=== PATIENT | female | born 1950 | race Caucasian/White ===

== ENCOUNTER 2017-08-18 08:52 | Day surgery (SDC) | payer OTHER ==
--- NOTE | 2017-08-17 12:16 | RADIOLOGY REPORT (SQ) ---
EXAM DESCRIPTION: CHEST PA/LATERAL COMPLETED DATE/TIME: 08/17/2017 12:06 pm REASON FOR STUDY: PRE-OP COMPARISON: 12/11/2016 EXAM PARAMETERS: NUMBER OF VIEWS: two views TECHNIQUE: Digital Frontal and Lateral radiographic views of the chest acquired. RADIATION DOSE: NA LIMITATIONS: none FINDINGS: LUNGS AND PLEURA: The lungs are hyperexpanded. There is no infiltrate or effusion. There is no mass. MEDIASTINUM AND HILAR STRUCTURES: No masses or contour abnormalities. HEART AND VASCULAR STRUCTURES: Heart normal size. No evidence for failure. BONES: Kyphoplasty changes in the lower thoracic spine. HARDWARE: None in the chest. OTHER: No other significant finding. IMPRESSION: Chronic lung changes with no acute cardiopulmonary disease. TECHNICAL DOCUMENTATION: JOB ID: [id number] [employer]- All Rights Reserved Reading location - IP/workstation name: [email or web address]
[2017-08-17 12:32] LABS: ABSOLUTE BASOPHILS # (AUTO) 0.1 10^3/uL (0.0-0.2); ABSOLUTE EOSINOPHILS # (AUTO) 0.1 10^3/uL (0.0-0.6); ABSOLUTE LYMPHOCYTES (AUTO) 1.6 10^3/uL (0.5-4.7); ABSOLUTE MONOCYTES (AUTO) 0.9 10^3/uL (0.1-1.4); ABSOLUTE NEUT (AUTO) 5.9 10^3/uL (1.7-8.2); BASOPHILS % (AUTO) 0.9 % (0-2); EOSINOPHILS % (AUTO) 1.3 % (0-6); HEMATOCRIT 36.1 % (36.0-47.0); HEMOGLOBIN 11.7 g/dL (12.0-15.5); LYMPHOCYTES % (AUTO) 18.2 % (13-45); MEAN CORPUSCULAR HEMOGLOBIN 25.6 pg (27.0-33.4); MEAN CORPUSCULAR HGB CONC 32.4 g/dL (32.0-36.0); MEAN CORPUSCULAR VOLUME 79 fl (80-97); MONOCYTES % (AUTO) 10.9 % (3-13); PLATELET COUNT 410 10^3/uL (150-450); RED BLOOD COUNT 4.57 10^6/uL (3.72-5.28); RED CELL DISTRIBUTION WIDTH 21.8 % (11.5-14.0); SEGMENTED NEUTROPHILS % (AUTO) 68.7 % (42-78); TOTAL CELLS COUNTED % (AUTO) 100 %; WHITE BLOOD COUNT 8.6 10^3/uL (4.0-10.5)
[2017-08-17 12:55] LABS: ANION GAP 10 (5-19); BLOOD UREA NITROGEN 17 mg/dL (7-20); CALCIUM 9.4 mg/dL (8.4-10.2); CARBON DIOXIDE 30 mmol/L (22-30); CHLORIDE 101 mmol/L (98-107); GLUCOSE 108 mg/dL (75-110); POTASSIUM 5.1 mmol/L (3.6-5.0); SODIUM 140.5 mmol/L (137-145)
--- NOTE | 2017-08-17 13:02 | EKG REPORT ---
SEVERITY:- NORMAL ECG - SINUS RHYTHM : Confirmed by: Janna Lozano 17-Aug-2017 13:01:16
[~2017-08-18 08:52] MED LIST: CEFAZOLIN SODIUM 2 GM in DEXTROSE 5%-WATER 100 ML IV PRN; LACTATED RINGERS 1000 ML IV PRN; LIDOCAINE 0.5% INJ-PF (5 MG/ML) 50 ML SDV SUBCUT PRN
[2017-08-18] MEDS ORDERED: BUPIVACAINE HCL 0.5 % INJ/PF 30 ML SDV ONE (08:55)
[2017-08-18 09:31] LABS: APPEARANCE,URINE CLEAR; BILIRUBIN,URINE NEGATIVE (NEGATIVE); COLOR,URINE YELLOW; GLUCOSE, URINE NEGATIVE (NEGATIVE); KETONES,URINE TRACE mg/dL (NEGATIVE); LEUKOCYTE ESTERASE,URINE NEGATIVE (NEGATIVE); NITRITE,URINE NEGATIVE (NEGATIVE); PROTEIN,URINE NEGATIVE (NEGATIVE); URINE SPECIFIC GRAVITY 1.021; UROBILINOGEN,URINE NEGATIVE mg/dL (<2.0)
[2017-08-18] MEDS ORDERED: ALBUTEROL SULFATE 0.083% NEB 2.5 MG/3 ML AMPUL NEB ONE (09:45)
[2017-08-18] MEDS ORDERED: MIDAZOLAM 2 MG/2 ML INJ ONE ×2 (10:03→11:18)
[2017-08-18] MEDS ORDERED: FENTANYL CITRATE INJ/PF 100 MCG/2 ML AMPUL ONE (11:18)
[2017-08-18] MEDS ORDERED: DEXAMETHASONE SOD PHOSPHATE INJ 4 MG/1 ML VIAL ONE (11:18)
[2017-08-18] MEDS ORDERED: MORPHINE SULFATE 10 MG/ML INJ ONE (11:19)
[2017-08-18] MEDS ORDERED: PROPOFOL INJ 200 MG/20 ML VIAL IV ONE (11:19)
[2017-08-18] MEDS ORDERED: ONDANSETRON HCL INJ/PF 4 MG/2 ML SDV ONE (11:19)
[2017-08-18] MEDS ORDERED: MEPERIDINE HCL/PF INJ 25 MG/1 ML DISP.SYRIN IV PRN (12:16)
[2017-08-18] MEDS ORDERED: PROMETHAZINE HCL INJ 25 MG/1 ML VIAL IV PRN ×2 (12:16)
[2017-08-18] MEDS ORDERED: FENTANYL CITRATE INJ/PF 100 MCG/2 ML AMPUL IV PRN ×3 (12:16)
[2017-08-18] MEDS ORDERED: MORPHINE SULFATE 10 MG/ML INJ IV PRN (12:16)
[2017-08-18] MEDS ORDERED: DIPHENHYDRAMINE HCL 50 MG/ML VIAL IV PRN (12:16)
[2017-08-18] MEDS ORDERED: ONDANSETRON HCL INJ/PF 4 MG/2 ML SDV IV PRN (13:23)
[2017-08-18] MEDS ORDERED: OXYCODONE-ACETAMINOPHEN 5-325 MG TABLET PO PRN (13:23)
[2017-08-18] MEDS ORDERED: HYDROMORPHONE HCL INJ/PF 2 MG/ML AMPULE IV PRN (13:23)
--- NOTE | 2017-08-18 13:23 | Discharge Summary ---
Discharge Summary (SDC) - Discharge Final Diagnosis: Left thumb CMC arthritis, MCP joint arthritis Date of Surgery: 08/18/17 Discharge Date: 08/18/17 Condition: Good Treatment or Instructions: Schedule Follow Up w/ Dr. Mika Og @ [facility] to be seen in 10-14 days or as scheduled [place] [facility]: [place]: [place]: Ice and elevate Keep splint clean/dry/intact. If your fingers become numb please unwrap the Kali wrap but leave the splint in place, if the sensation does not return within 30 minutes please return to the emergency department. May begin finger range of motion attempting to make full fist. Please use ibuprofen (Motrin or Advil) 600-800 mg every 8 hours as needed for pain or fever DO NOT TAKE w/ TORADOL may use once TORADOL complete. You may also use acetaminophen (Tylenol) 1000 mg every 4-6 hours as needed for pain or fever. Please be aware that many medications contain acetaminophen, do not exceed a total of 1000 mg of acetaminophen every 6 hours. If ibuprofen and acetaminophen are not sufficient for your pain you may take the Percocet/Potosi. Please be aware that the Percocet/Potosi does contain Tylenol. Stool softener of choice when on pain medication. Prescriptions: Ketorolac Tromethamine [Toradol 10 mg Tablet] 10 mg PO Q8HP PRN #10 tablet PRN Reason: Oxycodone HCl [Oxycontin Sr 10 mg Tablet] 10 mg PO BID PRN #10 tab.sr.12h PRN Reason: Oxycodone HCl/Acetaminophen [Percocet 7.5-325 mg Tablet] 1 - 2 tab PO ASDIR PRN #30 tab PRN Reason: Referrals: RHIANNA FRIEND MD [Primary Care Provider] - Discharge Diet: As Tolerated Respiratory Treatments at Home: Deep Breathing/Coughing, Incentive Spirometer Discharge Activity: No Lifting Over 10 Pounds, No Lifting/Push/Pulling Report the Following to Your Physician Immediately: Fever over 101 Degrees, Unusual Bleeding, Redness, Swelling, Warmth, Increased Soreness
[2017-08-18] MEDS ORDERED: ACETAMINOPHEN 100 ML IV ONE (13:33)
--- NOTE | 2017-08-18 13:37 | Operative Report ---
Operative Report DATE OF SURGERY: 08/18/17 PREOPERATIVE DIAGNOSIS: Left thumb CMC arthritis, MCP joint arthritis/laxity POSTOPERATIVE DIAGNOSIS: Same OPERATION: Left thumb CMC arthroplasty with FCR interposition. 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 ANESTHESIA: GA COMPLICATIONS: None ESTIMATED BLOOD LOSS: Minimal PROCEDURE: Indication for above procedure: 67-year-old female with history of CMC arthritis and concomitant MCP joint laxity and arthritis. Patient attempted conservative measures without resolution of patient's symptoms. Decision was then made to proceed with operative intervention which included CMC arthroplasty with MCP joint arthrodesis. Risks and benefits were explained to the patient verbalized understanding and consented for the procedure. Procedure In Detail: Patient was seen and evaluated in the preoperative holding area. The LEFT upper extremity was initialized and marked. Patient received 2g of Ancef IV for bacterial prophylaxis. Patient was taken back to the operative room where transferred to the operative table and placed under general anesthesia. Once they were adequately anesthetized and a nonsterile tourniquet was placed on the upper extremity. A surgical team debriefing was performed ensuring all instrumentation was available, the surgical procedure was discussed with possible concerns reviewed. The upper extremity was prepped with chlorhexidine and alcohol and draped in a sterile fashion. A timeout was done identifying correct patient, procedure and extremity everyone in attendance agree with this and verbalized no concerns. The extremity was exsanguinated the tourniquet was inflated to 200 mmHg. A longitudinal skin incision was made in line with the first dorsal compartment. I then meticulously dissected down to the interval of the APL and EPB identifying the superficial radial nerve branches which were retracted. I then identified the radial artery which was protected throughout the entirety of the case with a [place] elevator. A T-shaped capsulotomy was made at the CMC joint of the thumb. A freer elevator was used to nicole out the CMC joint, fluoroscopy confirmed the thumb cmc joint placement. The capsule was released off of the trapezium circumferentially. The FCR insertion volarly was protected. Using a rongeur the trapezium was excised as one unit. I then removed any residual loose bodies and bone fragments. I then inspected the STT joint. There was no advanced degenerative changes of the STT joint. I then turned my attention to harvesting the FCR tendon. The FCR was identified and 2 transverse incisions were made. The entire FCR tendon was harvested. The tendon was then retrieved from the CMC joint of the thumb. The base of the thumb metacarpal was rongeured to allow for cancellous tendon healing. I tenolysed the FCR up to its insertion at the second metacarpal. Using a rongeur the 1st metacarpal base osteophytes were removed. Bone tunnels were created with the use of #1 PDS suture in a horizontal mattress fashion while my surgical services assistant held distraction at the thumb CMC joint. Once this was complete excellent stability of the CMC joint was achieved without evidence of subsidence. I fixated the remaining FCR tendon to the FCR tendon that remained attached the to second metacarpal with 3-0 Vicryl forming an anchovy. Fluoroscopy was then obtained which demonstrated good stability of the CMC arthroplasty without evidence of subsidence at rest or with stress. The wound was then copiously irrigated with normal saline. Any peripheral vasculature is carefully coagulated with bipolar cautery The capsule was closed with interrupted 3-0 vicryl. Superficial radial nerve was once again inspected and protected during skin closure. Then turned my attention to MCP joint arthrodesis. Skin incision was extended over the MCP joint. Once again branches of the superficial radial nerve were identified and retracted. The extensor mechanisms was was then split to expose the joint. The collateral ligaments were released and measured a size 12 reamer. A K wire was placed obliquely across the metacarpal head and the size 12 reamer was utilized to good cancellus bone. Distally the proximal phalanx was prepared once again with a size 12 reamer to good cancellus bleeding bone. I then placed a K wire obliquely across the MP joint maintaining 25 of flexion. C-arm fluoroscopy was obtained confirming adequate placement and arthrodesis angulation. The Acumed MCP joint arthrodesis plate was then secured with K wires and placement confirmed with C arm. The plate was initially secured distally with bicortical fixation. I then fixated the proximal aspect of the plate through the dynamic hole providing compression. Once compression was maintained the most proximal screw was placed. To provide further fixation of the MP arthroplasty a mini Acutrak screw was placed obliquely further providing compression. Any remaining gapping l radially or ulnarly wasfilled with cancellus bone from the trapeziectomy. C-arm fluoroscopy was obtained confirming adequate compression and alignment. The wound was copiously irrigated with normal saline. The extensor mechanism was reapproximated with 3-0 Vicryl suture. Skin was closed with a running 4-0 nylon horizontal mattress. The patient was placed in a thumb spica splint. Sponge counts, instrument counts and needle counts were correct. 20 mL of 0.5 marcaine was injected for postoperative pain control. Patient was extubated and transferred to the operative stretcher. There was no intraoperative complications patient tolerated procedure well with stable to PACU. Postoperative plan: Patient will continue the splint for 2 weeks. Patient will then be transitioned to a cast for an additional 2 weeks. They will then begin occupational therapy at 4 weeks and will be fitted for a thermoplastic splint at that time.
[2017-08-18] MEDS ORDERED: KETOROLAC TROMETHAMINE INJ/PF 30 MG/1 ML SDV ONE (14:08)
--- NOTE | 2017-08-18 14:21 | RADIOLOGY REPORT (SQ) ---
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 FLUOROSCOPY TIME: 25 seconds 2 digital radiographic images saved to PACS. TECHNIQUE: Intra-operative images acquired during surgical procedure to evaluate progress. NUMBER OF IMAGES: 2 C-arm digital images LIMITATIONS: None. FINDINGS: Post fusion across the left thumb, at the 1st metacarpophalangeal joint. Fixation plate a nd 5 screws are present IMPRESSION: Intra procedural imaging and fluoro COMMENT: Quality ID [id number]: Final reports for procedures using fluoroscopy that document radiation exp osure indices, or exposure time and number of fluorographic images (if radiation exposure indices are not available) Please consult full operative report of the attending physician for description of the procedure. TECHNICAL DOCUMENTATION: JOB ID: [id number] [employer]- All Rights Reserved Reading location - IP/workstation name: [facility]
--- NOTE | 2017-08-18 14:21 | RADIOLOGY REPORT (SQ) ---
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 FLUOROSCOPY TIME: 25 seconds 2 digital radiographic images saved to PACS. TECHNIQUE: Intra-operative images acquired during surgical procedure to evaluate progress. NUMBER OF IMAGES: 2 C-arm digital images LIMITATIONS: None. FINDINGS: Post fusion across the left thumb, at the 1st metacarpophalangeal joint. Fixation plate a nd 5 screws are present IMPRESSION: Intra procedural imaging and fluoro COMMENT: Quality ID [id number]: Final reports for procedures using fluoroscopy that document radiation exp osure indices, or exposure time and number of fluorographic images (if radiation exposure indices are not available) Please consult full operative report of the attending physician for description of the procedure. TECHNICAL DOCUMENTATION: JOB ID: [id number] [employer]- All Rights Reserved Reading location - IP/workstation name: [facility] [[email or web address]]
[2017-08-18 17:40] VITALS: BP 112/68
== END 2017-08-18 17:04 | disposition home or self-care (01) ==
LOC: OROUT 08:52
PROVIDERS: ATTEND Orthopaedic Surgery
DX: M18.0 Bilateral primary osteoarthritis of first carpometacarpal joints (principal); M25.242 Flail joint, left hand; M79.642 Pain in left hand; M79.641 Pain in right hand; J44.9 Chronic obstructive pulmonary disease, unspecified; F17.210 Nicotine dependence, cigarettes, uncomplicated; I48.91 Unspecified atrial fibrillation; Z99.81 Dependence on supplemental oxygen; Z79.01 Long term (current) use of anticoagulants; Z79.82 Long term (current) use of aspirin; Z79.51 Long term (current) use of inhaled steroids; Z01.818 Encounter for other preprocedural examination
CPT/HCPCS: 93005; 36415 ×2; 84132; 85025; 80048; 81001; 71046; 73100; 93010; 26841; 25447; 26480; C1769 ×2; J2250; J3490; J0690; J1100; J3010; J1885; J2405; J2704; A9270; J0131; 01830; J2270

== ENCOUNTER 2017-12-13 14:26 | Emergency (ER) | payer OTHER ==
[2017-12-13 16:52] LABS: INTERNATIONAL RATION (INR) 0.85; PROTHROMBIN TIME 12.1 SEC (11.4-15.4)
--- NOTE | 2017-12-13 17:07 | ER Document Report ---
ED Medical Screen (RME) - General Chief Complaint: Shortness Of Breath Stated Complaint: TROUBLE BREATHING/CHEST PAIN Time Seen by Provider: 12/13/17 16:21 TRAVEL OUTSIDE OF THE [place] IN LAST 30 DAYS: No - HPI Patient complains to provider of: Shortness of breath Onset: Other - This 67-year-old woman with a history of COPD as well as hypertension presents for evaluation of worsening shortness of breath over the last week in the setting of her feeling both anxious as well as increasing her smoking frequency because of the stress related to her being in the hospital. - Related Data Allergies/Adverse Reactions: No Known Allergies Allergy (Verified 12/13/17 16:05) Past Medical History - Social History Chew tobacco use (# tins/day): No Frequency of alcohol use: None Drug Abuse: None - Past Medical History Cardiac Medical History: Reports: Hx Coronary Artery Disease - PVD, Hx Peripheral Vascular Disease Denies: Hx Hypertension Pulmonary Medical History: Reports: Hx COPD, Hx Pneumonia Denies: Hx Asthma, Hx Bronchitis Neurological Medical History: Denies: Hx Cerebrovascular Accident, Hx Seizures Renal/ Medical History: Denies: Hx Peritoneal Dialysis Musculoskeltal Medical History: Reports Hx Arthritis Psychiatric Medical History: Comment Only: Hx Depression - anxiety Past Surgical History: Reports: Hx Adenoidectomy, Hx Carotid Endarterectomy, Hx Cholecystectomy, Hx Orthopedic Surgery - Back surgery, wrist surgery, neck surgery, Hx Tonsillectomy, Hx Vascular Surgery - Immunizations Hx Diphtheria, Pertussis, Tetanus Vaccination: Yes History of Influenza Vaccine for 01/2017 - 06/2017 Season: No Physical Exam - Vital signs Vitals: Temp Pulse Resp BP Pulse Ox 97.8 F 87 16 117/70 90 L 12/13/17 14:53 12/13/17 14:53 12/13/17 14:53 12/13/17 14:53 12/13/17 14:53 Course - Re-evaluation Re-evalutation: 12/13/17 17:17 This woman with COPD use a 67 years old looks fatigued, her pulse ox on room air is 90%, she has scattered wheezes throughout her chest she is worse when shortness of breath will initiate cardiac workup through triage, will plan for troponins, will plan for this patient undergo further monitoring and testing will obtain chest x-ray as well will defer treatment at this time she says she does not want a breathing treatment at the moment. - Vital Signs Vital signs: Temp Pulse Resp BP Pulse Ox 97.8 F 87 16 117/70 90 L 12/13/17 14:53 12/13/17 14:53 12/13/17 14:53 12/13/17 14:53 12/13/17 14:53 - Laboratory Result Diagrams: 12/13/17 14:00 12/13/17 14:00 Doctor's Discharge - Discharge Referrals: RHIANNA FRIEND MD [Primary Care Provider] - Follow up as needed
--- NOTE | 2017-12-13 17:23 | RADIOLOGY REPORT (SQ) ---
EXAM DESCRIPTION: CHEST 2 VIEWS COMPLETED DATE/TIME: 12/13/2017 5:07 pm REASON FOR STUDY: chest pain COMPARISON: 12/11/2016 TECHNIQUE: Frontal and lateral radiographic views of the chest acquired. NUMBER OF VIEWS: Two view. LIMITATIONS: None. FINDINGS: LUNGS AND PLEURA: No pneumothorax. No consolidation or pleural effusion. MEDIASTINUM AND HILAR STRUCTURES: Stable. HEART AND VASCULAR STRUCTURES: Stable. BONES: No acute findings. HARDWARE: None in the chest. OTHER: No other significant finding. IMPRESSION: NO ACUTE FINDINGS. TECHNICAL DOCUMENTATION: JOB ID: [id number] [place]-72 2010 [employer]- All Rights Reserved Reading location - IP/workstation name: [email or web address]
[2017-12-13 17:58] LABS: HEMATOCRIT 40.8 % (36.0-47.0); HEMOGLOBIN 13.4 g/dL (12.0-15.5); MEAN CORPUSCULAR HEMOGLOBIN 26.9 pg (27.0-33.4); MEAN CORPUSCULAR HGB CONC 32.9 g/dL (32.0-36.0); MEAN CORPUSCULAR VOLUME 82 fl (80-97); PLATELET COUNT 429 10^3/uL (150-450); RED BLOOD COUNT 4.98 10^6/uL (3.72-5.28); RED CELL DISTRIBUTION WIDTH 20.2 % (11.5-14.0); WHITE BLOOD COUNT 6.8 10^3/uL (4.0-10.5)
[2017-12-13] MEDS ORDERED: ALPRAZOLAM 0.5 MG TABLET PO ONE (18:03)
[2017-12-13] MEDS ORDERED: NORMAL SALINE 1000 ML 1,000 ML IV ONE (18:03)
[2017-12-13 18:21] LABS: ABSOLUTE LYMPHOCYTES# (MANUAL) 0.2 10^3/uL (0.5-4.7); ABSOLUTE MONOCYTES # (MANUAL) 0.1 10^3/uL (0.1-1.4); ABSOLUTE NEUTROPHILS# (MANUAL) 6.5 10^3/uL (1.7-8.2); BASOPHILS % (MANUAL) 0 % (0-2); EOSINOPHILS % (MANUAL) 0 % (0-6); LYMPHOCYTES % (MANUAL) 3 % (13-45); MONOCYTES % (MANUAL) 1 % (3-13); SEGMENTED NEUTROPHILS % (MAN) 96 % (42-78); TOTAL CELLS COUNTED 100
[2017-12-13 18:22] LABS: HYPOCHROMASIA SLIGHT; POLYCHROMASIA SLIGHT
[2017-12-13 18:23] LABS: ANISOCYTOSIS 2+; OVALOCYTES 2+; PLATELET COMMENT ADEQUATE; POIKILOCYTOSIS 2+
[2017-12-13 19:03] LABS: CREATINE KINASE MB 0.73 ng/mL (<4.55)
[2017-12-13 19:04] LABS: TROPONIN I < 0.012 ng/mL
[2017-12-13 19:22] LABS: ALANINE AMINOTRANSFERASE 36 U/L (9-52); ALBUMIN 3.9 g/dL (3.5-5.0); ALKALINE PHOSPHATASE 131 U/L (38-126); ANION GAP 11 (5-19); ASPARTATE AMINO TRANSFERASE 30 U/L (14-36); BILIRUBIN,DIRECT 0.5 mg/dL (0.0-0.4); BILIRUBIN,TOTAL 0.5 mg/dL (0.2-1.3); BLOOD UREA NITROGEN 15 mg/dL (7-20); CALCIUM 9.4 mg/dL (8.4-10.2); CARBON DIOXIDE 30 mmol/L (22-30); CHLORIDE 99 mmol/L (98-107); CREATINE KINASE 42 U/L (30-135); GLUCOSE 120 mg/dL (75-110); POTASSIUM 4.1 mmol/L (3.6-5.0); SODIUM 140.4 mmol/L (137-145); TOTAL PROTEIN 6.7 g/dL (6.3-8.2)
[2017-12-13] MEDS ORDERED: PREDNISONE 20 MG TABLET PO ONE (21:11)
--- NOTE | 2017-12-13 21:13 | ER Document Report ---
ED Respiratory Problem - General Chief Complaint: Shortness Of Breath Stated Complaint: TROUBLE BREATHING/CHEST PAIN Time Seen by Provider: 12/13/17 16:21 Mode of Arrival: Ambulatory Information source: Patient TRAVEL OUTSIDE OF THE [place] IN LAST 30 DAYS: No - HPI Patient complains to provider of: Chest pain, Short of breath Onset: Yesterday Duration: Continuous Quality of pain: Achy Severity: Moderate Pain Level: 3 Context: Smoker Short of Breath: Mild Chest pain/discomfort: Tightness Cough: Nonproductive Associated symptoms: Cough, Short of breath Similar symptoms previously: Yes Recently seen / treated by doctor: No Notes: Patient is a 67-year-old female who is a smoker who presents to the emergency room chest pain with tightness and shortness of breath that started sometime yesterday, she reports no coughing, no fevers, she does have a history of anxiety and reports increased stressors recently as her had a heart attack approximately 1 month ago, remains in the hospital and is not doing very well, she ran out of Xanax recently as well, which she usually takes to help calm her nerves, patient also reports that the tingling sensation in her right hand with 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 since yesterday as well, she is a history of chronic pain syndrome with arthritis in her spine, denies any recent falls or injuries, denies any lower extremity weakness, no difficulty speaking or ambulating - Related Data Allergies/Adverse Reactions: No Known Allergies Allergy (Verified 12/13/17 16:05) Past Medical History - General Information source: Patient - Social History Smoking Status: Current Every Day Smoker Chew tobacco use (# tins/day): No Frequency of alcohol use: None Drug Abuse: None Family History: CAD Patient has suicidal ideation: No Patient has homicidal ideation: No - Past Medical History Cardiac Medical History: Reports: Hx Coronary Artery Disease - PVD, Hx Peripheral Vascular Disease Denies: Hx Hypertension Pulmonary Medical History: Reports: Hx COPD, Hx Pneumonia Denies: Hx Asthma, Hx Bronchitis Neurological Medical History: Denies: Hx Cerebrovascular Accident, Hx Seizures Renal/ Medical History: Denies: Hx Peritoneal Dialysis Musculoskeletal Medical History: Reports Hx Arthritis Psychiatric Medical History: Comment Only: Hx Depression - anxiety Past Surgical History: Reports: Hx Adenoidectomy, Hx Carotid Endarterectomy, Hx Cholecystectomy, Hx Orthopedic Surgery - Back surgery, wrist surgery, neck surgery, Hx Tonsillectomy, Hx Vascular Surgery - Immunizations Hx Diphtheria, Pertussis, Tetanus Vaccination: Yes Review of Systems - Review of Systems Constitutional: No symptoms reported EENT: No symptoms reported Cardiovascular: See HPI Respiratory: See HPI Gastrointestinal: No symptoms reported Genitourinary: No symptoms reported Female Genitourinary: No symptoms reported Musculoskeletal: See HPI Skin: No symptoms reported Hematologic/Lymphatic: No symptoms reported Neurological/Psychological: No symptoms reported -: Yes All other systems reviewed and negative Physical Exam - Vital signs Vitals: Temp Pulse Resp BP Pulse Ox 97.8 F 87 16 117/70 90 L 12/13/17 14:53 12/13/17 14:53 12/13/17 14:53 12/13/17 14:53 12/13/17 14:53 Interpretation: Hypoxic - General General appearance: Appears well, Alert - HEENT Head: Normocephalic, Atraumatic Eyes: Normal Pupils: PERRL - Respiratory Respiratory status: No respiratory distress Chest status: Nontender Breath sounds: Normal Chest palpation: Normal - Cardiovascular Rhythm: Regular Heart sounds: Normal auscultation Murmur: No - Abdominal Inspection: Normal Distension: No distension Bowel sounds: Normal Tenderness: Nontender Organomegaly: No organomegaly - Back Back: Normal, Nontender - Extremities General upper extremity: Normal inspection, Nontender, Normal color, Normal ROM , Normal temperature General lower extremity: Normal inspection, Nontender, Normal color, Normal ROM , Normal temperature, Normal weight bearing. 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 Sensory: Normal - Psychological Associated symptoms: Flat affect, Tearful - Skin Skin Temperature: Warm Skin Moisture: Dry Skin Color: Normal Course - Re-evaluation Re-evalutation: 12/13/17 21:26 Patient with relatively normal workup, history of COPD and continues to smoke, and decreased smoking recently secondary to stressors including her being in the hospital, she also reports a history of anxiety and states she ran out of Uni-Control recently, she has a history of some chronic neck and back pain and reports some 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 since yesterday, on physical exam patient has good top tile decorator strength bilaterally, no facial asymmetry, no weakness in her lower extremities, workup consistent with likely COPD, exacerbated by her recent increase in smoking, as well as stress and anxiety, she was given a dose of Xanax here in the emergency department and has been sleeping comfortably the entire time with stable vital signs, labs are otherwise unremarkable, troponin 2 are negative, therefore patient was discharged with prescription for prednisone and a prescription for Xanax quantity 6 until she is able to follow-up with her primary care provider in the next 1-2 days, advised to return if symptoms worsen in any way or any additional parents, smoking cessation was also discussed for approximately 2 minutes, patient acknowledges understanding and agreement with this plan - Vital Signs Vital signs: Temp Pulse Resp BP Pulse Ox 97.8 F 87 17 115/72 97 12/13/17 14:53 12/13/17 14:53 12/13/17 19:01 12/13/17 19:00 12/13/17 19:01 - Laboratory Result Diagrams: 12/13/17 17:38 12/13/17 17:38 Laboratory results interpreted by me: 12/13/17 12/13/17 17:38 17:38 MCH 26.9 L RDW 20.2 H Seg Neuts % (Manual) 96 H Lymphocytes % (Manual) 3 L Monocytes % (Manual) 1 L Abs Lymphs (Manual) 0.2 L Glucose 120 H Direct Bilirubin 0.5 H Alkaline Phosphatase 131 H - Diagnostic Test Radiology reviewed: Image reviewed, Reports reviewed - EKG Interpretation by [place] EKG shows normal: Sinus rhythm Rate: Normal Rhythm: NSR, PVC's Discharge - Discharge Clinical Impression: COPD exacerbation, Anxiety Chest pain Qualifiers: Chest pain type: unspecified Qualified Code(s): R07.9 - Chest pain, unspecified Condition: Stable Disposition: HOME, SELF-CARE Instructions: Anxiety ([facility]), Chronic Obstructive Lung Disease ([facility]), Chest Pain of Unclear Cause ([facility]) Additional Instructions: Follow up with your primary care provider in one to 2 days. Return to the emergency room immediately if symptoms worsen or any additional concerns. Prescriptions: Alprazolam [Xanax 0.5 mg Tablet] 0.5 mg PO Q6HP PRN #6 tab PRN Reason: Prednisone 40 mg PO DAILY #8 tablet Forms: Smoking Cessation Education Referrals: RHIANNA FRIEND MD [ACTIVE STAFF] - Follow up as needed
[2017-12-13 21:35] VITALS: BP 118/77
--- NOTE | 2017-12-14 08:02 | EKG REPORT ---
SEVERITY:- BORDERLINE ECG - SINUS RHYTHM VENTRICULAR PREMATURE COMPLEX BORDERLINE PROLONGED QT INTERVAL : Confirmed by: Kal Camarena MD 14-Dec-2017 08:02:18
== END 2017-12-13 21:31 | disposition home or self-care (01) ==
LOC: ER 14:26
DX: J44.1 Chronic obstructive pulmonary disease with (acute) exacerbation (principal); F41.9 Anxiety disorder, unspecified; T42.4X6A Underdosing of benzodiazepines, initial encounter; Z91.128 Patient's intentional underdosing of medication regimen for other reason; Z91.14 Patient's other noncompliance with medication regimen; R06.02 Shortness of breath; R05 Cough; R07.89 Other chest pain; F17.200 Nicotine dependence, unspecified, uncomplicated; R20.2 Paresthesia of skin; I25.10 Atherosclerotic heart disease of native coronary artery without angina pectoris; I49.3 Ventricular premature depolarization
CPT/HCPCS: 93005; 99285; 96360; 36415; 82553; 82550; 85025; 85610; 80053; 84484; 71046; 93010; A9270 ×2; J7030; J7512

== ENCOUNTER 2018-01-11 10:37 | Emergency (ER) | payer OTHER ==
--- NOTE | 2018-01-11 11:11 | ER Document Report ---
ED General - General Stated Complaint: POSSIBLE OVERDOSE Time Seen by Provider: 01/11/18 10:43 TRAVEL OUTSIDE OF THE [place] IN LAST 30 DAYS: No - HPI Notes: Patient is a 67-year-old female that presents to the emergency department for chief complaint of mental status change. Patient presented by EMS. HPI provided by patient as well as EMS reports. EMS states they were called to the house because of acute mental status change. They found a Percocet bottle that was missing medication. They did not bring the bottle with him and are not sure how many pills were missing or when the prescription was filled. Patient had respirations of 10 and pinpoint pupils per EMS. When she arrived in the emergency room she was given 2 mg IV Narcan and woke up. She is now breathing at a normal rate. She was hypoxic at 86% on room air. Patient states she has Percocet that is a prescription of hers which she has been on for years. She believes it is 5 mg. She is not sure how many she took or when she took them. She states her son may have given her Narcan but she is not sure. She denies any heroin use. HPI limited because of patient is a poor historian. Currently her only complaint is feeling cold Past Medical History: Chronic back pain Past Surgical History: Unknown Social History: Reviewed in chart Family History: Reviewed and noncontributory for presenting illness Allergies: Reviewed, see documented allergy list. REVIEW OF SYSTEMS: CONSTITUTIONAL : No fever No chills No diaphoresis No recent illness EENT: No vision changes No congestion No sore throat CARDIOVASCULAR: No chest pain No palpitations RESPIRATORY: No shortness of breath No cough No difficulty breathing GASTROINTESTINAL: No abdominal pain No nausea No vomiting No diarrhea GENITOURINARY: No dysuria No hematuria No difficulty urinating MUSCULOSKELETAL: No back pain No leg pain No arm pain SKIN: No rashes No lesions LYMPHATIC: No swollen, enlarged glands. NEUROLOGICAL: No lightheadedness No headache No weakness No paresthesias PSYCHIATRIC: No anxiety No depression PHYSICAL EXAMINATION: Vital signs reviewed, nursing noted reviewed. GENERAL: Well-appearing, well-nourished and in no acute distress. HEAD: Atraumatic, normocephalic. EYES: Eyes appear normal, extraocular movements intact, sclera anicteric, conjunctiva are normal. ENT: nares patent, oropharynx clear without exudates. Moist mucous membranes. NECK: Normal range of motion, supple without lymphadenopathy LUNGS: Breath sounds wheezing to auscultation bilaterally and equal. HEART: Regular rate and rhythm without murmurs ABDOMEN: Soft, nontender, normoactive bowel sounds. No rebound, guarding, or rigidity. No masses appreciated. EXTREMITIES: Nontender, good range of motion, no pitting or edema. NEUROLOGICAL: No focal neurological deficits. Moves all extremities spontaneously Motor and sensory grossly intact on exam. PSYCH: Normal mood, normal affect. SKIN: Warm, Dry, normal turgor, no rashes or lesions noted on exposed skin - Related Data Allergies/Adverse Reactions: No Known Allergies Allergy (Verified 12/13/17 16:05) Past Medical History - Social History Smoking Status: Current Every Day Smoker Family History: CAD - Past Medical History Cardiac Medical History: Reports: Hx Coronary Artery Disease - PVD, Hx Peripheral Vascular Disease Denies: Hx Hypertension Pulmonary Medical History: Reports: Hx COPD, Hx Pneumonia Denies: Hx Asthma, Hx Bronchitis Neurological Medical History: Denies: Hx Cerebrovascular Accident, Hx Seizures Renal/ Medical History: Denies: Hx Peritoneal Dialysis Musculoskeletal Medical History: Reports Hx Arthritis Psychiatric Medical History: Comment Only: Hx Depression - anxiety Past Surgical History: Reports: Hx Adenoidectomy, Hx Carotid Endarterectomy, Hx Cholecystectomy, Hx Orthopedic Surgery - Back surgery, wrist surgery, neck surgery, Hx Tonsillectomy, Hx Vascular Surgery - Immunizations Hx Diphtheria, Pertussis, Tetanus Vaccination: Yes Review of Systems - Review of Systems Notes: Dictated Physical Exam - Vital signs Vitals: Resp 31 H 01/11/18 10:48 - Notes Notes: Dictated Course - Re-evaluation Re-evalutation: 01/11/18 11:10 Vitals reviewed. Patient clinically improved after Narcan. She initially was confused but on reevaluation is a Laboratory 01/11/18 01/11/18 01/11/18 11:00 11:00 11:00 WBC 18.1 H RBC 4.60 Hgb 12.3 Hct 38.4 MCV 84 MCH 26.9 L MCHC 32.2 RDW 19.4 H Plt Count 446 Total Counted 100 Seg Neutrophils % Not Reportable Seg Neuts % (Manual) 92 H Lymphocytes % Not Reportable Lymphocytes % (Manual) 3 L Monocytes % Not Reportable Monocytes % (Manual) 5 Eosinophils % Not Reportable Eosinophils % (Manual) 0 Basophils % Not Reportable Basophils % (Manual) 0 Absolute Neutrophils Not Reportable Abs Neuts (Manual) 16.7 H Absolute Lymphocytes Not Reportable Abs Lymphs (Manual) 0.5 Absolute Monocytes Not Reportable Abs Monocytes (Manual) 0.9 Absolute Eosinophils Not Reportable Absolute Eos (Manual) 0.0 Absolute Basophils Not Reportable Abs Basophils (Manual) 0.0 Toxic Vacuolation PRESENT Clumped Platelets PRESENT Platelet Comment Not Reportable Poikilocytosis 2+ Anisocytosis 2+ Tear Drop Cells SLIGHT Ovalocytes 2+ Sodium 136.7 L Potassium 5.0 Chloride 100 Carbon Dioxide 32 H Anion Gap 5 BUN 17 Creatinine 0.90 Est GFR ( Amer) > 60 Est GFR (Non-Af Amer) > 60 Glucose 149 H Lactic Acid Calcium 9.3 Total Bilirubin 0.3 Direct Bilirubin 0.3 Neonat Total Bilirubin Not Reportable Neonat Direct Bilirubin Not Reportable Neonat Indirect Bili Not Reportable AST 84 H ALT 80 H Alkaline Phosphatase 169 H Troponin I < 0.012 Total Protein 5.9 L Albumin 3.4 L Urine Color Urine Appearance Urine pH Ur Specific Atlas Urine Protein Urine Glucose (UA) Urine Ketones Urine Blood Urine Nitrite Urine Bilirubin Urine Urobilinogen Ur Leukocyte Esterase Urine WBC (Auto) Urine RBC (Auto) U Hyaline Cast (Auto) Squamous Epi Cells Auto U Non-Squamous Epis Auto Urine Mucus (Auto) Urine Ascorbic Acid Salicylates 1.5 L Urine Opiates Screen Urine Methadone Screen Acetaminophen < 10 L Ur Barbiturates Screen Ur Phencyclidine Scrn Ur Amphetamines Screen U Benzodiazepines Scrn Urine Cocaine Screen U Marijuana (THC) Screen Serum Alcohol < 10 01/11/18 01/11/18 01/11/18 13:00 13:00 13:35 WBC RBC Hgb Hct MCV MCH MCHC RDW Plt Count Total Counted Seg Neutrophils % Seg Neuts % (Manual) Lymphocytes % Lymphocytes % (Manual) Monocytes % Monocytes % (Manual) Eosinophils % Eosinophils % (Manual) Basophils % Basophils % (Manual) Absolute Neutrophils Abs Neuts (Manual) Absolute Lymphocytes Abs Lymphs (Manual) Absolute Monocytes Abs Monocytes (Manual) Absolute Eosinophils Absolute Eos (Manual) Absolute Basophils Abs Basophils (Manual) Toxic Vacuolation Clumped Platelets Platelet Comment Poikilocytosis Anisocytosis Tear Drop Cells Ovalocytes Sodium Potassium Chloride Carbon Dioxide Anion Gap BUN Creatinine Est GFR ( Amer) Est GFR (Non-Af Amer) Glucose Lactic Acid Cancelled Calcium Total Bilirubin Direct Bilirubin Neonat Total Bilirubin Neonat Direct Bilirubin Neonat Indirect Bili AST ALT Alkaline Phosphatase Troponin I Total Protein Albumin Urine Color YELLOW Urine Appearance SLIGHTLY-CLOUDY Urine pH 5.0 Ur Specific Atlas 1.017 Urine Protein NEGATIVE Urine Glucose (UA) NEGATIVE Urine Ketones TRACE H Urine Blood NEGATIVE Urine Nitrite NEGATIVE Urine Bilirubin NEGATIVE Urine Urobilinogen NEGATIVE Ur Leukocyte Esterase NEGATIVE Urine WBC (Auto) 3 Urine RBC (Auto) 1 U Hyaline Cast (Auto) 13 Squamous Epi Cells Auto 1 U Non-Squamous Epis Auto 1 Urine Mucus (Auto) RARE Urine Ascorbic Acid NEGATIVE Salicylates Urine Opiates Screen UNCONFIRMED POSITIVE Urine Methadone Screen NEGATIVE Acetaminophen Ur Barbiturates Screen NEGATIVE Ur Phencyclidine Scrn NEGATIVE Ur Amphetamines Screen NEGATIVE U Benzodiazepines Scrn NEGATIVE Urine Cocaine Screen NEGATIVE U Marijuana (THC) Screen NEGATIVE Serum Alcohol Head CT 01/11/18 10:59 IMPRESSION: Motion artifact. No acute findings. Old right cerebellar lacunar infarct EVIDENCE OF ACUTE STROKE: NO. Chest X-Ray 01/11/18 11:00 IMPRESSION: Obstructive lung disease Moderate gaseous distension of stomach and O 4. She has no current complaints. Her oxygen is stable now but she has had periods of hypoxia. I recommended admission to the hospital for her hypoxia as well as the potential for the Narcan to wear off prior to her Percocet overdose wearing off causing her to become unresponsive again. Patient understands that she may become unresponsive again. She states her son has Narcan at home and her family will keep an eye on her. She understands she is hypoxic and risking by leaving the hospital. Patient encouraged to return to the emergency room at any point for reevaluation and further treatment. The patient has chosen to leave the facility against medical advice. The relevant issues have been reviewed and discussed with the patient and family at the bedside. At the time of this assessment there is no indication for involuntary commitment. The patient is alert, oriented, and able to express clearly their reasoning for not wanting to remain in the emergency department for further treatment. The patient is not clinically psychotic, intoxicated, and denies and suicidal ideation. Differential or suspected diagnoses based on medical screening exam: Opiate overdose with hypoxia The patient is aware of the concerning diagnoses and acknowledges understanding of the reasons for the following recommendations: Recommend admission to the hospital because of the longer duration of action of Percocet and the potential for the Narcan to wear off causing her to become unresponsive again The following recommendations/services were offered and refused: Into the hospital The following risks were explained: , permanent disability, loss of function Clinical impression: Patient is competent to make decisions regarding the medical that is being offered. 01/11/18 14:05 - Vital Signs Vital signs: Temp Pulse Resp BP Pulse Ox 22 H 128/105 H 89 L 01/11/18 13:00 01/11/18 11:03 01/11/18 13:00 - Laboratory Result Diagrams: 01/11/18 11:00 01/11/18 11:00 Laboratory results interpreted by me: 01/11/18 01/11/18 01/11/18 11:00 11:00 13:00 WBC 18.1 H MCH 26.9 L RDW 19.4 H Seg Neuts % (Manual) 92 H Lymphocytes % (Manual) 3 L Abs Neuts (Manual) 16.7 H Sodium 136.7 L Carbon Dioxide 32 H Glucose 149 H AST 84 H ALT 80 H Alkaline Phosphatase 169 H Total Protein 5.9 L Albumin 3.4 L Urine Ketones TRACE H Salicylates 1.5 L Acetaminophen < 10 L - EKG Interpretation by Me Additional EKG results interpreted by me: 01/11/18 11:51 1149: Sinus tachycardia, rate 114, normal axis, no ectopy, no ST elevation Discharge - Discharge Clinical Impression: Opiate overdose Qualifiers: Encounter type: initial encounter Injury intent: accidental or unintentional Qualified Code(s): T40.601A - Poisoning by unspecified narcotics, accidental ( unintentional), initial encounter Condition: Good Disposition: AGAINST MEDICAL ADVICE Instructions: Overdose ([facility]) Additional Instructions: You overdosed on Percocet today causing you to stop breathing. It is possible that after the Narcan wears off you will become unresponsive again. If this happens you may or sustain permanent disability. I advised being admitted to the hospital. You are welcome to return to the emergency room at any point for further evaluation and treatment. Referrals: HELENA PURCELL MD [Primary Care Provider] - Follow up as needed
[2018-01-11 11:24] LABS: HEMATOCRIT 38.4 % (36.0-47.0); HEMOGLOBIN 12.3 g/dL (12.0-15.5); MEAN CORPUSCULAR HEMOGLOBIN 26.9 pg (27.0-33.4); MEAN CORPUSCULAR HGB CONC 32.2 g/dL (32.0-36.0); MEAN CORPUSCULAR VOLUME 84 fl (80-97); RED CELL DISTRIBUTION WIDTH 19.4 % (11.5-14.0); WHITE BLOOD COUNT 18.1 10^3/uL (4.0-10.5)
--- NOTE | 2018-01-11 11:35 | RADIOLOGY REPORT (SQ) ---
EXAM DESCRIPTION: CHEST SINGLE VIEW COMPLETED DATE/TIME: 01/11/2018 11:21 am REASON FOR STUDY: hypoxia COMPARISON: Chest films 12/13/2017, 07/31/2017 CT chest 12/11/2016 EXAM PARAMETERS: NUMBER OF VIEWS: One view. TECHNIQUE: Single frontal radiographic view of the chest acquired. RADIATION DOSE: NA LIMITATIONS: None. FINDINGS: LUNGS AND PLEURA: Upper lobes are hyperlucent from obstructive disease. Minimal scarring at the left lung base. No acute infiltrates, pleural effusion or pneumothorax. MEDIASTINUM AND HILAR STRUCTURES: No masses. Contour normal. HEART AND VASCULAR STRUCTURES: Heart normal in size. Normal vasculature. BONES: Osteoporotic HARDWARE: Surgical clips in the right neck likely post carotid endarterectomy OTHER: Moderate gaseous distention of the stomach IMPRESSION: Obstructive lung disease Moderate gaseous distension of stomach TECHNICAL DOCUMENTATION: JOB ID: [id number] [employer]- All Rights Reserved Reading location - IP/workstation name: [email or web address]
--- NOTE | 2018-01-11 11:37 | RADIOLOGY REPORT (SQ) ---
EXAM DESCRIPTION: CT HEAD WITHOUT COMPLETED DATE/TIME: 01/11/2018 11:25 am REASON FOR STUDY: mental status change COMPARISON: CTA neck 12/11/2016 TECHNIQUE: Axial images acquired through the brain without intravenous contrast. Images reviewed wi th bone, brain and subdural windows. Additional sagittal and coronal reconstructions were generated. Images stored on PACS. All CT scanners at this facility use dose modulation, iterative reconstruction, and/or weight based d osing when appropriate to reduce radiation dose to as low as reasonably achievable (ALARA). [facility]: Dose Right [facility]: CareDose [facility]: Dose Right [facility]: Teradose 4D [facility]: [employer] RADIATION DOSE: CT Rad equipment meets quality standard of care and radiation dose reduction techniq ues were employed. CTDIvol: 53.2 mGy. DLP: 991 mGy-cm. mGy. LIMITATIONS: Motion artifact FINDINGS: VENTRICLES: Normal size and contour. CEREBRUM: No masses. No hemorrhage. No midline shift. No evidence for acute infarction. Normal gra y/white matter differentiation. No areas of low density in the white matter. CEREBELLUM: No masses. No hemorrhage. Old right cerebellar lacunar infarct. No evidence for acute infarction. EXTRAAXIAL SPACES: No fluid collections. No masses. ORBITS AND GLOBE: No intra- or extraconal masses. Normal contour of globe without masses. CALVARIUM: No fracture. PARANASAL SINUSES: No fluid or mucosal thickening. SOFT TISSUES: No mass or hematoma. OTHER: No other significant finding. IMPRESSION: Motion artifact. No acute findings. Old right cerebellar lacunar infarct EVIDENCE OF ACUTE STROKE: NO. COMMENT: Quality ID # [id number]: Final reports with documentation of one or more dose reduction techniques (e.g., Automated exposure control, adjustment of the mA and/or kV according to patient size, use of iterative reconstruction technique) TECHNICAL DOCUMENTATION: JOB ID: [id number] [employer]- All Rights Reserved Reading location - IP/workstation name: [email or web address]
[2018-01-11 11:46] LABS: ACETAMINOPHEN < 10 ug/mL (10-30); ALANINE AMINOTRANSFERASE 80 U/L (9-52); ALBUMIN 3.4 g/dL (3.5-5.0); ALCOHOL < 10 mg/dL (NONE DETECTED); ALKALINE PHOSPHATASE 169 U/L (38-126); ANION GAP 5 (5-19); ASPARTATE AMINO TRANSFERASE 84 U/L (14-36); BILIRUBIN,DIRECT 0.3 mg/dL (0.0-0.4); BILIRUBIN,TOTAL 0.3 mg/dL (0.2-1.3); BLOOD UREA NITROGEN 17 mg/dL (7-20); CALCIUM 9.3 mg/dL (8.4-10.2); CARBON DIOXIDE 32 mmol/L (22-30); CHLORIDE 100 mmol/L (98-107); GLUCOSE 149 mg/dL (75-110); SALICYLATE 1.5 mg/dL (2.0-20.0); SODIUM 136.7 mmol/L (137-145); TOTAL PROTEIN 5.9 g/dL (6.3-8.2)
[2018-01-11 11:47] LABS: ABSOLUTE LYMPHOCYTES# (MANUAL) 0.5 10^3/uL (0.5-4.7); ABSOLUTE MONOCYTES # (MANUAL) 0.9 10^3/uL (0.1-1.4); ABSOLUTE NEUTROPHILS# (MANUAL) 16.7 10^3/uL (1.7-8.2); BASOPHILS % (MANUAL) 0 % (0-2); EOSINOPHILS % (MANUAL) 0 % (0-6); LYMPHOCYTES % (MANUAL) 3 % (13-45); MONOCYTES % (MANUAL) 5 % (3-13); SEGMENTED NEUTROPHILS % (MAN) 92 % (42-78); TOTAL CELLS COUNTED 100
[2018-01-11 11:48] LABS: TOXIC VACUOLATION PRESENT
[2018-01-11 11:49] LABS: ANISOCYTOSIS 2+; OVALOCYTES 2+; PLATELET CLUMPS PRESENT; PLATELET COUNT 446 10^3/uL (150-450); POIKILOCYTOSIS 2+; TEAR DROP CELLS SLIGHT
[2018-01-11] MEDS ORDERED: NORMAL SALINE 1000 ML 1,000 ML IV ONE (12:22)
[2018-01-11 13:15] VITALS: BP 128/105
[2018-01-11 13:36] LABS: APPEARANCE,URINE SLIGHTLY-CLOUDY; BILIRUBIN,URINE NEGATIVE (NEGATIVE); COLOR,URINE YELLOW; GLUCOSE, URINE NEGATIVE (NEGATIVE); KETONES,URINE TRACE mg/dL (NEGATIVE); LEUKOCYTE ESTERASE,URINE NEGATIVE (NEGATIVE); NITRITE,URINE NEGATIVE (NEGATIVE); PROTEIN,URINE NEGATIVE (NEGATIVE); URINE SPECIFIC GRAVITY 1.017; UROBILINOGEN,URINE NEGATIVE mg/dL (<2.0)
[2018-01-11 13:55] LABS: URINE AMPHETAMINES SCREEN NEGATIVE; URINE BARBITURATES SCREEN NEGATIVE; URINE BENZODIAZEPINES SCREEN NEGATIVE; URINE COCAINE SCREEN NEGATIVE; URINE MARIJUANA (THC) SCREEN NEGATIVE; URINE METHADONE SCREEN NEGATIVE; URINE PHENCYCLIDINE SCREEN NEGATIVE
--- NOTE | 2018-01-11 21:55 | EKG REPORT ---
SEVERITY:- OTHERWISE NORMAL ECG - SINUS TACHYCARDIA : Confirmed by: Kelli Willoughby MD 11-Jan-2018 21:55:24
== END 2018-01-11 14:15 | disposition left against medical advice (07) ==
LOC: ER 10:37
DX: T40.601A Poisoning by unspecified narcotics, accidental (unintentional), initial encounter (principal); X58.XXXA Exposure to other specified factors, initial encounter; F17.200 Nicotine dependence, unspecified, uncomplicated; I25.10 Atherosclerotic heart disease of native coronary artery without angina pectoris; J44.9 Chronic obstructive pulmonary disease, unspecified; Z90.49 Acquired absence of other specified parts of digestive tract
CPT/HCPCS: 36415; 70450; 71045; 80053; 80307; 81001; 84484; 85025; 87040; 93005; 93010; 96360; 99285

== ENCOUNTER 2018-03-27 21:08 | Inpatient (IN) | payer OTHER, MEDICARE ==
[2018-03-27] MEDS ORDERED: METHYLPREDNISOLONE INJ 125 MG/2 ML SDV ONE (21:17)
[2018-03-27] MEDS ORDERED: CEFEPIME 1 GM/D5W RTU 1 GM/50 ML RTUPB IV ONE (21:22)
--- NOTE | 2018-03-27 21:29 | ER Document Report ---
ED General - General Stated Complaint: BREATHING PROBLEM Time Seen by Provider: 03/27/18 21:08 Mode of Arrival: Medic Information source: Emergency Med Personnel Cannot obtain history due to: Intubated Notes: This is a 68-year-old female with a history of COPD, chronic pain (on opiates), PAD. EMS was called to the home because of shortness of breath. Patient was last seem to be her normal self at 1:30 PM by her when she went for a nap. He checked on her shortly before contacting EMS and found her unresponsive and cyanotic. apparently started [id number] resuscitation after calling EMS. Patient was found by EMS to be agonal and respirations. She was given Narcan with minimal effect and she was intubated by EMS in the field. Medications given in the field: Ketamine 120 mg Rocuronium 80 mg Versed 2.5 mg Fentanyl 50 MCG's, Epi 1 cc x3 EMS reported a lactic acid of 8. History as per the : Patient's been usual state of health. She visited her doctor at an urgent care locally yesterday and her pressure was around 95 systolic over 70. He states that she had no complaints earlier in the day and it was not until shortly before EMS arrival that he checked on her and she was cyanotic and unresponsive. Patient does have a history of chronic back pain and is on pain medicine. Patient family contact ( and son): [phone] TRAVEL OUTSIDE OF THE [place] IN LAST 30 DAYS: No - HPI Onset: Just prior to arrival Onset/Duration: Sudden Associated symptoms: Shortness of breath Exacerbated by: Denies Relieved by: Denies Similar symptoms previously: Yes Recently seen / treated by doctor: Yes - Patient had an appointment yesterday with primary care doctor - Related Data Allergies/Adverse Reactions: No Known Allergies Allergy (Verified 03/27/18 23:17) Past Medical History - General Information source: Relative - Social History Smoking Status: Current Every Day Smoker Cigarette use (# per day): Yes - Pack per day Chew tobacco use (# tins/day): No Smoking Education Provided: No Frequency of alcohol use: None Drug Abuse: None Family History: CAD Patient has suicidal ideation: No Patient has homicidal ideation: No - Past Medical History Cardiac Medical History: Reports: Hx Coronary Artery Disease - PVD, Hx Peripheral Vascular Disease Denies: Hx Hypertension Pulmonary Medical History: Reports: Hx COPD, Hx Pneumonia Denies: Hx Asthma, Hx Bronchitis Neurological Medical History: Denies: Hx Cerebrovascular Accident, Hx Seizures Renal/ Medical History: Denies: Hx Peritoneal Dialysis Musculoskeletal Medical History: Reports Hx Arthritis Psychiatric Medical History: Comment Only: Hx Depression - anxiety Past Surgical History: Reports: Hx Adenoidectomy, Hx Carotid Endarterectomy, Hx Cholecystectomy, Hx Orthopedic Surgery - Back surgery, wrist surgery, neck surgery, Hx Tonsillectomy, Hx Vascular Surgery - Immunizations Hx Diphtheria, Pertussis, Tetanus Vaccination: Yes Review of Systems - Review of Systems -: Yes ROS unobtainable due to patient's medical condition Physical Exam - Vital signs Vitals: Pulse Ox 100 03/27/18 21:15 Notes: Physical exam: GENERAL: Patient obtunded (did receive RSI medications and pain medicines). She is currently intubated and switched over to a ventilator. HEAD: Atraumatic, normocephalic. EYES: Conjunctiva is normal ENT: Tracheal tube in place, upper dentures, no obvious trauma. NECK: Normal range of motion, supple without obvious mass. LUNGS: Bilateral breath sounds. Does have scattered wheezing. She has decreased breath sounds. HEART: Regular rate and rhythm without murmurs, rubs or gallops. ABDOMEN: Soft, normoactive bowel sounds. No tenderness to palpation. No guarding, no rebound. No masses appreciated. EXTREMITIES: She is extremities are cold, pulses are present. NEUROLOGICAL: Intubated/obtunded SKIN: Warm, Dry, normal turgor, no rashes or lesions noted. Course - Re-evaluation Re-evalutation: 03/27/18 21:47 Bedside ultrasound: No pericardial effusion Patient intubated which makes IVC compressibility difficult to interpret. IV fluid (warm) given. Patient received 2 L lactated Ringer's which is greater than 30 cc/kg. IV cefepime given Albuterol and ipratropium via nebs via the vent IV methylprednisolone IV magnesium 03/27/18 23:46 Patient has had hypotension after the IV fluid bolus. Right central IJ line placed under ultrasound guidance Repeat x-ray shows good placement. Patient is on norepinephrine. 03/28/18 00:24 Note: She is currently on 15 mg a minute. Blood pressure is 95/70. Patient will open her eyes when you call her first name. - Vital Signs Vital signs: Temp Pulse Resp BP Pulse Ox 93.5 F L 15 105/65 100 03/28/18 00:21 03/28/18 00:21 03/28/18 00:21 03/28/18 00:21 - Laboratory Result Diagrams: 03/27/18 21:30 03/27/18 21:30 Laboratory results interpreted by me: 03/27/18 03/27/18 03/27/18 21:30 21:30 21:30 WBC 19.0 H Hgb 10.9 L Hct 34.8 L MCHC 31.4 L RDW 18.0 H Plt Count 460 H Seg Neuts % (Manual) 81 H Lymphocytes % (Manual) 10 L Abs Neuts (Manual) 15.4 H Abs Monocytes (Manual) 1.7 H VBG pH VBG pCO2 VBG HCO3 Chloride 97 L Carbon Dioxide 17 L Anion Gap 26 H BUN 23 H Est GFR ( Amer) 55 L Est GFR (Non-Af Amer) 46 L Glucose 185 H Lactic Acid 11.5 H Direct Bilirubin 1.1 H AST 337 H ALT 141 H Alkaline Phosphatase 184 H Total Protein 5.3 L Albumin 3.1 L Urine Protein Urine Ketones Urine Blood Urine Urobilinogen Salicylates < 1.0 L Acetaminophen < 10 L 03/27/18 03/27/18 21:49 22:47 WBC Hgb Hct MCHC RDW Plt Count Seg Neuts % (Manual) Lymphocytes % (Manual) Abs Neuts (Manual) Abs Monocytes (Manual) VBG pH 7.01 L* VBG pCO2 70.2 H* VBG HCO3 17.3 L Chloride Carbon Dioxide Anion Gap BUN Est GFR ( Amer) Est GFR (Non-Af Amer) Glucose Lactic Acid Direct Bilirubin AST ALT Alkaline Phosphatase Total Protein Albumin Urine Protein 100 H Urine Ketones 20 H Urine Blood SMALL H Urine Urobilinogen 4.0 H Salicylates Acetaminophen - Diagnostic Test Radiology reviewed: Image reviewed, Reports reviewed - X-ray shows no infiltrates. ET tube above the mir. - EKG Interpretation by Me Rate: Normal Rhythm: NSR - EKG shows normal sinus rhythm with a ventricular rate of 64, no acute ST changes. QT C508 Procedures - Central Line Right Internal jugular Time completed: 23:48 Consent obtained: Yes - Verbal consent obtained by the patient's Central line pre-insertion: Chloraprep applied, Sterile drapes applied Central line size (Fr.): 18 Central line lumen type: Triple Anesthetic type: 1% Lidocaine mL's of anesthesia: 3 Ultrasound guided: Yes CM at insertion site: 16 Line secured with sutures: Yes Central line post-insertion: Blood return from lumens, Biopatch applied, Sutured , Sterile dressing applied, Position confirmed w/ CXR Number of attempts: 1 Complications: No Critical Care Note - Critical Care Note Total time excluding time spent on procedures (mins): 60 Discharge - Discharge Clinical Impression: Respiratory arrest, Hypotensive Condition: Serious Disposition: ADMITTED INPATIENT Admitting Provider: Hospitalist - Dr Hill Unit Admitted: ICU
--- NOTE | 2018-03-27 21:32 | RADIOLOGY REPORT (SQ) ---
XR CHEST 1 VIEW HISTORY: Postintubation. COMPARISON: 01/11/2018 FINDINGS: There is an endotracheal tube with the tip 3.6 cm from the mir. The cardiomediastinal silhouette is unremarkable. The lungs are clear. No pleural effusion or pneumothorax is identified. IMPRESSION: ET tube 3.6 cm from the mir. No pneumothorax.
[2018-03-27] MEDS ORDERED: IPRATROPIUM/ALBUTEROL 0.5-2.5 MG/3 ML AMPUL NEB ONE (21:42)
[2018-03-27] MEDS ORDERED: MAGNESIUM SULFATE/D5W 1 GM/100 ML RTUPB IV ONE (21:42)
[2018-03-27 21:50] LABS: HEMATOCRIT 34.8 % (36.0-47.0); HEMOGLOBIN 10.9 g/dL (12.0-15.5); MEAN CORPUSCULAR HEMOGLOBIN 27.3 pg (27.0-33.4); MEAN CORPUSCULAR HGB CONC 31.4 g/dL (32.0-36.0); MEAN CORPUSCULAR VOLUME 87 fl (80-97); PLATELET COUNT 460 10^3/uL (150-450); RED BLOOD COUNT 4.01 10^6/uL (3.72-5.28)
[2018-03-27 22:13] LABS: ABSOLUTE LYMPHOCYTES# (MANUAL) 1.9 10^3/uL (0.5-4.7); ABSOLUTE MONOCYTES # (MANUAL) 1.7 10^3/uL (0.1-1.4); ABSOLUTE NEUTROPHILS# (MANUAL) 15.4 10^3/uL (1.7-8.2); BASOPHILS % (MANUAL) 0 % (0-2); EOSINOPHILS % (MANUAL) 0 % (0-6); LYMPHOCYTES % (MANUAL) 10 % (13-45); MONOCYTES % (MANUAL) 9 % (3-13); SEGMENTED NEUTROPHILS % (MAN) 81 % (42-78); TOTAL CELLS COUNTED 100
[2018-03-27 22:16] LABS: ANISOCYTOSIS 2+; BURR CELLS 2+; OVALOCYTES 2+; POIKILOCYTOSIS 2+; SCHISTOCYTES SLIGHT; TEAR DROP CELLS 1+; TOXIC GRANULATION SLIGHT; TOXIC VACUOLATION PRESENT
[2018-03-27 22:17] LABS: PLATELET COMMENT ADEQUATE
[2018-03-27 22:19] LABS: CREATINE KINASE MB 2.48 ng/mL (<4.55)
[2018-03-27 22:20] LABS: ALANINE AMINOTRANSFERASE 141 U/L (9-52); ALBUMIN 3.1 g/dL (3.5-5.0); ALKALINE PHOSPHATASE 184 U/L (38-126); ASPARTATE AMINO TRANSFERASE 337 U/L (14-36); BILIRUBIN,DIRECT 1.1 mg/dL (0.0-0.4); BILIRUBIN,TOTAL 1.1 mg/dL (0.2-1.3); BLOOD UREA NITROGEN 23 mg/dL (7-20); CALCIUM 8.7 mg/dL (8.4-10.2); CREATINE KINASE 65 U/L (30-135); GLUCOSE 185 mg/dL (75-110); POTASSIUM 3.7 mmol/L (3.6-5.0); TOTAL PROTEIN 5.3 g/dL (6.3-8.2)
[2018-03-27 22:21] LABS: ACETAMINOPHEN < 10 ug/mL (10-30); CHLORIDE 97 mmol/L (98-107); SALICYLATE < 1.0 mg/dL (2.0-20.0)
[2018-03-27 22:22] LABS: ANION GAP 26 (5-19); CARBON DIOXIDE 17 mmol/L (22-30); SODIUM 139.6 mmol/L (137-145)
--- NOTE | 2018-03-27 22:24 | RADIOLOGY REPORT (SQ) ---
EXAM DESCRIPTION: XR ABDOMEN 1 VIEW (KUB) COMPLETED DATE/TME: 03/27/2018 00:00 CLINICAL HISTORY: 68 years, Female, NG PLACEMENT COMPARISON: None. NUMBER OF VIEWS: TECHNIQUE: LIMITATIONS: None. FINDINGS: The distal tip of the nasogastric tube is well-positioned in the stomach. There are several loops of dilated small bowel in the abdomen and pelvis, compatible with either obstruction or ileus. IMPRESSION: The NG tube is in satisfactory position. Small bowel obstruction versus ileus. Please correlate clinically. copyright 2010 [employer]- All Rights Reserved
[2018-03-27 22:25] LABS: FREE T3 4.66 pg/mL (2.77-5.27); FREE T4 (FREE THYROXINE) 1.55 ng/dL (0.78-2.19)
[2018-03-27 22:28] LABS: TROPONIN I 0.035 ng/mL
[2018-03-27] MEDS ORDERED: NOREPINEPHRINE BITARTRATE INJ/PF 4 MG/4 ML SDV IV ONE ×2 (22:30→22:31)
[2018-03-27 22:39] LABS: THYROID STIMULATING HORMONE 1.02 uIU/mL (0.47-4.68)
[2018-03-27 22:41] LABS: VENOUS BLOOD BASE EXCESS -14.3 mmol/L; VENOUS BLOOD HCO3 17.3 mmol/L (20-32)
[2018-03-27 22:43] LABS: VENOUS BLOOD PCO2 70.2 mmHg (35-63); VENOUS BLOOD PH 7.01 (7.30-7.42)
--- NOTE | 2018-03-27 23:04 | RADIOLOGY REPORT (SQ) ---
XR CHEST 1 VIEW HISTORY: Line placement. COMPARISON: Radiographs from earlier the same day. FINDINGS: New enteric tube with the tip under the left diaphragm and out of the [id number]. New right IJ line with the tip near the proximal SVC. ET tube is stable. The lungs are clear. No pleural effusion or pneumothorax is identified. IMPRESSION: Lines and tubes as above. No pneumothorax.
[2018-03-27 23:07] LABS: APPEARANCE,URINE SLIGHTLY-CLOUDY; BILIRUBIN,URINE NEGATIVE (NEGATIVE); COLOR,URINE DARK YELLOW; GLUCOSE, URINE NEGATIVE (NEGATIVE); KETONES,URINE 20 mg/dL (NEGATIVE); LEUKOCYTE ESTERASE,URINE NEGATIVE (NEGATIVE); NITRITE,URINE NEGATIVE (NEGATIVE); PROTEIN,URINE 100 mg/dL (NEGATIVE); URINE SPECIFIC GRAVITY 1.012
[2018-03-27] MEDS ORDERED: DEXTROSE 5%-WATER 250 ML with NOREPINEPHRINE BITARTRATE 4 MG IV PRN ×2 (23:07)
[2018-03-27] MEDS ORDERED: IPRATROPIUM/ALBUTEROL 0.5-2.5 MG/3 ML AMPUL NEB PRN (23:07)
[2018-03-27 23:17] LABS: URINE AMPHETAMINES SCREEN NEGATIVE; URINE BARBITURATES SCREEN NEGATIVE; URINE COCAINE SCREEN NEGATIVE; URINE MARIJUANA (THC) SCREEN NEGATIVE; URINE METHADONE SCREEN NEGATIVE; URINE PHENCYCLIDINE SCREEN NEGATIVE
[2018-03-27 23:24] LABS: URINE BENZODIAZEPINES SCREEN UNCONFIRMED POSITIVE
--- NOTE | 2018-03-28 00:10 | RADIOLOGY REPORT (SQ) ---
CT HEAD WITHOUT IV CONTRAST HISTORY: Altered mental status. COMPARISON: None. TECHNIQUE: CT scan of the brain without IV contrast. This exam was performed according to our departmental dose-optimization program, which includes automated exposure control, adjustment of the mA and/or kV according to patient size and/or use of iterative reconstruction technique. FINDINGS: The ventricles, cisterns, and sulci are age-appropriate. No focal white matter lesions are seen. The noonan-white matter differentiation is preserved without evidence of acute territorial infarction. No intracranial hemorrhage, midline shift, or extra-axial fluid collection is identified. No air-fluid levels are seen in the paranasal sinuses. The calvarium is intact. IMPRESSION: No acute intracranial abnormality.
[2018-03-28] MEDS: IPRATROPIUM/ALBUTEROL 0.5-2.5 MG/3 ML AMPUL NEB SCH ×3 (00:37→16:08)
--- NOTE | 2018-03-28 00:50 | RADIOLOGY REPORT (SQ) ---
CT CHEST ANGIOGRAPHY WITHOUT THEN WITH IV CONTRAST HISTORY: Shortness of breath. Evaluate for pulmonary embolism. COMPARISON: None. TECHNIQUE: CT angiogram of the chest with IV contrast. 3-D MIP images were obtained in coronal and sagittal reconstructions. This exam was performed according to our departmental dose-optimization program, which includes automated exposure control, adjustment of the mA and/or kV according to patient size and/or use of iterative reconstruction technique. FINDINGS: The thyroid gland is unremarkable. No mediastinal, hilar, or axillary adenopathy is seen. The heart size is normal. No pericardial effusion is seen. The ascending aorta measures 3.4 cm. The descending thoracic aorta measures 2.8 cm. No acute pulmonary embolism is seen in the main or segmental branches. No consolidation, pleural effusion, or pneumothorax is identified. There are scattered areas of atelectasis at the lung bases. Please refer to the concomitantly performed CT scan of the abdomen and pelvis for any pertinent findings. Prior kyphoplasty of T12. Chronic appearing compression fractures of T7 and T11. IMPRESSION: No acute pulmonary embolism.
--- NOTE | 2018-03-28 01:01 | RADIOLOGY REPORT (SQ) ---
EXAM DESCRIPTION: CT ABDOMEN PELVIS WITH IV CONTRAST COMPLETED DATE/TME: 03/27/2018 23:17 CLINICAL HISTORY: 68 years, Female, dilated loops of bowel COMPARISON: None. TECHNIQUE: Axial CT images of the abdomen and pelvis were obtained after the admission of IV contrast. Sagittal and coronal reformats were performed. [facility] [id number] Images stored on PACS. All CT scanners at this facility use dose modulation, iterative reconstruction, and/or weight based dosing when appropriate to reduce radiation dose to as low as reasonably achievable (ALARA). [facility]: Dose Right [facility]: CareDose [facility]: Dose Right [facility]: Teradose 4D [facility]: [employer] LIMITATIONS: None. FINDINGS: Lower chest: Partially imaged. Lung bases: Unremarkable. Cardiac apex: Unremarkable. Solid abdominal viscera: Liver: Unremarkable. Gallbladder: Cholecystectomy. There is intra and extrahepatic biliary dilatation. The common bile duct measures up to 1.7 cm in diameter, which can be seen in cholecystectomy patients. Pancreas: Unremarkable. Spleen: Unremarkable. Adrenal glands: Unremarkable. Right kidney: No hydronephrosis. There is an extrarenal pelvis Left kidney: No hydronephrosis. Urinary bladder: Valencia catheter in place Abdominal aorta: Moderate atherosclerotic disease. Peritoneal: Free fluid: None. Free air: None. Other: No pathologic sized lymph nodes in the upper abdomen. Bowel: Stomach: Nasogastric tube is in place Small bowel: Mild thickening with no evidence of an obstruction Appendix: Unremarkable. Colon: Mild distention of the fluid-filled cecum and redundant sigmoid colon colon. Rectum: Unremarkable. Uterus: Hysterectomy Bones: There are old healed fractures involving the bilateral inferior pubic rami and right sacrum. There are chronic-appearing compression deformities of T11, T12, L1, and L2. There are changes of vertebroplasty at T12. IMPRESSION: Mild thickening of the small bowel with mild distention of the fluid-filled colon. These findings are nonspecific and may be due to an enterocolitis or diarrhea. No dilated loops of small bowel are identified. No evidence of an obstruction. TECHNICAL DOCUMENTATION: Quality ID # 436: Final reports with documentation of one or more dose reduction techniques (e.g., Automated exposure control, adjustment of the mA and/or kV according to patient size, use of iterative reconstruction technique) copyright 2011 [employer]- All Rights Reserved
[2018-03-28] MEDS ORDERED: NOREPINEPHRINE BITARTRATE INJ/PF 4 MG/4 ML SDV IV ONE (02:15)
[2018-03-28] MEDS ORDERED: NORMAL SALINE 1000 ML 1,000 ML IV ONE (04:04)
[2018-03-28 04:16] LABS: HEMATOCRIT 35.4 % (36.0-47.0); HEMOGLOBIN 11.4 g/dL (12.0-15.5); MEAN CORPUSCULAR HEMOGLOBIN 26.9 pg (27.0-33.4); MEAN CORPUSCULAR HGB CONC 32.2 g/dL (32.0-36.0); MEAN CORPUSCULAR VOLUME 84 fl (80-97); PLATELET COUNT 442 10^3/uL (150-450); RED BLOOD COUNT 4.24 10^6/uL (3.72-5.28); RED CELL DISTRIBUTION WIDTH 16.9 % (11.5-14.0); WHITE BLOOD COUNT 16.5 10^3/uL (4.0-10.5)
[2018-03-28 04:20] LABS: ARTERIAL BLOOD BASE EXCESS -0.7 mmol/L; ARTERIAL BLOOD HCO3 25.7 mmol/L (20-24); ARTERIAL BLOOD O2 SATURATION 97.9 % (94-98); ARTERIAL BLOOD PCO2 49.8 mmHg (35-45); ARTERIAL BLOOD PH 7.33 (7.35-7.45); ARTERIAL BLOOD PO2 114.5 mmHg (80-100); ARTERIAL BLOOD TOTAL CO2 27.2 mmol/L (21-25)
[2018-03-28 04:36] LABS: ARTERIAL BLOOD FIO2 60%
[2018-03-28 04:43] LABS: ABSOLUTE LYMPHOCYTES# (MANUAL) 0.8 10^3/uL (0.5-4.7); ABSOLUTE MONOCYTES # (MANUAL) 0.3 10^3/uL (0.1-1.4); ABSOLUTE NEUTROPHILS# (MANUAL) 15.3 10^3/uL (1.7-8.2); BASOPHILS % (MANUAL) 0 % (0-2); EOSINOPHILS % (MANUAL) 0 % (0-6); LYMPHOCYTES % (MANUAL) 5 % (13-45); MONOCYTES % (MANUAL) 2 % (3-13); SEGMENTED NEUTROPHILS % (MAN) 93 % (42-78); TOTAL CELLS COUNTED 100
[2018-03-28 04:46] LABS: ANISOCYTOSIS 1+; OVALOCYTES 2+; POIKILOCYTOSIS 2+; SCHISTOCYTES SLIGHT; TOXIC GRANULATION SLIGHT
[2018-03-28 04:47] LABS: PLATELET COMMENT ADEQUATE; TEAR DROP CELLS 1+
[2018-03-28 04:55] LABS: ALANINE AMINOTRANSFERASE 161 U/L (9-52); ALBUMIN 3.2 g/dL (3.5-5.0); ALKALINE PHOSPHATASE 192 U/L (38-126); ANION GAP 13 (5-19); ASPARTATE AMINO TRANSFERASE 249 U/L (14-36); BILIRUBIN,DIRECT 0.4 mg/dL (0.0-0.4); BILIRUBIN,TOTAL 0.4 mg/dL (0.2-1.3); BLOOD UREA NITROGEN 22 mg/dL (7-20); CARBON DIOXIDE 26 mmol/L (22-30); CHLORIDE 95 mmol/L (98-107); CREATINE KINASE 84 U/L (30-135); GLUCOSE 334 mg/dL (75-110); POTASSIUM 4.1 mmol/L (3.6-5.0); SODIUM 134.3 mmol/L (137-145); TOTAL PROTEIN 5.4 g/dL (6.3-8.2)
[2018-03-28 05:04] LABS: CREATINE KINASE MB 3.43 ng/mL (<4.55); TROPONIN I 0.083 ng/mL
[2018-03-28] MEDS ORDERED: HEPARIN SOD (PORCINE) 5,000 UNIT/ML 1 ML SYRINGE SUBCUT SCH (06:00)
--- NOTE | 2018-03-28 06:36 | PDOC H&P ---
History of Present Illness Admission Date/PCP: 03/27/18 23:14 HELENA PURCELL Patient complains of: Altered mental status History of Present Illness: RACHELLE MARY is a 68 year old female with a past medical history of COPD , opiate dependent chronic pain, benzodiazepine dependent anxiety and hospitalization for overdose. Patient presents 6-1/2 hours after last seen normal by her with unresponsiveness and cyanosis. She received mouth-to -mouth resuscitation, EMS finds her agonal and administers Narcan without significant response. She was intubated and brought to the emergency room for evaluation where she is unresponsive without sedation, hypotension, metabolic and respiratory acidosis. CT imaging head chest and abdomen are unremarkable. She is started on empiric antibiotics, and IV fluid challenge and levofed. She is referred to the hospitalist for admission. Family is not at bedside, Per ER provider patient had seen primary care provider the day prior for medication refill. Past Medical History Cardiac Medical History: Reports: Coronary Artery Disease - PVD, Peripheral Vascular Disease Denies: Hypertension Pulmonary Medical History: Reports: Chronic Obstructive Pulmonary Disease (COPD) , Pneumonia Denies: Asthma, Bronchitis Neurological Medical History: Denies: Seizures Musculoskeltal Medical History: Reports: Arthritis Psychiatric Medical History: Reports: General Anxiety Disorder Comment Only: Depression - anxiety Hematology: Denies: Anemia Past Surgical History Past Surgical History: Reports: Adenoidectomy, Carotid Endarterectomy, Cholecystectomy, Orthopedic Surgery - Back surgery, wrist surgery, neck surgery , Tonsillectomy, Vascular Surgery Social History Information Source: Emergency Med Personnel, [facility] Records Smoking Status: Unknown if Ever Smoked Frequency of Alcohol Use: None Hx Recreational Drug Use: No Hx Prescription Drug Abuse: No - Advance Directive Resuscitation Status: Full Code Family History Family History: CAD Parental Family History Reviewed: No - Unobtainable Children Family History Reviewed: No Sibling(s) Family History Reviewed.: No Medication/Allergy Home Medications: Gabapentin [Neurontin 300 mg Capsule] 300 mg PO TID 03/27/18 Oxycodone HCl 15 mg PO Q6H 03/27/18 Paroxetine HCl [Paxil] 20 mg PO DAILY 03/27/18 Propranolol HCl [Inderal 10 mg Tablet] 10 mg PO TID 03/27/18 Aspirin [Aspirin 325 mg Tablet] 325 mg PO PRN PRN 03/28/18 Allergies/Adverse Reactions: No Known Allergies Allergy (Verified 03/27/18 23:17) Review of Systems ROS unobtainable: Due to mental status Physical Exam Vital Signs: Temp Pulse Resp BP Pulse Ox 100.0 F 91 16 124/69 95 03/28/18 05:44 03/28/18 02:12 03/28/18 06:00 03/28/18 05:54 03/28/18 06:00 Intake & Output 03/26/18 03/27/18 03/28/18 11:59 11:59 11:59 Intake Total 178 Output Total 600 Balance -422 Weight 52.3 kg General appearance: PRESENT: disheveled, severe distress, thin. ABSENT: cooperative Head exam: PRESENT: atraumatic, normocephalic Eye exam: PRESENT: conjunctiva pink, EOMI, PERRLA - Pinpoint 1.5 mm, symmetric and sluggish. ABSENT: scleral icterus Ear exam: PRESENT: normal external ear exam Mouth exam: PRESENT: moist, tongue midline Neck exam: ABSENT: carotid bruit, JVD, lymphadenopathy, thyromegaly Respiratory exam: PRESENT: crackles, prolonged expiratory phas, symmetrical. ABSENT: rhonchi, stridor Cardiovascular exam: PRESENT: RRR. ABSENT: diastolic murmur, rubs, systolic murmur Pulses: PRESENT: normal dorsalis pedis pul Vascular exam: PRESENT: normal capillary refill GI/Abdominal exam: PRESENT: normal bowel sounds, soft. ABSENT: distended, guarding, mass, organolmegaly, rebound, tenderness Rectal exam: PRESENT: deferred Extremities exam: PRESENT: full ROM. ABSENT: calf tenderness, clubbing, pedal edema Neurological exam: PRESENT: altered. ABSENT: alert, awake, oriented to person, oriented to place Psychiatric exam: PRESENT: unusual affect Skin exam: PRESENT: dry, intact, warm. ABSENT: cyanosis, rash Results Laboratory Results: 03/28/18 03:45 03/28/18 03:45 03/28/18 03/28/18 03/28/18 03:45 03:45 03:45 WBC 16.5 H RBC 4.24 Hgb 11.4 L Hct 35.4 L MCV 84 MCH 26.9 L MCHC 32.2 RDW 16.9 H Plt Count 442 Seg Neutrophils % Not Reportable Lymphocytes % Not Reportable Monocytes % Not Reportable Eosinophils % Not Reportable Basophils % Not Reportable Absolute Neutrophils Not Reportable Absolute Lymphocytes Not Reportable Absolute Monocytes Not Reportable Absolute Eosinophils Not Reportable Absolute Basophils Not Reportable Carbonic Acid HCO3/H2CO3 Ratio ABG pH ABG pCO2 ABG pO2 ABG HCO3 ABG O2 Saturation ABG Base Excess FiO2 Sodium 134.3 L Potassium 4.1 Chloride 95 L Carbon Dioxide 26 Anion Gap 13 BUN 22 H Creatinine 1.04 Est GFR ( Amer) > 60 Est GFR (Non-Af Amer) 53 L Glucose 334 H Lactic Acid 2.7 H Calcium 8.0 L Total Bilirubin 0.4 AST 249 H ALT 161 H Alkaline Phosphatase 192 H Total Protein 5.4 L Albumin 3.2 L 03/28/18 03:45 WBC RBC Hgb Hct MCV MCH MCHC RDW Plt Count Seg Neutrophils % Lymphocytes % Monocytes % Eosinophils % Basophils % Absolute Neutrophils Absolute Lymphocytes Absolute Monocytes Absolute Eosinophils Absolute Basophils Carbonic Acid 1.50 H HCO3/H2CO3 Ratio 17:1 ABG pH 7.33 L ABG pCO2 49.8 H ABG pO2 114.5 H ABG HCO3 25.7 H ABG O2 Saturation 97.9 ABG Base Excess -0.7 FiO2 60% Sodium Potassium Chloride Carbon Dioxide Anion Gap BUN Creatinine Est GFR ( Amer) Est GFR (Non-Af Amer) Glucose Lactic Acid Calcium Total Bilirubin AST ALT Alkaline Phosphatase Total Protein Albumin 03/28/18 03/28/18 03:45 03:45 Creatine Kinase 84 CK-MB (CK-2) 3.43 Troponin I 0.083 Impressions: KUB X-Ray 03/27/18 00:00 IMPRESSION: The NG tube is in satisfactory position. Small bowel obstruction versus ileus. Please correlate clinically. copyright 2011 [employer]- All Rights Reserved Chest X-Ray 03/27/18 22:42 IMPRESSION: Lines and tubes as above. No pneumothorax. Head CT 03/27/18 22:59 IMPRESSION: No acute intracranial abnormality. Chest/Abdomen CTA 03/27/18 23:00 IMPRESSION: No acute pulmonary embolism. Abdomen/Pelvis CT 03/27/18 23:17 IMPRESSION: Mild thickening of the small bowel with mild distention of the fluid-filled colon. These findings are nonspecific and may be due to an enterocolitis or diarrhea. No dilated loops of small bowel are identified. No evidence of an obstruction. TECHNICAL DOCUMENTATION: Quality ID # 436: Final reports with documentation of one or more dose reduction techniques (e.g., Automated exposure control, adjustment of the mA and/or kV according to patient size, use of iterative reconstruction technique) copyright 2011 [employer]- All Rights Reserved Assessment & Plan - Diagnosis (1) Acute hypoxemic respiratory failure Is this a current diagnosis for this admission?: Yes Plan: Multifactorial secondary to COPD, possible aspiration, opiate and benzodiazepine causing respiratory depression, consistent with history of medication refill yesterday. Continue supportive measures with ventilator, follow-up chest x-ray and pulmonology consult (2) Acidosis Is this a current diagnosis for this admission?: Yes Plan: Multifactorial secondary to acute respiratory failure and hypotension. Correct underlying causes, follow-up lactic acid and ABG (3) Chronic benzodiazepine dependence Is this a current diagnosis for this admission?: Yes Plan: Intubated not requiring sedation, supportive care (4) Chronic opiate dependence Is this a current diagnosis for this admission?: Yes Plan: Intubated not requiring sedation, supportive care (5) Leukocytosis Qualifiers: Leukocytosis type: unspecified Qualified Code(s): D72.829 - Elevated white blood cell count, unspecified Is this a current diagnosis for this admission?: Yes Plan: Acute stress reaction versus aspiration pneumonia, cefepime and clindamycin ordered empirically, follow-up CBC and blood culture - Time Time Spent: 50 to 70 Minutes - Inpatient Certification Medical Necessity: Need Close Monitoring Due to Risk of Patient Decompensation
[2018-03-28] MEDS ORDERED: CLINDAMYCIN 900 MG/D5W RTU 900 MG/50 ML RTUPB IV ONE (07:00)
[2018-03-28] MEDS ORDERED: PROPOFOL 1,000 MG/100 ML INFUS..BTL IV ONE (09:41)
[2018-03-28] MEDS ORDERED: FAMOTIDINE INJ/PF 20 MG/2 ML SDV IV SCH (10:00)
[2018-03-28] MEDS ORDERED: CEFEPIME 2 GM/D5W RTU 2 GM/50 ML RTUPB IV SCH (10:00)
[2018-03-28] MEDS ORDERED: CEFEPIME 1 GM/D5W RTU 1 GM/50 ML RTUPB IV SCH (10:00)
[2018-03-28] MEDS: PROPOFOL 1,000 MG/100 ML INFUS..BTL IV PRN ×3 (10:07→17:18)
--- NOTE | 2018-03-28 10:44 | EKG REPORT ---
SEVERITY:- BORDERLINE ECG - SINUS RHYTHM VENTRICULAR PREMATURE COMPLEX BORDERLINE T WAVE ABNORMALITIES BORDERLINE PROLONGED QT INTERVAL : Confirmed by: Janna Lozano 28-Mar-2018 10:43:12
[2018-03-28] MEDS ORDERED: NORMAL SALINE 1000 ML 1,000 ML IV PRN (11:18)
[2018-03-28] MEDS ORDERED: PHARMACY COMMUNICATION ORDER MC NR (11:30)
--- NOTE | 2018-03-28 11:42 | PDOC PROGRESS REPORT ---
Subjective Progress Note for:: 03/28/18 - Seen on rounds this morning Subjective:: Patient is on ventilator-she is however able to answer my questions by squeezing my hands. She is responsive and can move all 4 extremities. No family at bedside to discuss plan of care. Reason For Visit: ACUTE ON CHRONIC RESP FALIRE ACIDOSIS,HYPOTENSION Physical Exam Vital Signs: Temp Pulse Resp BP Pulse Ox 100.8 F H 93 14 121/68 98 03/28/18 10:00 03/28/18 10:00 03/28/18 10:24 03/28/18 10:24 03/28/18 10:24 Intake & Output 03/27/18 03/28/18 03/29/18 06:59 06:59 06:59 Intake Total 178 1029 Output Total 600 660 Balance -422 369 Weight 115 lb 4.828 oz General appearance: PRESENT: thin, other - Cachectic and ill-appearing Head exam: PRESENT: atraumatic, normocephalic Eye exam: ABSENT: conjunctival injection, scleral icterus Ear exam: PRESENT: normal external ear exam Neck exam: ABSENT: tracheal deviation Respiratory exam: PRESENT: decreased breath sounds - Bilaterally with some occasional expiratory wheezing, symmetrical, wheezes Cardiovascular exam: PRESENT: +S1, +S2 Pulses: PRESENT: +2 pedal pulses bilateral GI/Abdominal exam: PRESENT: normal bowel sounds, soft. ABSENT: tenderness Extremities exam: ABSENT: pedal edema Neurological exam: PRESENT: other - Ventilator dependent-able to respond to verbal commands but not able to talk due to ET tube. Moves all extremities equally. Does open eyes to verbal command. GCS of 10 although I think she would be able to speak if she did not have ET tube Skin exam: PRESENT: dry, warm Results Laboratory Results: 03/28/18 03:45 03/28/18 03:45 03/28/18 03/28/18 03/28/18 03:45 03:45 03:45 WBC 16.5 H RBC 4.24 Hgb 11.4 L Hct 35.4 L MCV 84 MCH 26.9 L MCHC 32.2 RDW 16.9 H Plt Count 442 Seg Neutrophils % Not Reportable Lymphocytes % Not Reportable Monocytes % Not Reportable Eosinophils % Not Reportable Basophils % Not Reportable Absolute Neutrophils Not Reportable Absolute Lymphocytes Not Reportable Absolute Monocytes Not Reportable Absolute Eosinophils Not Reportable Absolute Basophils Not Reportable Carbonic Acid HCO3/H2CO3 Ratio ABG pH ABG pCO2 ABG pO2 ABG HCO3 ABG O2 Saturation ABG Base Excess FiO2 Sodium 134.3 L Potassium 4.1 Chloride 95 L Carbon Dioxide 26 Anion Gap 13 BUN 22 H Creatinine 1.04 Est GFR ( Amer) > 60 Est GFR (Non-Af Amer) 53 L Glucose 334 H Lactic Acid 2.7 H Calcium 8.0 L Total Bilirubin 0.4 AST 249 H ALT 161 H Alkaline Phosphatase 192 H Total Protein 5.4 L Albumin 3.2 L 03/28/18 03:45 WBC RBC Hgb Hct MCV MCH MCHC RDW Plt Count Seg Neutrophils % Lymphocytes % Monocytes % Eosinophils % Basophils % Absolute Neutrophils Absolute Lymphocytes Absolute Monocytes Absolute Eosinophils Absolute Basophils Carbonic Acid 1.50 H HCO3/H2CO3 Ratio 17:1 ABG pH 7.33 L ABG pCO2 49.8 H ABG pO2 114.5 H ABG HCO3 25.7 H ABG O2 Saturation 97.9 ABG Base Excess -0.7 FiO2 60% Sodium Potassium Chloride Carbon Dioxide Anion Gap BUN Creatinine Est GFR ( Amer) Est GFR (Non-Af Amer) Glucose Lactic Acid Calcium Total Bilirubin AST ALT Alkaline Phosphatase Total Protein Albumin 03/28/18 03/28/18 03:45 03:45 Creatine Kinase 84 CK-MB (CK-2) 3.43 Troponin I 0.083 Impressions: KUB X-Ray 03/27/18 00:00 IMPRESSION: The NG tube is in satisfactory position. Small bowel obstruction versus ileus. Please correlate clinically. copyright 2010 [email or web address]- All Rights Reserved Chest X-Ray 03/27/18 22:42 IMPRESSION: Lines and tubes as above. No pneumothorax. Head CT 03/27/18 22:59 IMPRESSION: No acute intracranial abnormality. Chest/Abdomen CTA 03/27/18 23:00 IMPRESSION: No acute pulmonary embolism. Abdomen/Pelvis CT 03/27/18 23:17 IMPRESSION: Mild thickening of the small bowel with mild distention of the fluid-filled colon. These findings are nonspecific and may be due to an enterocolitis or diarrhea. No dilated loops of small bowel are identified. No evidence of an obstruction. TECHNICAL DOCUMENTATION: Quality ID # 436: Final reports with documentation of one or more dose reduction techniques (e.g., Automated exposure control, adjustment of the mA and/or kV according to patient size, use of iterative reconstruction technique) copyright 2011 [employer]- All Rights Reserved Assessment & Plan - Diagnosis (1) Septic shock Is this a current diagnosis for this admission?: Yes (2) Acute respiratory failure with hypoxia and hypercapnia Is this a current diagnosis for this admission?: Yes (3) Aspiration pneumonia Qualifiers: Aspiration pneumonia type: unspecified Is this a current diagnosis for this admission?: Yes (4) Elevated LFTs Is this a current diagnosis for this admission?: Yes (5) Chronic benzodiazepine dependence Is this a current diagnosis for this admission?: Yes (6) Chronic opiate dependence Is this a current diagnosis for this admission?: Yes (7) COPD (chronic obstructive pulmonary disease) Is this a current diagnosis for this admission?: Yes (8) Atrial fibrillation Qualifiers: Atrial fibrillation type: unspecified Qualified Code(s): I48.91 - Unspecified atrial fibrillation Is this a current diagnosis for this admission?: Yes - Time Total Critical Time (Minutes): 40 - Inpatient Certification Based on my medical assessment, after consideration of the patient's comorbidities, presenting symptoms, or acuity I expect that the services needed warrant INPATIENT care.: Yes Medical Necessity: Need Close Monitoring Due to Risk of Patient Decompensation, Need For Continuous Telemetry Monitoring, Need for IV Antibiotics, Risk of Complication if Not Cared For in Hospital, Other - Ventilator dependent - Plan Summary Plan Summary: Septic shock-patient upon arrival had a temperature of 87 F. Her lactic acid was greater than 11. She was found unresponsive and was intubated in the field. Patient was admitted to the ICU and started on IV antibiotics with cefepime and clindamycin. At this time there is no family member at bedside to discuss patient's history of prior to arrival. I do not also have any medication list for patient. Her lactic acid is trending down and will continue to check until less than 2. I do not have a clear source of cause for her septic shock but we will give her IV fluids at this time. I do not know if she received 30 cc/kg but we are outside the 6-hour window. I will start her on some IV fluids with normal saline at 100 cc/h. All blood cultures are drawn and pending. At this time I will stop her cefepime and Clinda and switch her to Zosyn and Vanco for broad-spectrum coverage. She is alert and was not requiring any sedation but now she is starting to slowly wake up and becoming more agitated. I have started on propofol and added Ativan as needed for agitation. Acute respiratory failure with hypoxia and hypercapnia- She was found unresponsive on the floor and intubated-placed on ventilator support for airway protection. I did speak with respiratory therapist about that management. Continue with ICU vent management protocols. Continue with nebulizers. Her respiratory failure could be multifactorial and since we do not have a family member or appropriate history we are unable to gather more information. It may be due to aspiration pneumonia versus COPD exacerbation versus drug overdose. Her UDS did show positive for unspecified opiates and benzos. I did speak with respiratory therapist about weaning protocols as tolerated. Will repeat ABG later today and in a.m. Aspiration pneumonia-suspected since patient was found unresponsive and has a white count at this time. Please see plan for septic shock. COPD -I am not sure if this is exacerbation or not but at this time I will start her on Solu-Medrol IV to help her breathe better. I do not know if she is on chronic oxygen at home or not. I will start her on Solu-Medrol IV 60 mg twice daily and taper down as she improves. Continue with DuoNeb nebulizers. Elevated LFTs-is trending down and most likely secondary to septic shock and hypoperfusion. Atrial fibrillation-unspecified whether it is chronic or paroxysmal. Looking back at her records I see that in November 2016 she was diagnosed with new onset atrial fibrillation was started on Cardizem 180 mg twice daily and Eliquis. I do not have any medication records for her from home and her is not at bedside. He is supposed to bring her medication list from home today but is not here yet. At this time I will stop her heparin for DVT prophylaxis and switch her to Lovenox weight-based 1 make per cake at 50 mg twice daily to cover her for her atrial fibrillation. She is on Cardizem 180 twice daily but her blood pressure is on the lower and given her propofol. I will continue to monitor for now and start Cardizem as needed. Chronic opioid and benzo dependency-looking better record once again it showed that she was on oxycodone and benzos. I am not sure if she overdosed or not. At this time we will add Ativan as needed for anxiety/agitation. She may go into withdrawal and seizure would be a concern. Started on GI prophylaxis with Protonix IV daily. Line Check- Right IJ-needed for critically ill patient with possible pressors and sedatives needed. OG tube and ET tube-needed in ventilated patient Valencia-necessary for critically ill patient who is on a ventilator. Vent settings noted-rate of 14, tidal volume of 500, PEEP of 5, FiO2 40% and currently she is on SIMV mode
[2018-03-28] MEDS ORDERED: METHYLPREDNISOLONE INJ 40 MG/1 ML SDV IV SCH (11:45)
[2018-03-28] MEDS ORDERED: METHYLPREDNISOLONE INJ 125 MG/2 ML SDV IV SCH ×2 (12:00→18:00)
[2018-03-28] MEDS: LORAZEPAM INJ 2 MG/1 ML VIAL IV PRN ×2 (12:01→16:42)
[2018-03-28] MEDS: ENOXAPARIN SODIUM INJ 60 MG/0.6 ML DISP.SYRIN SUBCUT SCH ×2 (12:01→22:31)
[2018-03-28] MEDS: PANTOPRAZOLE SODIUM 40 MG VIAL IV SCH (12:01)
[2018-03-28 13:33] LABS: CREATINE KINASE MB 2.23 ng/mL (<4.55)
[2018-03-28 13:36] LABS: TROPONIN I 0.13 ng/mL
[2018-03-28] MEDS: VANCOMYCIN HCL 1,000 MG in DEXTROSE 5%-WATER 250 ML IV SCH (13:42)
[2018-03-28] MEDS ORDERED: CLINDAMYCIN 900 MG/D5W RTU 900 MG/50 ML RTUPB IV SCH (14:00)
[2018-03-28] MEDS: PIPERACILLIN SODIUM/TAZOBACTAM 3.375 GM in NORMAL SALINE 100 ML IV SCH ×2 (14:24→22:31)
--- NOTE | 2018-03-28 14:55 | Progress Note ---
Provider Note Provider Note: elevated troponin noted- ordered EKG and ECHO stat. will continue to trend Troponin. I believe this is likely all due to her septic shock and/or hypothermic/unresponsive event at home. will consult cardiology if troponin goes up further looking back at her records- she had Atrial Fib last year- d/c summary showed eliquis- CT head neg- will start her on Lovenox weight based to keep her anticoagulated.
[2018-03-28 15:41] LABS: CREATINE KINASE MB 1.96 ng/mL (<4.55)
--- NOTE | 2018-03-28 15:58 | XCELERA REPORT ---
[address] [address] Transthoracic Echocardiogram Report Name: RACHELLE MARY Age: 68 yrs Gender: Female : 1950 Patient Status: Inpatient Patient Location: ICU^612^A Study Date: 03/28/2018 02:32 PM Height: 65 in Weight: 115 lb BSA: 1.6 m2 Reason For Study: heart failure evaluation Ordering Physician: ANU SALTER Performed By: Shelley Orellana Interpretation Summary Study quality fair with samina suboptimal images. Lack of contrast enhancement limits evaluation for intracardiac mass/thormbus and wall motion analysis. LVEF appears normnal at 55-60%. RV size and systolic function appears normal. Doppler measurements suggest impaired left ventricular relaxation, which is associated with grade I/IV or mild diastolic dysfunction AV leaflets not well visualized but doppler data provided does not suggest any significant stenosis. There is a trace amount of mitral regurgitation There is a trace amount of tricuspid regurgitation There is no pericardial effusion. IVC normal sized with decreased respiratory variation as patient on ventilator. The aortic root is normal size. MMode/2D Measurements & Calculations RVDd: 1.1 cm LVIDd: 4.4 cm FS: 31.2 % Ao root diam: 3.0 cm IVSd: 0.70 cm LVIDs: 3.0 cm EDV(Teich): 87.7 mlAo root area: LVPWd: 1.0 cm ESV(Teich): 35.8 ml 7.3 cm2 EF(Teich): 59.2 % LA dimension: 3.4 cm LVOT diam: 1.6 cm LVLd ap4: 8.1 cm SV(MOD-sp4): LVOT area: EDV(MOD-sp4): 48.0 ml 82.0 ml 2.0 cm2 LVLs ap4: 6.2 cm ESV(MOD-sp4): 34.0 ml EF(MOD-sp4): 58.5 % Doppler Measurements & Calculations MV E max josh: MV P1/2t max josh: Ao V2 max: LV V1 max P.7 cm/sec 85.3 cm/sec 151.3 cm/sec 5.3 mmHg MV A max josh: MV P1/2t: 86.6 msec Ao max P.2 mmHgLV V1 max: 103.7 cm/sec MVA(P1/2t): 2.5 cm2 JAYDEN(V,D): 1.5 cm2 115.5 cm/sec MV E/A: 0.61 MV dec slope: 288.6 cm/sec2 MV dec time: 0.29 sec PA V2 max: RAP systole: MV P1/2t-pr_phl: 96.0 cm/sec 10.0 mmHg 86.6 msec PA max P.7 mmHg Left Ventricle The left ventricular ejection fraction is normal. LV EF is 55-60%%. Doppler measurements suggest impaired left ventricular relaxation, which is associated with grade I/IV or mild diastolic dysfunction. Right Ventricle A moderator band is seen in the right ventricle. The right ventricle is normal in size, thickness and function. The right ventricular systolic function is normal. Mitral Valve The mitral valve leaflets appear thickened, but open well. There is no mitral valve stenosis. There is a trace amount of mitral regurgitation. Aortic Valve The aortic valve is trileaflet. The aortic valve is not well visualized secondary to technical limitations. There is a peak gradient of 9 mm of Hg. Tricuspid Valve There is a trace amount of tricuspid regurgitation. Pulmonic Valve The pulmonic valve is not well visualized. Great Vessels The aortic root is normal size. IVC normal sized with decreased respiratory variation as patient on ventilator. Effusions There is no pericardial effusion. : ANU SALTER Sanjay
[2018-03-28] MEDS ORDERED: MIDAZOLAM HCL 50 MG/100 ML RTUINJ ONE (17:05)
[2018-03-28] MEDS: METHYLPREDNISOLONE INJ 40 MG/1 ML SDV IV SCH (17:18)
[2018-03-28] MEDS: MIDAZOLAM HCL 50 MG/100 ML RTUINJ IV PRN ×2 (17:42→19:53)
[2018-03-28 17:55] LABS: ARTERIAL BLOOD BASE EXCESS 2.8 mmol/L; ARTERIAL BLOOD H2CO3 1.31 mmol/L (1.05-1.35); ARTERIAL BLOOD HCO3 27.6 mmol/L (20-24); ARTERIAL BLOOD O2 SATURATION 94.7 % (94-98); ARTERIAL BLOOD PCO2 43.5 mmHg (35-45); ARTERIAL BLOOD PH 7.42 (7.35-7.45); ARTERIAL BLOOD PO2 72.1 mmHg (80-100)
[2018-03-28 17:57] LABS: ARTERIAL BLOOD FIO2 35%
[2018-03-28 19:44] LABS: CREATINE KINASE MB 1.26 ng/mL (<4.55); TROPONIN I 0.112 ng/mL
--- NOTE | 2018-03-28 22:17 | EKG REPORT ---
SEVERITY:- BORDERLINE ECG - SINUS RHYTHM BORDERLINE T ABNORMALITIES, ANT-LAT LEADS BORDERLINE PROLONGED QT INTERVAL : Confirmed by: Janna Lozano 28-Mar-2018 22:16:25
[2018-03-29] MEDS: IPRATROPIUM/ALBUTEROL 0.5-2.5 MG/3 ML AMPUL NEB SCH ×3 (00:20→15:56)
[2018-03-29] MEDS: METHYLPREDNISOLONE INJ 40 MG/1 ML SDV IV SCH ×4 (00:40→21:12)
[2018-03-29] MEDS: PROPOFOL 1,000 MG/100 ML INFUS..BTL IV PRN ×4 (00:42→20:34)
[2018-03-29] MEDS: MIDAZOLAM HCL 50 MG/100 ML RTUINJ IV PRN ×2 (00:49→08:16)
[2018-03-29] MEDS: PIPERACILLIN SODIUM/TAZOBACTAM 3.375 GM in NORMAL SALINE 100 ML IV SCH ×4 (04:12→20:34)
[2018-03-29 06:42] LABS: ARTERIAL BLOOD BASE EXCESS 3.5 mmol/L; ARTERIAL BLOOD FIO2 35%; ARTERIAL BLOOD HCO3 26.9 mmol/L (20-24); ARTERIAL BLOOD O2 SATURATION 96.9 % (94-98); ARTERIAL BLOOD PCO2 36.4 mmHg (35-45); ARTERIAL BLOOD PH 7.49 (7.35-7.45); ARTERIAL BLOOD PO2 82.4 mmHg (80-100)
[2018-03-29 06:43] LABS: HEMOGLOBIN 10.4 g/dL (12.0-15.5); MEAN CORPUSCULAR HEMOGLOBIN 27.1 pg (27.0-33.4); MEAN CORPUSCULAR HGB CONC 33.5 g/dL (32.0-36.0); MEAN CORPUSCULAR VOLUME 81 fl (80-97); PLATELET COUNT 344 10^3/uL (150-450); RED BLOOD COUNT 3.82 10^6/uL (3.72-5.28); WHITE BLOOD COUNT 22.1 10^3/uL (4.0-10.5)
--- NOTE | 2018-03-29 06:44 | RADIOLOGY REPORT (SQ) ---
EXAM DESCRIPTION: XR CHEST 1 VIEW COMPLETED DATE/TME: 03/29/2018 05:00 CLINICAL HISTORY: Respiratory Distress. 68 years Female, mechanically ventilated COMPARISON: One day prior. NUMBER OF VIEWS/TECHNIQUE: 1/AP FINDINGS: Moderate obscuration-effusion of the left costophrenic angle. Adequate appearing endotracheal tube. Likely adequate appearing enteric tube partially obscured. Normal cardiac silhouette size. No pneumothorax. Stable bony thorax. IMPRESSION: No significant change.
[2018-03-29 06:53] LABS: ALANINE AMINOTRANSFERASE 96 U/L (9-52); ALBUMIN 2.8 g/dL (3.5-5.0); ALKALINE PHOSPHATASE 154 U/L (38-126); ANION GAP 8 (5-19); ASPARTATE AMINO TRANSFERASE 76 U/L (14-36); BILIRUBIN,DIRECT 0.2 mg/dL (0.0-0.4); BILIRUBIN,TOTAL 0.2 mg/dL (0.2-1.3); BLOOD UREA NITROGEN 15 mg/dL (7-20); CALCIUM 8.4 mg/dL (8.4-10.2); CARBON DIOXIDE 26 mmol/L (22-30); CHLORIDE 110 mmol/L (98-107); GLUCOSE 142 mg/dL (75-110); POTASSIUM 3.7 mmol/L (3.6-5.0); SODIUM 143.6 mmol/L (137-145); TOTAL PROTEIN 4.8 g/dL (6.3-8.2)
[2018-03-29 07:19] LABS: ABSOLUTE LYMPHOCYTES# (MANUAL) 1.1 10^3/uL (0.5-4.7); ABSOLUTE MONOCYTES # (MANUAL) 0.7 10^3/uL (0.1-1.4); ABSOLUTE NEUTROPHILS# (MANUAL) 20.3 10^3/uL (1.7-8.2); BASOPHILS % (MANUAL) 0 % (0-2); EOSINOPHILS % (MANUAL) 0 % (0-6); LYMPHOCYTES % (MANUAL) 4 % (13-45); MONOCYTES % (MANUAL) 3 % (3-13); SEGMENTED NEUTROPHILS % (MAN) 92 % (42-78); TOTAL CELLS COUNTED 100
[2018-03-29 07:20] LABS: ACANTHOCYTES 2+; BURR CELLS 2+; OVALOCYTES 1+; POIKILOCYTOSIS 2+; TEAR DROP CELLS SLIGHT; TOXIC GRANULATION 1+; TOXIC VACUOLATION PRESENT
[2018-03-29 07:21] LABS: PLATELET COMMENT ADEQUATE
[2018-03-29] MEDS ORDERED: OXYCODONE HCL IR 5 MG TABLET PO SCH ×2 (08:30→19:45)
[2018-03-29] MEDS: ENOXAPARIN SODIUM INJ 60 MG/0.6 ML DISP.SYRIN SUBCUT SCH ×2 (09:06→21:12)
[2018-03-29] MEDS: PANTOPRAZOLE SODIUM 40 MG VIAL IV SCH (09:07)
[2018-03-29] MEDS: PROPRANOLOL HCL 10 MG TABLET PO SCH ×3 (09:22→21:12)
[2018-03-29] MEDS: GABAPENTIN 300 MG CAPSULE PO SCH ×3 (09:22→21:12)
[2018-03-29] MEDS ORDERED: OXYCODONE HCL IR 5 MG TABLET PO PRN (09:49)
[2018-03-29] MEDS: PAROXETINE HCL 20 MG TABLET PO SCH (10:48)
--- NOTE | 2018-03-29 11:28 | CONSULTATION REPORT E ---
Consultation Report NAME: RACHELLE MARY : 1950 AGE: 68Y DATE: 03/28/2018 612 A TO: ALAN LUJAN M.D. FROM: ROHAN LINDSEY M.D. Requesting Physician HISTORY OF PRESENT ILLNESS: The patient is a 68-year-old female who came in with acute respiratory failure. The patient was found unresponsive at home, last seen in the hospital about 6-1/2 hours before unresponsive and cyanotic. The patient received resuscitation and EMS came and found patient on agonal breathing. Given Narcan without relief. The patient was emergently intubated and brought to the emergency room. The patient was unresponsive without sedation, hypotensive, and metabolic and respiratory acidosis. Had a CT of the chest, head and abdomen, which were unremarkable. The patient was given empirical IV antibiotics and brought to the ICU. The patient appeared to be awake this morning. Off sedation. IV sedation was started. There is a lot of minimal endotracheal tube secretions. No fever over the last 24 hours. No vomiting or diarrhea. PAST MEDICAL HISTORY: 1. History of coronary artery disease. 2. Peripheral vascular disease. 3. COPD. 4. Pneumonia. 5. History of depression. PAST SURGICAL HISTORY: 1. Appendectomy. 2. Carotid endarterectomy. 3. Cholecystectomy. 4. Orthopedic surgery of the back and neck. 5. History of tonsillectomy. 6. Vascular surgery. SOCIAL HISTORY: The patient lives with . Nonsmoking, stopped with alcohol use. No illicit drug use. FAMILY HISTORY: History of CAD. MEDICATIONS AT HOME: Include: 1. Gabapentin. 2. OxyContin. 3. Paroxetine. 4. Propranolol. 5. Aspirin. ALLERGIES: The patient has no known drug allergies. REVIEW OF SYSTEMS: Not obtainable. PHYSICAL EXAMINATION: GENERAL: The patient appears sedated, afebrile, not in acute respiratory distress with an oxygen saturation of 98%, currently on FiO2 of 40%, SIMV rate of 14, tidal volume 500, pressor support of 10, PEEP of 5, and ____. Temperature is 100.6 degrees this morning, T-max of 100.8. Heart rate is 100, blood pressure 133/69, respiratory rate of 19, saturation 98% on 40% FiO2. EYES: No jaundice or pallor. EARS, NOSE, AND THROAT: No ear drainage. No nasal discharge. CHEST AND LUNGS: No wheezing. No rhonchi. No coarse crackles. CARDIOVASCULAR: S1, S2 distinct. Normal rate. Regular rhythm. ABDOMEN: Flabby. Positive bowel sounds. Soft, nondistended, nontender. EXTREMITIES: No joint swelling. No cellulitis. LABORATORY: CBC done today showed white count of 16.5, hemoglobin 11.4, hematocrit 35.4, platelet count is 442. Blood gas this morning at 3:45 a.m. showed pH of 7.33, PCO2 of 49.8, PO2 is 114, and bicarb is 35.7. On admission at 9:49 p.m., the venous blood gas: PH 7.01. Chemistry done today showed sodium is 134, potassium is 4.1, chloride is 95, CO2 is 36, BUN is 22, creatinine is 1.04, and glucose is 234, and lipase is 2.7. Calcium is 8, total bilirubin 0.4, direct bilirubin 0.4. SGOT is 249, SGPT 161, alkaline phosphatase 192, creatinine 84. Urine toxicology showed positive for opiates and positive for benzo's. The rest are negative. Chest CT scan showed absence of pulmonary embolism. There is no pneumonic process. No pseudopneumothorax. ASSESSMENT: 1. Acute respiratory failure requiring invasive mechanical ventilation 2. COPD, currently not in acute bronchospasm. 3. Altered mental status, possibly due to drug overdose and associated with severe lactic acidosis. PLAN AND RECOMMENDATIONS: 1. Will continue to supplement ventilator support. Will use SIMV rate 14, tidal volume 500, pressor support 10, PEEP of 5, FiO2 down to 35%, titrate, keep saturation 91%-94%. 2. Will continue nebulizer treatment, Duoneb every 8 hours, every 8 hours and albuterol nebulizer teratment as needed in between. Will decrease the Solu-Medrol dose to 20 mg IV every 6 hours. Will continue the ciprofloxacin and vancomycin for now. Will send sputum culture and blood culture. Will repeat the chest x-ray, CBC and chemistry tomorrow. Will start patient on OG tube feeding using oxepa 1.5 at 15 mL/hr. Continue GI prophylaxis and DVT prophylaxis. DICTATING PHYSICIAN: ALAN LUJAN MD,JAVI,MPH [id number] PHY#: [id number] ID: [id number] JOB#: [id number] ACCT: [id number] cc:ALAN LUJAN M.D. > ALBERTA
[2018-03-29] MEDS: VANCOMYCIN HCL 1,000 MG in DEXTROSE 5%-WATER 250 ML IV SCH (12:26)
[2018-03-29 14:10] LABS: APPEARANCE,URINE CLEAR; BILIRUBIN,URINE NEGATIVE (NEGATIVE); COLOR,URINE YELLOW; GLUCOSE, URINE NEGATIVE (NEGATIVE); KETONES,URINE TRACE mg/dL (NEGATIVE); LEUKOCYTE ESTERASE,URINE NEGATIVE (NEGATIVE); NITRITE,URINE NEGATIVE (NEGATIVE); PROTEIN,URINE 30 mg/dL (NEGATIVE); URINE SPECIFIC GRAVITY 1.042; UROBILINOGEN,URINE NEGATIVE mg/dL (<2.0)
--- NOTE | 2018-03-29 18:17 | PDOC PROGRESS REPORT ---
Subjective Progress Note for:: 03/29/18 Subjective:: Sedated, intubated. Failed vent wean trial this morning. Part of her sedation was 10 mg/hr Versed, and after 15 minutes off that and the propofol she was also on, and she woke up fighting the vent. Dr. Schaffer was there and decided to stop the Versed and leave her just on propofol. Reason For Visit: ACUTE ON CHRONIC RESP FALIRE ACIDOSIS,HYPOTENSION Physical Exam Vital Signs: Temp Pulse Resp BP Pulse Ox 98.1 F 62 14 113/74 95 03/29/18 16:00 03/29/18 16:00 03/29/18 16:00 03/29/18 16:00 03/29/18 16:00 Intake & Output 03/28/18 03/29/18 03/30/18 06:59 06:59 06:59 Intake Total 178 2154 1801 Output Total 600 2810 470 Balance -422 -656 1331 Weight 52.3 kg 52.3 kg General appearance: PRESENT: thin, other - Cachectic and ill-appearing, sedated , intubated Respiratory exam: PRESENT: decreased breath sounds Cardiovascular exam: PRESENT: +S1, +S2 Pulses: PRESENT: +2 pedal pulses bilateral GI/Abdominal exam: PRESENT: normal bowel sounds, soft. ABSENT: tenderness Extremities exam: ABSENT: pedal edema Neurological exam: PRESENT: sedated Skin exam: PRESENT: dry, warm Results Laboratory Results: 03/29/18 06:32 03/29/18 06:32 03/29/18 03/29/18 03/29/18 06:32 06:32 06:32 WBC 22.1 H RBC 3.82 Hgb 10.4 L Hct 31.0 L MCV 81 MCH 27.1 MCHC 33.5 RDW 18.0 H Plt Count 344 Seg Neutrophils % Not Reportable Lymphocytes % Not Reportable Monocytes % Not Reportable Eosinophils % Not Reportable Basophils % Not Reportable Absolute Neutrophils Not Reportable Absolute Lymphocytes Not Reportable Absolute Monocytes Not Reportable Absolute Eosinophils Not Reportable Absolute Basophils Not Reportable Carbonic Acid 1.10 HCO3/H2CO3 Ratio 24:1 ABG pH 7.49 H ABG pCO2 36.4 ABG pO2 82.4 ABG HCO3 26.9 H ABG O2 Saturation 96.9 ABG Base Excess 3.5 FiO2 35% Sodium 143.6 Potassium 3.7 Chloride 110 H Carbon Dioxide 26 Anion Gap 8 BUN 15 Creatinine 0.53 Est GFR ( Amer) > 60 Est GFR (Non-Af Amer) > 60 Glucose 142 H Calcium 8.4 Total Bilirubin 0.2 AST 76 H ALT 96 H Alkaline Phosphatase 154 H Total Protein 4.8 L Albumin 2.8 L Urine Color Urine Appearance Urine pH Ur Specific Crystal Urine Protein Urine Glucose (UA) Urine Ketones Urine Blood Urine Nitrite Ur Leukocyte Esterase Urine WBC (Auto) Urine RBC (Auto) 03/29/18 13:40 WBC RBC Hgb Hct MCV MCH MCHC RDW Plt Count Seg Neutrophils % Lymphocytes % Monocytes % Eosinophils % Basophils % Absolute Neutrophils Absolute Lymphocytes Absolute Monocytes Absolute Eosinophils Absolute Basophils Carbonic Acid HCO3/H2CO3 Ratio ABG pH ABG pCO2 ABG pO2 ABG HCO3 ABG O2 Saturation ABG Base Excess FiO2 Sodium Potassium Chloride Carbon Dioxide Anion Gap BUN Creatinine Est GFR ( Amer) Est GFR (Non-Af Amer) Glucose Calcium Total Bilirubin AST ALT Alkaline Phosphatase Total Protein Albumin Urine Color YELLOW Urine Appearance CLEAR Urine pH 5.0 Ur Specific Crystal 1.042 Urine Protein 30 H Urine Glucose (UA) NEGATIVE Urine Ketones TRACE H Urine Blood NEGATIVE Urine Nitrite NEGATIVE Ur Leukocyte Esterase NEGATIVE Urine WBC (Auto) 2 Urine RBC (Auto) 10 03/28/18 03/28/18 03/28/18 03:45 03:45 12:43 Creatine Kinase 84 63 CK-MB (CK-2) 3.43 Troponin I 0.083 NT-Pro-B Natriuret Pep 03/28/18 03/28/18 03/28/18 12:43 15:00 18:47 Creatine Kinase 62 CK-MB (CK-2) 2.23 1.96 Troponin I 0.130 NT-Pro-B Natriuret Pep 1470 H 03/28/18 18:47 Creatine Kinase CK-MB (CK-2) 1.26 Troponin I 0.112 NT-Pro-B Natriuret Pep Impressions: KUB X-Ray 03/27/18 00:00 IMPRESSION: The NG tube is in satisfactory position. Small bowel obstruction versus ileus. Please correlate clinically. copyright 2010 [employer]- All Rights Reserved Head CT 03/27/18 22:59 IMPRESSION: No acute intracranial abnormality. Chest/Abdomen CTA 03/27/18 23:00 IMPRESSION: No acute pulmonary embolism. Abdomen/Pelvis CT 03/27/18 23:17 IMPRESSION: Mild thickening of the small bowel with mild distention of the fluid-filled colon. These findings are nonspecific and may be due to an enterocolitis or diarrhea. No dilated loops of small bowel are identified. No evidence of an obstruction. TECHNICAL DOCUMENTATION: Quality ID # [id number]: Final reports with documentation of one or more dose reduction techniques (e.g., Automated exposure control, adjustment of the mA and/or kV according to patient size, use of iterative reconstruction technique) copyright 2011 [employer]- All Rights Reserved Chest X-Ray 03/29/18 05:00 IMPRESSION: No significant change. Assessment & Plan - Diagnosis (1) Acute respiratory failure with hypoxia and hypercapnia Is this a current diagnosis for this admission?: Yes Plan: I believe that her chronic narcotic and benzodiazepine use, with the possibility of oversedation, are complicit in her presentation. Stable with her current level of ventilatory support. Will continue to wean sedation for vent wean trials. Pulmonary consulted. (2) Aspiration pneumonia Qualifiers: Aspiration pneumonia type: unspecified Laterality: left Lung location: lower lobe of lung Qualified Code(s): J69.0 - Pneumonitis due to inhalation of food and vomit Is this a current diagnosis for this admission?: Yes Plan: Covered with antibiotics in case this is playing a part. (3) Shock circulatory Is this a current diagnosis for this admission?: Yes Plan: I suspect she had decreased distribution secondary to overmedication, which led to the other end organ sequelae. All components improving with volume resuscitation. (4) Chronic benzodiazepine dependence Is this a current diagnosis for this admission?: Yes Plan: Her home meds have been started at what we believe to be her prescribed doses. (5) Chronic opiate dependence Is this a current diagnosis for this admission?: Yes Plan: Her home meds have been started at what we believe to be her prescribed doses. - Time Time Spent with patient: 35 or more minutes
[2018-03-29] MEDS: DEXTROSE 5%-1/2 NORMAL SALINE 1,000 ML IV PRN (18:58)
[2018-03-30] MEDS: IPRATROPIUM/ALBUTEROL 0.5-2.5 MG/3 ML AMPUL NEB SCH ×3 (00:44→16:03)
[2018-03-30] MEDS: PROPOFOL 1,000 MG/100 ML INFUS..BTL IV PRN ×5 (00:59→23:39)
[2018-03-30] MEDS: LORAZEPAM INJ 2 MG/1 ML VIAL IV PRN ×2 (01:16→13:46)
[2018-03-30] MEDS ORDERED: OXYCODONE HCL IR 5 MG TABLET PO ONE (01:30)
[2018-03-30] MEDS: PIPERACILLIN SODIUM/TAZOBACTAM 3.375 GM in NORMAL SALINE 100 ML IV SCH ×4 (02:57→21:18)
[2018-03-30] MEDS: PROPRANOLOL HCL 10 MG TABLET PO SCH ×3 (05:22→21:44)
[2018-03-30] MEDS: GABAPENTIN 300 MG CAPSULE PO SCH ×3 (05:22→21:22)
[2018-03-30] MEDS ORDERED: OXYCODONE HCL IR 5 MG TABLET PO SCH (06:00)
[2018-03-30 06:17] LABS: ABSOLUTE LYMPHOCYTES (AUTO) 0.9 10^3/uL (0.5-4.7); ABSOLUTE MONOCYTES (AUTO) 1.2 10^3/uL (0.1-1.4); ABSOLUTE NEUT (AUTO) 16.2 10^3/uL (1.7-8.2); HEMOGLOBIN 9.8 g/dL (12.0-15.5); LYMPHOCYTES % (AUTO) 5.1 % (13-45); MEAN CORPUSCULAR HEMOGLOBIN 26.9 pg (27.0-33.4); MEAN CORPUSCULAR HGB CONC 32.6 g/dL (32.0-36.0); MEAN CORPUSCULAR VOLUME 82 fl (80-97); MONOCYTES % (AUTO) 6.5 % (3-13); PLATELET COUNT 344 10^3/uL (150-450); RED BLOOD COUNT 3.64 10^6/uL (3.72-5.28); RED CELL DISTRIBUTION WIDTH 18.1 % (11.5-14.0); SEGMENTED NEUTROPHILS % (AUTO) 88.4 % (42-78); TOTAL CELLS COUNTED % (AUTO) 100 %; WHITE BLOOD COUNT 18.4 10^3/uL (4.0-10.5)
[2018-03-30 06:32] LABS: APPEARANCE,URINE CLEAR; BILIRUBIN,URINE NEGATIVE (NEGATIVE); COLOR,URINE STRAW; GLUCOSE, URINE NEGATIVE (NEGATIVE); KETONES,URINE NEGATIVE (NEGATIVE); LEUKOCYTE ESTERASE,URINE NEGATIVE (NEGATIVE); NITRITE,URINE NEGATIVE (NEGATIVE); PROTEIN,URINE NEGATIVE (NEGATIVE); URIC ACID CRYSTALS,URINE FEW /HPF; URINE SPECIFIC GRAVITY 1.012; UROBILINOGEN,URINE NEGATIVE mg/dL (<2.0)
--- NOTE | 2018-03-30 06:34 | RADIOLOGY REPORT (SQ) ---
EXAM DESCRIPTION: XR CHEST 1 VIEW COMPLETED DATE/TME: 03/30/2018 05:00 CLINICAL HISTORY: 68 years, Female, mechanically ventilated COMPARISON: 03/29/2018 chest x-ray NUMBER OF VIEWS: 1 TECHNIQUE: Portable chest LIMITATIONS: None. FINDINGS: Heart size is normal. Grossly stable indwelling lines and catheters. Osteopenia. COPD. Tiny left effusion. Lungs are otherwise clear. Atheromatous change thoracic aorta. No pneumothorax IMPRESSION: Little interval change copyright 2010 [employer]- All Rights Reserved
[2018-03-30 06:36] LABS: ALANINE AMINOTRANSFERASE 68 U/L (9-52); ALBUMIN 2.7 g/dL (3.5-5.0); ALKALINE PHOSPHATASE 123 U/L (38-126); ANION GAP 7 (5-19); ASPARTATE AMINO TRANSFERASE 41 U/L (14-36); BILIRUBIN,DIRECT 0.2 mg/dL (0.0-0.4); BILIRUBIN,TOTAL 0.2 mg/dL (0.2-1.3); BLOOD UREA NITROGEN 19 mg/dL (7-20); CALCIUM 8.5 mg/dL (8.4-10.2); CARBON DIOXIDE 28 mmol/L (22-30); CHLORIDE 108 mmol/L (98-107); GLUCOSE 115 mg/dL (75-110); POTASSIUM 3.6 mmol/L (3.6-5.0); SODIUM 142.6 mmol/L (137-145); TOTAL PROTEIN 4.7 g/dL (6.3-8.2)
[2018-03-30 08:15] LABS: ARTERIAL BLOOD BASE EXCESS 4.7 mmol/L; ARTERIAL BLOOD FIO2 28%; ARTERIAL BLOOD H2CO3 1.03 mmol/L (1.05-1.35); ARTERIAL BLOOD HCO3 27.5 mmol/L (20-24); ARTERIAL BLOOD O2 SATURATION 95.2 % (94-98); ARTERIAL BLOOD PCO2 34.3 mmHg (35-45); ARTERIAL BLOOD PH 7.52 (7.35-7.45); ARTERIAL BLOOD PO2 66.9 mmHg (80-100); ARTERIAL BLOOD TOTAL CO2 28.6 mmol/L (21-25)
[2018-03-30] MEDS: ENOXAPARIN SODIUM INJ 60 MG/0.6 ML DISP.SYRIN SUBCUT SCH ×2 (09:05→21:22)
[2018-03-30] MEDS: PANTOPRAZOLE SODIUM 40 MG VIAL IV SCH (09:09)
[2018-03-30] MEDS: PAROXETINE HCL 20 MG TABLET PO SCH (09:09)
[2018-03-30] MEDS: METHYLPREDNISOLONE INJ 40 MG/1 ML SDV IV SCH (09:10)
--- NOTE | 2018-03-30 09:29 | PROGRESS NOTE E ---
Progress Note NAME: RACHELLE MARY : 1950 AGE: 68Y DATE: 03/29/2018 ROOM: 612 SUBJECTIVE: The patient is a 68-year-old female who came in in acute respiratory failure requiring invasive mechanical ventilation. The patient was treated for possible drug overdose, went into severe lactic acidosis, cyanotic, apneic and, hence, was intubated. The patient seemed to be doing well overnight. She has scanty endotracheal tube secretions. No fever for the last 24 hours. Blood pressure has been stable. Sedation was taken off this morning. Versed was started last night. The patient appeared to wake up around 8:00 in the morning after the IV propofol and IV Versed were off. The patient became tachycardic with a heart rate running 130 beats per minute. Saturation remained the same on FIO2 of 30%. Pressure support was 10/5, PEEP of 5, SIMV rate of 14, with a tidal volume of 500. The patient was placed back on IV sedation. The OG tube was resumed at 20 mL/hr. The patient's home medications were resumed this morning, including gabapentin 300 mg tablet p.o. every 8 hours, oxycodone 50 mg 1 tablet p.o. every 8 hours, propranolol 10 mg every 8 hours, and Paxil 10 mg tablet daily. The patient will be re-evaluated again tomorrow for sedation medication and spontaneous breathing trial. OBJECTIVE: GENERAL: The patient is sedated, afebrile, not in apparent acute respiratory distress. VITAL SIGNS: Temperature 98.6 with a T-max of 99 degrees Fahrenheit. Blood pressure is 121/63, heart rate is 56, respirations 14, saturation is 94% to 97% on FIO2 of 28, tidal volume 500, pressure support 10 with a PEEP of 5 and SIMV rate of 14. EYES: No jaundice or pallor. EARS, NOSE, AND THROAT: No ear drainage. No nasal discharge. Orotracheal tube is in place. OG tube is in place. CHEST AND LUNGS: No wheezing. No rhonchi. No coarse crackles. CARDIAC: S1, S2 distinct. Normal rate. Regular rhythm. ABDOMEN: Flabby. Positive bowel sounds. Soft, nondistended, nontender. EXTREMITIES: No joint swelling. No cellulitis. LABORATORY: CBC done this morning showed white count of 32,000 from 16,000, hemoglobin is 10.4, hematocrit is 31, platelet count is 234. ABG this morning showed a pH of 7.49, PCO2 of 36.4, PO2 of 82.4, and bicarb of 26.9 on 35% FIO2. Chemistry done this morning shows sodium is 143, potassium is 3.7, chloride is 110, CO2 is 36, BUN 15, creatinine 0.53, glucose is 142, calcium is 8.4. SGOT is 76, SGPT is 96, alkaline phosphatase 154, total protein 4.8, and albumin is 2.9. Chest x-ray done today showed no pneumothorax and endotracheal tube is in place. ASSESSMENT: 1. ACUTE RESPIRATORY FAILURE REQUIRING INVASIVE MECHANICAL VENTILATION, CURRENTLY NOT READY TO BE EXTUBATED YET. 2. HISTORY OF COPD, CURRENTLY NOT IN ACUTE BRONCHOSPASM. 3. ALTERED MENTAL STATUS DUE TO DRUG OVERDOSE. 4. SEVERE ANXIETY. 5. CHRONIC BODY PAIN REQUIRING CHRONIC NARCOTIC USE. PLAN/RECOMMENDATIONS: 1. Resume all of the patient's home medications. 2. We will start the spontaneous breathing trial again tomorrow morning and if she is doing okay then may consider extubating the patient. 3. Continue current medications. DICTATING PHYSICIAN: ALAN LUJAN MD,JAVI,MPH [id number] PHY#: [id number] ID: [id number] JOB#: [id number] ACCT: [id number] cc: > MTDD
[2018-03-30] MEDS: VANCOMYCIN HCL 1,000 MG in DEXTROSE 5%-WATER 250 ML IV SCH (12:48)
[2018-03-30] MEDS: OXYCODONE HCL IR 5 MG TABLET PO SCH ×2 (13:02→21:24)
--- NOTE | 2018-03-30 18:46 | PDOC PROGRESS REPORT ---
Subjective Progress Note for:: 03/30/18 Subjective:: No adverse events overnight. Patient remains sedated and intubated. This morning her sedation had been lightened and she was not as agitated after it been off for a couple of hours. She was able to make eye contact with me and nod her head yes that she wanted the ET tube out, and that she understood that we were going to wait until she woke up a little bit more before we attempted any further breathing trials. 2 hours off of her sedation when she got comfortable she was not breathing over the vent but when we suctioned her and agitated her quite a bit and then she was breathing well over the ventilator. Reason For Visit: ACUTE ON CHRONIC RESP FALIRE ACIDOSIS,HYPOTENSION Physical Exam Vital Signs: Temp Pulse Resp BP Pulse Ox 97.9 F 52 L 14 124/72 94 03/30/18 18:00 03/30/18 18:00 03/30/18 18:11 03/30/18 18:11 03/30/18 18:11 Intake & Output 03/29/18 03/30/18 03/31/18 06:59 06:59 06:59 Intake Total 2154 2727 336 Output Total 2810 1810 2770 Balance -656 917 -2434 Weight 52.3 kg 54.7 kg General appearance: PRESENT: thin, other - Cachectic and ill-appearing, sedated , intubated Respiratory exam: PRESENT: decreased breath sounds Cardiovascular exam: PRESENT: +S1, +S2 Pulses: PRESENT: +2 pedal pulses bilateral GI/Abdominal exam: PRESENT: normal bowel sounds, soft. ABSENT: tenderness Extremities exam: ABSENT: pedal edema Neurological exam: PRESENT: sedated Skin exam: PRESENT: dry, warm Results Laboratory Results: 03/30/18 05:40 03/30/18 05:40 03/30/18 03/30/18 03/30/18 05:40 05:40 05:40 WBC 18.4 H RBC 3.64 L Hgb 9.8 L Hct 30.0 L MCV 82 MCH 26.9 L MCHC 32.6 RDW 18.1 H Plt Count 344 Seg Neutrophils % 88.4 H Lymphocytes % 5.1 L Monocytes % 6.5 Eosinophils % 0.0 Basophils % 0.0 Absolute Neutrophils 16.2 H Absolute Lymphocytes 0.9 Absolute Monocytes 1.2 Absolute Eosinophils 0.0 Absolute Basophils 0.0 Carbonic Acid Cancelled HCO3/H2CO3 Ratio Cancelled ABG pH Cancelled ABG pCO2 Cancelled ABG pO2 Cancelled ABG HCO3 Cancelled ABG O2 Saturation Cancelled ABG Base Excess Cancelled FiO2 Cancelled Sodium 142.6 Potassium 3.6 Chloride 108 H Carbon Dioxide 28 Anion Gap 7 BUN 19 Creatinine 0.60 Est GFR ( Amer) > 60 Est GFR (Non-Af Amer) > 60 Glucose 115 H Calcium 8.5 Magnesium Total Bilirubin 0.2 AST 41 H ALT 68 H Alkaline Phosphatase 123 Total Protein 4.7 L Albumin 2.7 L Urine Color Urine Appearance Urine pH Ur Specific [place] Urine Protein Urine Glucose (UA) Urine Ketones Urine Blood Urine Nitrite Ur Leukocyte Esterase Urine WBC (Auto) Urine RBC (Auto) Stool Occult Blood 03/30/18 03/30/18 03/30/18 05:40 05:40 06:45 WBC RBC Hgb Hct MCV MCH MCHC RDW Plt Count Seg Neutrophils % Lymphocytes % Monocytes % Eosinophils % Basophils % Absolute Neutrophils Absolute Lymphocytes Absolute Monocytes Absolute Eosinophils Absolute Basophils Carbonic Acid Cancelled HCO3/H2CO3 Ratio Cancelled ABG pH Cancelled ABG pCO2 Cancelled ABG pO2 Cancelled ABG HCO3 Cancelled ABG O2 Saturation Cancelled ABG Base Excess Cancelled FiO2 Cancelled Sodium Potassium Chloride Carbon Dioxide Anion Gap BUN Creatinine Est GFR ( Amer) Est GFR (Non-Af Amer) Glucose Calcium Magnesium 2.2 Total Bilirubin AST ALT Alkaline Phosphatase Total Protein Albumin Urine Color STRAW Urine Appearance CLEAR Urine pH 6.0 Ur Specific [place] 1.012 Urine Protein NEGATIVE Urine Glucose (UA) NEGATIVE Urine Ketones NEGATIVE Urine Blood MODERATE H Urine Nitrite NEGATIVE Ur Leukocyte Esterase NEGATIVE Urine WBC (Auto) 1 Urine RBC (Auto) 62 Stool Occult Blood 03/30/18 03/30/18 08:00 13:57 WBC RBC Hgb Hct MCV MCH MCHC RDW Plt Count Seg Neutrophils % Lymphocytes % Monocytes % Eosinophils % Basophils % Absolute Neutrophils Absolute Lymphocytes Absolute Monocytes Absolute Eosinophils Absolute Basophils Carbonic Acid 1.03 L HCO3/H2CO3 Ratio 26:1 ABG pH 7.52 H ABG pCO2 34.3 L ABG pO2 66.9 L ABG HCO3 27.5 H ABG O2 Saturation 95.2 ABG Base Excess 4.7 FiO2 28% Sodium Potassium Chloride Carbon Dioxide Anion Gap BUN Creatinine Est GFR ( Amer) Est GFR (Non-Af Amer) Glucose Calcium Magnesium Total Bilirubin AST ALT Alkaline Phosphatase Total Protein Albumin Urine Color Urine Appearance Urine pH Ur Specific [place] Urine Protein Urine Glucose (UA) Urine Ketones Urine Blood Urine Nitrite Ur Leukocyte Esterase Urine WBC (Auto) Urine RBC (Auto) Stool Occult Blood POSITIVE 03/28/18 03/28/18 03/28/18 03:45 03:45 12:43 Creatine Kinase 84 63 CK-MB (CK-2) 3.43 Troponin I 0.083 NT-Pro-B Natriuret Pep 03/28/18 03/28/18 03/28/18 12:43 15:00 18:47 Creatine Kinase 62 CK-MB (CK-2) 2.23 1.96 Troponin I 0.130 NT-Pro-B Natriuret Pep 1470 H 03/28/18 18:47 Creatine Kinase CK-MB (CK-2) 1.26 Troponin I 0.112 NT-Pro-B Natriuret Pep Impressions: KUB X-Ray 03/27/18 00:00 IMPRESSION: The NG tube is in satisfactory position. Small bowel obstruction versus ileus. Please correlate clinically. copyright 2011 [email or web address]- All Rights Reserved Head CT 03/27/18 22:59 IMPRESSION: No acute intracranial abnormality. Chest/Abdomen CTA 03/27/18 23:00 IMPRESSION: No acute pulmonary embolism. Abdomen/Pelvis CT 03/27/18 23:17 IMPRESSION: Mild thickening of the small bowel with mild distention of the fluid-filled colon. These findings are nonspecific and may be due to an enterocolitis or diarrhea. No dilated loops of small bowel are identified. No evidence of an obstruction. TECHNICAL DOCUMENTATION: Quality ID # 436: Final reports with documentation of one or more dose reduction techniques (e.g., Automated exposure control, adjustment of the mA and/or kV according to patient size, use of iterative reconstruction technique) copyright 2011 [email or web address]- All Rights Reserved Chest X-Ray 03/30/18 05:00 IMPRESSION: Little interval change copyright 2010 [email or web address]- All Rights Reserved Assessment & Plan - Diagnosis (1) Acute respiratory failure with hypoxia and hypercapnia Is this a current diagnosis for this admission?: Yes Plan: I believe that her chronic narcotic and benzodiazepine use, with the possibility of oversedation, are complicit in her presentation. Stable with her current level of ventilatory support. Will continue to wean sedation for vent wean trials. Pulmonary consulted. (2) Aspiration pneumonia Qualifiers: Aspiration pneumonia type: unspecified Laterality: left Lung location: lower lobe of lung Qualified Code(s): J69.0 - Pneumonitis due to inhalation of food and vomit Is this a current diagnosis for this admission?: Yes Plan: Covered with antibiotics in case this is playing a part. (3) Shock circulatory Is this a current diagnosis for this admission?: Yes Plan: I suspect she had decreased distribution secondary to overmedication, which led to the other end organ sequelae. All components improving with volume resuscitation. (4) Chronic benzodiazepine dependence Is this a current diagnosis for this admission?: Yes Plan: Her home meds have been started at what we believe to be her prescribed doses. (5) Chronic opiate dependence Is this a current diagnosis for this admission?: Yes Plan: Her home meds have been started at what we believe to be her prescribed doses. - Time Time Spent with patient: 25-34 minutes
[2018-03-30] MEDS: DEXTROSE 5%-1/2 NORMAL SALINE 1,000 ML IV PRN (23:55)
[2018-03-31] MEDS: IPRATROPIUM/ALBUTEROL 0.5-2.5 MG/3 ML AMPUL NEB SCH ×3 (00:52→16:28)
[2018-03-31] MEDS: PIPERACILLIN SODIUM/TAZOBACTAM 3.375 GM in NORMAL SALINE 100 ML IV SCH ×4 (03:18→22:12)
[2018-03-31] MEDS: PROPOFOL 1,000 MG/100 ML INFUS..BTL IV PRN ×2 (04:03→07:00)
[2018-03-31] MEDS: LORAZEPAM INJ 2 MG/1 ML VIAL IV PRN ×3 (04:26→23:20)
[2018-03-31 05:19] LABS: HEMATOCRIT 31.9 % (36.0-47.0); HEMOGLOBIN 10.6 g/dL (12.0-15.5); MEAN CORPUSCULAR HEMOGLOBIN 27.2 pg (27.0-33.4); MEAN CORPUSCULAR HGB CONC 33.1 g/dL (32.0-36.0); MEAN CORPUSCULAR VOLUME 82 fl (80-97); PLATELET COUNT 339 10^3/uL (150-450); RED BLOOD COUNT 3.89 10^6/uL (3.72-5.28); RED CELL DISTRIBUTION WIDTH 18.5 % (11.5-14.0); WHITE BLOOD COUNT 12.8 10^3/uL (4.0-10.5)
[2018-03-31 05:23] LABS: ARTERIAL BLOOD BASE EXCESS 6.4 mmol/L; ARTERIAL BLOOD H2CO3 0.98 mmol/L (1.05-1.35); ARTERIAL BLOOD HCO3 28.6 mmol/L (20-24); ARTERIAL BLOOD O2 SATURATION 95.3 % (94-98); ARTERIAL BLOOD PCO2 32.6 mmHg (35-45); ARTERIAL BLOOD PH 7.56 (7.35-7.45); ARTERIAL BLOOD PO2 65.3 mmHg (80-100); ARTERIAL BLOOD TOTAL CO2 29.6 mmol/L (21-25)
[2018-03-31 05:25] LABS: ARTERIAL BLOOD FIO2 30%
[2018-03-31] MEDS: PROPRANOLOL HCL 10 MG TABLET PO SCH ×3 (06:08→22:03)
[2018-03-31 06:09] LABS: BLOOD UREA NITROGEN 12 mg/dL (7-20); CALCIUM 8.8 mg/dL (8.4-10.2); CARBON DIOXIDE 32 mmol/L (22-30); CHLORIDE 108 mmol/L (98-107); GLUCOSE 93 mg/dL (75-110); POTASSIUM 3.1 mmol/L (3.6-5.0); SODIUM 144.4 mmol/L (137-145)
[2018-03-31] MEDS: OXYCODONE HCL IR 5 MG TABLET PO SCH ×3 (06:09→22:03)
[2018-03-31] MEDS: GABAPENTIN 300 MG CAPSULE PO SCH ×3 (06:09→22:03)
[2018-03-31 06:13] LABS: ANION GAP 4 (5-19)
--- NOTE | 2018-03-31 07:14 | RADIOLOGY REPORT (SQ) ---
EXAM DESCRIPTION: X-ray single view chest. CLINICAL HISTORY: 68 years Female, mechanically ventilated COMPARISON: Portable chest performed on 03/30/2018 and 03/29/2018. TECHNIQUE: Single portable view of the chest performed on 03/31/2018 at 5:59 AM FINDINGS: The lungs are well expanded and are clear. There is no evidence of a pneumothorax. The cardiac silhouette is normal in size and configuration. The mediastinal contours are normal. No acute osseous abnormality is identified. No focal soft tissue abnormalities are seen. Lines and tubes: The right IJ central venous catheter, endotracheal tube and feeding tube are grossly stable as visualized. IMPRESSION: No evidence of acute intrathoracic disease or significant change when compared to the prior studies.
[2018-03-31] MEDS: PREDNISONE 10 MG TABLET PO SCH (07:50)
[2018-03-31] MEDS: PANTOPRAZOLE SODIUM 40 MG VIAL IV SCH (09:27)
[2018-03-31] MEDS: PAROXETINE HCL 20 MG TABLET PO SCH (09:27)
[2018-03-31] MEDS: ENOXAPARIN SODIUM INJ 60 MG/0.6 ML DISP.SYRIN SUBCUT SCH ×2 (09:28→22:09)
[2018-03-31] MEDS: POTASSIUM CHLORIDE 20 MEQ/50 ML RTU IV SCH ×2 (10:58→12:33)
[2018-03-31 12:08] LABS: APPEARANCE,URINE CLEAR; BILIRUBIN,URINE NEGATIVE (NEGATIVE); COLOR,URINE COLORLESS; GLUCOSE, URINE NEGATIVE (NEGATIVE); KETONES,URINE NEGATIVE (NEGATIVE); LEUKOCYTE ESTERASE,URINE NEGATIVE (NEGATIVE); NITRITE,URINE NEGATIVE (NEGATIVE); PROTEIN,URINE NEGATIVE (NEGATIVE); URINE SPECIFIC GRAVITY 1.008; UROBILINOGEN,URINE NEGATIVE mg/dL (<2.0)
[2018-03-31 12:29] LABS: ARTERIAL BLOOD BASE EXCESS 6.2 mmol/L; ARTERIAL BLOOD H2CO3 0.93 mmol/L (1.05-1.35); ARTERIAL BLOOD HCO3 27.9 mmol/L (20-24); ARTERIAL BLOOD O2 SATURATION 98.1 % (94-98); ARTERIAL BLOOD PCO2 30.8 mmHg (35-45); ARTERIAL BLOOD PH 7.58 (7.35-7.45); ARTERIAL BLOOD PO2 95.1 mmHg (80-100); ARTERIAL BLOOD TOTAL CO2 28.9 mmol/L (21-25)
[2018-03-31] MEDS: VANCOMYCIN HCL 1,000 MG in DEXTROSE 5%-WATER 250 ML IV SCH (12:59)
[2018-03-31 13:28] LABS: VANCOMYCIN,TROUGH 5.6 ug/mL (5.0-20.0)
[2018-03-31] MEDS: DEXTROSE 5%-1/2 NORMAL SALINE 1,000 ML IV PRN (13:45)
--- NOTE | 2018-03-31 14:18 | PROGRESS NOTE E ---
Progress Note NAME: RACHELLE MARY : 1950 AGE: 68Y DATE: 03/30/2018 ROOM: 612 SUBJECTIVE: The patient is a 68-year-old female who came in with acute respiratory failure requiring invasive mechanical ventilation. The patient was treated for a drug overdose. The patient appeared to be doing well. The patient has been afebrile for the last 24 hours. No nausea. No vomiting. No diarrhea. The patient tolerated OG tube feeding. Tried the spontaneous breathing trial this morning. Sedation was taken off around 8:00, but the patient was still apneic occasionally. Sedation was off until 12:00. The patient still not awakening, and later became very agitated. The IV propofol was resumed. OBJECTIVE: GENERAL: Currently, the patient appeared to be sedated, afebrile, not in apparent respiratory distress. VITAL SIGNS: Temperature of 98.1, with a T-max of 99 degrees Fahrenheit. Heart rate is 33. Blood pressure is 154/72. Respiratory rate is 14. Saturation is 94% on 30% FiO2, with simv rate of 14, tidal volume of 500, pressure support of 10, PEEP of 5. EYES: No jaundice and no pallor. EARS, NOSE, AND THROAT: No ear drainage. No nasal discharge. CHEST AND LUNGS: No wheezing. No rhonchi. No coarse crackles. CARDIOVASCULAR: S1, S2 distinct. Normal rate. Regular rhythm. ABDOMEN: Flabby. Positive bowel sounds. Soft, nondistended, nontender. EXTREMITIES: No joint swelling. No cellulitis. LABORATORY: CBC done today showed the white count dropped down to 18.4 from 32.1 yesterday. Hemoglobin is 9.8, hematocrit is 30, platelet count is 244. No bands noted. ABG done this morning showed the pH of 7.52, PCO2 is 34, PO2 is 66, and bicarb is 57, and on the ABG saturation was 95%. Chemistry done today showed sodium is 142, potassium is 3.6, chloride 108, CO2 is 28, BUN is 19, creatinine 0.6, glucose 112, calcium is 8.5, magnesium 2.2. ASSESSMENT: 1. ACUTE RESPIRATORY FAILURE REQUIRING INVASIVE MECHANICAL VENTILATION. The patient currently is not ready to be extubated. The patient became so agitated and tachycardic. 2. DRUG OVERDOSE. URINE POSITIVE FOR BENZODIAZEPINE AND OPIATES. PLAN AND RECOMMENDATIONS: 1. Will do spontaneous breathing trial every morning once fully awake and off sedation. 2. Resume the IV sedation for the rest of the night to light sedation. 3. Will continue to optimize ventilator support and pressure support. DICTATING PHYSICIAN: ALAN LUJNA MD,JAVI,MPH [id number] PHY#: [id number] ID: [id number] JOB#: [id number] ACCT: [id number] cc: > MTDD
--- NOTE | 2018-03-31 17:41 | PDOC PROGRESS REPORT ---
Subjective Progress Note for:: 03/31/18 Subjective:: No adverse events overnight. She remained intubated overnight. She has had the sedation off this morning and is still a bit somnolent but is breathing over the ventilator and is a bit more awake and she was off sedation yesterday morning. Her vital signs been stable. Pulmonology is planning on coming back to see her this afternoon to see if she can be extubated. Reason For Visit: ACUTE ON CHRONIC RESP FALIRE ACIDOSIS,HYPOTENSION Physical Exam Vital Signs: Temp Pulse Resp BP Pulse Ox 98.8 F 85 16 155/99 H 95 03/31/18 15:48 03/31/18 16:29 03/31/18 16:29 03/31/18 15:48 03/31/18 16:29 Intake & Output 03/30/18 03/31/18 04/01/18 06:59 06:59 06:59 Intake Total 2727 4085 1278 Output Total 1810 5145 2930 Balance 917 -1060 -1652 Weight 54.7 kg 52.9 kg General appearance: PRESENT: thin, other - Cachectic and ill-appearing, off sedation but still a bit delayed, intubated Respiratory exam: PRESENT: Normal breath sounds, no wheezes or rhonchi no use of accessory muscles Cardiovascular exam: PRESENT: +S1, +S2, regular rate and rhythm Pulses: PRESENT: +2 pedal pulses bilateral GI/Abdominal exam: PRESENT: normal bowel sounds, soft. ABSENT: tenderness Extremities exam: ABSENT: pedal edema. She is in two-point restraints but moves all of her extremities without difficulty. Skin exam: PRESENT: dry, warm Results Laboratory Results: 03/31/18 05:00 03/31/18 03/31/18 03/31/18 05:00 05:00 05:30 WBC 12.8 H RBC 3.89 Hgb 10.6 L Hct 31.9 L MCV 82 MCH 27.2 MCHC 33.1 RDW 18.5 H Plt Count 339 Carbonic Acid 0.98 L HCO3/H2CO3 Ratio 29:1 ABG pH 7.56 H ABG pCO2 32.6 L ABG pO2 65.3 L ABG HCO3 28.6 H ABG O2 Saturation 95.3 ABG Base Excess 6.4 FiO2 30% Sodium 144.4 Potassium 3.1 L Chloride 108 H Carbon Dioxide 32 H Anion Gap 4 L BUN 12 Creatinine 0.56 Est GFR ( Amer) > 60 Est GFR (Non-Af Amer) > 60 Glucose 93 Calcium 8.8 Magnesium Urine Color Urine Appearance Urine pH Ur Specific [place] Urine Protein Urine Glucose (UA) Urine Ketones Urine Blood Urine Nitrite Ur Leukocyte Esterase Urine WBC (Auto) Urine RBC (Auto) Stool Occult Blood 03/31/18 03/31/18 03/31/18 05:30 05:30 11:30 WBC RBC Hgb Hct MCV MCH MCHC RDW Plt Count Carbonic Acid HCO3/H2CO3 Ratio ABG pH ABG pCO2 ABG pO2 ABG HCO3 ABG O2 Saturation ABG Base Excess FiO2 Sodium Potassium Chloride Carbon Dioxide Anion Gap BUN Creatinine Est GFR ( Amer) Est GFR (Non-Af Amer) Glucose Calcium Magnesium 2.0 Urine Color COLORLESS Urine Appearance CLEAR Urine pH 7.0 Ur Specific [place] 1.008 Urine Protein NEGATIVE Urine Glucose (UA) NEGATIVE Urine Ketones NEGATIVE Urine Blood SMALL H Urine Nitrite NEGATIVE Ur Leukocyte Esterase NEGATIVE Urine WBC (Auto) 0 Urine RBC (Auto) 7 Stool Occult Blood POSITIVE 03/31/18 12:05 WBC RBC Hgb Hct MCV MCH MCHC RDW Plt Count Carbonic Acid 0.93 L HCO3/H2CO3 Ratio 30:1 ABG pH 7.58 H ABG pCO2 30.8 L ABG pO2 95.1 ABG HCO3 27.9 H ABG O2 Saturation 98.1 H ABG Base Excess 6.2 FiO2 15% Sodium Potassium Chloride Carbon Dioxide Anion Gap BUN Creatinine Est GFR ( Amer) Est GFR (Non-Af Amer) Glucose Calcium Magnesium Urine Color Urine Appearance Urine pH Ur Specific [place] Urine Protein Urine Glucose (UA) Urine Ketones Urine Blood Urine Nitrite Ur Leukocyte Esterase Urine WBC (Auto) Urine RBC (Auto) Stool Occult Blood 03/28/18 03/28/18 03/28/18 03:45 03:45 12:43 Creatine Kinase 84 63 CK-MB (CK-2) 3.43 Troponin I 0.083 NT-Pro-B Natriuret Pep 03/28/18 03/28/18 03/28/18 12:43 15:00 18:47 Creatine Kinase 62 CK-MB (CK-2) 2.23 1.96 Troponin I 0.130 NT-Pro-B Natriuret Pep 1470 H 03/28/18 18:47 Creatine Kinase CK-MB (CK-2) 1.26 Troponin I 0.112 NT-Pro-B Natriuret Pep Impressions: KUB X-Ray 03/27/18 00:00 IMPRESSION: The NG tube is in satisfactory position. Small bowel obstruction versus ileus. Please correlate clinically. copyright 2010 [employer]- All Rights Reserved Head CT 03/27/18 22:59 IMPRESSION: No acute intracranial abnormality. Chest/Abdomen CTA 03/27/18 23:00 IMPRESSION: No acute pulmonary embolism. Abdomen/Pelvis CT 03/27/18 23:17 IMPRESSION: Mild thickening of the small bowel with mild distention of the fluid-filled colon. These findings are nonspecific and may be due to an enterocolitis or diarrhea. No dilated loops of small bowel are identified. No evidence of an obstruction. TECHNICAL DOCUMENTATION: Quality ID # 436: Final reports with documentation of one or more dose reduction techniques (e.g., Automated exposure control, adjustment of the mA and/or kV according to patient size, use of iterative reconstruction technique) copyright 2010 [employer]- All Rights Reserved Chest X-Ray 03/31/18 05:00 IMPRESSION: No evidence of acute intrathoracic disease or significant change when compared to the prior studies. Assessment & Plan - Diagnosis (1) Acute respiratory failure with hypoxia and hypercapnia Is this a current diagnosis for this admission?: Yes Plan: I believe that her chronic narcotic and benzodiazepine use, with the possibility of oversedation, are complicit in her presentation. Stable with her current level of ventilatory support. Will continue to wean sedation for vent wean trial this afternoon, with the hope that she can be extubated. Pulmonary consulted. (2) Aspiration pneumonia Qualifiers: Aspiration pneumonia type: unspecified Laterality: left Lung location: lower lobe of lung Qualified Code(s): J69.0 - Pneumonitis due to inhalation of food and vomit Is this a current diagnosis for this admission?: Yes Plan: Covered with antibiotics in case this is playing a part. She is responding well and should be able to transition to orals when she is extubated. (3) Shock circulatory Is this a current diagnosis for this admission?: Yes Plan: I suspect she had decreased distribution secondary to overmedication, which led to the other end organ sequelae. All components improving with volume resuscitation. (4) Chronic benzodiazepine dependence Is this a current diagnosis for this admission?: Yes Plan: Her home meds have been started at what we believe to be her prescribed doses. (5) Chronic opiate dependence Is this a current diagnosis for this admission?: Yes Plan: Her home dose of Percocet has been decreased to one third of its usual dose in an attempt to prevent withdrawal but to avoid oversedation. - Time Time Spent with patient: 25-34 minutes
[2018-03-31] MEDS ORDERED: DEXTROSE 5%-1/2 NORMAL SALINE 1,000 ML IV PRN (19:05)
[2018-03-31] MEDS ORDERED: IPRATROPIUM/ALBUTEROL 0.5-2.5 MG/3 ML AMPUL NEB PRN (19:06)
[2018-03-31] MEDS: FLUTICASONE/SALMETEROL DISKUS 250-50 MCG/DOSE IH SCH (21:15)
[2018-03-31] MEDS: TIOTROPIUM BROMIDE DPI 5 CAP/KIT (18 MCG/CAP) IH SCH (21:15)
[2018-03-31] MEDS: VANCOMYCIN HCL 750 MG in DEXTROSE 5%-WATER 250 ML IV SCH (22:15)
--- NOTE | 2018-03-31 22:17 | PROGRESS NOTE E ---
Progress Note NAME: RACHELLE MARY : 1950 AGE: 68Y DATE: 03/31/2018 ROOM: 612 SUBJECTIVE: The patient is a 68-year-old female who came in with acute respiratory failure requiring invasive mechanical ventilation. Status post severe lactic acidosis/metabolic acidosis. A past history of drug overdose. The patient tolerated spontaneous breathing trial this morning. The patient woke up a little more around noontime. ABG profile showed respiratory alkalosis. The patient was extubated at noontime and placed on BiPAP, 03/25. Appeared to be doing okay. No nausea, vomiting. No chest pain. The patient became more alert tonight and not in respiratory distress. No abdominal pain, diarrhea or vomiting. OBJECTIVE: GENERAL: Patient awake, alert, coherent, afebrile. Oriented x3, not in apparent respiratory distress. VITAL SIGNS: Temperature of 98.2, with a T-max of 99.9. Heart rate is 79. Blood pressure is 161/96. Respiratory rate is 15. Oxygen saturation is 98% on 30% FiO2, with BiPAP of 12/6 at a rate of 10. EYES: No jaundice and no pallor. EARS, NOSE, AND THROAT: No ear drainage. No nasal discharge. HEAD AND NECK: No neck swelling. No neck pain. CHEST AND LUNGS: No wheezing. No rhonchi. No coarse crackles. CARDIOVASCULAR: S1, S2 distinct. Normal rate. Regular rhythm. ABDOMEN: Flabby. Positive bowel sounds. Soft, nondistended, nontender. EXTREMITIES: No joint swelling. No cellulitis. LABORATORY: CBC done today showed the white count of 12.8 from 18.4 yesterday. Hemoglobin is 10.6, hematocrit is 31.9, platelet count is 339. No bands noted. ABG done after one & half hour of spontaneous breathing trial showed the pH of 7.58, PCO2 is 30.8, PO2 is 95, and bicarb is 28.9. Chemistry done today showed sodium is 144, potassium is 3.1. Patient received a potassium chloride rider per electrolyte protocol, possibly down to 3.5. Chloride 108, carbon dioxide 32, BUN 12, creatinine 0.56, glucose 93, calcium is 8.8, magnesium is 2. ASSESSMENT: 1. ACUTE RESPIRATORY FAILURE REQUIRING INVASIVE MECHANICAL VENTILATION. The patient apparently improved. Vital signs are stable. Extubated. Started on BiPAP. 2. COPD/ASTHMA CURRENTLY STABLE AND NOT IN ACUTE BRONCHOSPASM. 3. PNEUMONIA. 4. 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 WHITE COUNT IS RESOLVING. 5. LEUKOCYTOSIS, RESOLVING. PLAN AND RECOMMENDATIONS: 1. Will add Advair 250/50 inhaler 1 puff b.i.d. 2. Spiriva HandiHaler 1 capsule daily. 3. Will change the nebulizer dose of DuoNeb 3 mL every 6 hours p.r.n. for bronchial wheezing and shortness of breath. 4. Will change to nasal cannula later tonight or tomorrow 2 liters per minute. Titrate to get saturation 91-94%. 5. May initiate BiPAP if patient becomes tachypneic with a respiratory rate of more than 30 and tachycardic with a heart rate of more than 130. 6. Will discontinue the IV pantoprazole. Change it to oral Prevacid 50 mg daily. 7. Recommending weaning off or lowering the dose of prednisone tomorrow. 8. We are waiting for the sputum culture results which showed gram-positive cocci and chains. DICTATING PHYSICIAN: ALAN LUJAN MD,JAVI,MPH [id number] PHY#: [id number] ID: [id number] JOB#: [id number] ACCT: [id number] cc: > MTDD
[2018-03-31] MEDS: ACETAMINOPHEN 325 MG TABLET NG PRN (23:19)
[2018-04-01] MEDS: PIPERACILLIN SODIUM/TAZOBACTAM 3.375 GM in NORMAL SALINE 100 ML IV SCH ×2 (02:18→08:19)
[2018-04-01] MEDS: PROPRANOLOL HCL 10 MG TABLET PO SCH ×3 (06:38→21:09)
[2018-04-01] MEDS: OXYCODONE HCL IR 5 MG TABLET PO SCH ×3 (06:38→21:08)
[2018-04-01] MEDS: GABAPENTIN 300 MG CAPSULE PO SCH ×3 (06:38→21:09)
[2018-04-01] MEDS: LANSOPRAZOLE 15 MG TAB.RAP.DR PO SCH (06:40)
[2018-04-01 07:49] LABS: HEMATOCRIT 34.5 % (36.0-47.0); HEMOGLOBIN 11.3 g/dL (12.0-15.5); MEAN CORPUSCULAR HEMOGLOBIN 27.1 pg (27.0-33.4); MEAN CORPUSCULAR HGB CONC 32.8 g/dL (32.0-36.0); MEAN CORPUSCULAR VOLUME 83 fl (80-97); PLATELET COUNT 316 10^3/uL (150-450); RED BLOOD COUNT 4.17 10^6/uL (3.72-5.28); RED CELL DISTRIBUTION WIDTH 18.2 % (11.5-14.0); WHITE BLOOD COUNT 8.2 10^3/uL (4.0-10.5)
[2018-04-01 07:58] LABS: ARTERIAL BLOOD BASE EXCESS 5.2 mmol/L; ARTERIAL BLOOD H2CO3 1.19 mmol/L (1.05-1.35); ARTERIAL BLOOD O2 SATURATION 96.3 % (94-98); ARTERIAL BLOOD PCO2 39.5 mmHg (35-45); ARTERIAL BLOOD PH 7.48 (7.35-7.45); ARTERIAL BLOOD PO2 77.8 mmHg (80-100); ARTERIAL BLOOD TOTAL CO2 30.2 mmol/L (21-25)
[2018-04-01 08:04] LABS: ANION GAP 9 (5-19); BLOOD UREA NITROGEN 6 mg/dL (7-20); CALCIUM 8.5 mg/dL (8.4-10.2); CARBON DIOXIDE 31 mmol/L (22-30); CHLORIDE 103 mmol/L (98-107); GLUCOSE 119 mg/dL (75-110); SODIUM 143.4 mmol/L (137-145)
[2018-04-01 08:18] LABS: ABSOLUTE LYMPHOCYTES# (MANUAL) 3.4 10^3/uL (0.5-4.7); ABSOLUTE MONOCYTES # (MANUAL) 0.6 10^3/uL (0.1-1.4); ABSOLUTE NEUTROPHILS# (MANUAL) 3.9 10^3/uL (1.7-8.2); BASOPHILS % (MANUAL) 0 % (0-2); EOSINOPHILS % (MANUAL) 5 % (0-6); LYMPHOCYTES % (MANUAL) 39 % (13-45); MONOCYTES % (MANUAL) 7 % (3-13); SEGMENTED NEUTROPHILS % (MAN) 47 % (42-78); TOTAL CELLS COUNTED 100
[2018-04-01] MEDS: PREDNISONE 10 MG TABLET PO SCH (08:18)
[2018-04-01] MEDS: ACETAMINOPHEN 325 MG TABLET NG PRN ×2 (08:20→20:07)
[2018-04-01 08:23] LABS: ANISOCYTOSIS 2+; OVALOCYTES 1+; PLATELET CLUMPS PRESENT; POLYCHROMASIA SLIGHT; TARGET CELLS SLIGHT; TOXIC GRANULATION SLIGHT; TOXIC VACUOLATION PRESENT
[2018-04-01 08:24] LABS: PLATELET COMMENT ADEQUATE
[2018-04-01] MEDS: POTASSIUM CHLORIDE 20 MEQ/50 ML RTU IV SCH ×3 (09:13→12:48)
[2018-04-01] MEDS: VANCOMYCIN HCL 750 MG in DEXTROSE 5%-WATER 250 ML IV SCH (09:16)
[2018-04-01] MEDS: FLUTICASONE/SALMETEROL DISKUS 250-50 MCG/DOSE IH SCH ×2 (09:17→21:08)
[2018-04-01] MEDS: TIOTROPIUM BROMIDE DPI 5 CAP/KIT (18 MCG/CAP) IH SCH (09:17)
[2018-04-01] MEDS: PAROXETINE HCL 20 MG TABLET PO SCH (09:17)
[2018-04-01] MEDS: ENOXAPARIN SODIUM INJ 60 MG/0.6 ML DISP.SYRIN SUBCUT SCH (09:17)
[2018-04-01] MEDS: CEFUROXIME 500 MG TABLET PO SCH ×2 (11:44→21:09)
[2018-04-01] MEDS: BUSPIRONE HCL 10 MG TABLET PO SCH ×2 (13:11→21:09)
--- NOTE | 2018-04-01 14:59 | PDOC PROGRESS REPORT ---
Subjective Progress Note for:: 04/01/18 Subjective:: Patient is breathing better today, was extubated yesterday. She is feeling very weak however. She still has Valencia catheter in place. She has not eaten yet. She is sedentary around the circumstances that led to her intubation and hospitalization. She states that she does not really remember what happened. No chest pain, no diarrhea, no nausea or vomiting Reason For Visit: ACUTE ON CHRONIC RESP FALIRE ACIDOSIS,HYPOTENSION Physical Exam Vital Signs: Temp Pulse Resp BP Pulse Ox 97.5 F 75 14 106/64 95 04/01/18 11:46 04/01/18 13:09 04/01/18 13:09 04/01/18 09:13 04/01/18 13:09 Intake & Output 03/31/18 04/01/18 04/02/18 06:59 06:59 06:59 Intake Total 4085 1728 438 Output Total 5145 5180 850 Balance -1060 -3452 -412 Weight 52.9 kg 50 kg General appearance: PRESENT: cooperative, mild distress Head exam: PRESENT: atraumatic, normocephalic Eye exam: ABSENT: conjunctival injection, scleral icterus Ear exam: PRESENT: normal external ear exam Mouth exam: PRESENT: dry mucosa Respiratory exam: ABSENT: rales, unlabored, wheezes Cardiovascular exam: PRESENT: RRR Pulses: PRESENT: +1 pedal pulses bilateral Vascular exam: PRESENT: normal capillary refill GI/Abdominal exam: PRESENT: normal bowel sounds, soft. ABSENT: distended, tenderness Gentrourinary exam: PRESENT: indwelling catheter Extremities exam: ABSENT: calf tenderness, pedal edema Musculoskeletal exam: PRESENT: normal inspection. ABSENT: deformity Neurological exam: PRESENT: alert, awake, oriented to person, oriented to place , oriented to situation, CN II-XII grossly intact Psychiatric exam: PRESENT: anxious, flat affect Skin exam: PRESENT: dry, intact, warm Results Laboratory Results: 04/01/18 06:30 04/01/18 06:30 03/31/18 04/01/18 04/01/18 17:10 06:30 06:30 WBC RBC Hgb Hct MCV MCH MCHC RDW Plt Count Seg Neutrophils % Lymphocytes % Monocytes % Eosinophils % Basophils % Absolute Neutrophils Absolute Lymphocytes Absolute Monocytes Absolute Eosinophils Absolute Basophils Carbonic Acid Cancelled HCO3/H2CO3 Ratio Cancelled ABG pH Cancelled ABG pCO2 Cancelled ABG pO2 Cancelled ABG HCO3 Cancelled ABG O2 Saturation Cancelled ABG Base Excess Cancelled FiO2 Cancelled Sodium 143.4 Potassium 3.5 L 3.0 L* Chloride 103 Carbon Dioxide 31 H Anion Gap 9 BUN 6 L Creatinine 0.55 Est GFR ( Amer) > 60 Est GFR (Non-Af Amer) > 60 Glucose 119 H Calcium 8.5 Magnesium 1.8 04/01/18 04/01/18 06:30 06:56 WBC 8.2 RBC 4.17 Hgb 11.3 L Hct 34.5 L MCV 83 MCH 27.1 MCHC 32.8 RDW 18.2 H Plt Count 316 Seg Neutrophils % Not Reportable Lymphocytes % Not Reportable Monocytes % Not Reportable Eosinophils % Not Reportable Basophils % Not Reportable Absolute Neutrophils Not Reportable Absolute Lymphocytes Not Reportable Absolute Monocytes Not Reportable Absolute Eosinophils Not Reportable Absolute Basophils Not Reportable Carbonic Acid 1.19 HCO3/H2CO3 Ratio 24:1 ABG pH 7.48 H ABG pCO2 39.5 ABG pO2 77.8 L ABG HCO3 29.0 H ABG O2 Saturation 96.3 ABG Base Excess 5.2 FiO2 27% Sodium Potassium Chloride Carbon Dioxide Anion Gap BUN Creatinine Est GFR ( Amer) Est GFR (Non-Af Amer) Glucose Calcium Magnesium 03/28/18 06:30 Tracheal Aspirate Gram Stain - Final 03/28/18 06:30 Tracheal Aspirate Sputum Culture - Final Streptococcus Pneumoniae C.albicans/C.dubliniensis Normal Emmy 03/28/18 03/28/18 03/28/18 03:45 03:45 12:43 Creatine Kinase 84 63 CK-MB (CK-2) 3.43 Troponin I 0.083 NT-Pro-B Natriuret Pep 03/28/18 03/28/18 03/28/18 12:43 15:00 18:47 Creatine Kinase 62 CK-MB (CK-2) 2.23 1.96 Troponin I 0.130 NT-Pro-B Natriuret Pep 1470 H 03/28/18 18:47 Creatine Kinase CK-MB (CK-2) 1.26 Troponin I 0.112 NT-Pro-B Natriuret Pep Impressions: KUB X-Ray 03/27/18 00:00 IMPRESSION: The NG tube is in satisfactory position. Small bowel obstruction versus ileus. Please correlate clinically. copyright 2010 [email or web address] All Rights Reserved Head CT 03/27/18 22:59 IMPRESSION: No acute intracranial abnormality. Chest/Abdomen CTA 03/27/18 23:00 IMPRESSION: No acute pulmonary embolism. Abdomen/Pelvis CT 03/27/18 23:17 IMPRESSION: Mild thickening of the small bowel with mild distention of the fluid-filled colon. These findings are nonspecific and may be due to an enterocolitis or diarrhea. No dilated loops of small bowel are identified. No evidence of an obstruction. TECHNICAL DOCUMENTATION: Quality ID # 436: Final reports with documentation of one or more dose reduction techniques (e.g., Automated exposure control, adjustment of the mA and/or kV according to patient size, use of iterative reconstruction technique) copyright 2010 [email or web address])- All Rights Reserved Chest X-Ray 03/31/18 05:00 IMPRESSION: No evidence of acute intrathoracic disease or significant change when compared to the prior studies. Assessment & Plan - Diagnosis (1) Acute respiratory failure with hypoxia and hypercapnia Is this a current diagnosis for this admission?: Yes Plan: Patient was admitted with acute hypoxemic and hypercapnic respiratory failure secondary to aspiration pneumonia and COPD exacerbation. She was extubated yesterday and is doing well today. We will advance her care with discontinuation of Valencia, downgraded to telemetry status and ambulate along with starting a diet. Will monitor carefully, restart home medications and if safe plan for discharge tomorrow. (2) Aspiration pneumonia Qualifiers: Aspiration pneumonia type: unspecified Laterality: left Lung location: lower lobe of lung Qualified Code(s): J69.0 - Pneumonitis due to inhalation of food and vomit Is this a current diagnosis for this admission?: Yes Plan: Transition her to oral cephalosporin for a total of 7 days of antibiotics including those that she is Harjeet received in the hospital. (3) Anxiety disorder Qualifiers: Anxiety disorder type: generalized anxiety disorder Qualified Code(s): F41.1 - Generalized anxiety disorder Is this a current diagnosis for this admission?: Yes Plan: Patient states that she used to be on Xanax but her doctor discontinued that, she is on BuSpar 10 mg every 8 hours and this has been started today. (4) COPD exacerbation Is this a current diagnosis for this admission?: Yes Plan: Patient will continue on bronchodilators, Advair-patient tells me that she has not been taking her Advair at home because she could not afford it, same with her Spiriva. I have asked her to speak with her doctor about this so that she can be prescribed medications that she can afford. She does have duo nebs that she uses routinely at home. (5) Chronic opiate dependence Is this a current diagnosis for this admission?: Yes Plan: Patient is on 15 mg of oxycodone every 6 hours, follows with the pain doctor as an outpatient. I am slowly up titrating her pain medications to her baseline so that we can see if she is safe for discharge. This morning she was on oxycodone 5 mg p.o. every 8 and I have increased that to 10 mg p.o. every 8. (6) Chronic pain syndrome Is this a current diagnosis for this admission?: Yes Plan: Please see above - Time Time Spent with patient: 15-24 minutes Medications reviewed and adjusted accordingly: Yes Anticipated discharge: Home - Inpatient Certification Based on my medical assessment, after consideration of the patient's comorbidities, presenting symptoms, or acuity I expect that the services needed warrant INPATIENT care.: Yes I certify that my determination is in accordance with my understanding of Medicare's requirements for reasonable and necessary INPATIENT services [42 CFR 412.3e].: Yes Medical Necessity: Need for Nebulizer Therapy and Monitoring of Response, Need for Pain Control
--- NOTE | 2018-04-01 21:27 | EKG REPORT ---
SEVERITY:- NORMAL ECG - SINUS RHYTHM : Confirmed by: Kelli Willoughby MD 01-Apr-2018 21:26:12
[2018-04-02] MEDS: ACETAMINOPHEN 325 MG TABLET NG PRN (02:16)
[2018-04-02] MEDS: LANSOPRAZOLE 15 MG TAB.RAP.DR PO SCH (05:25)
[2018-04-02] MEDS: GABAPENTIN 300 MG CAPSULE PO SCH ×3 (05:25→21:13)
[2018-04-02] MEDS: BUSPIRONE HCL 10 MG TABLET PO SCH ×3 (05:25→21:13)
[2018-04-02] MEDS: OXYCODONE HCL IR 5 MG TABLET PO SCH ×3 (05:25→17:23)
[2018-04-02] MEDS ORDERED: PROPRANOLOL HCL 10 MG TABLET ONE (05:36)
[2018-04-02] MEDS: PROPRANOLOL HCL 10 MG TABLET PO SCH ×3 (05:40→21:13)
[2018-04-02 06:37] LABS: ABSOLUTE EOSINOPHILS # (AUTO) 0.7 10^3/uL (0.0-0.6); ABSOLUTE LYMPHOCYTES (AUTO) 2.3 10^3/uL (0.5-4.7); ABSOLUTE MONOCYTES (AUTO) 1.2 10^3/uL (0.1-1.4); ABSOLUTE NEUT (AUTO) 5.4 10^3/uL (1.7-8.2); BASOPHILS % (AUTO) 0.3 % (0-2); EOSINOPHILS % (AUTO) 6.9 % (0-6); HEMATOCRIT 35.9 % (36.0-47.0); HEMOGLOBIN 11.6 g/dL (12.0-15.5); LYMPHOCYTES % (AUTO) 23.9 % (13-45); MEAN CORPUSCULAR HEMOGLOBIN 27.1 pg (27.0-33.4); MEAN CORPUSCULAR HGB CONC 32.4 g/dL (32.0-36.0); MEAN CORPUSCULAR VOLUME 84 fl (80-97); MONOCYTES % (AUTO) 12.7 % (3-13); PLATELET COUNT 315 10^3/uL (150-450); RED CELL DISTRIBUTION WIDTH 17.7 % (11.5-14.0); SEGMENTED NEUTROPHILS % (AUTO) 56.2 % (42-78); TOTAL CELLS COUNTED % (AUTO) 100 %; WHITE BLOOD COUNT 9.7 10^3/uL (4.0-10.5)
[2018-04-02 06:46] LABS: ANION GAP 10 (5-19); BLOOD UREA NITROGEN 11 mg/dL (7-20); CARBON DIOXIDE 30 mmol/L (22-30); CHLORIDE 105 mmol/L (98-107); GLUCOSE 86 mg/dL (75-110); POTASSIUM 3.5 mmol/L (3.6-5.0); SODIUM 144.6 mmol/L (137-145)
--- NOTE | 2018-04-02 08:02 | PROGRESS NOTE E ---
Progress Note NAME: RACHELLE MARY : 1950 AGE: 68Y DATE: 04/01/2018 ROOM: 424 SUBJECTIVE: The patient is a 68-year-old female who came in in acute respiratory failure requiring invasive mechanical ventilation. The patient was endotracheally extubated yesterday and was on BiPAP last night, changed to a nasal cannula this morning. The patient is doing well, breathing comfortably, denies any increased cough or purulent sputum production, no hemoptysis, no chest pain, no worsening dyspnea, no nausea or vomiting, no abdominal pain. She has had watery stools today. OBJECTIVE: GENERAL: The patient is awake, alert, coherent, oriented x3. VITAL SIGNS: Afebrile with a temperature of 97.5 with a T-max of 98.8, heart rate 75, blood pressure 123/83, respiratory rate 15, saturation 95% on 2 L nasal cannula. EYES: No jaundice or pallor. EARS, NOSE, AND THROAT: No ear drainage. No nasal discharge. CHEST/LUNGS: No wheezing. No rhonchi. No coarse crackles. CARDIOVASCULAR: S1, S2 distinct. Normal rate and regular rhythm. ABDOMEN: Flabby. Positive bowel sounds. Soft, nondistended, nontender. EXTREMITIES: No joint swelling or cellulitis. LABORATORY: CBC done today shows a white count of 8.2, hemoglobin 11.3, hematocrit 34.5, platelet count. The pH is 7.48, PCO2 is 39.5. Chemistry done today showed sodium level of 143, potassium 4, chloride 103, CO2 31, BUN 6, creatinine 0.55, glucose 119, calcium 8.5, and magnesium 1.8. ASSESSMENT: 1. COPD/EMPHYSEMA, CURRENTLY STABLE AND NOT IN ACUTE BRONCHOSPASM. 2. STATUS POST ACUTE RESPIRATORY FAILURE REQUIRING INVASIVE MECHANICAL VENTILATION. 3. DRUG OVERDOSE. 4. SEVERE ANXIETY 5. CHRONIC PAIN 6. CHRONIC NARCOTIC USE PLAN/RECOMMENDATIONS: 1. Continue Advair at 250 mcg/50 mcg 1 puff b.i.d. 2. Continue Spiriva inhaler 1 puff inhaled once daily. 3. Initiation of albuterol inhaler 2 puffs 4 times a day if needed. 4. Recommend Pulmonary Clinic followup in 3 to 4 weeks following hospital discharge. 5. Continue home medications- gabapentin, oxycodone and paxil. I will sign off tonight. If you have any questions please feel free to call me. DICTATING PHYSICIAN: ALAN LUJAN MD,JAVI,MPH [id number] PHY#: [id number] 1999 ID: [id number] JOB#: [id number] ACCT: [id number] cc: > MTDD
[2018-04-02] MEDS: PREDNISONE 10 MG TABLET PO SCH (09:54)
[2018-04-02] MEDS: ENOXAPARIN SODIUM INJ 40 MG/0.4 ML DISP.SYRIN SUBCUT SCH (09:54)
[2018-04-02] MEDS: PAROXETINE HCL 20 MG TABLET PO SCH (09:54)
[2018-04-02] MEDS: CEFUROXIME 500 MG TABLET PO SCH ×2 (09:55→21:13)
[2018-04-02] MEDS: FLUTICASONE/SALMETEROL DISKUS 250-50 MCG/DOSE IH SCH ×2 (09:55→21:13)
[2018-04-02] MEDS: TIOTROPIUM BROMIDE DPI 5 CAP/KIT (18 MCG/CAP) IH SCH (09:56)
[2018-04-02] MEDS: POTASSI CL 20 MEQ/50 ML RIDER 20 MEQ/50 ML RTUPB IV SCH ×2 (12:05→13:48)
--- NOTE | 2018-04-02 16:30 | PDOC PROGRESS REPORT ---
Subjective Progress Note for:: 04/02/18 Subjective:: Patient is breathing better today. Her chronic pain is not well controlled and we discussed why we have been uptitrating her pain meds slowly, given her admission for respiratory failure. Her legs are feeling very wobbly and she is not really safely walking on her own yet. She is starting to eat and drink better. No chest pain nausea vomiting constipation diarrhea. Reason For Visit: ACUTE ON CHRONIC RESP FALIRE ACIDOSIS,HYPOTENSION Physical Exam Vital Signs: Temp Pulse Resp BP Pulse Ox 98.2 F 71 18 133/77 H 96 04/02/18 15:43 04/02/18 15:43 04/02/18 15:43 04/02/18 15:43 04/02/18 15:43 Intake & Output 04/01/18 04/02/18 04/03/18 06:59 06:59 06:59 Intake Total 0703 966 1522 Output Total 5180 850 Balance -3452 -362 1401 Weight 50 kg 50 kg General appearance: PRESENT: no acute distress, cooperative, well-developed, well-nourished Head exam: PRESENT: atraumatic, normocephalic Eye exam: ABSENT: conjunctival injection, scleral icterus Ear exam: PRESENT: normal external ear exam Mouth exam: PRESENT: moist Neck exam: ABSENT: tenderness Respiratory exam: PRESENT: decreased breath sounds, unlabored, wheezes. ABSENT : rales, rhonchi Cardiovascular exam: PRESENT: RRR. ABSENT: systolic murmur Pulses: PRESENT: normal radial pulses Vascular exam: PRESENT: normal capillary refill GI/Abdominal exam: PRESENT: normal bowel sounds, soft. ABSENT: distended, tenderness Rectal exam: PRESENT: deferred Gentrourinary exam: ABSENT: indwelling catheter Extremities exam: PRESENT: pedal edema Neurological exam: PRESENT: alert, awake, oriented to person, oriented to place , CN II-XII grossly intact Psychiatric exam: PRESENT: appropriate affect. ABSENT: anxious Skin exam: PRESENT: dry, intact, warm Results Laboratory Results: 04/02/18 05:30 04/02/18 05:30 04/01/18 04/02/18 04/02/18 17:00 05:30 05:30 WBC 9.7 RBC 4.30 Hgb 11.6 L Hct 35.9 L MCV 84 MCH 27.1 MCHC 32.4 RDW 17.7 H Plt Count 315 Seg Neutrophils % 56.2 Lymphocytes % 23.9 Monocytes % 12.7 Eosinophils % 6.9 H Basophils % 0.3 Absolute Neutrophils 5.4 Absolute Lymphocytes 2.3 Absolute Monocytes 1.2 Absolute Eosinophils 0.7 H Absolute Basophils 0.0 Sodium 144.6 Potassium 4.0 D 3.5 L Chloride 105 Carbon Dioxide 30 Anion Gap 10 BUN 11 Creatinine 0.43 L Est GFR ( Amer) > 60 Est GFR (Non-Af Amer) > 60 Glucose 86 Calcium 9.0 Magnesium 2.0 03/28/18 06:30 Tracheal Aspirate Gram Stain - Final 03/28/18 06:30 Tracheal Aspirate Sputum Culture - Final Streptococcus Pneumoniae C.albicans/C.dubliniensis Normal Emmy 03/28/18 03/28/18 03/28/18 03:45 03:45 12:43 Creatine Kinase 84 63 CK-MB (CK-2) 3.43 Troponin I 0.083 NT-Pro-B Natriuret Pep 03/28/18 03/28/18 03/28/18 12:43 15:00 18:47 Creatine Kinase 62 CK-MB (CK-2) 2.23 1.96 Troponin I 0.130 NT-Pro-B Natriuret Pep 1470 H 03/28/18 18:47 Creatine Kinase CK-MB (CK-2) 1.26 Troponin I 0.112 NT-Pro-B Natriuret Pep Impressions: KUB X-Ray 03/27/18 00:00 IMPRESSION: The NG tube is in satisfactory position. Small bowel obstruction versus ileus. Please correlate clinically. copyright 2011 [employer]- All Rights Reserved Head CT 03/27/18 22:59 IMPRESSION: No acute intracranial abnormality. Chest/Abdomen CTA 03/27/18 23:00 IMPRESSION: No acute pulmonary embolism. Abdomen/Pelvis CT 03/27/18 23:17 IMPRESSION: Mild thickening of the small bowel with mild distention of the fluid-filled colon. These findings are nonspecific and may be due to an enterocolitis or diarrhea. No dilated loops of small bowel are identified. No evidence of an obstruction. TECHNICAL DOCUMENTATION: Quality ID # 436: Final reports with documentation of one or more dose reduction techniques (e.g., Automated exposure control, adjustment of the mA and/or kV according to patient size, use of iterative reconstruction technique) copyright 2011 [employer]- All Rights Reserved Chest X-Ray 03/31/18 05:00 IMPRESSION: No evidence of acute intrathoracic disease or significant change when compared to the prior studies. Assessment & Plan - Diagnosis (1) Acute respiratory failure with hypoxia and hypercapnia Is this a current diagnosis for this admission?: Yes Plan: Improving. Continue bronchodilators and steroids along with antibiotics. This was due to COPD exacerbation and possibly respiratory depression related to medication overuse. (2) Aspiration pneumonia Qualifiers: Aspiration pneumonia type: unspecified Laterality: left Lung location: lower lobe of lung Qualified Code(s): J69.0 - Pneumonitis due to inhalation of food and vomit Is this a current diagnosis for this admission?: Yes Plan: Clinically improving, tolerating Ceftin 500 every 12 and so we will continue this for a full course. (3) Anxiety disorder Qualifiers: Anxiety disorder type: generalized anxiety disorder Qualified Code(s): F41.1 - Generalized anxiety disorder Is this a current diagnosis for this admission?: Yes Plan: Patient is on her home dosing of BuSpar, is feeling calm. (4) COPD exacerbation Is this a current diagnosis for this admission?: Yes Plan: Continuing treatment with antibiotics, steroids, bronchodilators. She is improving. (5) Chronic opiate dependence Is this a current diagnosis for this admission?: Yes Plan: She has chronic pain and is prescribed oxycodone 15 mg every 6 hours and now she is on that dosing, this was started this afternoon, we will see how she tolerates it. If she tolerates her dosing without any safety issues we can discharge her tomorrow. (6) Chronic pain syndrome Is this a current diagnosis for this admission?: Yes Plan: see above (7) Hypokalemia Is this a current diagnosis for this admission?: Yes Plan: this is chronic and pt does not know etiology. Will cont to replete to keep K in normal range. - Time Time Spent with patient: 25-34 minutes Anticipated discharge: Home - Inpatient Certification Based on my medical assessment, after consideration of the patient's comorbidities, presenting symptoms, or acuity I expect that the services needed warrant INPATIENT care.: Yes I certify that my determination is in accordance with my understanding of Medicare's requirements for reasonable and necessary INPATIENT services [42 CFR 412.3e].: Yes Medical Necessity: Need Close Monitoring Due to Risk of Patient Decompensation, Risk of Complication if Not Cared For in Hospital
[2018-04-03] MEDS: OXYCODONE HCL IR 5 MG TABLET PO SCH ×3 (02:01→13:24)
[2018-04-03] MEDS: BUSPIRONE HCL 10 MG TABLET PO SCH ×2 (05:50→13:43)
[2018-04-03] MEDS: LANSOPRAZOLE 15 MG TAB.RAP.DR PO SCH (05:50)
[2018-04-03] MEDS: GABAPENTIN 300 MG CAPSULE PO SCH ×2 (05:50→13:43)
[2018-04-03] MEDS: PROPRANOLOL HCL 10 MG TABLET PO SCH ×2 (05:51→14:41)
[2018-04-03 06:08] LABS: HEMATOCRIT 33.9 % (36.0-47.0); MEAN CORPUSCULAR HEMOGLOBIN 26.9 pg (27.0-33.4); MEAN CORPUSCULAR HGB CONC 32.4 g/dL (32.0-36.0); MEAN CORPUSCULAR VOLUME 83 fl (80-97); PLATELET COUNT 310 10^3/uL (150-450); RED BLOOD COUNT 4.08 10^6/uL (3.72-5.28); RED CELL DISTRIBUTION WIDTH 17.6 % (11.5-14.0); WHITE BLOOD COUNT 9.5 10^3/uL (4.0-10.5)
[2018-04-03 06:23] LABS: BLOOD UREA NITROGEN 12 mg/dL (7-20); CALCIUM 8.9 mg/dL (8.4-10.2); GLUCOSE 78 mg/dL (75-110); POTASSIUM 3.7 mmol/L (3.6-5.0)
[2018-04-03 06:28] LABS: CARBON DIOXIDE 32 mmol/L (22-30); CHLORIDE 107 mmol/L (98-107); SODIUM 141.3 mmol/L (137-145)
[2018-04-03 06:29] LABS: ABSOLUTE LYMPHOCYTES# (MANUAL) 2.7 10^3/uL (0.5-4.7); ABSOLUTE MONOCYTES # (MANUAL) 1.3 10^3/uL (0.1-1.4); ABSOLUTE NEUTROPHILS# (MANUAL) 4.8 10^3/uL (1.7-8.2); BASOPHILS % (MANUAL) 0 % (0-2); EOSINOPHILS % (MANUAL) 8 % (0-6); LYMPHOCYTES % (MANUAL) 28 % (13-45); MONOCYTES % (MANUAL) 14 % (3-13); SEGMENTED NEUTROPHILS % (MAN) 50 % (42-78); TOTAL CELLS COUNTED 100
[2018-04-03 06:30] LABS: ANISOCYTOSIS 2+; OVALOCYTES 1+; PLATELET COMMENT ADEQUATE; POIKILOCYTOSIS 1+; TOXIC VACUOLATION PRESENT
[2018-04-03 06:43] LABS: ANION GAP 2 (5-19)
[2018-04-03] MEDS: PREDNISONE 10 MG TABLET PO SCH (07:41)
[2018-04-03] MEDS: PAROXETINE HCL 20 MG TABLET PO SCH (10:04)
[2018-04-03] MEDS: FLUTICASONE/SALMETEROL DISKUS 250-50 MCG/DOSE IH SCH (10:04)
[2018-04-03] MEDS: CEFUROXIME 500 MG TABLET PO SCH (10:04)
[2018-04-03] MEDS: ENOXAPARIN SODIUM INJ 40 MG/0.4 ML DISP.SYRIN SUBCUT SCH (10:05)
[2018-04-03] MEDS: TIOTROPIUM BROMIDE DPI 5 CAP/KIT (18 MCG/CAP) IH SCH (10:05)
[2018-04-03] MEDS: ACETAMINOPHEN 325 MG TABLET NG PRN (10:11)
[2018-04-03] MEDS ORDERED: POTASSIUM CHLORIDE 20 MEQ/15 ML UDCUP PO ONE (12:30)
[2018-04-03 14:56] VITALS: BP 131/73
--- NOTE | 2018-04-03 16:48 | PDOC DISCHARGE SUMMARY ---
General - Admit/Disc Date/PCP Admission Date/Primary Care Provider: 03/27/18 23:14 HELENA PURCELL Discharge Date: 04/03/18 - Discharge Diagnosis (1) Acute respiratory failure with hypoxia and hypercapnia Is this a current diagnosis for this admission?: Yes Summary: Secondary to COPD exacerbation, pneumonia and possible medication overdose, unknown intentional versus unintentional. Patient was treated for her COPD exacerbation. She was also on 7 days of antibiotics for pneumonia. She grew strep pneumo and was on appropriate antibiotics from admission. She completed the course during the hospitalization. She tells me that she no longer uses benzodiazepine and her urine tox did show benzodiazepines so I wonder if she received this prior to the urine tox screen being taken, unknown at this point. But she does not remember the events surrounding her deterioration at home and given her history I imagine that benzodiazepine pain misuse is possible. Nonetheless, she was intubated for several days, treated for septic shock. She was extubated on April 01. She has done well since extubation. She is back on her home medications. (2) Streptococcus pneumoniae Is this a current diagnosis for this admission?: Yes Summary: Patient was admitted in septic shock and she was initially on cefepime, then changed to Zosyn, then changed to ceftriaxone and eventually to an oral cephalosporin. She was covered for strep pneumo from the beginning of the hospitalization and she completed her course of antibiotics while in-house. She is discharged home back at her respiratory baseline. (3) Anxiety disorder Is this a current diagnosis for this admission?: Yes (4) COPD exacerbation Is this a current diagnosis for this admission?: Yes Summary: Back to her baseline. She completed a course of antibiotics and steroids during the hospitalization. She is discharged home with a nebulizer machine and DuoNeb's. She is also given her Advair Diskus on discharge as she cannot afford an Advair Diskus as an outpatient. She is instructed to see her director clinical research and her PCP within the next several days for close monitoring. (5) Chronic opiate dependence Is this a current diagnosis for this admission?: Yes Summary: Patient sees a pain specialist and is prescribed oxycodone 15 mg p.o. every 6 hours. She is back on that and does not have respiratory depression. She tells me that she quit using benzodiazepine pain because her pain med prescriber told her that she would be discharged from the clinic if she also used benzodiazepines. (6) Chronic pain syndrome Is this a current diagnosis for this admission?: Yes Summary: Please see above. (7) Hypokalemia Is this a current diagnosis for this admission?: Yes Summary: Patient has chronic hypokalemia, she states she has had it for many years and her doctor follows it and she eats lots of potassium rich foods. We have repleted her potassium several times during the hospitalization and have discharged her with a normal potassium and with instructions to see her doctor within several days of discharge. (8) Atrial fibrillation with RVR Is this a current diagnosis for this admission?: Yes Summary: This is a chronic condition. She is on diltiazem, she is discharged on her home dose. He is not anticoagulated and she does not recall why. I have asked her to discuss this with her primary care doctor. While she was in the hospital she was anticoagulated with Lovenox. As the patient is not a very good historian and does not remember why she is not anticoagulated I have chosen to not put her on this medication until she can check with her doctor as that physician will have more history, for example does she have a history of bleeding which made anticoagulation contraindicated. (9) Anxiety disorder Is this a current diagnosis for this admission?: Yes Summary: Patient is on BuSpar 10 mg p.o. every 8 hours and she is discharged on this med. - Additional Information Resuscitation Status: Full Code Discharge Diet: Cardiac Discharge Activity: Activity As Tolerated, Slowly Increase Activity Prescriptions: Buspirone HCl [Buspar 10 mg Tablet] 10 mg PO Q8 30 Days #90 tablet Ipratropium/Albuterol Sulfate [Duoneb 3 ml Ampul] 3 ml NEB RTQ6HP PRN 30 Days # 100 vial.neb PRN Reason: Nebulizer [Nebulizer Machine] 1 each MC ASDIR PRN #1 kit PRN Reason: Home Medications: Diltiazem HCl [Cartia Xt] 180 mg PO Q12 03/28/18 Gabapentin [Neurontin 300 mg Capsule] 300 mg PO Q8 03/28/18 Oxycodone HCl [Oxy-Ir 5 mg Tablet] 15 mg PO Q6HP PRN 03/28/18 Paroxetine HCl [Paxil 20 mg Tablet] 20 mg PO DAILY 03/28/18 Propranolol HCl [Inderal 10 mg Tablet] 10 mg PO Q8HP PRN 03/28/18 Buspirone HCl [Buspar 10 mg Tablet] 10 mg PO Q8 30 Days #90 tablet 04/03/18 Fluticasone/Salmeterol [Advair 250-50 Diskus 14 Dose/Diskus] 1 inh IH Q12 inhaler 04/03/18 Ipratropium/Albuterol Sulfate [Duoneb 3 ml Ampul] 3 ml NEB RTQ6HP PRN 30 Days # 100 vial.neb 04/03/18 Nebulizer [Nebulizer Machine] 1 each MC ASDIR PRN #1 kit 04/03/18 Tiotropium Adams [Spiriva Handihaler 5 Cap/Kit (18 Mcg/Cap)] 1 cap IH DAILY kit 04/03/18 History of Present Illness History of Present Illness: RACHELEL MARY is a 68 year old woman with a past medical history of COPD, opiate dependent chronic pain, benzodiazepine dependent anxiety (no longer on benzodiazepine per her report) and hospitalization for overdose. Patient presents 6-1/2 hours after last seen normal by her with unresponsiveness and cyanosis. She received [id number] resuscitation, EMS finds her agonal and administers Narcan without significant response. She was intubated and brought to the emergency room for evaluation where she is unresponsive without sedation, hypotension, metabolic and respiratory acidosis. CT imaging head chest and abdomen are unremarkable. She is started on empiric antibiotics, and IV fluid challenge and levofed. She is referred to the hospitalist for admission. Family is not at bedside, Per ER provider patient had seen primary care provider the day prior for medication refill. She was admitted to the ICU and found to be septic. Hospital Course Hospital Course: Please see problem list Physical Exam Vital Signs: Temp Pulse Resp BP Pulse Ox 97.9 F 95 17 131/73 H 97 04/03/18 14:52 04/03/18 14:52 04/03/18 14:52 04/03/18 14:52 04/03/18 14:52 Intake & Output 04/02/18 04/03/18 04/04/18 06:59 06:59 06:59 Intake Total 488 1451 Output Total 850 Balance -362 1451 Weight 50 kg 51.6 kg General appearance: PRESENT: no acute distress, cooperative, thin Head exam: PRESENT: atraumatic, normocephalic Eye exam: ABSENT: conjunctival injection, scleral icterus Mouth exam: PRESENT: moist Neck exam: ABSENT: lymphadenopathy, tenderness Respiratory exam: PRESENT: clear to auscultation silvio, unlabored. ABSENT: rales , rhonchi, wheezes Pulses: PRESENT: normal radial pulses GI/Abdominal exam: PRESENT: normal bowel sounds, soft. ABSENT: distended, tenderness Rectal exam: PRESENT: deferred Gentrourinary exam: ABSENT: indwelling catheter Extremities exam: ABSENT: joint swelling, pedal edema Neurological exam: PRESENT: alert, awake, oriented to person, oriented to place , oriented to situation, CN II-XII grossly intact Psychiatric exam: PRESENT: anxious, appropriate affect Skin exam: PRESENT: dry, intact, warm Results Laboratory Results: 04/03/18 05:30 04/03/18 05:30 04/03/18 04/03/18 05:30 05:30 WBC 9.5 RBC 4.08 Hgb 11.0 L Hct 33.9 L MCV 83 MCH 26.9 L MCHC 32.4 RDW 17.6 H Plt Count 310 Seg Neutrophils % Not Reportable Lymphocytes % Not Reportable Monocytes % Not Reportable Eosinophils % Not Reportable Basophils % Not Reportable Absolute Neutrophils Not Reportable Absolute Lymphocytes Not Reportable Absolute Monocytes Not Reportable Absolute Eosinophils Not Reportable Absolute Basophils Not Reportable Sodium 141.3 Potassium 3.7 Chloride 107 Carbon Dioxide 32 H Anion Gap 2 L BUN 12 Creatinine 0.48 L Est GFR ( Amer) > 60 Est GFR (Non-Af Amer) > 60 Glucose 78 Calcium 8.9 Magnesium 1.9 03/28/18 03/28/18 03/28/18 03:45 03:45 12:43 Creatine Kinase 84 63 CK-MB (CK-2) 3.43 Troponin I 0.083 NT-Pro-B Natriuret Pep 03/28/18 03/28/18 03/28/18 12:43 15:00 18:47 Creatine Kinase 62 CK-MB (CK-2) 2.23 1.96 Troponin I 0.130 NT-Pro-B Natriuret Pep 1470 H 03/28/18 18:47 Creatine Kinase CK-MB (CK-2) 1.26 Troponin I 0.112 NT-Pro-B Natriuret Pep Impressions: KUB X-Ray 03/27/18 00:00 IMPRESSION: The NG tube is in satisfactory position. Small bowel obstruction versus ileus. Please correlate clinically. copyright 2010 [employer]- All Rights Reserved Head CT 03/27/18 22:59 IMPRESSION: No acute intracranial abnormality. Chest/Abdomen CTA 03/27/18 23:00 IMPRESSION: No acute pulmonary embolism. Abdomen/Pelvis CT 03/27/18 23:17 IMPRESSION: Mild thickening of the small bowel with mild distention of the fluid-filled colon. These findings are nonspecific and may be due to an enterocolitis or diarrhea. No dilated loops of small bowel are identified. No evidence of an obstruction. TECHNICAL DOCUMENTATION: Quality ID # [id number]: Final reports with documentation of one or more dose reduction techniques (e.g., Automated exposure control, adjustment of the mA and/or kV according to patient size, use of iterative reconstruction technique) copyright 2010 [employer]- All Rights Reserved Chest X-Ray 03/31/18 05:00 IMPRESSION: No evidence of acute intrathoracic disease or significant change when compared to the prior studies. Qualifiers - * PATIENT BEING DISCHARGED WITH ANY OF THE FOLLOWING DIAGNOSIS: No
== END 2018-04-03 16:12 | disposition home or self-care (01) | DRG 871 ==
LOC: ER 21:08 → EH 23:14 → ICU 03-28 01:05 → 4S 04-02 02:49
PROVIDERS: ADMIT Internal Medicine; ATTEND Internal Medicine
PROC: 5A1945Z Respiratory Ventilation, 24-96 Consecutive Hours (ICD-10-PCS; principal; 2018-03-27)
PROC: 02HV33Z Insertion of Infusion Device into Superior Vena Cava, Percutaneous Approach (ICD-10-PCS; 2018-03-27)
DX: A41.9 Sepsis, unspecified organism (principal); J69.0 Pneumonitis due to inhalation of food and vomit; J96.02 Acute respiratory failure with hypercapnia; J96.01 Acute respiratory failure with hypoxia; R65.21 Severe sepsis with septic shock; E87.4 Mixed disorder of acid-base balance; F11.20 Opioid dependence, uncomplicated; F13.20 Sedative, hypnotic or anxiolytic dependence, uncomplicated; J44.1 Chronic obstructive pulmonary disease with (acute) exacerbation; R64 Cachexia; Z68.1 Body mass index [BMI] 19.9 or less, adult; I48.91 Unspecified atrial fibrillation; E87.6 Hypokalemia; B95.3 Streptococcus pneumoniae as the cause of diseases classified elsewhere; T42.4X1A Poisoning by benzodiazepines, accidental (unintentional), initial encounter; I25.10 Atherosclerotic heart disease of native coronary artery without angina pectoris; G89.29 Other chronic pain; D72.829 Elevated white blood cell count, unspecified; F41.1 Generalized anxiety disorder; F17.210 Nicotine dependence, cigarettes, uncomplicated; Z79.82 Long term (current) use of aspirin; Z79.899 Other long term (current) drug therapy; Y92.009 Unspecified place in unspecified non-institutional (private) residence as the place of occurrence of the external cause
CPT/HCPCS: 36415; 51702; 70450; 71045; 71275; 74018; 74177; 80048; 80053; 80202; 80307; 81001; 82272; 82550; 82553; 82803; 83605; 83735; 83880; 84132; 84439; 84443; 84481; 84484; 85025; 85027; 87040; 87070; 87077; 87086; 87186; 87205; 87493; 90471; 90686; 93005; 93010; 93306; 94002; 94003; 94640; 94660; 96365; 96367; 96368; 96375; 99291; C1751; C1769; G0008; J0692; J1644; J1650; J2060; J2250; J2543; J2704; J2920; J2930; J3370; J3475; J3480; J3490; J7030; J7060; J7512; J7620; S0028; S0164

== ENCOUNTER 2018-11-13 01:50 | Inpatient (IN) | payer OTHER, MEDICARE ==
[2018-11-13] MEDS ORDERED: NORMAL SALINE 1000 ML 1,000 ML IV ONE ×3 (02:23→08:40)
[2018-11-13] MEDS ORDERED: FENTANYL CITRATE INJ/PF 100 MCG/2 ML AMPUL IV ONE (02:24)
[2018-11-13] MEDS ORDERED: ONDANSETRON HCL INJ/PF 4 MG/2 ML SDV IV ONE (02:24)
--- NOTE | 2018-11-13 02:26 | ER Document Report ---
Addendum entered and electronically signed by PERNELL BRODY PA 11/13/18 08:31: Discharge - Discharge Clinical Impression: Colitis, Vomiting and diarrhea Abdominal pain Qualifiers: Abdominal location: generalized Qualified Code(s): R10.84 - Generalized abdominal pain Leukocytosis Qualifiers: Leukocytosis type: unspecified Qualified Code(s): D72.829 - Elevated white blood cell count, unspecified Condition: Fair Disposition: ADMITTED INPATIENT Unit Admitted: OR Referrals: HELENA PURCELL MD [DAMIEN CLARK] - Follow up as needed Original Note: ED GI/ - General Chief Complaint: Abdominal Pain Stated Complaint: ABDOMINAL PAIN Time Seen by Provider: 11/13/18 02:15 Primary Care Provider: HELENA PURCELL MD [DAMIEN CLARK] - Follow up as needed Notes: Patient is a 68-year-old female that comes emergency department for chief complaint of sharp mid to lower abdominal pain with 5 episodes of vomiting and 4 episodes of loose stools that started since 8 PM. She denies flank pain, chest pain, fever/chills. She states she has had a cholecystectomy, denies abdominal surgeries otherwise. She states she has had a bulge in the left lower part of her abdomen recently and she is had a CAT scan of this earlier today with contrast. She does not know the results but has a disc with her. Remaining medical history includes COPD, back surgery, peripheral vascular disease, smoking. TRAVEL OUTSIDE OF THE [place] IN LAST 30 DAYS: No - Related Data Allergies/Adverse Reactions: No Known Allergies Allergy (Verified 03/27/18 23:17) Past Medical History - General Information source: Patient - Social History Smoking Status: Former Smoker Frequency of alcohol use: None Drug Abuse: None Lives with: Family Family History: CAD - Past Medical History Cardiac Medical History: Reports: Hx Peripheral Vascular Disease Denies: Hx Hypertension Pulmonary Medical History: Reports: Hx COPD, Hx Pneumonia Denies: Hx Asthma, Hx Bronchitis Neurological Medical History: Denies: Hx Cerebrovascular Accident, Hx Seizures Renal/ Medical History: Denies: Hx Peritoneal Dialysis Musculoskeletal Medical History: Reports Hx Arthritis Psychiatric Medical History: Comment Only: Hx Depression - anxiety Past Surgical History: Reports: Hx Adenoidectomy, Hx Carotid Endarterectomy, Hx Cholecystectomy, Hx Orthopedic Surgery - Back surgery, wrist surgery, neck surgery, Hx Tonsillectomy, Hx Vascular Surgery - Immunizations Hx Diphtheria, Pertussis, Tetanus Vaccination: Yes Review of Systems - Review of Systems Constitutional: No symptoms reported EENT: No symptoms reported Cardiovascular: No symptoms reported Respiratory: No symptoms reported Gastrointestinal: See HPI Genitourinary: No symptoms reported Female Genitourinary: No symptoms reported Musculoskeletal: No symptoms reported Skin: No symptoms reported Hematologic/Lymphatic: No symptoms reported Neurological/Psychological: No symptoms reported Physical Exam - Vital signs Vitals: Temp Pulse Resp BP Pulse Ox 97.5 F 111 H 18 68/50 L 94 11/13/18 01:58 11/13/18 01:58 11/13/18 01:58 11/13/18 01:58 11/13/18 01:58 - Notes Notes: GENERAL: Alert, restless, appears uncomfortable HEAD: Normocephalic, atraumatic. EYES: Pupils equal, round, and reactive to light. Extraocular movements intact. ENT: Oral mucosa moist, tongue midline. Oropharynx unremarkable. Airway patent. LUNGS: Decreased throughout, no overt wheezes or rales noted. No respiratory distress. HEART: Tachycardic, normal rhythm, no murmur ABDOMEN: Diffuse tenderness with no specific area but is more tender than the rest. No hernia noted, specifically no incarcerated hernia. Bowel sounds present. GENITOURINARY: Deferred EXTREMITIES: Moves all 4 extremities spontaneously. No edema, normal radial and dorsalis pedis pulses bilaterally. No cyanosis. BACK: no cervical, thoracic, lumbar midline tenderness. No saddle anesthesia, normal distal neurovascular exam. Moves all extremities in full range of motion. NEUROLOGICAL: Alert and oriented x3. Normal speech. Cranial nerves II through XII grossly intact. PSYCH: Mildly anxious SKIN: Warm, dry, normal turgor. No rashes or lesions noted. Course - Re-evaluation Re-evalutation: Blood pressure rechecked immediately at bedside, this is in the 110s systolic, I suspect 60s systolic read in triage was an error. Rechecked and still unremarkable. I did have the disc of the imaging from earlier, unfortunately they used IV contrast along with oral contrast, cannot use IV contrast again immediately. There is no read, I did look over this with Dr. Quintero, there appears to be some distended bowel and stool, unfortunately I called and asked if radiology here would read the imaging but this is not a possibility. I explained the patient, she agrees to reimaging. CBC shows leukocyte doses at 17.6 with elevation of neutrophils but no bandemia. Lactic acid is 1.6. Chemistry generally unremarkable. Patient has been given IV fluids, she will be kept n.p.o. Given pain medication. Patient hurting again, remedicated. Radiologist called me and reports portal venous gas in the left hepatic lobe, there is also bowel wall thickening along the descending colon, cecum, and proximal transverse colon with associated surrounding mesenteric inflammation and edema. Findings suggest colitis possibly ischemic in etiology. She states that the venous gas is most likely secondary to this. Very small fat-containing inguinal hernia. Started Zosyn, updated patient and . 11/13/18 06:45 Called and spoke with Dr. Srinivasan, surgeon on-call, patient will be evaluated shortly. He states he will speak to Dr. Valdovinos coming on at 7 AM about the patient. 11/13/18 7:50 I called and spoke with Dr. Valdovinos, he was not made aware of the patient, he has viewed the images, he will come evaluate the patient. - Vital Signs Vital signs: Temp Pulse Resp BP Pulse Ox 97.5 F 111 H 18 139/88 H 97 11/13/18 01:58 11/13/18 01:58 11/13/18 07:00 11/13/18 07:00 11/13/18 07:00 - Laboratory Result Diagrams: 11/13/18 02:24 11/13/18 02:24 Laboratory results interpreted by me: 11/13/18 11/13/18 02:24 02:24 WBC 17.6 H MCH 26.4 L RDW 21.2 H Plt Count 460 H Seg Neuts % (Manual) 90 H Lymphocytes % (Manual) 5 L Monocytes % (Manual) 2 L Abs Neuts (Manual) 16.4 H Carbon Dioxide 31 H Glucose 167 H AST 168 H ALT 82 H Alkaline Phosphatase 147 H Total Protein 6.0 L Discharge - Discharge Clinical Impression: Colitis, Vomiting and diarrhea Abdominal pain Qualifiers: Abdominal location: generalized Qualified Code(s): R10.84 - Generalized abdominal pain Leukocytosis Qualifiers: Leukocytosis type: unspecified Qualified Code(s): D72.829 - Elevated white blood cell count, unspecified Condition: Fair Disposition: ADMITTED INPATIENT Admitting Provider: Surgicalist Unit Admitted: Surgical Floor Referrals: HELENA PURCELL MD [DAMIEN CLARK] - Follow up as needed
[2018-11-13 02:47] LABS: HEMATOCRIT 41.3 % (36.0-47.0); HEMOGLOBIN 13.5 g/dL (12.0-15.5); MEAN CORPUSCULAR HEMOGLOBIN 26.4 pg (27.0-33.4); MEAN CORPUSCULAR HGB CONC 32.7 g/dL (32.0-36.0); MEAN CORPUSCULAR VOLUME 81 fl (80-97); PLATELET COUNT 460 10^3/uL (150-450); RED BLOOD COUNT 5.11 10^6/uL (3.72-5.28); RED CELL DISTRIBUTION WIDTH 21.2 % (11.5-14.0); WHITE BLOOD COUNT 17.6 10^3/uL (4.0-10.5)
[2018-11-13 02:52] LABS: ALANINE AMINOTRANSFERASE 82 U/L (9-52); ALBUMIN 3.7 g/dL (3.5-5.0); ALKALINE PHOSPHATASE 147 U/L (38-126); ANION GAP 8 (5-19); ASPARTATE AMINO TRANSFERASE 168 U/L (14-36); BILIRUBIN,DIRECT 0.3 mg/dL (0.0-0.4); BILIRUBIN,TOTAL 0.3 mg/dL (0.2-1.3); BLOOD UREA NITROGEN 19 mg/dL (7-20); CALCIUM 9.7 mg/dL (8.4-10.2); CARBON DIOXIDE 31 mmol/L (22-30); CHLORIDE 99 mmol/L (98-107); GLUCOSE 167 mg/dL (75-110); POTASSIUM 4.4 mmol/L (3.6-5.0)
[2018-11-13 03:09] LABS: ABSOLUTE LYMPHOCYTES# (MANUAL) 0.9 10^3/uL (0.5-4.7); ABSOLUTE MONOCYTES # (MANUAL) 0.4 10^3/uL (0.1-1.4); BAND NEUTROPHILS % (MANUAL) 3 % (3-5); BASOPHILS % (MANUAL) 0 % (0-2); EOSINOPHILS % (MANUAL) 0 % (0-6); LYMPHOCYTES % (MANUAL) 5 % (13-45); MONOCYTES % (MANUAL) 2 % (3-13); SEGMENTED NEUTROPHILS % (MAN) 90 % (42-78); TOTAL CELLS COUNTED 100
[2018-11-13 03:11] LABS: ANISOCYTOSIS 1+; OVALOCYTES 1+; PLATELET CLUMPS PRESENT; PLATELET COMMENT INCREASED; POIKILOCYTOSIS 2+; STOMATOCYTES 1+
[2018-11-13] MEDS ORDERED: MORPHINE SULFATE 10 MG/ML INJ IV ONE ×4 (04:27→10:41)
[2018-11-13] MEDS ORDERED: PIPERACILLIN/TAZOBACTAM 3.375 GM VIAL IV ONE (06:41)
--- NOTE | 2018-11-13 06:51 | RADIOLOGY REPORT (SQ) ---
EXAM: CT abdomen and pelvis without IV contrast CLINICAL DATA: 68-year-old female with sharp abdominal pain, vomiting and leukocytosis TECHNICAL DATA: Axial CT imaging of the abdomen and pelvis was performed. Sagittal and coronal reconstructed images were then performed. The CT study is performed according to ALARA (as low as reasonably achievable) or ALARA/IMAGE GENTLY, with automatic adjustment of mA and/or kV according to patient size. Performed on: 11/13/2018 at 5:57 AM Comparison: CT abdomen and pelvis performed on 03/27/2018.. FINDINGS: Lung bases: The lung bases are clear. The heart is normal in size. Liver: The liver is normal in size and configuration. There is portal venous gas in the left hepatic lobe. No focal hepatic parenchymal abnormalities are identified. Liver attenuation is within normal limits. Spleen:The spleen is normal is size, configuration and attenuation. No focal splenic abnormalities are appreciated on this unenhanced scan. Gallbladder and bile duct: The gallbladder is surgically absent. There is stable marked dilatation of the common bile duct and proximal intrahepatic bile ducts. Pancreas: The pancreas is difficult to delineate on this examination. No focal pancreatic abnormalities are appreciated. Adrenal Glands:The adrenal glands are normal in size and configuration. Kidneys:The kidneys are normal in size and configuration. There is no evidence of hydronephrosis. There is no evidence of nephrolithiasis. No focal renal abnormalities are identified. Stomach: The stomach is moderately distended with contrast but is otherwise unremarkable. There is no definite hiatal hernia. Bowel: There are a few mildly distended fluid-filled small bowel loops. There does appear to be bowel wall thickening along the ascending colon and cecum as well as the proximal transverse colon with associated mesenteric inflammation and edema. There appears to be a trace amount of free fluid along the inferior margin of the liver. Findings are concerning for colitis, possibly ischemic in etiology. There is no evidence of pneumatosis. Appendix: The appendix is not clearly visualized on this examination. Free air:There is no evidence of free air. Free fluid: There is a small amount of ascites. Vasculature: The aorta is normal in caliber and measures approximately 2.6 cm x 2.5 cm in cross-sectional diameter. There are atherosclerotic calcifications along the abdominal aorta and iliac arteries. The inferior vena cava is grossly unremarkable. Lymphadenopathy: No pathologic lymphadenopathy is identified. Bladder: The bladder is well distended and smooth in contour. Reproductive: The uterus may be surgically absent or atrophic. Bones: No acute osseous abnormalities are identified. There has been prior cement augmentation of T12 and there is a chronic compression fracture of T11 and chronic Schmorl's node of L2. There are old fractures of the inferior pubic rami. Soft tissues: No focal soft tissue abnormalities are identified. There is a very small fat-containing left inguinal hernia. IMPRESSION: 1. Portal venous gas in the left hepatic lobe. 2. Bowel wall thickening along the ascending colon, cecum as well as the proximal transverse colon with associated surrounding mesenteric inflammation and edema. Findings suggest colitis, possibly ischemic in etiology. There is a small amount of fluid surrounding the inferior right hepatic lobe. 3. Remote cholecystectomy with stable marked dilatation of the common bile duct and proximal intrahepatic bile ducts. 4. Chronic changes of the thoracolumbar spine. 5. Atherosclerotic calcifications along the abdominal aorta and iliac arteries. 6. Very small fat-containing left inguinal hernia. These critical findings were discussed with Dr. Ej Diaz on 11/13/2018 at 5:41 AM central time
[2018-11-13] MEDS: NORMAL SALINE 1000 ML 1,000 ML IV PRN ×2 (07:41→17:58)
[2018-11-13] MEDS ORDERED: FENTANYL CITRATE INJ/PF 250 MCG/5 ML AMPULE ONE (10:45)
[2018-11-13] MEDS ORDERED: HYDROMORPHONE HCL INJ/PF 2 MG/ML AMPULE ONE (10:45)
[2018-11-13] MEDS ORDERED: MIDAZOLAM 2 MG/2 ML INJ ONE (10:45)
[2018-11-13] MEDS ORDERED: PROPOFOL INJ 200 MG/20 ML VIAL IV ONE (10:46)
[2018-11-13 10:49] LABS: APPEARANCE,URINE CLEAR; BILIRUBIN,URINE NEGATIVE (NEGATIVE); COLOR,URINE YELLOW; GLUCOSE, URINE NEGATIVE (NEGATIVE); KETONES,URINE TRACE mg/dL (NEGATIVE); LEUKOCYTE ESTERASE,URINE NEGATIVE (NEGATIVE); NITRITE,URINE NEGATIVE (NEGATIVE); PROTEIN,URINE NEGATIVE (NEGATIVE); URINE SPECIFIC GRAVITY 1.038; UROBILINOGEN,URINE NEGATIVE mg/dL (<2.0)
[2018-11-13] MEDS ORDERED: BUPIVACAINE HCL 0.25 % INJ/PF (2.5 MG/1 ML) 30 ML VIAL ONE (11:22)
[2018-11-13] MEDS ORDERED: ALBUTEROL SULFATE 0.083% NEB 2.5 MG/3 ML AMPUL NEB ONE (12:16)
[2018-11-13] MEDS ORDERED: LORAZEPAM INJ 2 MG/1 ML VIAL ONE (12:17)
[2018-11-13] MEDS ORDERED: ONDANSETRON HCL INJ/PF 4 MG/2 ML SDV ONE ×2 (12:23→12:38)
[2018-11-13] MEDS ORDERED: SUCCINYLCHOLINE CHLORIDE INJ 200 MG/10 ML VIAL ONE ×2 (12:38→12:42)
[2018-11-13] MEDS ORDERED: ROCURONIUM BROMIDE INJ 50 MG/5 ML VIAL IV ONE ×2 (12:38→12:42)
[2018-11-13] MEDS ORDERED: PHENYLEPHRINE HCL INJ/PF 10 MG/1 ML SDV ONE ×2 (12:38→12:42)
[2018-11-13] MEDS ORDERED: PIPERACILLIN SODIUM/TAZOBACTAM 3.375 GM in NORMAL SALINE 100 ML IV PRN (13:30)
[2018-11-13] MEDS ORDERED: PROPOFOL 1,000 MG/100 ML INFUS..BTL IV ONE (14:29)
[2018-11-13] MEDS: PROPOFOL 1,000 MG/100 ML INFUS..BTL IV PRN ×2 (14:30→20:17)
[2018-11-13] MEDS ORDERED: DEXTROSE 40% GEL 15 GM TUBE PO PRN ×2 (14:35)
[2018-11-13] MEDS ORDERED: DEXTROSE 50%-WATER 25 GM/50 ML DISP.SYRIN IV PRN (14:35)
[2018-11-13] MEDS ORDERED: ONDANSETRON HCL INJ/PF 4 MG/2 ML SDV IV PRN (14:35)
[2018-11-13] MEDS ORDERED: GLUCAGON,HUMAN RECOMB 1 MG INJ SUBCUT PRN (14:35)
[2018-11-13] MEDS ORDERED: MORPHINE SULFATE 60 MG/60 ML RTUINJ IV ONE (15:18)
[2018-11-13] MEDS: MORPHINE SULFATE 60 MG/60 ML RTUINJ IV PRN (15:20)
--- NOTE | 2018-11-13 15:25 | RADIOLOGY REPORT (SQ) ---
EXAM DESCRIPTION: CHEST SINGLE VIEW COMPLETED DATE/TIME: 11/13/2018 3:18 pm REASON FOR STUDY: intubation COMPARISON: 03/31/2018 EXAM PARAMETERS: NUMBER OF VIEWS: One view TECHNIQUE: Single frontal radiograph of the chest. RADIATION DOSE: N/A LIMITATIONS: None. FINDINGS: TEMPORARY SUPPORT DEVICES:ETT in expected location. NG tube courses below the gene-diaphr agm in to the stomach. LUNGS AND PLEURA: No opacities. No masses. No effusions. No pneumothorax. MEDIASTINUM AND HILAR STRUCTURES: No masses. Contour normal. HEART AND VASCULAR STRUCTURES: Heart size normal. Normal vascularity. Aorta normal for age BONES: No acute findings. OTHER: No other significant finding. IMPRESSION: NO ACUTE RADIOGRAPHIC FINDING IN THE CHEST. SUPPORT DEVICE(S) IN EXPECTED LOCATIONS. TECHNICAL DOCUMENTATION: JOB ID: [id number] [employer]- All Rights Reserved Reading location - IP/workstation name: [email or web address]
[2018-11-13] MEDS: PIPERACILLIN SODIUM/TAZOBACTAM 3.375 GM in NORMAL SALINE 100 ML IV SCH (18:00)
--- NOTE | 2018-11-13 23:23 | EKG REPORT ---
SEVERITY:- OTHERWISE NORMAL ECG - SINUS TACHYCARDIA : Confirmed by: Janna Lozano 13-Nov-2018 23:22:27
[2018-11-13] MEDS: FAMOTIDINE INJ/PF 20 MG/2 ML SDV IV SCH (23:29)
[2018-11-14] MEDS: NORMAL SALINE 1000 ML 1,000 ML IV PRN ×3 (00:23→18:14)
[2018-11-14] MEDS: PIPERACILLIN SODIUM/TAZOBACTAM 3.375 GM in NORMAL SALINE 100 ML IV SCH ×4 (01:49→18:14)
[2018-11-14] MEDS: MORPHINE SULFATE 60 MG/60 ML RTUINJ IV PRN ×2 (01:56→14:38)
[2018-11-14] MEDS ORDERED: NORMAL SALINE 1000 ML 2,000 ML IV ONE (03:45)
[2018-11-14 06:34] LABS: ARTERIAL BLOOD BASE EXCESS -6.4 mmol/L; ARTERIAL BLOOD H2CO3 1.48 mmol/L (1.05-1.35); ARTERIAL BLOOD HCO3 20.8 mmol/L (20-24); ARTERIAL BLOOD O2 SATURATION 90.9 % (94-98); ARTERIAL BLOOD PCO2 49.3 mmHg (35-45); ARTERIAL BLOOD PH 7.24 (7.35-7.45); ARTERIAL BLOOD PO2 69.7 mmHg (80-100); ARTERIAL BLOOD TOTAL CO2 22.3 mmol/L (21-25)
[2018-11-14 06:37] LABS: ARTERIAL BLOOD FIO2 28%
[2018-11-14 07:08] LABS: ABSOLUTE BASOPHILS # (AUTO) 0.1 10^3/uL (0.0-0.2); ABSOLUTE MONOCYTES (AUTO) 0.9 10^3/uL (0.1-1.4); ABSOLUTE NEUT (AUTO) 9.6 10^3/uL (1.7-8.2); BASOPHILS % (AUTO) 0.4 % (0-2); EOSINOPHILS % (AUTO) 0.1 % (0-6); HEMATOCRIT 31.3 % (36.0-47.0); MEAN CORPUSCULAR HEMOGLOBIN 26.1 pg (27.0-33.4); MEAN CORPUSCULAR HGB CONC 31.6 g/dL (32.0-36.0); MEAN CORPUSCULAR VOLUME 82 fl (80-97); MONOCYTES % (AUTO) 7.8 % (3-13); PLATELET COUNT 274 10^3/uL (150-450); RED CELL DISTRIBUTION WIDTH 21.2 % (11.5-14.0); SEGMENTED NEUTROPHILS % (AUTO) 82.7 % (42-78); TOTAL CELLS COUNTED % (AUTO) 100 %; WHITE BLOOD COUNT 11.6 10^3/uL (4.0-10.5)
[2018-11-14 07:13] LABS: HEMOGLOBIN 9.9 g/dL (12.0-15.5)
[2018-11-14 07:23] LABS: ALANINE AMINOTRANSFERASE 172 U/L (9-52); ALBUMIN 2.4 g/dL (3.5-5.0); ALKALINE PHOSPHATASE 97 U/L (38-126); ASPARTATE AMINO TRANSFERASE 173 U/L (14-36); BILIRUBIN,DIRECT 0.2 mg/dL (0.0-0.4); BILIRUBIN,TOTAL 0.2 mg/dL (0.2-1.3); BLOOD UREA NITROGEN 10 mg/dL (7-20); GLUCOSE 76 mg/dL (75-110); POTASSIUM 3.8 mmol/L (3.6-5.0); TOTAL PROTEIN 4.6 g/dL (6.3-8.2)
[2018-11-14 07:28] LABS: CARBON DIOXIDE 23 mmol/L (22-30); CHLORIDE 116 mmol/L (98-107)
[2018-11-14 07:31] LABS: ANION GAP 1 (5-19)
[2018-11-14] MEDS ORDERED: FENTANYL CITRATE INJ/PF 250 MCG/5 ML AMPULE ONE ×2 (07:38→07:39)
[2018-11-14] MEDS ORDERED: MIDAZOLAM 2 MG/2 ML INJ ONE (07:38)
[2018-11-14 07:39] LABS: CALCIUM 6.9 mg/dL (8.4-10.2)
[2018-11-14] MEDS ORDERED: PROPOFOL INJ 200 MG/20 ML VIAL IV ONE (07:39)
[2018-11-14] MEDS ORDERED: EPHEDRINE SULFATE INJ 50 MG/1 ML AMPULE ONE (07:39)
[2018-11-14] MEDS ORDERED: BUPIVACAINE HCL 0.25 % INJ/PF (2.5 MG/1 ML) 30 ML VIAL ONE (07:45)
--- NOTE | 2018-11-14 10:38 | PDOC H&P ---
History of Present Illness Admission Date/PCP: 11/13/18 08:33 Patient complains of: Severe abdominal pain History of Present Illness: RACHELLE MARY is a 68 year old female with a history of PVD, extracerebral carotid vascular disease, abdominal aortic aneurysm, and a 1 day history of sharp, stabbing, severe abdominal pain. Her pain began in her right and left lower quadrants, however it has spread to the entire abdomen. Movement and palpation make her pain worse. Nothing makes it better. The patient has experienced nausea, without significant vomiting. She denies any melena, hematochezia, or hematemesis. Her pain is sharp and stabbing. It is unrelenting, with nothing that relieves it. The patient denies chest pain, shortness of breath, fevers, chills, blurry vision, dizziness, orthostasis, fatigue. Past Medical History Cardiac Medical History: Reports: Coronary Artery Disease - PVD, Peripheral Vascular Disease Denies: Hypertension Pulmonary Medical History: Reports: Chronic Obstructive Pulmonary Disease (COPD), Pneumonia Denies: Asthma, Bronchitis Neurological Medical History: Denies: Seizures Musculoskeltal Medical History: Reports: Arthritis Psychiatric Medical History: Comment Only: Depression - anxiety Hematology: Denies: Anemia Past Surgical History Past Surgical History: Reports: Adenoidectomy, Carotid Endarterectomy, Cholecystectomy, Orthopedic Surgery - Back surgery, wrist surgery, neck surgery, Tonsillectomy, Vascular Surgery Social History Lives with: Family Smoking Status: Former Smoker Frequency of Alcohol Use: None Hx Recreational Drug Use: No Hx Prescription Drug Abuse: No - Advance Directive Resuscitation Status: Full Code Family History Family History: CAD Parental Family History Reviewed: Yes Children Family History Reviewed: Yes Sibling(s) Family History Reviewed.: Yes Medication/Allergy Home Medications: Diltiazem HCl [Cartia Xt] 180 mg PO Q12 03/28/18 Gabapentin [Neurontin 300 mg Capsule] 300 mg PO Q8 03/28/18 Oxycodone HCl [Oxy-Ir 5 mg Tablet] 15 mg PO Q6HP PRN 03/28/18 Fluticasone/Salmeterol [Advair 250-50 Diskus 14 Dose/Diskus] 1 inh IH Q12 inhaler 04/03/18 Ipratropium/Albuterol Sulfate [Duoneb 3 ml Ampul] 3 ml NEB RTQ6HP PRN 30 Days #100 vial.neb 04/03/18 Albuterol Sulfate [Proair Hfa Inhalation Aerosol 8.5 gm Mdi] 2 puff IH Q4HP PRN 11/13/18 Butalb/Acetaminophen/Caffeine [Fioricet (50-325-40 mg) Tablet] 1 tab PO TID 11/13/18 Citalopram Hydrobromide [Celexa 20 mg Tablet] 20 mg PO DAILY 11/13/18 Cyclobenzaprine HCl [Flexeril 10 mg Tablet] 10 mg PO HSP PRN 11/13/18 Diphenhydramine HCl [Benadryl] 25 mg PO DAILYP PRN 11/13/18 Doxepin HCl [Sinequan 10 Mg Capsule] 20 mg PO QHS 11/13/18 Allergies/Adverse Reactions: No Known Allergies Allergy (Verified 03/27/18 23:17) Review of Systems Constitutional: PRESENT: anorexia. ABSENT: chills, fatigue, fever(s), headache(s) Eyes: ABSENT: visual disturbances Ears: ABSENT: hearing changes Nose, Mouth, and Throat: ABSENT: sore throat Cardiovascular: ABSENT: chest pain, dyspnea on exertion Respiratory: ABSENT: cough Gastrointestinal: PRESENT: abdominal pain, bloating, nausea. ABSENT: hematemesis, hematochezia, melena, vomiting Genitourinary: ABSENT: dysuria Musculoskeletal: ABSENT: back pain Integumentary: ABSENT: pruritus, rash Neurological: ABSENT: confusion, convulsions, dizziness Psychiatric: ABSENT: anxiety, depression Endocrine: ABSENT: cold intolerance, heat intolerance Hematologic/Lymphatic: ABSENT: easy bleeding, easy bruising Physical Exam Vital Signs: Intake & Output 11/13/18 06:59 Intake Total 1000 Output Total Balance 1000 Weight 44.9 kg General appearance: PRESENT: severe distress Head exam: PRESENT: atraumatic, normocephalic Eye exam: PRESENT: EOMI, PERRLA. ABSENT: scleral icterus Mouth exam: PRESENT: neck supple Teeth exam: PRESENT: poor dentation Neck exam: ABSENT: meningismus, tenderness, thyromegaly, tracheal deviation Respiratory exam: PRESENT: unlabored. ABSENT: chest wall tenderness, wheezes Cardiovascular exam: PRESENT: tachycardia Pulses: PRESENT: normal radial pulses Vascular exam: PRESENT: normal capillary refill GI/Abdominal exam: PRESENT: firm, guarding, rebound, rigid Rectal exam: PRESENT: deferred Extremities exam: ABSENT: clubbing Musculoskeletal exam: ABSENT: deformity Neurological exam: PRESENT: alert, awake, oriented to person, oriented to place, oriented to time, oriented to situation Psychiatric exam: PRESENT: anxious. ABSENT: agitated, depressed Focused psych exam: ABSENT: delusional Skin exam: ABSENT: cyanosis, erythema, jaundice Results Laboratory Results: Impressions: Chest X-Ray 11/13/18 00:00 IMPRESSION: NO ACUTE RADIOGRAPHIC FINDING IN THE CHEST. SUPPORT DEVICE(S) IN EXPECTED LOCATIONS. Abdomen/Pelvis CT 11/13/18 03:06 IMPRESSION: 1. Portal venous gas in the left hepatic lobe. 2. Bowel wall thickening along the ascending colon, cecum as well as the proximal transverse colon with associated surrounding mesenteric inflammation and edema. Findings suggest colitis, possibly ischemic in etiology. There is a small amount of fluid surrounding the inferior right hepatic lobe. 3. Remote cholecystectomy with stable marked dilatation of the common bile duct and proximal intrahepatic bile ducts. 4. Chronic changes of the thoracolumbar spine. 5. Atherosclerotic calcifications along the abdominal aorta and iliac arteries. 6. Very small fat-containing left inguinal hernia. These critical findings were discussed with Dr. Ej Diaz on 11/13/2018 at 5:41 AM central time Assessment & Plan - Diagnosis (1) Acute abdomen Is this a current diagnosis for this admission?: Yes (2) Ischemic colitis Is this a current diagnosis for this admission?: Yes - Plan Summary Plan Summary: This is a 68-year-old female with evidence of ischemic colitis on CT scan. I have reviewed the images and reports. There is thickening of the right colon as well as portal venous gas. The patient has an acute abdomen on exam today. She is tachycardic. I will order a 2 L normal saline bolus to be given stat. Continue Zosyn. Plan for surgical exploration, possible bowel resection, possible ostomy. This has been discussed at length with both the patient and her . They are in agreement with the treatment plan. Risks/benefits discussed, informed consent obtained, and all questions answered.
--- NOTE | 2018-11-14 11:05 | Operative Report ---
Nonrecallable Operative Report DATE OF SURGERY: 11/13/18 PREOPERATIVE DIAGNOSIS: 1. Acute abdomen. 2. Suspected ischemic colitis. POSTOPERATIVE DIAGNOSIS: 1. Acute abdomen. 2. Ischemic colitis of the right colon, hepatic flexure, and proximal transverse colon. OPERATION: 1. Exploratory laparoscopy, converted to exploratory laparotomy. 2. Right hemicolectomy. 3. Placement of negative pressure wound management system, for temporary abdominal closure. SURGEON: NARCISO DA SILVA ANESTHESIA: GA TISSUE REMOVED OR ALTERED: Right hemicolectomy. COMPLICATIONS: None apparent ESTIMATED BLOOD LOSS: 30 cc PROCEDURE: Drains/implants: Negative pressure wound management system used for temporary abdominal closure. Procedure in detail: After informed consent was obtained, the patient was brought to the operating room and laid supine position. The area of the abdomen was prepped and draped in a normal sterile fashion. A 15 blade scalpel was used to create a supraumbilical incision. Dissection was carried through the subcutaneous tissue using sharp and blunt dissection. The cicatrix was identified, grasped with a Marcela clamp, and retracted upwards. The linea alba fascia was incised sharply, the abdomen was entered sharply. The balloon trocar was inserted, and pneumoperitoneum was achieved. The camera was inserted into the abdomen. A quick survey of the abdomen was undertaken. Upon entry of the abdomen, the right colon was found to be unhealthy, with focal areas of full-thickness necrosis. Once this was confirmed, the laparoscopic approach was abandoned for an open procedure. A midline laparotomy incision was created with a 10 blade scalpel. Entry of the abdomen was then performed sharply. The right colon was exposed. There were areas of the cecum, ascending colon, hepatic flexure, and proximal transverse colon that had obvious full-thickness necrosis. The white line of Toldt was taken down and the right colon was rotated medially. It was brought into the midline incision, and eviscerated. The small bowel was divided proximally, the mid transverse colon was divided distally. This was performed with the CHRISTOPHE-75 stapling device. Next, the mesentery was divided using the LigaSure impact. The necrotic portion of colon was then passed off the field and sent to pathology. Attention was then turned to survey of the remainder of the abdomen. The right upper quadrant, left upper quadrant, left lower quadrant, and right lower quadrant were inspected. There is no obvious abnormality. A limited Marcela maneuver was performed noting no issues or abnormalities with the duodenum. Pancreas appeared normal, the stomach appeared normal, the liver appeared normal, spleen appeared normal. The remainder of the colon was evaluated. The distal transverse, descending, sigmoid colon, and rectum all appeared normal. The small bowel was run from ligament of Treitz to the divided terminal ileum. Small bowel appeared normal throughout its course. Next, an intraoperative Doppler was used to evaluate the mesentery of the transverse colon, descending colon, and sigmoid colon. There was normal flow appreciated in all portions of the remaining colon. At this time, no obvious reason for the progressive necrosis of the right colon could be actively identified. Secondary to this, it was felt prudent to place a temporary abdominal dressing and perform second-look operation in 24 hours. The abdomen was copiously irrigated and suctioned. The bowel was left discontinuous. A temporary abdominal dressing was then fashioned. The negative pressure wound management system was placed over the abdominal cavity, after a plastic sheet was placed over the intestines as a protective barrier. Suction was attached to the negative pressure wound management system, and the abdomen was temporarily closed. The patient was then taken to ICU in fair condition. Condition: Fair.
--- NOTE | 2018-11-14 11:07 | PDOC PROGRESS REPORT ---
Subjective Progress Note for:: 11/14/18 Reason For Visit: ISCHEMIC COLITIS Physical Exam Vital Signs: Temp Pulse Resp BP Pulse Ox 97.6 F 67 12 118/74 93 11/14/18 07:59 11/14/18 10:00 11/14/18 10:05 11/14/18 10:05 11/14/18 10:56 Intake & Output 11/13/18 11/14/18 11/15/18 06:59 06:59 06:59 Intake Total 1000 4719 Output Total 1400 90 Balance 1000 3319 -90 Weight 44.9 kg 54.2 kg Results Laboratory Results: 11/14/18 06:50 11/14/18 06:50 11/13/18 11/14/18 11/14/18 09:50 06:22 06:50 WBC 11.6 H RBC 3.80 Hgb 9.9 L D Hct 31.3 L MCV 82 MCH 26.1 L MCHC 31.6 L RDW 21.2 H Plt Count 274 Seg Neutrophils % 82.7 H Lymphocytes % 9.0 L Monocytes % 7.8 Eosinophils % 0.1 Basophils % 0.4 Absolute Neutrophils 9.6 H Absolute Lymphocytes 1.0 Absolute Monocytes 0.9 Absolute Eosinophils 0.0 Absolute Basophils 0.1 Carbonic Acid 1.48 H HCO3/H2CO3 Ratio 14:1 ABG pH 7.24 L ABG pCO2 49.3 H ABG pO2 69.7 L ABG HCO3 20.8 ABG O2 Saturation 90.9 L ABG Base Excess -6.4 FiO2 28% Sodium Potassium Chloride Carbon Dioxide Anion Gap BUN Creatinine Est GFR ( Amer) Est GFR (Non-Af Amer) Glucose Calcium Total Bilirubin AST ALT Alkaline Phosphatase Total Protein Albumin Blood Type O POSITIVE Antibody Screen NEGATIVE 11/14/18 06:50 WBC RBC Hgb Hct MCV MCH MCHC RDW Plt Count Seg Neutrophils % Lymphocytes % Monocytes % Eosinophils % Basophils % Absolute Neutrophils Absolute Lymphocytes Absolute Monocytes Absolute Eosinophils Absolute Basophils Carbonic Acid HCO3/H2CO3 Ratio ABG pH ABG pCO2 ABG pO2 ABG HCO3 ABG O2 Saturation ABG Base Excess FiO2 Sodium 140.0 Potassium 3.8 Chloride 116 H Carbon Dioxide 23 Anion Gap 1 L BUN 10 Creatinine 0.52 Est GFR ( Amer) > 60 Est GFR (Non-Af Amer) > 60 Glucose 76 Calcium 6.9 L* Total Bilirubin 0.2 AST 173 H ALT 172 H Alkaline Phosphatase 97 Total Protein 4.6 L Albumin 2.4 L Blood Type Antibody Screen Impressions: Chest X-Ray 11/13/18 00:00 IMPRESSION: NO ACUTE RADIOGRAPHIC FINDING IN THE CHEST. SUPPORT DEVICE(S) IN EXPECTED LOCATIONS. Abdomen/Pelvis CT 11/13/18 03:06 IMPRESSION: 1. Portal venous gas in the left hepatic lobe. 2. Bowel wall thickening along the ascending colon, cecum as well as the proximal transverse colon with associated surrounding mesenteric inflammation and edema. Findings suggest colitis, possibly ischemic in etiology. There is a small amount of fluid surrounding the inferior right hepatic lobe. 3. Remote cholecystectomy with stable marked dilatation of the common bile duct and proximal intrahepatic bile ducts. 4. Chronic changes of the thoracolumbar spine. 5. Atherosclerotic calcifications along the abdominal aorta and iliac arteries. 6. Very small fat-containing left inguinal hernia. These critical findings were discussed with Dr. Ej Diaz on 11/13/2018 at 5:41 AM central time Assessment & Plan - Diagnosis (1) Acute abdomen Is this a current diagnosis for this admission?: Yes (2) Ischemic colitis Is this a current diagnosis for this admission?: Yes - Plan Summary Plan Summary: This is a 68-year-old female status post exploratory laparotomy for ischemic colitis. She underwent right hemicolectomy yesterday. The plan is for a second look operation today, to ensure there is no further necrosis present. This has been discussed at length with the patient's . Plan for reopening of recent laparotomy today. If no further necrosis can be identified, continuity of the bowel can be restored, and the abdomen may be closed. Risks/benefits discussed, informed consent obtained, and all questions answered.
--- NOTE | 2018-11-14 11:13 | Operative Report ---
Nonrecallable Operative Report DATE OF SURGERY: 11/14/18 PREOPERATIVE DIAGNOSIS: 1. Open abdomen. 2. Recent operation for ischemic colitis. POSTOPERATIVE DIAGNOSIS: 1. Same as above. 2. Same as above. 3. No evidence of further/progressive necrosis. 4. No evidence of ongoing intra-abdominal infection. OPERATION: 1. reopening of recent laparotomy. 2. Druze of continuity of the bowel. 3. Abdominal wall closure. 4. Washout of abdominal cavity. SURGEON: NARCISO DA SILVA ANESTHESIA: GA TISSUE REMOVED OR ALTERED: none COMPLICATIONS: none apparent ESTIMATED BLOOD LOSS: minimal PROCEDURE: Drains/implants: None. Procedure in detail: After informed consent was obtained from the patient's , she was laid in the supine position in the operating room. The temporary abdominal closure (negative pressure wound management system) was removed from the patient. The abdomen was then prepped and draped in a normal sterile fashion. The abdomen was then explored. The intra-abdominal contents appeared normal, without signs of ongoing/progressive necrosis. The abdominal cavity was then copiously irrigated and suctioned with warm saline solution (approximately 4 L). Once this was performed, attention was turned to creation of the ileocolic anastomosis. The terminal ileum was brought in apposition to the transverse colon. A side to side, stapled anastomosis was created with the CHRISTOPHE-75 stapling device. The resulting defect was closed using the CHRISTOPHE-75 stapling device. 2 crotch stitches of 3-0 Vicryl were placed. The anastomosis was then tested, and found to be free of any leakage of air or stool. Once this was confirmed, the anastomosis was returned to the abdominal cavity. Attention was then turned to closure of the abdomen. The midline fascia was closed using #1 PDS double-stranded loop suture in simple running fashion. The overlying skin was closed using skin rajani. Once this was completed, a dressing was placed, and the procedure was concluded. All sponge, instrument, needle counts were correct x2. Condition: Fair.
[2018-11-14] MEDS: ENOXAPARIN SODIUM INJ 40 MG/0.4 ML DISP.SYRIN SUBCUT SCH (11:55)
[2018-11-14] MEDS: FAMOTIDINE INJ/PF 20 MG/2 ML SDV IV SCH ×2 (11:57→21:57)
[2018-11-14] MEDS ORDERED: LORAZEPAM INJ 2 MG/1 ML VIAL IV PRN (21:38)
[2018-11-14] MEDS ORDERED: HALOPERIDOL LACTATE INJ 5 MG/1 ML VIAL ONE (23:43)
[2018-11-14] MEDS ORDERED: HALOPERIDOL LACTATE INJ 5 MG/1 ML VIAL IV ONE (23:59)
[2018-11-14] MEDS ORDERED: CHLORPROMAZINE HCL INJ 25 MG/1 ML AMPULE ONE (23:59)
[2018-11-15] MEDS: PIPERACILLIN SODIUM/TAZOBACTAM 3.375 GM in NORMAL SALINE 100 ML IV SCH ×5 (00:04→23:32)
[2018-11-15] MEDS ORDERED: CHLORPROMAZINE HCL INJ 25 MG/1 ML AMPULE IV ONE (00:15)
[2018-11-15] MEDS: MORPHINE SULFATE 60 MG/60 ML RTUINJ IV PRN ×2 (00:20→15:14)
[2018-11-15] MEDS ORDERED: DIAZEPAM INJ 10 MG/2 ML DISP.SYRIN ONE (00:38)
[2018-11-15] MEDS: DIAZEPAM INJ 10 MG/2 ML DISP.SYRIN IV PRN ×7 (00:40→22:14)
[2018-11-15] MEDS: NORMAL SALINE 1000 ML 1,000 ML IV PRN ×3 (02:37→18:44)
--- NOTE | 2018-11-15 03:27 | PDOC CONSULTATION ---
Consultation Consult Date: 11/14/18 Attending physician:: ADAN LUCERO Provider Consulted: STACEY CAPONE Consult reason:: Agitation History of Present Illness Admission Date/PCP: 11/13/18 08:33 No local PCP Patient complains of: Abdominal pain History of Present Illness: RACHELLE MARY is a 68 year old female who was admitted by the surgical service for severe abdominal pain on 11/13/2018. A patient became very agitated and both physically and verbally abusive towards ICU staff on 11/14/2018. For this reason I was consulted to see the patient to provide evaluation and treatment. The patient is significantly agitated and psychotic as well as physically and verbally abusive and aggressive at the time of my evaluation. She is therefore unable to contribute substantially to her evaluation. At the present time she does not appear to be in any pain. Past Medical History Past Medical History: Past medical history/past surgical history/social history/family medical history are taken from current records as patient is unable to provide any meaningful input into her medical history. Cardiac Medical History: Reports: Coronary Artery Disease - PVD, Peripheral Vascular Disease Denies: Hypertension Pulmonary Medical History: Reports: Chronic Obstructive Pulmonary Disease (COPD), Pneumonia Denies: Asthma, Bronchitis Neurological Medical History: Denies: Seizures Musculoskeltal Medical History: Reports: Arthritis Psychiatric Medical History: Comment Only: Depression - anxiety Hematology: Denies: Anemia Past Surgical History Past Surgical History: Past medical history/past surgical history/social history/family medical history are taken from current records as patient is unable to provide any meaningful input into her medical history. Past Surgical History: Reports: Adenoidectomy, Carotid Endarterectomy, Cholecystectomy, Orthopedic Surgery - Back surgery, wrist surgery, neck surgery, Tonsillectomy, Vascular Surgery Social History Information Source: [facility] Records Lives with: Family Smoking Status: Former Smoker Frequency of Alcohol Use: None Hx Recreational Drug Use: No Drugs: None Hx Prescription Drug Abuse: No Past Social History Note: Past medical history/past surgical history/social history/family medical history are taken from current records as patient is unable to provide any meaningful input into her medical history. - Advance Directive Resuscitation Status: Full Code Family History Family History: CAD Family History: Past medical history/past surgical history/social history/family medical history are taken from current records as patient is unable to provide any meaningful input into her medical history. Parental Family History Reviewed: Yes Children Family History Reviewed: No Sibling(s) Family History Reviewed.: Yes Medication/Allergy Home Medications: Diltiazem HCl [Cartia Xt] 180 mg PO Q12 03/28/18 Gabapentin [Neurontin 300 mg Capsule] 300 mg PO Q8 03/28/18 Oxycodone HCl [Oxy-Ir 5 mg Tablet] 15 mg PO Q6HP PRN 03/28/18 Fluticasone/Salmeterol [Advair 250-50 Diskus 14 Dose/Diskus] 1 inh IH Q12 inhaler 04/03/18 Ipratropium/Albuterol Sulfate [Duoneb 3 ml Ampul] 3 ml NEB RTQ6HP PRN 30 Days #100 vial.neb 04/03/18 Albuterol Sulfate [Proair Hfa Inhalation Aerosol 8.5 gm Mdi] 2 puff IH Q4HP PRN 11/13/18 Butalb/Acetaminophen/Caffeine [Fioricet (50-325-40 mg) Tablet] 1 tab PO TID 11/13/18 Citalopram Hydrobromide [Celexa 20 mg Tablet] 20 mg PO DAILY 11/13/18 Cyclobenzaprine HCl [Flexeril 10 mg Tablet] 10 mg PO HSP PRN 11/13/18 Diphenhydramine HCl [Benadryl] 25 mg PO DAILYP PRN 11/13/18 Doxepin HCl [Sinequan 10 Mg Capsule] 20 mg PO QHS 11/13/18 Allergies/Adverse Reactions: No Known Allergies Allergy (Verified 03/27/18 23:17) Review of Systems ROS unobtainable: Due to mental status - acute psychosis Physical Exam Vital Signs: Temp Pulse Resp BP Pulse Ox 97.6 F 100 12 97/55 L 94 11/15/18 01:51 11/14/18 21:42 11/15/18 02:06 11/15/18 02:06 11/15/18 02:06 Intake & Output 11/13/18 11/14/18 11/15/18 23:59 23:59 23:59 Intake Total 4575 4627 Output Total 1025 4370 100 Balance 3550 257 -100 Weight 45 kg 54.2 kg General appearance: PRESENT: disheveled, severe distress - Abusive and combative, screaming and threatening nurses and myself, other - Agitated. ABSENT: cooperative Head exam: PRESENT: atraumatic, normocephalic Eye exam: PRESENT: conjunctiva pink. ABSENT: conjunctival injection, scleral icterus Ear exam: PRESENT: normal external ear exam. ABSENT: bleeding, drainage Mouth exam: PRESENT: dry mucosa, neck supple Neck exam: ABSENT: thyromegaly, tracheal deviation Respiratory exam: PRESENT: clear to auscultation silvio, symmetrical, unlabored Cardiovascular exam: PRESENT: RRR, tachycardia. ABSENT: clicks, gallop Pulses: PRESENT: normal radial pulses, normal dorsalis pedis pul Vascular exam: PRESENT: normal capillary refill. ABSENT: pallor GI/Abdominal exam: PRESENT: normal bowel sounds, soft Rectal exam: PRESENT: deferred Extremities exam: ABSENT: joint swelling, pedal edema Musculoskeletal exam: ABSENT: deformity, dislocation Neurological exam: PRESENT: altered - Agitated and combative, CN II-XII grossly intact - Very limited exam, other - Moves all extremities well Psychiatric exam: PRESENT: agitated, other - Combative/aggressive Focused psych exam: PRESENT: delusional, psychomotor agitation, restlessness Skin exam: PRESENT: dry, intact, warm. ABSENT: jaundice, rash, urticaria Results Laboratory Results: 11/14/18 06:50 11/14/18 06:50 11/14/18 11/14/18 11/14/18 06:22 06:50 06:50 WBC 11.6 H RBC 3.80 Hgb 9.9 L D Hct 31.3 L MCV 82 MCH 26.1 L MCHC 31.6 L RDW 21.2 H Plt Count 274 Seg Neutrophils % 82.7 H Lymphocytes % 9.0 L Monocytes % 7.8 Eosinophils % 0.1 Basophils % 0.4 Absolute Neutrophils 9.6 H Absolute Lymphocytes 1.0 Absolute Monocytes 0.9 Absolute Eosinophils 0.0 Absolute Basophils 0.1 Carbonic Acid 1.48 H HCO3/H2CO3 Ratio 14:1 ABG pH 7.24 L ABG pCO2 49.3 H ABG pO2 69.7 L ABG HCO3 20.8 ABG O2 Saturation 90.9 L ABG Base Excess -6.4 FiO2 28% Sodium 140.0 Potassium 3.8 Chloride 116 H Carbon Dioxide 23 Anion Gap 1 L BUN 10 Creatinine 0.52 Est GFR ( Amer) > 60 Est GFR (Non-Af Amer) > 60 Glucose 76 Calcium 6.9 L* Total Bilirubin 0.2 AST 173 H ALT 172 H Alkaline Phosphatase 97 Total Protein 4.6 L Albumin 2.4 L Impressions: Chest X-Ray 11/13/18 00:00 IMPRESSION: NO ACUTE RADIOGRAPHIC FINDING IN THE CHEST. SUPPORT DEVICE(S) IN EXPECTED LOCATIONS. Abdomen/Pelvis CT 11/13/18 03:06 IMPRESSION: 1. Portal venous gas in the left hepatic lobe. 2. Bowel wall thickening along the ascending colon, cecum as well as the proximal transverse colon with associated surrounding mesenteric inflammation and edema. Findings suggest colitis, possibly ischemic in etiology. There is a small amount of fluid surrounding the inferior right hepatic lobe. 3. Remote cholecystectomy with stable marked dilatation of the common bile duct and proximal intrahepatic bile ducts. 4. Chronic changes of the thoracolumbar spine. 5. Atherosclerotic calcifications along the abdominal aorta and iliac arteries. 6. Very small fat-containing left inguinal hernia. These critical findings were discussed with Dr. Ej Diaz on 11/13/2018 at 5:41 AM central time Assessment and Plan - Diagnosis (1) Acute psychosis Is this a current diagnosis for this admission?: Yes Plan: Patient will be treated with Valium 10 mg IV q. one hour as needed for anxiety/agitation and Thorazine 25 mg IV every 8 hours as needed for agitation/aggression. Restraints will be used as needed. (2) Chronic pain with drug dependence Is this a current diagnosis for this admission?: Yes Plan: Patient is probably experiencing withdrawal from one or more drugs associated with her chronic pain syndrome. At this point the patient should be seen through the acute withdrawal stage medically and consider rehabilitation time of discharge. (3) COPD (chronic obstructive pulmonary disease) Qualifiers: COPD type: unspecified COPD Qualified Code(s): J44.9 - Chronic obstructive pulmonary disease, unspecified Is this a current diagnosis for this admission?: Yes Plan: Patient will be monitored closely for significant hypoxia which may contribute to her acute psychosis. At the present time her O2 sat was greater than 93%. (4) Abdominal pain Qualifiers: Abdominal location: generalized Qualified Code(s): R10.84 - Generalized abdominal pain Is this a current diagnosis for this admission?: Yes Plan: This problem will be managed by the surgical service. - Time Time Spent with patient: Less than 15 minutes Medications reviewed and adjusted accordingly: Yes
[2018-11-15] MEDS: ENOXAPARIN SODIUM INJ 40 MG/0.4 ML DISP.SYRIN SUBCUT SCH (09:19)
[2018-11-15] MEDS: FAMOTIDINE INJ/PF 20 MG/2 ML SDV IV SCH ×2 (09:19→22:21)
[2018-11-15 11:03] LABS: ABSOLUTE BASOPHILS # (AUTO) 0.1 10^3/uL (0.0-0.2); ABSOLUTE EOSINOPHILS # (AUTO) 0.2 10^3/uL (0.0-0.6); ABSOLUTE LYMPHOCYTES (AUTO) 1.2 10^3/uL (0.5-4.7); ABSOLUTE MONOCYTES (AUTO) 0.6 10^3/uL (0.1-1.4); ABSOLUTE NEUT (AUTO) 5.5 10^3/uL (1.7-8.2); EOSINOPHILS % (AUTO) 2.2 % (0-6); HEMATOCRIT 31.3 % (36.0-47.0); LYMPHOCYTES % (AUTO) 15.6 % (13-45); MEAN CORPUSCULAR HEMOGLOBIN 26.3 pg (27.0-33.4); MEAN CORPUSCULAR HGB CONC 31.9 g/dL (32.0-36.0); MEAN CORPUSCULAR VOLUME 82 fl (80-97); MONOCYTES % (AUTO) 7.6 % (3-13); PLATELET COUNT 269 10^3/uL (150-450); RED CELL DISTRIBUTION WIDTH 21.5 % (11.5-14.0); SEGMENTED NEUTROPHILS % (AUTO) 73.6 % (42-78); TOTAL CELLS COUNTED % (AUTO) 100 %; WHITE BLOOD COUNT 7.4 10^3/uL (4.0-10.5)
[2018-11-15 11:25] LABS: ALANINE AMINOTRANSFERASE 99 U/L (9-52); ALBUMIN 2.1 g/dL (3.5-5.0); ALKALINE PHOSPHATASE 96 U/L (38-126); ASPARTATE AMINO TRANSFERASE 68 U/L (14-36); BILIRUBIN,DIRECT 0.2 mg/dL (0.0-0.4); BILIRUBIN,TOTAL 0.2 mg/dL (0.2-1.3); BLOOD UREA NITROGEN 6 mg/dL (7-20); CALCIUM 7.5 mg/dL (8.4-10.2); CARBON DIOXIDE 20 mmol/L (22-30); CHLORIDE 117 mmol/L (98-107); PHOSPHORUS 2.2 mg/dL (2.5-4.5); POTASSIUM 3.1 mmol/L (3.6-5.0)
[2018-11-15 11:28] LABS: GLUCOSE 51 mg/dL (75-110)
[2018-11-15 11:29] LABS: ANION GAP 4 (5-19)
[2018-11-15] MEDS: DEXTROSE 50%-WATER 25 GM/50 ML DISP.SYRIN IV PRN (11:29)
[2018-11-15] MEDS ORDERED: POTASSI CL 20 MEQ/50 ML RIDER 20 MEQ/50 ML RTUPB IV ONE (11:52)
[2018-11-15] MEDS: POTASSIUM CHLORIDE 20 MEQ/50 ML RTU IV SCH ×2 (12:56→14:05)
[2018-11-15] MEDS ORDERED: SODIUM PHOS,M-BASIC-D-BASIC 15 MMOL in NORMAL SALINE 250 ML IV ONE (13:00)
--- NOTE | 2018-11-15 14:35 | PDOC PROGRESS REPORT ---
Subjective Progress Note for:: 11/15/18 Subjective:: Appears comfortable Reason For Visit: ISCHEMIC COLITIS Physical Exam Vital Signs: Temp Pulse Resp BP Pulse Ox 98.4 F 106 H 13 121/76 99 11/15/18 12:00 11/15/18 12:00 11/15/18 14:00 11/15/18 13:36 11/15/18 14:00 Intake & Output 11/14/18 11/15/18 11/16/18 06:59 06:59 06:59 Intake Total 4719 3583 2229 Output Total 1400 4767 550 Balance 3319 -1212 1679 Weight 54.2 kg 56.7 kg Exam: abdomen is flat,soft and non tender, incision dressings are dry. K 3.1 being replaced Results Laboratory Results: 11/15/18 10:46 11/15/18 10:46 11/15/18 11/15/18 10:46 10:46 WBC 7.4 RBC 3.80 Hgb 10.0 L Hct 31.3 L MCV 82 MCH 26.3 L MCHC 31.9 L RDW 21.5 H Plt Count 269 Seg Neutrophils % 73.6 Lymphocytes % 15.6 Monocytes % 7.6 Eosinophils % 2.2 Basophils % 1.0 Absolute Neutrophils 5.5 Absolute Lymphocytes 1.2 Absolute Monocytes 0.6 Absolute Eosinophils 0.2 Absolute Basophils 0.1 Sodium 141.4 Potassium 3.1 L Chloride 117 H Carbon Dioxide 20 L Anion Gap 4 L BUN 6 L Creatinine 0.48 L Est GFR ( Amer) > 60 Est GFR (Non-Af Amer) > 60 Glucose 51 L Calcium 7.5 L Phosphorus 2.2 L Magnesium 1.8 Total Bilirubin 0.2 AST 68 H ALT 99 H Alkaline Phosphatase 96 Total Protein 4.0 L Albumin 2.1 L Impressions: Chest X-Ray 11/13/18 00:00 IMPRESSION: NO ACUTE RADIOGRAPHIC FINDING IN THE CHEST. SUPPORT DEVICE(S) IN EXPECTED LOCATIONS. Abdomen/Pelvis CT 11/13/18 03:06 IMPRESSION: 1. Portal venous gas in the left hepatic lobe. 2. Bowel wall thickening along the ascending colon, cecum as well as the proximal transverse colon with associated surrounding mesenteric inflammation and edema. Findings suggest colitis, possibly ischemic in etiology. There is a small amount of fluid surrounding the inferior right hepatic lobe. 3. Remote cholecystectomy with stable marked dilatation of the common bile duct and proximal intrahepatic bile ducts. 4. Chronic changes of the thoracolumbar spine. 5. Atherosclerotic calcifications along the abdominal aorta and iliac arteries. 6. Very small fat-containing left inguinal hernia. These critical findings were discussed with Dr. Ej Diaz on 11/13/2018 at 5:41 AM central time Assessment & Plan - Diagnosis (1) Ischemic colitis Is this a current diagnosis for this admission?: Yes - Time Time Spent with patient: 15-24 minutes - Inpatient Certification Medical Necessity: Need Close Monitoring Due to Risk of Patient Decompensation, Need For IV Fluids, Need for IV Antibiotics, Risk of Complication if Not Cared For in Hospital - Plan Summary Plan Summary: Stable post op day 1 from 2nd look and anastomosis. OK to downgrade to IMCU
[2018-11-15] MEDS: CHLORPROMAZINE HCL INJ 25 MG/1 ML AMPULE IV PRN (23:32)
[2018-11-16] MEDS: DEXTROSE 50%-WATER 25 GM/50 ML DISP.SYRIN IV PRN ×2 (01:19→11:40)
[2018-11-16 05:04] LABS: BLOOD UREA NITROGEN 3 mg/dL (7-20); CALCIUM 7.7 mg/dL (8.4-10.2); GLUCOSE 88 mg/dL (75-110); POTASSIUM 3.1 mmol/L (3.6-5.0)
[2018-11-16 05:10] LABS: ANION GAP 5 (5-19); CARBON DIOXIDE 24 mmol/L (22-30); CHLORIDE 114 mmol/L (98-107)
[2018-11-16] MEDS: MORPHINE SULFATE 60 MG/60 ML RTUINJ IV PRN (05:25)
[2018-11-16] MEDS: DIAZEPAM INJ 10 MG/2 ML DISP.SYRIN IV PRN ×6 (05:25→22:56)
[2018-11-16] MEDS: PIPERACILLIN SODIUM/TAZOBACTAM 3.375 GM in NORMAL SALINE 100 ML IV SCH ×3 (05:26→17:22)
[2018-11-16] MEDS: POTASSI CL 20 MEQ/50 ML RIDER 20 MEQ/50 ML RTUPB IV SCH ×2 (08:12→10:39)
[2018-11-16] MEDS: ENOXAPARIN SODIUM INJ 40 MG/0.4 ML DISP.SYRIN SUBCUT SCH (10:40)
[2018-11-16] MEDS: FAMOTIDINE INJ/PF 20 MG/2 ML SDV IV SCH ×2 (10:40→21:24)
[2018-11-16 10:52] LABS: ABSOLUTE EOSINOPHILS # (AUTO) 0.3 10^3/uL (0.0-0.6); ABSOLUTE MONOCYTES (AUTO) 0.7 10^3/uL (0.1-1.4); ABSOLUTE NEUT (AUTO) 5.3 10^3/uL (1.7-8.2); BASOPHILS % (AUTO) 0.6 % (0-2); EOSINOPHILS % (AUTO) 3.7 % (0-6); HEMATOCRIT 32.4 % (36.0-47.0); HEMOGLOBIN 10.5 g/dL (12.0-15.5); LYMPHOCYTES % (AUTO) 13.5 % (13-45); MEAN CORPUSCULAR HEMOGLOBIN 26.6 pg (27.0-33.4); MEAN CORPUSCULAR HGB CONC 32.3 g/dL (32.0-36.0); MEAN CORPUSCULAR VOLUME 82 fl (80-97); PLATELET COUNT 262 10^3/uL (150-450); RED BLOOD COUNT 3.93 10^6/uL (3.72-5.28); SEGMENTED NEUTROPHILS % (AUTO) 72.2 % (42-78); TOTAL CELLS COUNTED % (AUTO) 100 %; WHITE BLOOD COUNT 7.3 10^3/uL (4.0-10.5)
[2018-11-16 11:33] LABS: ALANINE AMINOTRANSFERASE 80 U/L (9-52); ALBUMIN 2.2 g/dL (3.5-5.0); ALKALINE PHOSPHATASE 89 U/L (38-126); ASPARTATE AMINO TRANSFERASE 62 U/L (14-36); BILIRUBIN,DIRECT 0.2 mg/dL (0.0-0.4); BILIRUBIN,TOTAL 0.3 mg/dL (0.2-1.3); TOTAL PROTEIN 4.4 g/dL (6.3-8.2)
[2018-11-16] MEDS ORDERED: FUROSEMIDE INJ/PF 20 MG/2 ML SDV IV ONE (12:05)
[2018-11-16] MEDS ORDERED: NORMAL SALINE 1000 ML 1,000 ML IV PRN ×2 (12:41→12:55)
--- NOTE | 2018-11-16 12:49 | PDOC PROGRESS REPORT ---
Subjective Progress Note for:: 11/16/18 Subjective:: Confused. Arousable. Reason For Visit: ISCHEMIC COLITIS Physical Exam Vital Signs: Temp Pulse Resp BP Pulse Ox 97.9 F 100 20 134/79 H 91 L 11/16/18 11:33 11/16/18 11:33 11/16/18 11:33 11/16/18 11:33 11/16/18 11:33 Intake & Output 11/15/18 11/16/18 11/17/18 06:59 06:59 06:59 Intake Total 3583 3579 1050 Output Total 4795 1475 600 Balance -1212 2104 450 Weight 56.7 kg 57.2 kg Eye exam: PRESENT: conjunctiva pink Respiratory exam: PRESENT: clear to auscultation silvio Cardiovascular exam: PRESENT: RRR GI/Abdominal exam: PRESENT: other - Soft, nondistended, difficult to evaluate tenderness to mental status but there is no apparent peritoneal signs. Results Laboratory Results: 11/16/18 04:06 11/16/18 04:06 11/16/18 11/16/18 11/16/18 04:06 04:06 04:06 WBC 7.3 RBC 3.93 Hgb 10.5 L Hct 32.4 L MCV 82 MCH 26.6 L MCHC 32.3 RDW 21.0 H Plt Count 262 Seg Neutrophils % 72.2 Lymphocytes % 13.5 Monocytes % 10.0 Eosinophils % 3.7 Basophils % 0.6 Absolute Neutrophils 5.3 Absolute Lymphocytes 1.0 Absolute Monocytes 0.7 Absolute Eosinophils 0.3 Absolute Basophils 0.0 Sodium 142.5 Potassium 3.1 L Chloride 114 H Carbon Dioxide 24 Anion Gap 5 BUN 3 L Creatinine 0.45 L Est GFR ( Amer) > 60 Est GFR (Non-Af Amer) > 60 Glucose 88 Calcium 7.7 L Total Bilirubin 0.3 AST 62 H ALT 80 H Alkaline Phosphatase 89 Total Protein 4.4 L Albumin 2.2 L Impressions: Chest X-Ray 11/13/18 00:00 IMPRESSION: NO ACUTE RADIOGRAPHIC FINDING IN THE CHEST. SUPPORT DEVICE(S) IN EXPECTED LOCATIONS. Abdomen/Pelvis CT 11/13/18 03:06 IMPRESSION: 1. Portal venous gas in the left hepatic lobe. 2. Bowel wall thickening along the ascending colon, cecum as well as the proximal transverse colon with associated surrounding mesenteric inflammation and edema. Findings suggest colitis, possibly ischemic in etiology. There is a small amount of fluid surrounding the inferior right hepatic lobe. 3. Remote cholecystectomy with stable marked dilatation of the common bile duct and proximal intrahepatic bile ducts. 4. Chronic changes of the thoracolumbar spine. 5. Atherosclerotic calcifications along the abdominal aorta and iliac arteries. 6. Very small fat-containing left inguinal hernia. These critical findings were discussed with Dr. Ej Diaz on 11/13/2018 at 5:41 AM central time Assessment & Plan - Diagnosis (1) Right colon ischemia Is this a current diagnosis for this admission?: Yes Plan: Status post right hemicolectomy. Mental status changes of unclear etiology. Defer to hospitalist for management. We will stop her dextrose solution and place her on normal saline and thiamine and multivitamin and folic acid replacement. I do not think she has abdominal sepsis. We will keep her n.p.o. until her mental status clears.
[2018-11-16] MEDS ORDERED: MVI, ADULT NO.1 WITH VIT K INJ 10 ML VIAL IV SCH (13:00)
[2018-11-16] MEDS ORDERED: THIAMINE HCL 100 MG, FOLIC ACID 1 MG in NORMAL SALINE 250 ML IV SCH (13:30)
[2018-11-16] MEDS ORDERED: POTASSI CL 20 MEQ/D5-1/2NS 1L 1,000 ML IV PRN (15:00)
[2018-11-16] MEDS: CHLORPROMAZINE HCL INJ 25 MG/1 ML AMPULE IV PRN (16:31)
[2018-11-16] MEDS: NORMAL SALINE 1000 ML 1,000 ML with THIAMINE HCL 100 MG, MVI, ADULT NO.1 WITH VIT K 10 ... IV SCH ×4 (17:22)
[2018-11-16] MEDS ORDERED: METOPROLOL TARTRATE PF/INJ 5 MG/5 ML SDV IV ONE (17:54)
--- NOTE | 2018-11-16 19:36 | PDOC PROGRESS REPORT ---
Subjective Progress Note for:: 11/16/18 Subjective:: She was moved out of the ICU yesterday. She had some episodes of agitation last night. She was given some morphine and so was sleeping whenever I saw her today. She got a bit more agitated as the day went on. Heart rate was initially normal but started to trend up she would wake up and get more agitated. Reason For Visit: ISCHEMIC COLITIS Physical Exam Vital Signs: Temp Pulse Resp BP Pulse Ox 97.9 F 121 H 20 153/89 H 85 L 11/16/18 16:21 11/16/18 16:21 11/16/18 16:21 11/16/18 16:21 11/16/18 16:21 Intake & Output 11/15/18 11/16/18 11/17/18 06:59 06:59 06:59 Intake Total 3583 3579 1300 Output Total 4795 1475 3575 Balance -1212 2104 -2275 Weight 56.7 kg 57.2 kg General appearance: PRESENT: disheveled, mild distress, thin. ABSENT: cooperative Respiratory exam: PRESENT: crackles, symmetrical, unlabored. ABSENT: accessory muscle use, chest wall tenderness, prolonged expiratory phas, rhonchi, tachypnea, wheezes Cardiovascular exam: PRESENT: tachycardia Pulses: PRESENT: normal carotid pulses Vascular exam: PRESENT: normal capillary refill GI/Abdominal exam: PRESENT: hypoactive bowel sounds, soft, tenderness - She moved around a lot became more agitated when I palpated her belly. ABSENT: distended, guarding, rebound Extremities exam: PRESENT: +1 edema - Right upper extremity. ABSENT: clubbing, pedal edema Musculoskeletal exam: PRESENT: normal inspection. ABSENT: deformity Neurological exam: PRESENT: altered Skin exam: PRESENT: dry, warm Results Laboratory Results: 11/16/18 04:06 11/16/18 04:06 11/16/18 11/16/18 11/16/18 04:06 04:06 04:06 WBC 7.3 RBC 3.93 Hgb 10.5 L Hct 32.4 L MCV 82 MCH 26.6 L MCHC 32.3 RDW 21.0 H Plt Count 262 Seg Neutrophils % 72.2 Lymphocytes % 13.5 Monocytes % 10.0 Eosinophils % 3.7 Basophils % 0.6 Absolute Neutrophils 5.3 Absolute Lymphocytes 1.0 Absolute Monocytes 0.7 Absolute Eosinophils 0.3 Absolute Basophils 0.0 Sodium 142.5 Potassium 3.1 L Chloride 114 H Carbon Dioxide 24 Anion Gap 5 BUN 3 L Creatinine 0.45 L Est GFR ( Amer) > 60 Est GFR (Non-Af Amer) > 60 Glucose 88 Calcium 7.7 L Total Bilirubin 0.3 AST 62 H ALT 80 H Alkaline Phosphatase 89 Total Protein 4.4 L Albumin 2.2 L Impressions: Chest X-Ray 11/13/18 00:00 IMPRESSION: NO ACUTE RADIOGRAPHIC FINDING IN THE CHEST. SUPPORT DEVICE(S) IN EXPECTED LOCATIONS. Abdomen/Pelvis CT 11/13/18 03:06 IMPRESSION: 1. Portal venous gas in the left hepatic lobe. 2. Bowel wall thickening along the ascending colon, cecum as well as the proximal transverse colon with associated surrounding mesenteric inflammation and edema. Findings suggest colitis, possibly ischemic in etiology. There is a small amount of fluid surrounding the inferior right hepatic lobe. 3. Remote cholecystectomy with stable marked dilatation of the common bile duct and proximal intrahepatic bile ducts. 4. Chronic changes of the thoracolumbar spine. 5. Atherosclerotic calcifications along the abdominal aorta and iliac arteries. 6. Very small fat-containing left inguinal hernia. These critical findings were discussed with Dr. Ej Diaz on 11/13/2018 at 5:41 AM central time Assessment and Plan - Diagnosis (1) Acute metabolic encephalopathy Is this a current diagnosis for this admission?: Yes Plan: She was extremely agitated previously. His daughter also medication to try to reduce that. We are trying to not give her any kind of a sedating medication unless necessary. (2) Ischemic colitis Is this a current diagnosis for this admission?: Yes Plan: Management per surgical service (3) Acute hypoxemic respiratory failure Is this a current diagnosis for this admission?: Yes Plan: Stable on O2 per nasal cannula. Her lungs sounded congested today, so we will stop her fluids for a few hours and gave her some Lasix and then resumed IV fluids at a slightly lower rate - Time Time Spent with patient: 25-34 minutes
--- NOTE | 2018-11-16 20:17 | XCELERA REPORT ---
[address] [address] Upper Extremity Venous Evaluation Name: RACHELLE MARY Age: 68 yrs Gender: Female : 1950 Patient Status: Inpatient Patient Location: [address] [place] [address] Study Date: 11/16/2018 06:21 PM Procedure: Unilateral duplex scan of the right upper extremity veins was performed, including responses to compression and other maneuvers. Reason For Study: right upper extremity edema Ordering Physician: ATIF ANDREW Performed By: Emiliana Wilson Right Side Venous Evaluation Normal vessel filling wall to wall, compression and augmentation as well as Colour flow down to the forearm veins. Interpretation Summary No duplex evidence of DVT or obstruction in the right upper extremity. : ATIF ANDREW [place]
[2018-11-16] MEDS: MORPHINE SULFATE 10 MG/ML INJ IV PRN (20:39)
[2018-11-17] MEDS: PIPERACILLIN SODIUM/TAZOBACTAM 3.375 GM in NORMAL SALINE 100 ML IV SCH ×4 (00:26→17:52)
[2018-11-17] MEDS: CHLORPROMAZINE HCL INJ 25 MG/1 ML AMPULE IV PRN ×2 (00:32→22:13)
[2018-11-17] MEDS: DIAZEPAM INJ 10 MG/2 ML DISP.SYRIN IV PRN ×3 (00:50→06:00)
[2018-11-17] MEDS: MORPHINE SULFATE 10 MG/ML INJ IV PRN (02:36)
[2018-11-17 04:26] LABS: ABSOLUTE BASOPHILS # (AUTO) 0.1 10^3/uL (0.0-0.2); ABSOLUTE EOSINOPHILS # (AUTO) 0.3 10^3/uL (0.0-0.6); ABSOLUTE LYMPHOCYTES (AUTO) 1.5 10^3/uL (0.5-4.7); ABSOLUTE MONOCYTES (AUTO) 1.1 10^3/uL (0.1-1.4); ABSOLUTE NEUT (AUTO) 6.2 10^3/uL (1.7-8.2); BASOPHILS % (AUTO) 1.2 % (0-2); EOSINOPHILS % (AUTO) 3.3 % (0-6); HEMATOCRIT 33.4 % (36.0-47.0); HEMOGLOBIN 10.8 g/dL (12.0-15.5); MEAN CORPUSCULAR HGB CONC 32.2 g/dL (32.0-36.0); MEAN CORPUSCULAR VOLUME 81 fl (80-97); MONOCYTES % (AUTO) 12.2 % (3-13); PLATELET COUNT 302 10^3/uL (150-450); RED BLOOD COUNT 4.14 10^6/uL (3.72-5.28); RED CELL DISTRIBUTION WIDTH 20.8 % (11.5-14.0); SEGMENTED NEUTROPHILS % (AUTO) 67.3 % (42-78); TOTAL CELLS COUNTED % (AUTO) 100 %; WHITE BLOOD COUNT 9.3 10^3/uL (4.0-10.5)
[2018-11-17 04:46] LABS: ALANINE AMINOTRANSFERASE 68 U/L (9-52); ALBUMIN 2.3 g/dL (3.5-5.0); ALKALINE PHOSPHATASE 80 U/L (38-126); ANION GAP 7 (5-19); ASPARTATE AMINO TRANSFERASE 60 U/L (14-36); BILIRUBIN,DIRECT 0.4 mg/dL (0.0-0.4); BILIRUBIN,TOTAL 0.6 mg/dL (0.2-1.3); CALCIUM 7.7 mg/dL (8.4-10.2); CARBON DIOXIDE 27 mmol/L (22-30); CHLORIDE 107 mmol/L (98-107); GLUCOSE 81 mg/dL (75-110); TOTAL PROTEIN 4.3 g/dL (6.3-8.2)
[2018-11-17 04:52] LABS: BLOOD UREA NITROGEN < 2 mg/dL (7-20)
[2018-11-17] MEDS: ENOXAPARIN SODIUM INJ 40 MG/0.4 ML DISP.SYRIN SUBCUT SCH (10:37)
[2018-11-17] MEDS: FAMOTIDINE INJ/PF 20 MG/2 ML SDV IV SCH ×2 (10:37→21:01)
[2018-11-17] MEDS: POTASSI CL 20 MEQ/50 ML RIDER 20 MEQ/50 ML RTUPB IV SCH ×2 (11:51→13:59)
--- NOTE | 2018-11-17 11:57 | RADIOLOGY REPORT (SQ) ---
EXAM DESCRIPTION: CHEST SINGLE VIEW COMPLETED DATE/TIME: 11/17/2018 11:18 am REASON FOR STUDY: hypoxemia COMPARISON: 11/13/2018 NUMBER OF VIEWS: One view. TECHNIQUE: Single frontal radiographic view of the chest acquired. LIMITATIONS: None. FINDINGS: LUNGS AND PLEURA: There are bilateral pleural effusions new from prior study. There is pe rihilar and basilar infiltrate new from prior study as well. Upper lung hernandez remain grossly clear. MEDIASTINUM AND HILAR STRUCTURES: No masses. Contour normal. HEART AND VASCULAR STRUCTURES: Stable in appearance. BONES: No acute findings. HARDWARE: None in the chest. OTHER: No other significant finding. IMPRESSION: The patient has developed bilateral pleural effusions as well as perihilar and basilar a irspace disease. Findings are most consistent with vascular congestion. TECHNICAL DOCUMENTATION: JOB ID: [id number] [employer]- All Rights Reserved Reading location - IP/workstation name: [email or web address]
[2018-11-17] MEDS ORDERED: FUROSEMIDE INJ/PF 40 MG/4 ML SDV IV ONE (12:00)
[2018-11-17 12:34] LABS: ARTERIAL BLOOD BASE EXCESS 3.7 mmol/L; ARTERIAL BLOOD H2CO3 1.23 mmol/L (1.05-1.35); ARTERIAL BLOOD HCO3 27.9 mmol/L (20-24); ARTERIAL BLOOD O2 SATURATION 96.3 % (94-98); ARTERIAL BLOOD PCO2 40.9 mmHg (35-45); ARTERIAL BLOOD PH 7.45 (7.35-7.45); ARTERIAL BLOOD TOTAL CO2 29.2 mmol/L (21-25)
[2018-11-17 12:40] LABS: ARTERIAL BLOOD FIO2 100%
[2018-11-17] MEDS ORDERED: METOPROLOL TARTRATE PF/INJ 5 MG/5 ML SDV IV ONE (13:39)
--- NOTE | 2018-11-17 13:41 | PDOC PROGRESS REPORT ---
Subjective Progress Note for:: 11/17/18 Reason For Visit: ISCHEMIC COLITIS Physical Exam Vital Signs: Temp Pulse Resp BP Pulse Ox 97.9 F 107 H 27 H 148/95 H 97 11/17/18 11:24 11/17/18 11:24 11/17/18 12:05 11/17/18 11:24 11/17/18 12:05 Intake & Output 11/16/18 11/17/18 11/18/18 06:59 06:59 06:59 Intake Total 3579 1400 1111.2 Output Total 1475 4975 Balance 2104 -3575 1111.2 Weight 57.2 kg 53.7 kg General appearance: PRESENT: mild distress Head exam: PRESENT: normocephalic Eye exam: PRESENT: EOMI Ear exam: PRESENT: normal external ear exam Mouth exam: PRESENT: moist Neck exam: PRESENT: full ROM Respiratory exam: PRESENT: decreased breath sounds Cardiovascular exam: PRESENT: tachycardia Pulses: PRESENT: +1 pedal pulses bilateral GI/Abdominal exam: PRESENT: soft Rectal exam: PRESENT: deferred Extremities exam: PRESENT: full ROM Musculoskeletal exam: PRESENT: full ROM Neurological exam: PRESENT: awake Skin exam: PRESENT: dry Results Laboratory Results: 11/17/18 03:40 11/17/18 03:40 11/17/18 11/17/18 11/17/18 03:40 03:40 03:40 WBC 9.3 RBC 4.14 Hgb 10.8 L Hct 33.4 L MCV 81 MCH 26.0 L MCHC 32.2 RDW 20.8 H Plt Count 302 Seg Neutrophils % 67.3 Lymphocytes % 16.0 Monocytes % 12.2 Eosinophils % 3.3 Basophils % 1.2 Absolute Neutrophils 6.2 Absolute Lymphocytes 1.5 Absolute Monocytes 1.1 Absolute Eosinophils 0.3 Absolute Basophils 0.1 Carbonic Acid HCO3/H2CO3 Ratio ABG pH ABG pCO2 ABG pO2 ABG HCO3 ABG O2 Saturation ABG Base Excess FiO2 Sodium 141.0 Potassium 3.0 L* Chloride 107 Carbon Dioxide 27 Anion Gap 7 BUN < 2 L Creatinine 0.45 L Est GFR ( Amer) > 60 Est GFR (Non-Af Amer) > 60 Glucose 81 Calcium 7.7 L Magnesium 1.4 L Total Bilirubin 0.6 AST 60 H ALT 68 H Alkaline Phosphatase 80 Total Protein 4.3 L Albumin 2.3 L 11/17/18 12:20 WBC RBC Hgb Hct MCV MCH MCHC RDW Plt Count Seg Neutrophils % Lymphocytes % Monocytes % Eosinophils % Basophils % Absolute Neutrophils Absolute Lymphocytes Absolute Monocytes Absolute Eosinophils Absolute Basophils Carbonic Acid 1.23 HCO3/H2CO3 Ratio 22:1 ABG pH 7.45 ABG pCO2 40.9 ABG pO2 80.0 ABG HCO3 27.9 H ABG O2 Saturation 96.3 ABG Base Excess 3.7 FiO2 100% Sodium Potassium Chloride Carbon Dioxide Anion Gap BUN Creatinine Est GFR ( Amer) Est GFR (Non-Af Amer) Glucose Calcium Magnesium Total Bilirubin AST ALT Alkaline Phosphatase Total Protein Albumin Impressions: Abdomen/Pelvis CT 11/13/18 03:06 IMPRESSION: 1. Portal venous gas in the left hepatic lobe. 2. Bowel wall thickening along the ascending colon, cecum as well as the proximal transverse colon with associated surrounding mesenteric inflammation and edema. Findings suggest colitis, possibly ischemic in etiology. There is a small amount of fluid surrounding the inferior right hepatic lobe. 3. Remote cholecystectomy with stable marked dilatation of the common bile duct and proximal intrahepatic bile ducts. 4. Chronic changes of the thoracolumbar spine. 5. Atherosclerotic calcifications along the abdominal aorta and iliac arteries. 6. Very small fat-containing left inguinal hernia. These critical findings were discussed with Dr. Ej Diaz on 11/13/2018 at 5:41 AM central time Chest X-Ray 11/17/18 00:00 IMPRESSION: The patient has developed bilateral pleural effusions as well as perihilar and basilar airspace disease. Findings are most consistent with vascular congestion. Assessment & Plan - Diagnosis (1) Acute abdomen Is this a current diagnosis for this admission?: Yes - Plan Summary Plan Summary: pt developed increased resp distress this am cxr, concerning for fluid overload pt now requiring bipap min c/o abd pain,c/o sob plan lasix 40bid will need to discuss code status with pts family
--- NOTE | 2018-11-17 14:23 | PDOC PROGRESS REPORT ---
Subjective Progress Note for:: 11/17/18 Subjective:: Patient began to develop some respiratory distress earlier. When I first came to see her her lungs sounded very congested. We got a chest x-ray. Has the appearance of vascular congestion with the development of some pulmonary edema. Fluids were stopped and she is been given Lasix. She subsequently developed some worsening shortness of breath and hypoxemia on a facemask and was put around BiPAP. We initially had some trouble getting her pulse ox up, but she coughed and then leaned to her right side and whenever she did her saturations came up to around 100%. She does not like having the BiPAP mask on and was requiring constant redirection to keep and try to take it off. She is able to follow some simple commands but requires constant redirection. Currently stable on BiPAP. Blood gas was fortunately within normal limits. Reason For Visit: ISCHEMIC COLITIS Physical Exam Vital Signs: Temp Pulse Resp BP Pulse Ox 97.9 F 107 H 27 H 148/95 H 97 11/17/18 11:24 11/17/18 11:24 11/17/18 12:05 11/17/18 11:24 11/17/18 12:05 Intake & Output 11/16/18 11/17/18 11/18/18 06:59 06:59 06:59 Intake Total 3579 1400 1161.2 Output Total 1475 4975 Balance 2104 -3575 1161.2 Weight 57.2 kg 53.7 kg General appearance: PRESENT: disheveled, other - Moderate distress Respiratory exam: PRESENT: accessory muscle use, decreased breath sounds, rhonchi, symmetrical, tachypnea. ABSENT: chest wall tenderness, clear to auscultation silvio, prolonged expiratory phas, rales, retraction, stridor, unlabored, wheezes Cardiovascular exam: PRESENT: +S1, +S2, tachycardia Pulses: PRESENT: normal carotid pulses Vascular exam: PRESENT: normal capillary refill GI/Abdominal exam: PRESENT: normal bowel sounds, soft, tenderness - Mild and appropriate, other - Shira in midline incision, incision is intact, no surrounding erythema or drainage. ABSENT: distended, guarding, rebound Extremities exam: ABSENT: clubbing, pedal edema Musculoskeletal exam: PRESENT: normal inspection. ABSENT: deformity Neurological exam: PRESENT: alert, awake, oriented to person Psychiatric exam: PRESENT: flat affect Skin exam: PRESENT: dry, warm Results Laboratory Results: 11/17/18 03:40 11/17/18 03:40 11/17/18 11/17/18 11/17/18 03:40 03:40 03:40 WBC 9.3 RBC 4.14 Hgb 10.8 L Hct 33.4 L MCV 81 MCH 26.0 L MCHC 32.2 RDW 20.8 H Plt Count 302 Seg Neutrophils % 67.3 Lymphocytes % 16.0 Monocytes % 12.2 Eosinophils % 3.3 Basophils % 1.2 Absolute Neutrophils 6.2 Absolute Lymphocytes 1.5 Absolute Monocytes 1.1 Absolute Eosinophils 0.3 Absolute Basophils 0.1 Carbonic Acid HCO3/H2CO3 Ratio ABG pH ABG pCO2 ABG pO2 ABG HCO3 ABG O2 Saturation ABG Base Excess FiO2 Sodium 141.0 Potassium 3.0 L* Chloride 107 Carbon Dioxide 27 Anion Gap 7 BUN < 2 L Creatinine 0.45 L Est GFR ( Amer) > 60 Est GFR (Non-Af Amer) > 60 Glucose 81 Calcium 7.7 L Magnesium 1.4 L Total Bilirubin 0.6 AST 60 H ALT 68 H Alkaline Phosphatase 80 Total Protein 4.3 L Albumin 2.3 L 11/17/18 12:20 WBC RBC Hgb Hct MCV MCH MCHC RDW Plt Count Seg Neutrophils % Lymphocytes % Monocytes % Eosinophils % Basophils % Absolute Neutrophils Absolute Lymphocytes Absolute Monocytes Absolute Eosinophils Absolute Basophils Carbonic Acid 1.23 HCO3/H2CO3 Ratio 22:1 ABG pH 7.45 ABG pCO2 40.9 ABG pO2 80.0 ABG HCO3 27.9 H ABG O2 Saturation 96.3 ABG Base Excess 3.7 FiO2 100% Sodium Potassium Chloride Carbon Dioxide Anion Gap BUN Creatinine Est GFR ( Amer) Est GFR (Non-Af Amer) Glucose Calcium Magnesium Total Bilirubin AST ALT Alkaline Phosphatase Total Protein Albumin Impressions: Abdomen/Pelvis CT 11/13/18 03:06 IMPRESSION: 1. Portal venous gas in the left hepatic lobe. 2. Bowel wall thickening along the ascending colon, cecum as well as the proximal transverse colon with associated surrounding mesenteric inflammation and edema. Findings suggest colitis, possibly ischemic in etiology. There is a small amount of fluid surrounding the inferior right hepatic lobe. 3. Remote cholecystectomy with stable marked dilatation of the common bile duct and proximal intrahepatic bile ducts. 4. Chronic changes of the thoracolumbar spine. 5. Atherosclerotic calcifications along the abdominal aorta and iliac arteries. 6. Very small fat-containing left inguinal hernia. These critical findings were discussed with Dr. Ej Diaz on 11/13/2018 at 5:41 AM central time Chest X-Ray 11/17/18 00:00 IMPRESSION: The patient has developed bilateral pleural effusions as well as perihilar and basilar airspace disease. Findings are most consistent with vascular congestion. Assessment and Plan - Diagnosis (1) Acute hypoxemic respiratory failure Is this a current diagnosis for this admission?: Yes Plan: Currently stable on BiPAP with a normal blood gas. We tried to nasotracheal suction her but she would not allow it. I feel like if she would allow us to do it, we could suction out what I believe to be a mucous plug which was worsening some of her respiratory failure. We will continue BiPAP and encourage pulmonary toilet. We will transition back to nasal cannula once appropriate to do so. We have cut back on her fluids and are giving her some Lasix. (2) Acute metabolic encephalopathy Is this a current diagnosis for this admission?: Yes Plan: Part of this is from her illness and her surgery, and I believe another part of it to be some drug withdrawal. At home she is on oxycodone, Fioricet, gabapentin, Flexeril, and doxepin. She is not been getting any of these medications. We have been changing her pain medication to as needed, and her pain is been controlled and she is little bit more alert and able to interact wi th us today. She was apologizing for her behavior earlier. (3) Ischemic colitis Is this a current diagnosis for this admission?: Yes Plan: Continues antibiotics. Further management per surgery. - Time Time Spent with patient: 35 or more minutes
[2018-11-17] MEDS: ALBUTEROL SULFATE 0.083% NEB 2.5 MG/3 ML AMPUL NEB SCH (16:37)
[2018-11-17] MEDS: ACETYLCYSTEINE 10% NEB 400 MG/4 ML VIAL NEB SCH (16:37)
--- NOTE | 2018-11-17 16:37 | PDOC PROGRESS REPORT ---
Subjective Progress Note for:: 11/15/18 Subjective:: Consult was placed for agitation after the patient was sent to the ICU. She is in two-point restraints and trying to sit up and pull against them. She is required repeated administrations of medications for her safety. Reason For Visit: ISCHEMIC COLITIS Physical Exam Vital Signs: Temp Pulse Resp BP Pulse Ox 97.9 F 107 H 24 H 148/95 H 97 11/17/18 11:24 11/17/18 11:24 11/17/18 14:35 11/17/18 11:24 11/17/18 12:05 Intake & Output 11/16/18 11/17/18 11/18/18 06:59 06:59 06:59 Intake Total 3579 1400 1161.2 Output Total 1475 4975 1400 Balance 2104 -3575 -238.8 Weight 57.2 kg 53.7 kg General appearance: PRESENT: disheveled, mild distress, thin. ABSENT: cooperative Respiratory exam: PRESENT: rhonchi, symmetrical, unlabored. ABSENT: accessory muscle use, chest wall tenderness, prolonged expiratory phas, rales, tachypnea, wheezes Cardiovascular exam: PRESENT: tachycardia Pulses: PRESENT: normal carotid pulses Vascular exam: PRESENT: normal capillary refill GI/Abdominal exam: PRESENT: hypoactive bowel sounds, soft, tenderness - Appropriate. ABSENT: distended, guarding, rebound Extremities exam: ABSENT: clubbing, pedal edema Musculoskeletal exam: PRESENT: normal inspection. ABSENT: deformity Neurological exam: PRESENT: altered, oriented to person Psychiatric exam: PRESENT: agitated Skin exam: PRESENT: dry, warm Results Laboratory Results: 11/17/18 03:40 11/17/18 03:40 11/17/18 11/17/18 11/17/18 03:40 03:40 03:40 WBC 9.3 RBC 4.14 Hgb 10.8 L Hct 33.4 L MCV 81 MCH 26.0 L MCHC 32.2 RDW 20.8 H Plt Count 302 Seg Neutrophils % 67.3 Lymphocytes % 16.0 Monocytes % 12.2 Eosinophils % 3.3 Basophils % 1.2 Absolute Neutrophils 6.2 Absolute Lymphocytes 1.5 Absolute Monocytes 1.1 Absolute Eosinophils 0.3 Absolute Basophils 0.1 Carbonic Acid HCO3/H2CO3 Ratio ABG pH ABG pCO2 ABG pO2 ABG HCO3 ABG O2 Saturation ABG Base Excess FiO2 Sodium 141.0 Potassium 3.0 L* Chloride 107 Carbon Dioxide 27 Anion Gap 7 BUN < 2 L Creatinine 0.45 L Est GFR ( Amer) > 60 Est GFR (Non-Af Amer) > 60 Glucose 81 Calcium 7.7 L Magnesium 1.4 L Total Bilirubin 0.6 AST 60 H ALT 68 H Alkaline Phosphatase 80 Total Protein 4.3 L Albumin 2.3 L 11/17/18 12:20 WBC RBC Hgb Hct MCV MCH MCHC RDW Plt Count Seg Neutrophils % Lymphocytes % Monocytes % Eosinophils % Basophils % Absolute Neutrophils Absolute Lymphocytes Absolute Monocytes Absolute Eosinophils Absolute Basophils Carbonic Acid 1.23 HCO3/H2CO3 Ratio 22:1 ABG pH 7.45 ABG pCO2 40.9 ABG pO2 80.0 ABG HCO3 27.9 H ABG O2 Saturation 96.3 ABG Base Excess 3.7 FiO2 100% Sodium Potassium Chloride Carbon Dioxide Anion Gap BUN Creatinine Est GFR ( Amer) Est GFR (Non-Af Amer) Glucose Calcium Magnesium Total Bilirubin AST ALT Alkaline Phosphatase Total Protein Albumin Impressions: Abdomen/Pelvis CT 11/13/18 03:06 IMPRESSION: 1. Portal venous gas in the left hepatic lobe. 2. Bowel wall thickening along the ascending colon, cecum as well as the proximal transverse colon with associated surrounding mesenteric inflammation and edema. Findings suggest colitis, possibly ischemic in etiology. There is a small amount of fluid surrounding the inferior right hepatic lobe. 3. Remote cholecystectomy with stable marked dilatation of the common bile duct and proximal intrahepatic bile ducts. 4. Chronic changes of the thoracolumbar spine. 5. Atherosclerotic calcifications along the abdominal aorta and iliac arteries. 6. Very small fat-containing left inguinal hernia. These critical findings were discussed with Dr. Ej Diaz on 11/13/2018 at 5:41 AM central time Chest X-Ray 11/17/18 00:00 IMPRESSION: The patient has developed bilateral pleural effusions as well as perihilar and basilar airspace disease. Findings are most consistent with vascular congestion. Assessment and Plan - Diagnosis (1) Acute metabolic encephalopathy Is this a current diagnosis for this admission?: Yes Plan: She is got PRN medications ordered for her encephalopathy. She is in two-point restraints for her safety. (2) Acute hypoxemic respiratory failure Is this a current diagnosis for this admission?: Yes Plan: Continue supplemental O2 to maintain SPO2 greater than 90% (3) Ischemic colitis Is this a current diagnosis for this admission?: Yes Plan: Antibiotics and management per surgery - Time Time Spent with patient: 25-34 minutes
[2018-11-17] MEDS: NORMAL SALINE 1000 ML 1,000 ML with THIAMINE HCL 100 MG, MVI, ADULT NO.1 WITH VIT K 10 ... IV SCH ×4 (17:54)
[2018-11-17 20:00] LABS: ANION GAP 11 (5-19); BLOOD UREA NITROGEN 3 mg/dL (7-20); CALCIUM 7.8 mg/dL (8.4-10.2); CARBON DIOXIDE 30 mmol/L (22-30); CHLORIDE 99 mmol/L (98-107); GLUCOSE 95 mg/dL (75-110)
[2018-11-17 20:03] LABS: POTASSIUM 2.7 mmol/L (3.6-5.0)
[2018-11-17] MEDS: MAGNESIUM SULFATE/D5W 1 GM/100 ML RTUPB IV SCH ×3 (21:01→23:47)
[2018-11-17] MEDS: POTASSIUM CHLORIDE 20 MEQ/50 ML RTU IV SCH ×2 (21:35→23:47)
[2018-11-18] MEDS: ALBUTEROL SULFATE 0.083% NEB 2.5 MG/3 ML AMPUL NEB SCH ×4 (00:07→23:56)
[2018-11-18] MEDS: ACETYLCYSTEINE 10% NEB 400 MG/4 ML VIAL NEB SCH ×4 (00:07→23:56)
[2018-11-18] MEDS: PIPERACILLIN SODIUM/TAZOBACTAM 3.375 GM in NORMAL SALINE 100 ML IV SCH ×5 (00:07→23:40)
[2018-11-18] MEDS: POTASSIUM CHLORIDE 20 MEQ/50 ML RTU IV SCH (03:07)
[2018-11-18 08:02] LABS: ANION GAP 5 (5-19); BLOOD UREA NITROGEN 3 mg/dL (7-20); CALCIUM 7.6 mg/dL (8.4-10.2); CARBON DIOXIDE 32 mmol/L (22-30); CHLORIDE 103 mmol/L (98-107); GLUCOSE 86 mg/dL (75-110); POTASSIUM 3.1 mmol/L (3.6-5.0)
[2018-11-18] MEDS ORDERED: DEXTROSE 5%-1/2 NORMAL SALINE 1,000 ML with POTASSIUM CHLORIDE 40 MEQ IV PRN ×2 (09:36)
--- NOTE | 2018-11-18 09:41 | PDOC PROGRESS REPORT ---
Subjective Progress Note for:: 11/18/18 Subjective:: Patient is alert now able to provide a good history. She does pull out her IVs however and therefore had to be placed in restraints. But she is cooperative otherwise. She is coherent. She denies any abdominal pain. She states that she does not drink alcohol at all. She is on a BiPAP but is able to talk. Reason For Visit: ISCHEMIC COLITIS Physical Exam Vital Signs: Temp Pulse Resp BP Pulse Ox 97.5 F 73 20 129/86 H 95 11/18/18 08:29 11/18/18 08:29 11/18/18 08:29 11/18/18 08:29 11/18/18 08:29 Intake & Output 11/17/18 11/18/18 11/19/18 06:59 06:59 06:59 Intake Total 1400 3022.4 Output Total 4975 4900 Balance -3207 -9137.6 Weight 53.7 kg 50.5 kg General appearance: PRESENT: cooperative, other - On BiPAP. Patient is a little restless but in no acute distress. Respiratory exam: PRESENT: wheezes Cardiovascular exam: PRESENT: RRR GI/Abdominal exam: PRESENT: other - Soft, mild lower abdominal tenderness without peritoneal signs. Wound is clean dry and intact. Results Laboratory Results: 11/17/18 03:40 11/18/18 07:33 11/17/18 11/17/18 11/17/18 03:40 12:20 19:37 Carbonic Acid 1.23 HCO3/H2CO3 Ratio 22:1 ABG pH 7.45 ABG pCO2 40.9 ABG pO2 80.0 ABG HCO3 27.9 H ABG O2 Saturation 96.3 ABG Base Excess 3.7 FiO2 100% Sodium 140.0 Potassium 2.7 L* Chloride 99 Carbon Dioxide 30 Anion Gap 11 BUN 3 L Creatinine 0.48 L Est GFR ( Amer) > 60 Est GFR (Non-Af Amer) > 60 Glucose 95 Calcium 7.8 L Magnesium 1.4 L 1.3 L 11/18/18 07:33 Carbonic Acid HCO3/H2CO3 Ratio ABG pH ABG pCO2 ABG pO2 ABG HCO3 ABG O2 Saturation ABG Base Excess FiO2 Sodium 140.4 Potassium 3.1 L Chloride 103 Carbon Dioxide 32 H Anion Gap 5 BUN 3 L Creatinine 0.42 L Est GFR ( Amer) > 60 Est GFR (Non-Af Amer) > 60 Glucose 86 Calcium 7.6 L Magnesium Impressions: Abdomen/Pelvis CT 11/13/18 03:06 IMPRESSION: 1. Portal venous gas in the left hepatic lobe. 2. Bowel wall thickening along the ascending colon, cecum as well as the proximal transverse colon with associated surrounding mesenteric inflammation and edema. Findings suggest colitis, possibly ischemic in etiology. There is a small amount of fluid surrounding the inferior right hepatic lobe. 3. Remote cholecystectomy with stable marked dilatation of the common bile duct and proximal intrahepatic bile ducts. 4. Chronic changes of the thoracolumbar spine. 5. Atherosclerotic calcifications along the abdominal aorta and iliac arteries. 6. Very small fat-containing left inguinal hernia. These critical findings were discussed with Dr. Ej Diaz on 11/13/2018 at 5:41 AM central time Chest X-Ray 11/17/18 00:00 IMPRESSION: The patient has developed bilateral pleural effusions as well as perihilar and basilar airspace disease. Findings are most consistent with vascular congestion. Assessment & Plan - Diagnosis (1) Right colon ischemia Is this a current diagnosis for this admission?: Yes Plan: Status post right hemicolectomy. Abdomen looks okay. I do not think she has abdominal sepsis. Abdomin is soft with only mild tenderness in the lower abdomen with no peritoneal signs. And the patient denies any abdominal pain. Her primary issue at this point is pulmonary. Will defer to our medical colleagues for management.
[2018-11-18] MEDS: FAMOTIDINE INJ/PF 20 MG/2 ML SDV IV SCH ×2 (10:16→22:59)
[2018-11-18] MEDS: ENOXAPARIN SODIUM INJ 40 MG/0.4 ML DISP.SYRIN SUBCUT SCH (10:16)
[2018-11-18] MEDS: POTASSI CL 20 MEQ/50 ML RIDER 20 MEQ/50 ML RTUPB IV SCH ×3 (10:18→18:16)
--- NOTE | 2018-11-18 14:52 | PDOC PROGRESS REPORT ---
Subjective Progress Note for:: 11/18/18 Subjective:: This is 68 years old female patient who presented with severe abdominal pain. Her CT of abdomen and pelvis reported as bowel wall thickening along the ascending colon, cecum as well as the proximal transverse colon with associated surrounding mesenteric inflammation and edema findings suggest colitis possibly ischemic in etiology. Patient status post right hemicolectomy. This morning I seen patient resting in bed while getting BiPAP with full facemask. She is awake alert and cooperative. Chest x-ray which was done yesterday reported as bilateral pleural effusion as well as perihilar and basilar airspace disease findings are most consistent with vascular congestion. Patient has been getting Zosyn. Reason For Visit: ISCHEMIC COLITIS Physical Exam Vital Signs: Temp Pulse Resp BP Pulse Ox 97.6 F 91 19 117/63 96 11/18/18 11:27 11/18/18 11:27 11/18/18 12:45 11/18/18 11:27 11/18/18 12:45 Intake & Output 11/17/18 11/18/18 11/19/18 06:59 06:59 06:59 Intake Total 1400 3022.4 0 Output Total 4975 4900 175 Balance -3575 -1877.6 -175 Weight 53.7 kg 50.5 kg General appearance: PRESENT: mild distress Head exam: PRESENT: atraumatic Neck exam: ABSENT: carotid bruit, JVD, lymphadenopathy, thyromegaly Respiratory exam: PRESENT: decreased breath sounds Cardiovascular exam: PRESENT: RRR. ABSENT: diastolic murmur, rubs, systolic murmur GI/Abdominal exam: PRESENT: normal bowel sounds, soft. ABSENT: distended, guarding, mass, organolmegaly, rebound, tenderness Neurological exam: PRESENT: alert, awake Results Laboratory Results: 11/17/18 03:40 11/18/18 07:33 11/17/18 11/18/18 19:37 07:33 Sodium 140.0 140.4 Potassium 2.7 L* 3.1 L Chloride 99 103 Carbon Dioxide 30 32 H Anion Gap 11 5 BUN 3 L 3 L Creatinine 0.48 L 0.42 L Est GFR ( Amer) > 60 > 60 Est GFR (Non-Af Amer) > 60 > 60 Glucose 95 86 Calcium 7.8 L 7.6 L Magnesium 1.3 L Impressions: Abdomen/Pelvis CT 11/13/18 03:06 IMPRESSION: 1. Portal venous gas in the left hepatic lobe. 2. Bowel wall thickening along the ascending colon, cecum as well as the proximal transverse colon with associated surrounding mesenteric inflammation and edema. Findings suggest colitis, possibly ischemic in etiology. There is a small amount of fluid surrounding the inferior right hepatic lobe. 3. Remote cholecystectomy with stable marked dilatation of the common bile duct and proximal intrahepatic bile ducts. 4. Chronic changes of the thoracolumbar spine. 5. Atherosclerotic calcifications along the abdominal aorta and iliac arteries. 6. Very small fat-containing left inguinal hernia. These critical findings were discussed with Dr. Ej Diaz on 11/13/2018 at 5:41 AM central time Chest X-Ray 11/17/18 00:00 IMPRESSION: The patient has developed bilateral pleural effusions as well as perihilar and basilar airspace disease. Findings are most consistent with vascular congestion. Assessment and Plan - Diagnosis (1) Acute respiratory failure with hypoxia Is this a current diagnosis for this admission?: Yes Plan: Continue BiPAP and bronchodilators. (2) Acute metabolic encephalopathy Is this a current diagnosis for this admission?: Yes Plan: Improving (3) Right Ischemic colitis Is this a current diagnosis for this admission?: Yes Plan: Status post right hemicolectomy
[2018-11-18] MEDS: MORPHINE SULFATE 10 MG/ML INJ IV PRN ×2 (17:50→22:53)
[2018-11-18] MEDS: NORMAL SALINE 1000 ML 1,000 ML with THIAMINE HCL 100 MG, MVI, ADULT NO.1 WITH VIT K 10 ... IV SCH ×4 (18:06)
[2018-11-18] MEDS ORDERED: POTASSI CL 20 MEQ/50 ML RIDER 20 MEQ/50 ML RTUPB IV ONE (18:12)
[2018-11-19] MEDS: POTASSI CL 40 MEQ/D5-1/2NS 1L 1000 ML IV PRN ×2 (00:18→10:21)
[2018-11-19] MEDS: MORPHINE SULFATE 10 MG/ML INJ IV PRN ×4 (02:51→20:42)
[2018-11-19] MEDS: PIPERACILLIN SODIUM/TAZOBACTAM 3.375 GM in NORMAL SALINE 100 ML IV SCH ×4 (05:28→23:54)
[2018-11-19] MEDS: ALBUTEROL SULFATE 0.083% NEB 2.5 MG/3 ML AMPUL NEB SCH ×3 (08:06→23:50)
[2018-11-19] MEDS: ACETYLCYSTEINE 10% NEB 400 MG/4 ML VIAL NEB SCH ×3 (09:09→23:50)
[2018-11-19] MEDS: ENOXAPARIN SODIUM INJ 40 MG/0.4 ML DISP.SYRIN SUBCUT SCH (10:03)
[2018-11-19] MEDS: FAMOTIDINE INJ/PF 20 MG/2 ML SDV IV SCH ×2 (10:09→21:21)
--- NOTE | 2018-11-19 10:45 | PDOC PROGRESS REPORT ---
Subjective Progress Note for:: 11/19/18 Subjective:: feels better. passing flatus and stool Reason For Visit: ISCHEMIC COLITIS Physical Exam Vital Signs: Temp Pulse Resp BP Pulse Ox 97.8 F 84 22 H 126/67 H 97 11/19/18 03:32 11/19/18 08:06 11/19/18 08:06 11/19/18 03:32 11/19/18 08:06 Intake & Output 11/18/18 11/19/18 11/20/18 06:59 06:59 06:59 Intake Total 3022.4 1422 1000 Output Total 4900 2100 Balance -1877.6 -678 1000 Weight 50.5 kg 50.7 kg General appearance: PRESENT: mild distress Head exam: PRESENT: normocephalic Eye exam: PRESENT: EOMI Mouth exam: PRESENT: moist Respiratory exam: PRESENT: decreased breath sounds Cardiovascular exam: PRESENT: RRR Pulses: PRESENT: +2 pedal pulses bilateral GI/Abdominal exam: PRESENT: soft Rectal exam: PRESENT: deferred Extremities exam: PRESENT: full ROM Musculoskeletal exam: PRESENT: full ROM Neurological exam: PRESENT: alert, awake, oriented to person, oriented to place Skin exam: PRESENT: dry Results Laboratory Results: 11/17/18 03:40 11/18/18 07:33 Impressions: Abdomen/Pelvis CT 11/13/18 03:06 IMPRESSION: 1. Portal venous gas in the left hepatic lobe. 2. Bowel wall thickening along the ascending colon, cecum as well as the proximal transverse colon with associated surrounding mesenteric inflammation and edema. Findings suggest colitis, possibly ischemic in etiology. There is a small amount of fluid surrounding the inferior right hepatic lobe. 3. Remote cholecystectomy with stable marked dilatation of the common bile duct and proximal intrahepatic bile ducts. 4. Chronic changes of the thoracolumbar spine. 5. Atherosclerotic calcifications along the abdominal aorta and iliac arteries. 6. Very small fat-containing left inguinal hernia. These critical findings were discussed with Dr. Ej Diaz on 11/13/2018 at 5:41 AM central time Chest X-Ray 11/17/18 00:00 IMPRESSION: The patient has developed bilateral pleural effusions as well as perihilar and basilar airspace disease. Findings are most consistent with vascular congestion. Assessment & Plan - Diagnosis (1) Acute abdomen Is this a current diagnosis for this admission?: Yes - Plan Summary Plan Summary: abd feeling better now passing flatus had bm yesterday will start full liquids.
--- NOTE | 2018-11-19 13:14 | PDOC PROGRESS REPORT ---
Subjective Progress Note for:: 11/19/18 Subjective:: This is 68 years old female patient who presented with severe abdominal pain. Her CT of abdomen and pelvis reported as bowel wall thickening along the ascending colon, cecum as well as the proximal transverse colon with associated surrounding mesenteric inflammation and edema findings suggest colitis possibly ischemic in etiology. Patient status post right hemicolectomy. This morning I seen patient resting in bed while getting BiPAP with full facemask. She is awake alert and cooperative. Chest x-ray which was done yesterday reported as bilateral pleural effusion as well as perihilar and basilar airspace disease findings are most consistent with vascular congestion. Patient has been getting Zosyn. 11/19/2018: No significant change overnight. Reason For Visit: ISCHEMIC COLITIS Physical Exam Vital Signs: Temp Pulse Resp BP Pulse Ox 97.8 F 84 22 H 126/67 H 97 11/19/18 03:32 11/19/18 08:06 11/19/18 08:06 11/19/18 03:32 11/19/18 08:06 Intake & Output 11/18/18 11/19/18 11/20/18 06:59 06:59 06:59 Intake Total 3022.4 1422 1000 Output Total 4900 2100 Balance -1877.6 -678 1000 Weight 50.5 kg 50.7 kg General appearance: PRESENT: no acute distress Neck exam: ABSENT: carotid bruit, JVD, lymphadenopathy, thyromegaly Respiratory exam: PRESENT: clear to auscultation silvio. ABSENT: rales, rhonchi, wheezes Cardiovascular exam: PRESENT: RRR. ABSENT: diastolic murmur, rubs, systolic murmur GI/Abdominal exam: PRESENT: normal bowel sounds, soft. ABSENT: distended, guarding, mass, organolmegaly, rebound, tenderness Neurological exam: PRESENT: alert, awake Results Laboratory Results: 11/17/18 03:40 11/18/18 07:33 Impressions: Abdomen/Pelvis CT 11/13/18 03:06 IMPRESSION: 1. Portal venous gas in the left hepatic lobe. 2. Bowel wall thickening along the ascending colon, cecum as well as the proximal transverse colon with associated surrounding mesenteric inflammation and edema. Findings suggest colitis, possibly ischemic in etiology. There is a small amount of fluid surrounding the inferior right hepatic lobe. 3. Remote cholecystectomy with stable marked dilatation of the common bile duct and proximal intrahepatic bile ducts. 4. Chronic changes of the thoracolumbar spine. 5. Atherosclerotic calcifications along the abdominal aorta and iliac arteries. 6. Very small fat-containing left inguinal hernia. These critical findings were discussed with Dr. Ej Diaz on 11/13/2018 at 5:41 AM central time Chest X-Ray 11/17/18 00:00 IMPRESSION: The patient has developed bilateral pleural effusions as well as perihilar and basilar airspace disease. Findings are most consistent with vascular congestion. Assessment and Plan - Diagnosis (1) Acute respiratory failure with hypoxia Is this a current diagnosis for this admission?: Yes Plan: Continue BiPAP and bronchodilators. (2) Acute metabolic encephalopathy Is this a current diagnosis for this admission?: Yes Plan: Improving (3) Right Ischemic colitis Is this a current diagnosis for this admission?: Yes Plan: Status post right hemicolectomy
[2018-11-19] MEDS: NORMAL SALINE 1000 ML 1,000 ML with THIAMINE HCL 100 MG, MVI, ADULT NO.1 WITH VIT K 10 ... IV SCH ×4 (18:34)
[2018-11-20] MEDS: MORPHINE SULFATE 10 MG/ML INJ IV PRN (02:10)
[2018-11-20] MEDS: PIPERACILLIN SODIUM/TAZOBACTAM 3.375 GM in NORMAL SALINE 100 ML IV SCH (06:43)
[2018-11-20] MEDS: ACETYLCYSTEINE 10% NEB 400 MG/4 ML VIAL NEB SCH ×3 (08:10→23:32)
[2018-11-20] MEDS: ALBUTEROL SULFATE 0.083% NEB 2.5 MG/3 ML AMPUL NEB SCH ×3 (08:10→23:32)
[2018-11-20] MEDS: FAMOTIDINE INJ/PF 20 MG/2 ML SDV IV SCH ×2 (10:52→22:17)
[2018-11-20] MEDS: ENOXAPARIN SODIUM INJ 40 MG/0.4 ML DISP.SYRIN SUBCUT SCH (10:52)
--- NOTE | 2018-11-20 10:53 | PDOC PROGRESS REPORT ---
Subjective Progress Note for:: 11/20/18 Subjective:: Patient is doing well, postoperative day 6 status post second look, reestablishment of gastrointestinal continuity with ileocolonic anastomosis, tolerating full liquids, pain managed. Has had several loose bowel movements. Reason For Visit: ISCHEMIC COLITIS Physical Exam Vital Signs: Temp Pulse Resp BP Pulse Ox 97.4 F 87 18 121/73 97 11/20/18 07:51 11/20/18 08:12 11/20/18 08:12 11/20/18 07:51 11/20/18 08:12 Intake & Output 11/19/18 11/20/18 11/21/18 06:59 06:59 06:59 Intake Total 1422 1667 Output Total 2100 2350 Balance -678 -683 Weight 50.7 kg 49.5 kg General appearance: PRESENT: no acute distress, other - Mildly anxious GI/Abdominal exam: PRESENT: other - Abdomen is soft; no distention; all rajani intact with no drainage or erythema. Results Laboratory Results: 11/17/18 03:40 11/18/18 07:33 Impressions: Abdomen/Pelvis CT 11/13/18 03:06 IMPRESSION: 1. Portal venous gas in the left hepatic lobe. 2. Bowel wall thickening along the ascending colon, cecum as well as the proximal transverse colon with associated surrounding mesenteric inflammation and edema. Findings suggest colitis, possibly ischemic in etiology. There is a small amount of fluid surrounding the inferior right hepatic lobe. 3. Remote cholecystectomy with stable marked dilatation of the common bile duct and proximal intrahepatic bile ducts. 4. Chronic changes of the thoracolumbar spine. 5. Atherosclerotic calcifications along the abdominal aorta and iliac arteries. 6. Very small fat-containing left inguinal hernia. These critical findings were discussed with Dr. Ej Diaz on 11/13/2018 at 5:41 AM central time Chest X-Ray 11/17/18 00:00 IMPRESSION: The patient has developed bilateral pleural effusions as well as perihilar and basilar airspace disease. Findings are most consistent with vascular congestion. Assessment & Plan - Diagnosis (1) Right Ischemic colitis Is this a current diagnosis for this admission?: Yes Plan: Impression: Patient is now postoperative day 7 exploratory laparotomy right hemicolectomy, postoperative day 6 second look, ilio- transverse colostomy, doing well no complications. Patient has chronic musculoskeletal pain and is on chronic pain management at 15 mg of oxycodone 4 times a day at home Recommendations: 1. We will discontinue IV antibiotics, Valencia catheter, oxygen. 2. Will advance diet to regular groceries 3. We will get patient up ambulating; we will add a stool softener; 4. Anticipate discharge in the next 24 to 48 hours.
[2018-11-20] MEDS ORDERED: OXYCODONE HCL IR 5 MG TABLET PO PRN (13:32)
--- NOTE | 2018-11-20 13:40 | PDOC PROGRESS REPORT ---
Subjective Progress Note for:: 11/20/18 Subjective:: This is 68 years old female patient who presented with severe abdominal pain. Her CT of abdomen and pelvis reported as bowel wall thickening along the ascending colon, cecum as well as the proximal transverse colon with associated surrounding mesenteric inflammation and edema findings suggest colitis possibly ischemic in etiology. Patient status post right hemicolectomy. This morning I seen patient resting in bed while getting BiPAP with full facemask. She is awake alert and cooperative. Chest x-ray which was done yesterday reported as bilateral pleural effusion as well as perihilar and basilar airspace disease findings are most consistent with vascular congestion. Patient has been getting Zosyn. 11/19/2018: No significant change overnight. 11/20/2018: Patient seen propped up in bed. She is awake alert oriented. She is not pain or distress. She tolerates full liquid diet. Her vitals and blood works are stable. Reason For Visit: ISCHEMIC COLITIS Physical Exam Vital Signs: Temp Pulse Resp BP Pulse Ox 97.2 F 94 16 110/70 95 11/20/18 10:59 11/20/18 10:59 11/20/18 10:59 11/20/18 10:59 11/20/18 10:59 Intake & Output 11/19/18 11/20/18 11/21/18 06:59 06:59 06:59 Intake Total 1422 1667 2010.2 Output Total 2100 2350 Balance -339 -523 2010.2 Weight 50.7 kg 49.5 kg General appearance: PRESENT: no acute distress Head exam: PRESENT: atraumatic Eye exam: PRESENT: conjunctiva pink Neck exam: ABSENT: carotid bruit, JVD, lymphadenopathy, thyromegaly Respiratory exam: PRESENT: clear to auscultation silvio. ABSENT: rales, rhonchi, wheezes Cardiovascular exam: PRESENT: RRR. ABSENT: diastolic murmur, rubs, systolic murmur Neurological exam: PRESENT: alert, awake, oriented to person, oriented to place, oriented to time, oriented to situation Results Laboratory Results: 11/17/18 03:40 11/18/18 07:33 Impressions: Abdomen/Pelvis CT 11/13/18 03:06 IMPRESSION: 1. Portal venous gas in the left hepatic lobe. 2. Bowel wall thickening along the ascending colon, cecum as well as the proximal transverse colon with associated surrounding mesenteric inflammation and edema. Findings suggest colitis, possibly ischemic in etiology. There is a small amount of fluid surrounding the inferior right hepatic lobe. 3. Remote cholecystectomy with stable marked dilatation of the common bile duct and proximal intrahepatic bile ducts. 4. Chronic changes of the thoracolumbar spine. 5. Atherosclerotic calcifications along the abdominal aorta and iliac arteries. 6. Very small fat-containing left inguinal hernia. These critical findings were discussed with Dr. Ej Diaz on 11/13/2018 at 5:41 AM central time Chest X-Ray 11/17/18 00:00 IMPRESSION: The patient has developed bilateral pleural effusions as well as perihilar and basilar airspace disease. Findings are most consistent with vascular congestion. Assessment and Plan - Diagnosis (1) Acute respiratory failure with hypoxia Is this a current diagnosis for this admission?: Yes Plan: Continue BiPAP and bronchodilators. (2) Acute metabolic encephalopathy Is this a current diagnosis for this admission?: Yes Plan: Has resolved (3) Right Ischemic colitis Is this a current diagnosis for this admission?: Yes Plan: Status post right hemicolectomy (4) Tobacco dependence Is this a current diagnosis for this admission?: Yes Plan: Patient counseled and encouraged to quit smoking.
[2018-11-20] MEDS: BUTALB/ACETAMINOPHEN/CAFFEINE 1 TAB EACH PO SCH ×2 (15:35→18:40)
[2018-11-20] MEDS: GABAPENTIN 300 MG CAPSULE PO SCH ×2 (15:35→22:17)
[2018-11-20] MEDS: DOCUSATE SODIUM 100 MG CAPSULE PO SCH (18:40)
[2018-11-20] MEDS: NORMAL SALINE 1000 ML 1,000 ML with THIAMINE HCL 100 MG, MVI, ADULT NO.1 WITH VIT K 10 ... IV SCH ×4 (18:41)
[2018-11-20] MEDS: KETOROLAC TROMETHAMINE 10 MG TABLET PO PRN (20:16)
[2018-11-20] MEDS ORDERED: (PENDING PHARMACY ID) (Fluticasone/Salmeterol 1 INH) IH SCH (22:00)
[2018-11-20] MEDS ORDERED: DOXEPIN HCL 10 MG CAPSULE PO SCH (22:00)
[2018-11-20] MEDS ORDERED: (PENDING PHARMACY ID) (Diltiazem Hcl [Cartia Xt] 180 MG) PO SCH (22:00)
[2018-11-20] MEDS: DILTIAZEM HCL 180 MG CAPSULE.CR PO SCH (22:25)
[2018-11-21] MEDS: KETOROLAC TROMETHAMINE 10 MG TABLET PO PRN ×2 (02:20→09:37)
[2018-11-21] MEDS: GABAPENTIN 300 MG CAPSULE PO SCH (05:49)
[2018-11-21] MEDS: ACETYLCYSTEINE 10% NEB 400 MG/4 ML VIAL NEB SCH (08:02)
[2018-11-21] MEDS: ALBUTEROL SULFATE 0.083% NEB 2.5 MG/3 ML AMPUL NEB SCH (08:02)
[2018-11-21] MEDS: DOCUSATE SODIUM 100 MG CAPSULE PO SCH (09:34)
[2018-11-21] MEDS: DILTIAZEM HCL 180 MG CAPSULE.CR PO SCH (09:34)
[2018-11-21] MEDS: BUTALB/ACETAMINOPHEN/CAFFEINE 1 TAB EACH PO SCH (09:35)
[2018-11-21] MEDS: ENOXAPARIN SODIUM INJ 40 MG/0.4 ML DISP.SYRIN SUBCUT SCH (09:35)
[2018-11-21] MEDS: FAMOTIDINE INJ/PF 20 MG/2 ML SDV IV SCH (09:35)
[2018-11-21] MEDS ORDERED: FLUTICASONE/VILANTEROL 200-25 MCG/DOSE IH SCH (10:00)
[2018-11-21] MEDS ORDERED: CITALOPRAM HYDROBROMIDE 20 MG TABLET PO SCH (10:00)
--- NOTE | 2018-11-21 10:53 | PDOC PROGRESS REPORT ---
Subjective Progress Note for:: 11/21/18 Subjective:: This is 68 years old female patient who presented with severe abdominal pain. Her CT of abdomen and pelvis reported as bowel wall thickening along the ascending colon, cecum as well as the proximal transverse colon with associated surrounding mesenteric inflammation and edema findings suggest colitis possibly ischemic in etiology. Patient status post right hemicolectomy. This morning I seen patient resting in bed while getting BiPAP with full facemask. She is awake alert and cooperative. Chest x-ray which was done yesterday reported as bilateral pleural effusion as well as perihilar and basilar airspace disease findings are most consistent with vascular congestion. Patient has been getting Zosyn. 11/19/2018: No significant change overnight. 11/20/2018: Patient seen propped up in bed. She is awake alert oriented. She is not pain or distress. She tolerates full liquid diet. Her vitals and blood works are stable. 11/21/2018: Patient seen sitting in bed sleeping quietly. Reason For Visit: ISCHEMIC COLITIS Physical Exam Vital Signs: Temp Pulse Resp BP Pulse Ox 98.2 F 79 16 109/69 94 11/21/18 07:57 11/21/18 08:04 11/21/18 08:04 11/21/18 07:57 11/21/18 08:04 Intake & Output 11/20/18 11/21/18 11/22/18 06:59 06:59 06:59 Intake Total 1667 2111.2 Output Total 2350 Balance -683 2111.2 Weight 49.5 kg 46.1 kg General appearance: PRESENT: no acute distress Results Laboratory Results: 11/17/18 03:40 11/18/18 07:33 Impressions: Abdomen/Pelvis CT 11/13/18 03:06 IMPRESSION: 1. Portal venous gas in the left hepatic lobe. 2. Bowel wall thickening along the ascending colon, cecum as well as the proximal transverse colon with associated surrounding mesenteric inflammation and edema. Findings suggest colitis, possibly ischemic in etiology. There is a small amount of fluid surrounding the inferior right hepatic lobe. 3. Remote cholecystectomy with stable marked dilatation of the common bile duct and proximal intrahepatic bile ducts. 4. Chronic changes of the thoracolumbar spine. 5. Atherosclerotic calcifications along the abdominal aorta and iliac arteries. 6. Very small fat-containing left inguinal hernia. These critical findings were discussed with Dr. Ej Diaz on 11/13/2018 at 5:41 AM central time Chest X-Ray 11/17/18 00:00 IMPRESSION: The patient has developed bilateral pleural effusions as well as perihilar and basilar airspace disease. Findings are most consistent with vascular congestion. Assessment and Plan - Diagnosis (1) Acute respiratory failure with hypoxia Is this a current diagnosis for this admission?: Yes Plan: Continue BiPAP and bronchodilators. (2) Acute metabolic encephalopathy Is this a current diagnosis for this admission?: Yes Plan: Has resolved (3) Right Ischemic colitis Is this a current diagnosis for this admission?: Yes Plan: Status post right hemicolectomy (4) Tobacco dependence Is this a current diagnosis for this admission?: Yes Plan: Patient counseled and encouraged to quit smoking.
--- NOTE | 2018-11-21 11:31 | PDOC DISCHARGE SUMMARY ---
General - Admit/Disc Date/PCP Admission Date/Primary Care Provider: 11/13/18 08:33 Discharge Date: 11/21/18 - Discharge Diagnosis (1) Right Ischemic colitis Is this a current diagnosis for this admission?: Yes - Additional Information Resuscitation Status: Full Code Discharge Diet: As Tolerated Discharge Activity: Activity As Tolerated Home Medications: Diltiazem HCl [Cartia Xt] 180 mg PO Q12 03/28/18 Gabapentin [Neurontin 300 mg Capsule] 300 mg PO Q8 03/28/18 Oxycodone HCl [Oxy-Ir 5 mg Tablet] 15 mg PO Q6HP PRN 03/28/18 Fluticasone/Salmeterol [Advair 250-50 Diskus 14 Dose/Diskus] 1 inh IH Q12 inhaler 04/03/18 Ipratropium/Albuterol Sulfate [Duoneb 3 ml Ampul] 3 ml NEB RTQ6HP PRN 30 Days #100 vial.neb 04/03/18 Albuterol Sulfate [Proair Hfa Inhalation Aerosol 8.5 gm Mdi] 2 puff IH Q4HP PRN 11/13/18 Butalb/Acetaminophen/Caffeine [Fioricet (50-325-40 mg) Tablet] 1 tab PO TID 11/13/18 Citalopram Hydrobromide [Celexa 20 mg Tablet] 20 mg PO DAILY 11/13/18 Cyclobenzaprine HCl [Flexeril 10 mg Tablet] 10 mg PO HSP PRN 11/13/18 Diphenhydramine HCl [Benadryl] 25 mg PO DAILYP PRN 11/13/18 Doxepin HCl [Sinequan 10 Mg Capsule] 20 mg PO QHS 11/13/18 History of Present Illness History of Present Illness: RACHELLE MARY is a 68 year old female Hospital Course Hospital Course: This 68-year-old white female with a history of extracranial carotid artery disease, and COPD presents to the emergency department with acute onset abdominal pain. CT scan performed showed findings consistent with ischemic right colon. She was taken to the operating room by Dr. Valdovinos on 11/13/2018 where she underwent right hemicolectomy, upper abdominal closure, take back to the operating room 24 hours later for washout, completion ilio colostomy stapled anastomosis. Pathology report showed mucosal necrosis of the right colon. Patient tolerated the operation well and had a slow but uneventful postoperative course. She was discharged home on the sixth postoperative day tolerating a diet and having adequate pain control. She has a history of rheumatoid arthritis and is on chronic pain management. Her incisions were dry and intact. Physical Exam Vital Signs: Temp Pulse Resp BP Pulse Ox 98.2 F 79 16 109/69 94 11/21/18 07:57 11/21/18 08:04 11/21/18 08:04 11/21/18 07:57 11/21/18 08:04 Intake & Output 11/20/18 11/21/18 11/22/18 06:59 06:59 06:59 Intake Total 1667 2111.2 Output Total 2350 Balance -683 2111.2 Weight 49.5 kg 46.1 kg General appearance: PRESENT: no acute distress GI/Abdominal exam: PRESENT: other - Soft, no distention. All rajani in position with wounds dry. Results Laboratory Results: 11/17/18 03:40 11/18/18 07:33 Impressions: Abdomen/Pelvis CT 11/13/18 03:06 IMPRESSION: 1. Portal venous gas in the left hepatic lobe. 2. Bowel wall thickening along the ascending colon, cecum as well as the proximal transverse colon with associated surrounding mesenteric inflammation and edema. Findings suggest colitis, possibly ischemic in etiology. There is a small amount of fluid surrounding the inferior right hepatic lobe. 3. Remote cholecystectomy with stable marked dilatation of the common bile duct and proximal intrahepatic bile ducts. 4. Chronic changes of the thoracolumbar spine. 5. Atherosclerotic calcifications along the abdominal aorta and iliac arteries. 6. Very small fat-containing left inguinal hernia. These critical findings were discussed with Dr. Ej Diaz on 11/13/2018 at 5:41 AM central time Chest X-Ray 11/17/18 00:00 IMPRESSION: The patient has developed bilateral pleural effusions as well as perihilar and basilar airspace disease. Findings are most consistent with vascular congestion. Qualifiers - * PATIENT BEING DISCHARGED WITH ANY OF THE FOLLOWING DIAGNOSIS: No Acute Heart Failure - Is this a Heart Failure Patient?: No Plan Discharge Plan: Patient will be discharged home to care of her family follow-up with Dr. Eyad Valdovinos [facility] in 1 to 2 weeks; will shower; resume preoperative medications diet and activity; pain control will be handled through her chronic pain management program.
[2018-11-21 12:25] VITALS: BP 143/89
== END 2018-11-21 11:50 | disposition home or self-care (01) | DRG 329 ==
LOC: ER 01:50 → EH 08:33 → ICU 14:27 → 3N 11-15 18:11
PROVIDERS: ADMIT Surgery; ATTEND Surgery
PROC: 30233K1 Transfusion of Nonautologous Frozen Plasma into Peripheral Vein, Percutaneous Approach (ICD-10-PCS; 2018-11-13)
PROC: 0DTF0ZZ Resection of Right Large Intestine, Open Approach (ICD-10-PCS; principal; 2018-11-13 11:00)
PROC: 0WQF0ZZ Repair Abdominal Wall, Open Approach (ICD-10-PCS; 2018-11-14)
PROC: 0WJF0ZZ Inspection of Abdominal Wall, Open Approach (ICD-10-PCS; 2018-11-14)
PROC: 5A09357 Assistance with Respiratory Ventilation, Less than 24 Consecutive Hours, Continuous Positive Airway Pressure (ICD-10-PCS; 2018-11-17)
DX: K55.9 Vascular disorder of intestine, unspecified (principal); G93.41 Metabolic encephalopathy; J96.01 Acute respiratory failure with hypoxia; J90 Pleural effusion, not elsewhere classified; F23 Brief psychotic disorder; J44.9 Chronic obstructive pulmonary disease, unspecified; I25.10 Atherosclerotic heart disease of native coronary artery without angina pectoris; M06.9 Rheumatoid arthritis, unspecified; I73.9 Peripheral vascular disease, unspecified; G89.29 Other chronic pain; I71.4 Abdominal aortic aneurysm, without rupture; D64.9 Anemia, unspecified; F32.9 Major depressive disorder, single episode, unspecified; F41.9 Anxiety disorder, unspecified; R63.0 Anorexia; R00.0 Tachycardia, unspecified; Z87.891 Personal history of nicotine dependence; Z82.49 Family history of ischemic heart disease and other diseases of the circulatory system; Z68.20 Body mass index [BMI] 20.0-20.9, adult; Z53.31 Laparoscopic surgical procedure converted to open procedure; Z79.899 Other long term (current) drug therapy
CPT/HCPCS: 36415; 36430; 36600; 71045; 74176; 790; 80048; 80053; 80076; 81001; 82803; 82962; 83605; 83690; 83735; 84100; 85025; 86850; 86900; 86901; 88305; 88307; 93005; 93010; 93971; 94002; 94003; 94640; 94660; 94667; 94668; 94799; 96361; 96365; 96375; 96376; 99285; J0330; J1170; J1630; J1650; J1940; J2060; J2250; J2270; J2370; J2405; J2543; J2704; J3010; J3230; J3360; J3411; J3475; J3480; J3490; J7030; J7050; P9017; S0028

== ENCOUNTER 2019-03-16 16:41 | Inpatient (IN) | payer OTHER, MEDICARE ==
[2019-03-16] MEDS ORDERED: NALOXONE HCL INJ/PF 0.4 MG/1 ML SDV ONE (16:55)
[2019-03-16] MEDS ORDERED: NALOXONE HCL INJ/PF 0.4 MG/1 ML SDV IV ONE (16:58)
[2019-03-16] MEDS ORDERED: DILTIAZEM HCL INJ 25 MG/5 ML VIAL IV ONE (17:02)
[2019-03-16] MEDS ORDERED: DILTIAZEM HCL INJ 25 MG/5 ML VIAL ONE (17:04)
[2019-03-16] MEDS ORDERED: NORMAL SALINE 1000 ML 1,000 ML IV ONE ×2 (17:11→19:22)
[2019-03-16 17:19] LABS: HEMATOCRIT 33.7 % (36.0-47.0); HEMOGLOBIN 10.5 g/dL (12.0-15.5); MEAN CORPUSCULAR HEMOGLOBIN 25.5 pg (27.0-33.4); MEAN CORPUSCULAR HGB CONC 31.2 g/dL (32.0-36.0); MEAN CORPUSCULAR VOLUME 82 fl (80-97); PLATELET COUNT 833 10^3/uL (150-450); RED BLOOD COUNT 4.11 10^6/uL (3.72-5.28); RED CELL DISTRIBUTION WIDTH 16.3 % (11.5-14.0); WHITE BLOOD COUNT 27.1 10^3/uL (4.0-10.5)
--- NOTE | 2019-03-16 17:36 | RADIOLOGY REPORT (SQ) ---
EXAM DESCRIPTION: CHEST SINGLE VIEW COMPLETED DATE/TIME: 03/16/2019 5:21 pm REASON FOR STUDY: SOB COMPARISON: 10/20/2018 EXAM PARAMETERS: NUMBER OF VIEWS: One view. TECHNIQUE: Single frontal radiographic view of the chest acquired. RADIATION DOSE: NA LIMITATIONS: None. FINDINGS: LUNGS AND PLEURA: Dense opacification in the right middle lobe. MEDIASTINUM AND HILAR STRUCTURES: No masses. Contour normal. HEART AND VASCULAR STRUCTURES: Heart normal in size. Normal vasculature. BONES: No acute findings. HARDWARE: None in the chest. OTHER: No other significant finding. IMPRESSION: Right middle lobe pneumonia. TECHNICAL DOCUMENTATION: JOB ID: [id number] 1972 [employer]- All Rights Reserved Reading location - IP/workstation name: [email or web address]
[2019-03-16 17:40] LABS: ABSOLUTE LYMPHOCYTES# (MANUAL) 0.8 10^3/uL (0.5-4.7); ABSOLUTE MONOCYTES # (MANUAL) 2.2 10^3/uL (0.1-1.4); ANISOCYTOSIS 1+; BASOPHILS % (MANUAL) 0 % (0-2); EOSINOPHILS % (MANUAL) 0 % (0-6); LYMPHOCYTES % (MANUAL) 3 % (13-45); MONOCYTES % (MANUAL) 8 % (3-13); OVALOCYTES 1+; PLATELET COMMENT INCREASED; SEGMENTED NEUTROPHILS % (MAN) 89 % (42-78); TOTAL CELLS COUNTED 100
[2019-03-16 17:45] LABS: ALBUMIN 3.2 g/dL (3.5-5.0); ALKALINE PHOSPHATASE 121 U/L (38-126); ANION GAP 12 (5-19); ASPARTATE AMINO TRANSFERASE 20 U/L (14-36); BILIRUBIN,DIRECT 0.2 mg/dL (0.0-0.4); BILIRUBIN,TOTAL 0.2 mg/dL (0.2-1.3); BLOOD UREA NITROGEN 19 mg/dL (7-20); CARBON DIOXIDE 31 mmol/L (22-30); CHLORIDE 94 mmol/L (98-107); GLUCOSE 174 mg/dL (75-110); POTASSIUM 4.3 mmol/L (3.6-5.0); TOTAL PROTEIN 6.4 g/dL (6.3-8.2)
[2019-03-16] MEDS ORDERED: LEVOFLOXACIN 750 MG/D5W RTU 750 MG/150 ML RTUPB IV ONE (17:45)
--- NOTE | 2019-03-16 17:50 | ER Document Report ---
ED General - General Chief Complaint: Respiratory Distress Stated Complaint: WEAKNESS Time Seen by Provider: 03/16/19 17:04 TRAVEL OUTSIDE OF THE [place] IN LAST 30 DAYS: No - HPI Notes: Patient is a 69-year-old female, brought to the emergency department for evaluation by EMS. Evidently EMS was called for weakness and lethargy. According to friend/spouse she looks noonan. Patient was found to be 77% on room air. She is not on oxygen at home. The patient does take pain medication. She is on 20 mg of oxycodone every 6 hours as needed for severe pain. She states that this is an increase of 15 mg every 6 just a few weeks ago. The patient also admits that she has been losing weight without trying. She denies any pain at this time, states she is been taking her medications as prescribed. She does continue to smoke. Patient has had a cough for some time. She states she just cannot "seem to get over it." - Related Data Allergies/Adverse Reactions: No Known Allergies Allergy (Verified 03/27/18 23:17) Past Medical History - General Information source: Patient, Friend, Emergency Med Personnel - Social History Smoking Status: Current Every Day Smoker Family History: CAD Patient has suicidal ideation: No Patient has homicidal ideation: No - Past Medical History Cardiac Medical History: Reports: Hx Atrial Fibrillation - Intermittent per patient, Hx Peripheral Vascular Disease Denies: Hx Hypertension Pulmonary Medical History: Reports: Hx COPD, Hx Pneumonia Denies: Hx Asthma, Hx Bronchitis Neurological Medical History: Denies: Hx Cerebrovascular Accident, Hx Seizures Renal/ Medical History: Denies: Hx Peritoneal Dialysis GI Medical History: Reports: Hx Gastroesophageal Reflux Disease Musculoskeletal Medical History: Reports Hx Arthritis Psychiatric Medical History: Reports: Hx Anxiety Past Surgical History: Reports: Hx Adenoidectomy, Hx Carotid Endarterectomy, Hx Cholecystectomy, Hx Orthopedic Surgery - Back surgery, wrist surgery, neck surgery, Hx Tonsillectomy, Hx Vascular Surgery - Immunizations Hx Diphtheria, Pertussis, Tetanus Vaccination: Yes Review of Systems - Review of Systems Constitutional: See HPI EENT: No symptoms reported Cardiovascular: No symptoms reported Physical Exam - Vital signs Vitals: Resp Pulse Ox 20 79 L 03/16/19 16:44 03/16/19 16:44 - Notes Notes: This is a 69-year-old female who appears much older than her stated age. She has a markedly decreased respiratory rate. She is very frail in appearance. Head is normocephalic and atraumatic, pupils are equal round, reactive to light, but about 2 to 3 mm in diameter. Oral mucosa is moist. Heart is irregularly irregular, tachycardic. Lungs show diminished breath sounds in the bases, scattered rhonchi and occasional wheezes throughout. Abdomen was soft, nontender, normoactive bowel sounds. Extremities without cyanosis or clubbing. Skin is warm and dry. Peripheral pulses are equal. Patient arouses to verbal stimuli, follows commands without difficulty, opens her eyes to command. She moves all 4 extremities spontaneously. Course - Re-evaluation Re-evalutation: 03/16/19 17:49 Patient presents emergency department for evaluation. On arrival she had a decreased respiratory rate and is on known chronic pain medication. Decision was made to administer 0.4 mg Narcan. Patient's GCS improved to 15 following administration of this medication, and her pupils enlarged. Patient remained si gnificantly tachycardic. She does have a history of atrial fibrillation. She was given Cardizem 10 mg IV. During the course of the administration of this medication, her blood pressure did improve, and her chest x-ray was performed. Chest x-ray showed findings markedly concerning for right sided consolidation. I do not feel comfortable further lowering this patient's heart rate, given her borderline blood pressure at best, and the fact that this may in fact be a result of her sepsis. IV antibiotics ordered. Cultures and lactate ordered. We will continue to monitor. 03/16/19 18:16 Patient remains more awake and alert. After the Cardizem her heart rate has remained solidly between 95 and 115. Pressures are stable. Given the consolidation seen on x-ray, patient was given IV Levaquin. She has a markedly elevated white count, but this may be in fact secondary to the stress of overdose and Narcan. She remains hypoxic on room air, she is left on 4 L per nasal cannula and seems to be oxygenating well. I spoke with Dr. Blank. He is concerned about the possibility of pulmonary embolus being responsible in part for this patient's symptoms and hypoxia. I informed him that a 20-gauge IV would be unlikely to be obtained in this frail patient. VQ scan is ordered. He will come to the department and evaluate the patient. - Vital Signs Vital signs: Temp Pulse Resp BP Pulse Ox 97.8 F 20 93/64 L 98 03/16/19 16:48 03/16/19 18:05 03/16/19 18:05 03/16/19 18:05 - Laboratory Result Diagrams: 03/16/19 16:50 03/16/19 16:50 Laboratory results interpreted by me: 03/16/19 03/16/19 16:50 16:50 WBC 27.1 H Hgb 10.5 L Hct 33.7 L MCH 25.5 L MCHC 31.2 L RDW 16.3 H Plt Count 833 H Seg Neuts % (Manual) 89 H Lymphocytes % (Manual) 3 L Abs Neuts (Manual) 24.1 H Abs Monocytes (Manual) 2.2 H Sodium 136.7 L Chloride 94 L Carbon Dioxide 31 H Glucose 174 H Albumin 3.2 L - Diagnostic Test Radiology reviewed: Image reviewed, Reports reviewed Radiology results interpreted by me: 03/16/19 17:51 Chest X-Ray 03/16/19 16:48 IMPRESSION: Right middle lobe pneumonia. - EKG Interpretation by Me Additional EKG results interpreted by me: 03/16/19 17:51 Atrial fibrillation with a rate of 134 bpm. Normal axis, borderline QT interval. Nonspecific ST changes laterally, but no acute ST elevation concerning for infarction. No significant change in compared to prior study. Critical Care Note - Critical Care Note Total time excluding time spent on procedures (mins): 40 Discharge - Discharge Clinical Impression: Opiate overdose, Right middle lobe pneumonia, Rapid atrial fibrillation, Hypoxia, Sepsis, COPD exacerbation Condition: Stable Disposition: ADMITTED INPATIENT Admitting Provider: Rosamaria (Hospitalist) Unit Admitted: [facility]
[2019-03-16] MEDS ORDERED: NORMAL SALINE 500 ML IV ONE (18:00)
[2019-03-16] MEDS ORDERED: OXYCODONE-ACETAMINOPHEN 5-325 MG TABLET PO PRN (18:28)
[2019-03-16] MEDS ORDERED: DEXTROSE 5%-NORMAL SALINE 1,000 ML IV PRN (18:28)
[2019-03-16] MEDS ORDERED: PROMETHAZINE HCL INJ 25 MG/1 ML VIAL IV PRN (18:28)
[2019-03-16] MEDS ORDERED: METOPROLOL TARTRATE PF/INJ 5 MG/5 ML SDV IV PRN (18:31)
[2019-03-16] MEDS ORDERED: HYDRALAZINE HCL INJ/PF 20 MG/1 ML SDV IV PRN (18:31)
--- NOTE | 2019-03-16 18:36 | PDOC H&P ---
History of Present Illness History of Present Illness: RACHELLE MARY is a 68 year old female with a past medical history of COPD, opiate dependent chronic pain, benzodiazepine dependent anxiety and hospitalization for overdose, A. fib RVR, heavy tobacco abuse, presenting to ED via EMS for weakness and lethargy. Patient was found to be saturating 77% on room air, she is on chronic opioids for chronic lower extremity and back pain, has increased recently, noted to be lethargic, which improved after 1 dose of Narcan, and is complaining of productive cough for the last 10 days with pleuritic chest pain. Denies any nausea, vomiting, diarrhea, constipation or any urinary symptoms. In ED he was found to be very hypoxic with leukocytosis and chest x-ray positive for right-sided pneumonia. Hospitalist consulted for admission. Past Medical History Cardiac Medical History: Reports: Atrial Fibrillation - Intermittent per patient, Peripheral Vascular Disease Denies: Hypertension Pulmonary Medical History: Reports: Chronic Obstructive Pulmonary Disease (COPD), Pneumonia Denies: Asthma, Bronchitis Neurological Medical History: Denies: Seizures GI Medical History: Reports: Gastroesophageal Reflux Disease Musculoskeltal Medical History: Reports: Arthritis Psychiatric Medical History: Comment Only: Depression - anxiety Hematology: Denies: Anemia Past Surgical History Past Surgical History: Reports: Adenoidectomy, Carotid Endarterectomy, Cholecystectomy, Orthopedic Surgery - Back surgery, wrist surgery, neck surgery, Tonsillectomy, Vascular Surgery Social History Smoking Status: Current Every Day Smoker Frequency of Alcohol Use: None Hx Recreational Drug Use: No Drugs: None Hx Prescription Drug Abuse: No Family History Family History: CAD Parental Family History Reviewed: Yes Children Family History Reviewed: Yes Sibling(s) Family History Reviewed.: Yes Medication/Allergy Home Medications: Diltiazem HCl [Cartia Xt] 180 mg PO Q12 03/28/18 Gabapentin [Neurontin 300 mg Capsule] 300 mg PO Q8 03/28/18 Oxycodone HCl [Oxy-Ir 5 mg Tablet] 15 mg PO Q6HP PRN 03/28/18 Fluticasone/Salmeterol [Advair 250-50 Diskus 14 Dose/Diskus] 1 inh IH Q12 inhaler 04/03/18 Ipratropium/Albuterol Sulfate [Duoneb 3 ml Ampul] 3 ml NEB RTQ6HP PRN 30 Days #100 vial.neb 04/03/18 Albuterol Sulfate [Proair Hfa Inhalation Aerosol 8.5 gm Mdi] 2 puff IH Q4HP PRN 11/13/18 Butalb/Acetaminophen/Caffeine [Fioricet (50-325-40 mg) Tablet] 1 tab PO TID 11/13/18 Citalopram Hydrobromide [Celexa 20 mg Tablet] 20 mg PO DAILY 11/13/18 Cyclobenzaprine HCl [Flexeril 10 mg Tablet] 10 mg PO HSP PRN 11/13/18 Diphenhydramine HCl [Benadryl] 25 mg PO DAILYP PRN 11/13/18 Doxepin HCl [Sinequan 10 Mg Capsule] 20 mg PO QHS 11/13/18 Allergies/Adverse Reactions: No Known Allergies Allergy (Verified 03/27/18 23:17) Review of Systems Review of Systems: as per hpi Physical Exam Vital Signs: Temp Pulse Resp BP Pulse Ox 97.8 F 20 93/64 L 98 03/16/19 16:48 03/16/19 18:05 03/16/19 18:05 03/16/19 18:05 Intake & Output 03/15/19 03/16/19 03/17/19 06:59 06:59 06:59 Intake Total 1000 Balance 1000 Weight 41.8 kg General appearance: PRESENT: no acute distress, thin Head exam: PRESENT: atraumatic, normocephalic Respiratory exam: PRESENT: crackles, decreased breath sounds, prolonged expiratory phas, wheezes. ABSENT: rales, rhonchi Cardiovascular exam: PRESENT: irregular rhythm. ABSENT: diastolic murmur, rubs, systolic murmur GI/Abdominal exam: PRESENT: normal bowel sounds, soft. ABSENT: distended, guard ing, mass, organolmegaly, rebound, tenderness Neurological exam: PRESENT: alert, awake, oriented to person, oriented to place, oriented to time, oriented to situation, CN II-XII grossly intact. ABSENT: motor sensory deficit Skin exam: PRESENT: dry, intact, warm. ABSENT: cyanosis, rash Results Laboratory Results: 03/16/19 16:50 03/16/19 16:50 03/16/19 03/16/19 03/16/19 16:50 16:50 16:50 WBC 27.1 H RBC 4.11 Hgb 10.5 L Hct 33.7 L MCV 82 MCH 25.5 L MCHC 31.2 L RDW 16.3 H Plt Count 833 H Seg Neutrophils % Not Reportable Sodium 136.7 L Potassium 4.3 Chloride 94 L Carbon Dioxide 31 H Anion Gap 12 BUN 19 Creatinine 0.64 Est GFR ( Amer) > 60 Glucose 174 H Calcium 9.0 Total Bilirubin 0.2 AST 20 Alkaline Phosphatase 121 Total Protein 6.4 Albumin 3.2 L TSH 0.90 03/16/19 16:50 Troponin I 0.030 Impressions: Chest X-Ray 03/16/19 16:48 IMPRESSION: Right middle lobe pneumonia. Assessment and Plan - Diagnosis (1) Pneumonia Is this a current diagnosis for this admission?: Yes Plan: Likely community-acquired. Broad-spectrum antibiotics. Blood culture. Sputum culture. (2) Acute respiratory failure with hypoxia Is this a current diagnosis for this admission?: Yes Plan: Likely due to acute COPD exacerbation complicated by underlying pneumonia. VQ scan to rule out PE. IV steroids, broad-spectrum antibiotics, duo nebs, PRN BiPAP, incentive spirometry. (3) Atrial fibrillation with RVR Is this a current diagnosis for this admission?: Yes Plan: Restart home meds. Not anticoagulated. (4) COPD exacerbation Is this a current diagnosis for this admission?: Yes Plan: As per #1 and 2.
[2019-03-16] MEDS: DEXTROSE 5%-NORMAL SALINE 1,000 ML IV PRN (19:19)
[2019-03-16] MEDS ORDERED: DIGOXIN INJ 0.5 MG/2 ML AMPULE IV ONE (19:30)
[2019-03-16] MEDS: IPRATROPIUM/ALBUTEROL 0.5-2.5 MG/3 ML AMPUL NEB SCH (20:46)
[2019-03-16] MEDS: ENOXAPARIN SODIUM INJ 40 MG/0.4 ML DISP.SYRIN SUBCUT SCH (20:46)
--- NOTE | 2019-03-16 21:32 | RADIOLOGY REPORT (SQ) ---
EXAM DESCRIPTION: NM LUNG VENTILATION PERFUSION COMPLETED DATE/TME: 03/16/2019 18:13 CLINICAL HISTORY: dyspnea, eval for PE COMPARISON: None. Technique: Patient was administered 31.5 mCi technetium 99m DTPA in aerosol form. Planar imaging was acquired for the purpose of ventilation. Patient was then administered 5.32 mCi technetium 99m MAA and multiplanar perfusion imaging was acquired. FINDINGS: Patient had difficulty maintaining the seal for the ventilation images. There is patchy ventilatory uptake. There is a large ventilatory defect in the right lung base with a smaller area of diminished perfusion. Findings correlate with area of consolidation in the right lung base. No mismatch perfusion defects. IMPRESSION: Low probability for pulmonary embolus Large ventilatory defect involving the right middle lobe and in the right lung base consistent with pneumonia
[2019-03-16] MEDS ORDERED: DEXTROSE 5%-WATER 250 ML with NOREPINEPHRINE BITARTRATE 4 MG IV PRN ×4 (22:17)
[2019-03-16] MEDS ORDERED: NOREPINEPHRINE BITARTRATE INJ/PF 4 MG/4 ML SDV IV ONE (22:20)
--- NOTE | 2019-03-16 22:53 | CRITICAL CARE ADMISSION REPORT ---
HPI Date:: 03/16/19 Time:: 22:33 Reason for ICU Reason:: Reported Hypotension in ED HPI: This is an unfortunate 69-year-old female patient who presented to the emergency room this evening around 4:00 with complaints of increasing weakness and progressive, productive cough. Reportedly, over the last week and a half the patient has had increased lethargy up until this evening when she was pale and EMS was called. Patient was found to be hypoxic on room air. She denies nausea, vomiting, diarrhea, dysuria, fevers, or chills. Of note she has a past medical history of COPD, opioid dependent chronic pain, benzodiazepine dependent anxiety, A. fib, history of tobacco abuse. She initially underwent evaluation in the emergency room with subsequent hospitalist admission, but during their evaluation she was found to be hypotensive, thus there is a need for pressor us age initially in the ED and subsequent ICU admission. - . Plan Summary: Neuro: History of benzodiazepine dependent anxiety-continue same especially in the setting of hypoxemia. Further history includes opioid dependent chronic pain-continue same. CV: History of atrial fibrillation-continue beta-john while in the ICU given propensity for RVR during critical illness. No evidence of hypotension currently, will use pressors for map less than 60. The patient has already been volume resuscitated with 3 L of crystalloid. We will trend lactates and base deficits. Pulmonary: History of COPD continue nebulizers and pulmonary toilet. Follow for increased risk of acute respiratory failure secondary to COPD and pneumonia. Will augment the aforementioned with oxygen for hypoxia less than 89%. FEN: We will not add additional volume resuscitation just maintenance IV fluids, follow electrolytes, allowed diet as tolerated. Mild hyponatremia will follow, no Rx. Heme/ID: Currently with leukocytosis and chest x-ray showing pneumonia-will Rx with antibiotics and follow cultures for sensitivities. Renal: No issues, will follow. Creatinine okay. Musculoskeletal: History of chronic pain no acute issues. Endo: No issues, will follow to prevent hyper/hypo-glycemia. Lines/drains/tubes: None Past Medical History Cardiac Medical History: Reports: Atrial Fibrillation - Intermittent per patient, Peripheral Vascular Disease Denies: Hypertension Pulmonary Medical History: Reports: Chronic Obstructive Pulmonary Disease (COPD), Pneumonia Denies: Asthma, Bronchitis Neurological Medical History: Denies: Seizures GI Medical History: Reports: Gastroesophageal Reflux Disease Musculoskeltal Medical History: Reports: Arthritis Psychiatric Medical History: Comment Only: Depression - anxiety Hematology: Denies: Anemia Past Surgical History Past Surgical History: Reports: Adenoidectomy, Carotid Endarterectomy, Cholecystectomy, Orthopedic Surgery - Back surgery, wrist surgery, neck surgery, Tonsillectomy, Vascular Surgery Social/Family History - Social History Smoking Status: Current Every Day Smoker Frequency of Alcohol Use: None Hx Recreational Drug Use: No Drugs: None Hx Prescription Drug Abuse: No - Medication/Allergies Home Medications: Diltiazem HCl [Cartia Xt] 180 mg PO Q12 03/28/18 Gabapentin [Neurontin 300 mg Capsule] 300 mg PO Q8 03/28/18 Oxycodone HCl [Oxy-Ir 5 mg Tablet] 15 mg PO Q6HP PRN 03/28/18 Fluticasone/Salmeterol [Advair 250-50 Diskus 14 Dose/Diskus] 1 inh IH Q12 inhaler 04/03/18 Ipratropium/Albuterol Sulfate [Duoneb 3 ml Ampul] 3 ml NEB RTQ6HP PRN 30 Days #100 vial.neb 04/03/18 Albuterol Sulfate [Proair Hfa Inhalation Aerosol 8.5 gm Mdi] 2 puff IH Q4HP PRN 11/13/18 Butalb/Acetaminophen/Caffeine [Fioricet (50-325-40 mg) Tablet] 1 tab PO TID 11/13/18 Citalopram Hydrobromide [Celexa 20 mg Tablet] 20 mg PO DAILY 11/13/18 Cyclobenzaprine HCl [Flexeril 10 mg Tablet] 10 mg PO HSP PRN 11/13/18 Doxepin HCl [Sinequan 10 Mg Capsule] 20 mg PO QHS 11/13/18 Allergies/Adverse Reactions: No Known Allergies Allergy (Verified 03/27/18 23:17) Review of Systems Constitutional: ABSENT: chills, fever(s), headache(s), weight gain, weight loss Eyes: ABSENT: visual disturbances Ears: ABSENT: hearing changes Cardiovascular: PRESENT: dyspnea on exertion, orthropnea. ABSENT: chest pain, edema, palpitations Respiratory: PRESENT: cough, dyspnea, sputum. ABSENT: hemoptysis Gastrointestinal: ABSENT: abdominal pain, constipation, diarrhea, hematemesis, hematochezia, nausea, vomiting Genitourinary: ABSENT: dysuria, hematuria Musculoskeletal: PRESENT: muscle weakness. ABSENT: joint swelling Integumentary: ABSENT: rash, wounds Neurological: PRESENT: weakness. ABSENT: abnormal gait, abnormal speech, confusion, dizziness, focal weakness, syncope Psychiatric: PRESENT: anxiety. ABSENT: depression, homidical ideation, suicidal ideation Endocrine: ABSENT: cold intolerance, heat intolerance, polydipsia, polyuria Hematologic/Lymphatic: ABSENT: easy bleeding, easy bruising Physical Exam Vital Signs: Temp Pulse Resp BP Pulse Ox 97.8 F 96 15 86/67 L 94 03/16/19 16:48 03/16/19 20:30 03/16/19 21:47 03/16/19 21:47 03/16/19 21:47 Intake & Output 03/15/19 03/16/19 03/17/19 06:59 06:59 06:59 Intake Total 2647 Balance 2647 Weight 41.8 kg Weight/Height Weight 41.8 kg Height 5 ft 6 in General appearance: PRESENT: cooperative, mild distress, thin Eye exam: PRESENT: conjunctiva pink Mouth exam: PRESENT: moist Respiratory exam: PRESENT: accessory muscle use, retraction, rhonchi, wheezes Vascular exam: PRESENT: pallor GI/Abdominal exam: PRESENT: soft. ABSENT: firm, guarding, tenderness Rectal exam: PRESENT: deferred Extremities exam: PRESENT: full ROM, pedal edema Musculoskeletal exam: PRESENT: full ROM Neurological exam: PRESENT: alert, awake, oriented to time, oriented to situation Psychiatric exam: PRESENT: normal mood Skin exam: PRESENT: pallor Laboratory/Radiographs Laboratory Results: 03/16/19 16:50 03/16/19 16:50 03/16/19 03/16/19 03/16/19 16:50 16:50 16:50 WBC 27.1 H RBC 4.11 Hgb 10.5 L Hct 33.7 L MCV 82 MCH 25.5 L MCHC 31.2 L RDW 16.3 H Plt Count 833 H Seg Neutrophils % Not Reportable Sodium 136.7 L Potassium 4.3 Chloride 94 L Carbon Dioxide 31 H Anion Gap 12 BUN 19 Creatinine 0.64 Est GFR ( Amer) > 60 Glucose 174 H Calcium 9.0 Total Bilirubin 0.2 AST 20 Alkaline Phosphatase 121 Total Protein 6.4 Albumin 3.2 L TSH 0.90 03/16/19 16:50 Troponin I 0.030 Impressions: Chest X-Ray 03/16/19 16:48 IMPRESSION: Right middle lobe pneumonia. Lung Scan-VQ NM 03/16/19 18:13 IMPRESSION: Low probability for pulmonary embolus Large ventilatory defect involving the right middle lobe and in the right lung base consistent with pneumonia All labs, radiographs, diagnostic studies and EKGs were personally reviewed: Yes In addition, reports of radiographic and diagnostic studies were read: Yes Critical Time Critical Time (minutes): 35 -: The care of a critically ill patient is dynamic. This note represents a static moment in the admission process. orders and treatments may be given simulataneously and urgentl, and time is not novelties sales representative of the treatment process. This patient requires Critical Care secondary to life threating organ or limb dysfunction. Without the need for Critical Care services, the patient is at risk for increasid mortality and morbidity.
--- NOTE | 2019-03-16 23:38 | EKG REPORT ---
SEVERITY:- ABNORMAL ECG - ATRIAL FIBRILLATION BORDERLINE PROLONGED QT INTERVAL : Confirmed by: Janna Lozano 16-Mar-2019 23:38:13
--- NOTE | 2019-03-16 23:46 | Progress Note ---
Provider Note Provider Note: Pt arrived to ICU in no acute distress. She is awake alert and interactive. She was able to stand and ambulate into the bed. She has no tachycardia but a controlled irregular rhythm. She has no tachypnea and no hypoxemia. I reviewed the orders placed by the hospitalist and recommend the following changes: Titra te O2 for sats greater than or equal to 88%, titrate Levophed for map greater than or equal to 65 mmHg, give the first dose of Solu-Medrol now, and give the first dose of Zosyn now. The above was discussed with the patient and family at the bedside. Furthermore the above changes were discussed with the nurse at the bedside.
[2019-03-16] MEDS: DOXEPIN HCL 10 MG CAPSULE PO SCH (23:51)
[2019-03-16] MEDS: METHYLPREDNISOLONE INJ 40 MG/1 ML SDV IV SCH (23:51)
[2019-03-16] MEDS: OXYCODONE HCL IR 5 MG TABLET PO PRN (23:51)
[2019-03-16] MEDS: GABAPENTIN 300 MG CAPSULE PO SCH (23:51)
[2019-03-16] MEDS: PIPERACILLIN SODIUM/TAZOBACTAM 3.375 GM in NORMAL SALINE 100 ML IV SCH (23:52)
[2019-03-17] MEDS ORDERED: PIPERACILLIN SODIUM/TAZOBACTAM 4.5 GM in NORMAL SALINE 100 ML IV SCH ×2
--- NOTE | 2019-03-17 00:14 | Progress Note ---
Provider Note Provider Note: Critical care: 03/16/2019 Critical care start time: 22:08 Critical care issue: Hypotension Patient had been progressively hypotensive despite fluid resuscitation with 3 L of IV saline. She was noted to have pneumonia with acute sepsis and appears to be progressing towards septic shock. Examination reveals her lungs to have moderate expiratory wheezes with a moderately prolonged expiratory phase and moderately decreased breath sounds throughout all lung hernandez, coarse rales and rhonchi are noted in the right anterior lower and mid lung hernandez. Heart rate is regular in the high 90s per monitor, without murmurs clicks gallops or rubs. The patient was started on Levophed per protocol for her hypotension. The senior piping designer service was contacted to arrange for their acceptance of this patient in the ICU. Extensive discussion of the patient's status and communication of the patient's current problems and recent course in the emergency room was undertaken. [facility] service has agreed to accept the patient in transfer and appropriate orders will be provided. Critical care end time: 23:30 Total critical care time: 22 minutes
[2019-03-17 04:42] LABS: HEMATOCRIT 30.9 % (36.0-47.0); HEMOGLOBIN 9.8 g/dL (12.0-15.5); MEAN CORPUSCULAR HEMOGLOBIN 25.6 pg (27.0-33.4); MEAN CORPUSCULAR HGB CONC 31.8 g/dL (32.0-36.0); MEAN CORPUSCULAR VOLUME 81 fl (80-97); PLATELET COUNT 726 10^3/uL (150-450); RED BLOOD COUNT 3.83 10^6/uL (3.72-5.28); RED CELL DISTRIBUTION WIDTH 15.8 % (11.5-14.0); WHITE BLOOD COUNT 22.9 10^3/uL (4.0-10.5)
[2019-03-17 04:55] LABS: ALBUMIN 2.8 g/dL (3.5-5.0); ALKALINE PHOSPHATASE 118 U/L (38-126); ANION GAP 5 (5-19); ASPARTATE AMINO TRANSFERASE 35 U/L (14-36); BILIRUBIN,DIRECT 0.1 mg/dL (0.0-0.4); BILIRUBIN,TOTAL 0.2 mg/dL (0.2-1.3); BLOOD UREA NITROGEN 10 mg/dL (7-20); CALCIUM 8.1 mg/dL (8.4-10.2); CARBON DIOXIDE 30 mmol/L (22-30); CHLORIDE 104 mmol/L (98-107); GLUCOSE 155 mg/dL (75-110); POTASSIUM 3.8 mmol/L (3.6-5.0); TOTAL PROTEIN 5.9 g/dL (6.3-8.2)
[2019-03-17 05:07] LABS: ABSOLUTE LYMPHOCYTES# (MANUAL) 1.1 10^3/uL (0.5-4.7); ABSOLUTE MONOCYTES # (MANUAL) 0.5 10^3/uL (0.1-1.4); BASOPHILS % (MANUAL) 0 % (0-2); EOSINOPHILS % (MANUAL) 0 % (0-6); LYMPHOCYTES % (MANUAL) 5 % (13-45); MONOCYTES % (MANUAL) 2 % (3-13); SEGMENTED NEUTROPHILS % (MAN) 93 % (42-78); TOTAL CELLS COUNTED 100
[2019-03-17 05:09] LABS: ANISOCYTOSIS SLIGHT; HYPOCHROMASIA SLIGHT; OVALOCYTES SLIGHT; PLATELET COMMENT INCREASED; POIKILOCYTOSIS SLIGHT; SCHISTOCYTES SLIGHT; TOXIC GRANULATION 1+; TOXIC VACUOLATION PRESENT
[2019-03-17] MEDS ORDERED: PANTOPRAZOLE SODIUM 40 MG TABLET.DR PO SCH (06:00)
[2019-03-17] MEDS: PIPERACILLIN SODIUM/TAZOBACTAM 3.375 GM in NORMAL SALINE 100 ML IV SCH ×3 (06:05→17:37)
[2019-03-17] MEDS: METHYLPREDNISOLONE INJ 40 MG/1 ML SDV IV SCH (06:05)
[2019-03-17] MEDS: GABAPENTIN 300 MG CAPSULE PO SCH ×3 (06:05→21:18)
[2019-03-17] MEDS: DEXTROSE 5%-NORMAL SALINE 1,000 ML IV PRN (06:09)
[2019-03-17] MEDS: OXYCODONE HCL IR 5 MG TABLET PO PRN ×2 (07:31→20:34)
[2019-03-17] MEDS ORDERED: OXYCODONE HCL IR 5 MG TABLET PO PRN (07:54)
[2019-03-17] MEDS: IPRATROPIUM/ALBUTEROL 0.5-2.5 MG/3 ML AMPUL NEB SCH ×3 (08:16→21:06)
--- NOTE | 2019-03-17 09:52 | PDOC CRITICAL CARE PROG REPORT ---
General Date:: 03/17/19 ICU Day:: 2 Hospital Day:: 2 Events in the past 12 to 24 Hours:: On levophed, volume loaded. Review of systems relevant to events:: CV Reason for ICU Addmission:: Reported Hypotension in ED - Medications: Medications reviewed and adjusted accordingly: Yes Vasopressors:: Levophed Sedation:: None. Physical Exam Vital Signs: Temp Pulse Resp BP Pulse Ox 97.5 F 114 H 13 95/74 L 93 03/17/19 01:43 03/17/19 08:16 03/17/19 08:16 03/17/19 08:00 03/17/19 08:16 Intake & Output 03/16/19 03/17/19 03/18/19 06:59 06:59 06:59 Intake Total 3847 Output Total 800 Balance 3047 Weight 42.5 kg Weight/Height Weight 42.5 kg Height 5 ft 6 in General appearance: PRESENT: no acute distress, well-developed, well-nourished Head exam: PRESENT: atraumatic, normocephalic Eye exam: PRESENT: conjunctiva pink, EOMI, PERRLA. ABSENT: scleral icterus Ear exam: PRESENT: normal external ear exam Mouth exam: PRESENT: dry mucosa Respiratory exam: PRESENT: clear to auscultation silvio. ABSENT: rales, rhonchi, wheezes Cardiovascular exam: PRESENT: RRR. ABSENT: diastolic murmur, rubs, systolic murmur GI/Abdominal exam: PRESENT: normal bowel sounds, soft. ABSENT: distended, guarding, mass, organolmegaly, rebound, tenderness Rectal exam: PRESENT: deferred Extremities exam: PRESENT: full ROM. ABSENT: calf tenderness, clubbing, pedal edema Neurological exam: PRESENT: alert, awake, oriented to person, oriented to place, oriented to time, oriented to situation, CN II-XII grossly intact. ABSENT: motor sensory deficit Skin exam: PRESENT: dry, intact, warm. ABSENT: cyanosis, rash Laboratory/Radiographs Laboratory Results: 03/17/19 04:27 03/17/19 04:27 03/16/19 03/16/19 03/16/19 16:50 16:50 16:50 WBC 27.1 H RBC 4.11 Hgb 10.5 L Hct 33.7 L MCV 82 MCH 25.5 L MCHC 31.2 L RDW 16.3 H Plt Count 833 H Seg Neutrophils % Not Reportable Sodium 136.7 L Potassium 4.3 Chloride 94 L Carbon Dioxide 31 H Anion Gap 12 BUN 19 Creatinine 0.64 Est GFR ( Amer) > 60 Glucose 174 H Lactic Acid Calcium 9.0 Magnesium Total Bilirubin 0.2 AST 20 Alkaline Phosphatase 121 Total Protein 6.4 Albumin 3.2 L TSH 0.90 03/17/19 03/17/19 03/17/19 04:27 04:27 07:52 WBC 22.9 H RBC 3.83 Hgb 9.8 L Hct 30.9 L MCV 81 MCH 25.6 L MCHC 31.8 L RDW 15.8 H Plt Count 726 H Seg Neutrophils % Not Reportable Sodium 139.1 Potassium 3.8 Chloride 104 Carbon Dioxide 30 Anion Gap 5 BUN 10 Creatinine 0.45 L Est GFR ( Amer) > 60 Glucose 155 H Lactic Acid 2.4 H Calcium 8.1 L Magnesium 1.8 Total Bilirubin 0.2 AST 35 Alkaline Phosphatase 118 Total Protein 5.9 L Albumin 2.8 L TSH 03/16/19 03/16/19 03/17/19 16:50 21:51 04:27 Troponin I 0.030 0.085 0.078 Impressions: Chest X-Ray 03/16/19 16:48 IMPRESSION: Right middle lobe pneumonia. Lung Scan-VQ NM 03/16/19 18:13 IMPRESSION: Low probability for pulmonary embolus Large ventilatory defect involving the right middle lobe and in the right lung base consistent with pneumonia All labs, radiographs, diagnostic studies and EKGs were personally reviewed: Yes In addition, reports of radiographic and diagnostic studies were read: Yes Assessment and Plan - Diagnosis (1) Hypotension (arterial) Qualifiers: Hypotension type: hypotension due to hypovolemia Qualified Code(s): I95.89 - Other hypotension; E86.1 - Hypovolemia Is this a current diagnosis for this admission?: Yes Plan: She is not hypoadrenal with a cortisol of 34. Not septic shock with no obvious fever, CXR findings not withstanding. Lactic acid 2.4 likely due to a washout phenemenon with hydration. Keep hydrating, IVF rate increased. Opiate dose de creased.. Keep MAP 65 or better. Pt up and walking. If she conitinues to do well off levephed downgrade to medical floor. (2) Opiate overdose Qualifiers: Encounter type: initial encounter Injury intent: accidental or unintentiona l Qualified Code(s): T40.601A - Poisoning by unspecified narcotics, accidental (unintentional), initial encounter Is this a current diagnosis for this admission?: Yes Plan: She is on large doses of opiates. Inadvisable to stop but oxycodone changed to q8Hp from q6hp. Not intentional. (3) Right middle lobe pneumonia Qualifiers: Pneumonia type: aspiration pneumonia Is this a current diagnosis for this admission?: Yes Plan: Although not witnessed this is likely an aspiration. Will continue antibiotics pending culture (4) COPD (chronic obstructive pulmonary disease) Qualifiers: COPD type: unspecified COPD Qualified Code(s): J44.9 - Chronic obstructive pulmonary disease, unspecified Is this a current diagnosis for this admission?: Yes Plan: Inactive and no wheezing. Plan Summary: Continu volume loading, decrease steroids. Try to keep off levophed and may downgrade. Critical Time Critical Time (minutes): 35 Level of Care: ICU Anticipated discharge: Home Within: Other -: 1. The care of a critical patient is a dynamic process. This note is a banking representative synopsis but static in nature. The timeframe for treatments given in order is not necessary the actual time these treatments may have been done. 2. This patient requires critical care secondary to ongoing requirements for therapy not offered or safe outside the critical care environment. Transfer to a lower level of care with altered life or limb morbidity and mortality. 3. Multidisciplinary rounds completed. 4. ABCDE bundle addressed.
[2019-03-17] MEDS: CITALOPRAM HYDROBROMIDE 20 MG TABLET PO SCH (09:53)
[2019-03-17] MEDS: ENOXAPARIN SODIUM INJ 40 MG/0.4 ML DISP.SYRIN SUBCUT SCH (09:54)
[2019-03-17] MEDS: DOCUSATE SODIUM 100 MG CAPSULE PO SCH ×2 (13:04→17:45)
[2019-03-17] MEDS: NORMAL SALINE 1000 ML 1,000 ML IV PRN (20:12)
[2019-03-17] MEDS: MAG HYDROX/AL HYDROX/SIMETH SUSP 30 ML UDCUP PO PRN (21:18)
[2019-03-17] MEDS: DOXEPIN HCL 10 MG CAPSULE PO SCH (21:18)
[2019-03-17] MEDS: ACETAMINOPHEN 325 MG TABLET PO PRN (22:11)
[2019-03-18] MEDS: PIPERACILLIN SODIUM/TAZOBACTAM 3.375 GM in NORMAL SALINE 100 ML IV SCH ×4 (00:58→17:13)
[2019-03-18] MEDS: ACETAMINOPHEN 325 MG TABLET PO PRN (04:44)
[2019-03-18] MEDS: OXYCODONE HCL IR 5 MG TABLET PO PRN ×3 (04:45→20:28)
[2019-03-18 05:18] LABS: HEMATOCRIT 33.6 % (36.0-47.0); HEMOGLOBIN 10.4 g/dL (12.0-15.5); MEAN CORPUSCULAR HEMOGLOBIN 25.5 pg (27.0-33.4); MEAN CORPUSCULAR VOLUME 82 fl (80-97); PLATELET COUNT 732 10^3/uL (150-450); RED BLOOD COUNT 4.08 10^6/uL (3.72-5.28); RED CELL DISTRIBUTION WIDTH 16.3 % (11.5-14.0)
[2019-03-18 05:24] LABS: ABSOLUTE LYMPHOCYTES# (MANUAL) 0.6 10^3/uL (0.5-4.7); ABSOLUTE MONOCYTES # (MANUAL) 1.5 10^3/uL (0.1-1.4); BASOPHILS % (MANUAL) 0 % (0-2); EOSINOPHILS % (MANUAL) 0 % (0-6); LYMPHOCYTES % (MANUAL) 2 % (13-45); MONOCYTES % (MANUAL) 5 % (3-13); SEGMENTED NEUTROPHILS % (MAN) 93 % (42-78); TOTAL CELLS COUNTED 100
[2019-03-18 05:27] LABS: OVALOCYTES SLIGHT; PLATELET COMMENT INCREASED
[2019-03-18 05:29] LABS: ANISOCYTOSIS 1+
[2019-03-18 05:30] LABS: TOXIC VACUOLATION PRESENT
[2019-03-18] MEDS: GABAPENTIN 300 MG CAPSULE PO SCH (05:39)
[2019-03-18] MEDS: NORMAL SALINE 1000 ML 1,000 ML IV PRN ×2 (05:39→17:14)
[2019-03-18 06:10] LABS: WHITE BLOOD COUNT 30.8 10^3/uL (4.0-10.5)
[2019-03-18] MEDS: IPRATROPIUM/ALBUTEROL 0.5-2.5 MG/3 ML AMPUL NEB SCH ×3 (08:03→20:56)
--- NOTE | 2019-03-18 08:34 | PDOC CRITICAL CARE PROG REPORT ---
General Date:: 03/18/19 ICU Day:: 3 Hospital Day:: 3 Events in the past 12 to 24 Hours:: BP better but WBC increased and more secretions. Review of systems relevant to events:: Respiratory, neuro. Reason for ICU Addmission:: Reported Hypotension in ED, need for levophed off X 24 hours. - Medications: Vasopressors:: None Sedation:: None Physical Exam Vital Signs: Temp Pulse Resp BP Pulse Ox 98.1 F 105 H 18 116/76 95 03/17/19 22:00 03/18/19 08:03 03/18/19 08:03 03/17/19 14:02 03/18/19 08:03 Intake & Output 03/17/19 03/18/19 03/19/19 06:59 06:59 06:59 Intake Total 3947 1897 Output Total 800 500 Balance 3147 1397 Weight 42.5 kg Weight/Height Weight 42.5 kg Height 5 ft 6 in General appearance: PRESENT: no acute distress, well-developed, well-nourished Head exam: PRESENT: atraumatic, normocephalic Eye exam: PRESENT: conjunctiva pink, EOMI, PERRLA. ABSENT: scleral icterus Ear exam: PRESENT: normal external ear exam Mouth exam: PRESENT: moist, tongue midline Respiratory exam: PRESENT: crackles, decreased breath sounds, rhonchi, unlabored Cardiovascular exam: PRESENT: RRR. ABSENT: diastolic murmur, rubs, systolic murmur Vascular exam: PRESENT: normal capillary refill GI/Abdominal exam: PRESENT: normal bowel sounds, soft. ABSENT: distended, guarding, mass, organolmegaly, rebound, tenderness Rectal exam: PRESENT: deferred Extremities exam: PRESENT: full ROM. ABSENT: calf tenderness, clubbing, pedal edema Neurological exam: PRESENT: alert, awake, oriented to person, oriented to place, oriented to time, oriented to situation, CN II-XII grossly intact. ABSENT: motor sensory deficit Skin exam: PRESENT: dry, intact, warm. ABSENT: cyanosis, rash Laboratory/Radiographs Laboratory Results: 03/18/19 04:20 03/17/19 04:27 03/17/19 03/18/19 03/18/19 07:52 04:20 04:20 WBC 30.8 H* RBC 4.08 Hgb 10.4 L Hct 33.6 L MCV 82 MCH 25.5 L MCHC 31.0 L RDW 16.3 H Plt Count 732 H Seg Neutrophils % Not Reportable Lactic Acid 2.4 H Magnesium 2.0 03/18/19 04:20 WBC RBC Hgb Hct MCV MCH MCHC RDW Plt Count Seg Neutrophils % Lactic Acid 4.9 H Magnesium 03/16/19 03/16/19 03/17/19 16:50 21:51 04:27 Troponin I 0.030 0.085 0.078 03/17/19 13:40 Troponin I 0.035 Impressions: Chest X-Ray 03/16/19 16:48 IMPRESSION: Right middle lobe pneumonia. Lung Scan-VQ NM 03/16/19 18:13 IMPRESSION: Low probability for pulmonary embolus Large ventilatory defect involving the right middle lobe and in the right lung base consistent with pneumonia All labs, radiographs, diagnostic studies and EKGs were personally reviewed: Yes In addition, reports of radiographic and diagnostic studies were read: Yes Assessment and Plan - Diagnosis (1) Hypotension (arterial) Qualifiers: Hypotension type: hypotension due to hypovolemia Qualified Code(s): I95.89 - Other hypotension; E86.1 - Hypovolemia Is this a current diagnosis for this admission?: Yes Plan: Resolved with IVF. Presors off X 24 hours. Not hypoadrenal.Down graded X 1 day. (2) Opiate overdose Qualifiers: Encounter type: initial encounter Injury intent: accidental or unintentional Qualified Code(s): T40.601A - Poisoning by unspecified narcotics, accidental (unintentional), initial encounter Is this a current diagnosis for this admission?: Yes Plan: Back on baseline dose of oxycodone, off flexeril and neurontin. She says they dont work. Celexa continued (3) Right middle lobe pneumonia Qualifiers: Pneumonia type: aspiration pneumonia Is this a current diagnosis for this admission?: Yes Plan: Still looks like aspiration. More secretions and WBC up to 30K. Would like to see less secretions and WBC going down before discharge home. Leukocytosis could be partialy due to steroids (4) COPD (chronic obstructive pulmonary disease) Qualifiers: COPD type: unspecified COPD Qualified Code(s): J44.9 - Chronic obstructive pulmonary disease, unspecified Is this a current diagnosis for this admission?: Yes Plan: No wheezing, a quick steroid taper. Now on PO prednisone. Plan Summary: Watch WBC, D/C home when WBC decreases and secretions down as well. Critical Time Critical Time (minutes): 20 Level of Care: MEDICAL Anticipated discharge: Home Within: within 48 hours -: 1. The care of a critical patient is a dynamic process. This note is a civil rights representative synopsis but static in nature. The timeframe for treatments given in order is not necessary the actual time these treatments may have been done. 2. This patient requires critical care secondary to ongoing requirements for therapy not offered or safe outside the critical care environment. Transfer to a lower level of care with altered life or limb morbidity and mortality. 3. Multidisciplinary rounds completed. 4. ABCDE bundle addressed.
[2019-03-18] MEDS: METHYLPREDNISOLONE INJ 40 MG/1 ML SDV IV SCH (09:00)
[2019-03-18] MEDS: DOCUSATE SODIUM 100 MG CAPSULE PO SCH ×2 (09:13→18:41)
[2019-03-18] MEDS: PREDNISONE 20 MG TABLET PO SCH (09:13)
[2019-03-18] MEDS: ENOXAPARIN SODIUM INJ 40 MG/0.4 ML DISP.SYRIN SUBCUT SCH (09:13)
[2019-03-18] MEDS: CITALOPRAM HYDROBROMIDE 20 MG TABLET PO SCH (09:13)
[2019-03-18] MEDS ORDERED: METHYLPREDNISOLONE INJ 40 MG/1 ML SDV IV SCH (10:00)
[2019-03-18] MEDS ORDERED: PREDNISONE 10 MG TABLET PO SCH (10:00)
[2019-03-18 10:46] LABS: APPEARANCE,URINE CLEAR; BILIRUBIN,URINE NEGATIVE (NEGATIVE); COLOR,URINE YELLOW; GLUCOSE, URINE NEGATIVE (NEGATIVE); KETONES,URINE NEGATIVE (NEGATIVE); LEUKOCYTE ESTERASE,URINE NEGATIVE (NEGATIVE); NITRITE,URINE NEGATIVE (NEGATIVE); PROTEIN,URINE 30 mg/dL (NEGATIVE); URINE SPECIFIC GRAVITY 1.027; UROBILINOGEN,URINE NEGATIVE mg/dL (<2.0)
[2019-03-18] MEDS: METOPROLOL TARTRATE PF/INJ 5 MG/5 ML SDV IV SCH ×3 (14:55→15:10)
--- NOTE | 2019-03-18 15:47 | Progress Note ---
Provider Note Provider Note: Patient still stable and asymptomatic. Asked for a breathing treatment and afterwards went into a rapid atrial fib at max of 160. Lopressor X 3 given with desrease to 95-115. Arelto begun and IVF stopped. Upgraded to telemetry.
[2019-03-18] MEDS: METOPROLOL TARTRATE PF/INJ 5 MG/5 ML SDV IV ONE ×2 (16:10→16:30)
[2019-03-18] MEDS ORDERED: DEXTROSE 5%-WATER 500 ML with AMIODARONE HCL 900 MG IV PRN ×2 (17:40)
[2019-03-18] MEDS ORDERED: METOPROLOL TARTRATE PF/INJ 5 MG/5 ML SDV IV ONE (18:00)
[2019-03-18] MEDS ORDERED: AMIODARONE HCL 150 MG in DEXTROSE 5%-WATER 100 ML IV ONE (18:30)
[2019-03-18] MEDS: RIVAROXABAN 10 MG TABLET PO SCH (18:41)
[2019-03-18] MEDS: DOXEPIN HCL 10 MG CAPSULE PO SCH (21:07)
[2019-03-19] MEDS: PIPERACILLIN SODIUM/TAZOBACTAM 3.375 GM in NORMAL SALINE 100 ML IV SCH ×5 (00:44→23:20)
[2019-03-19] MEDS: OXYCODONE HCL IR 5 MG TABLET PO PRN ×3 (03:38→19:54)
[2019-03-19 03:39] LABS: APPEARANCE,URINE CLEAR; BILIRUBIN,URINE NEGATIVE (NEGATIVE); COLOR,URINE STRAW; GLUCOSE, URINE NEGATIVE (NEGATIVE); KETONES,URINE NEGATIVE (NEGATIVE); LEUKOCYTE ESTERASE,URINE NEGATIVE (NEGATIVE); NITRITE,URINE NEGATIVE (NEGATIVE); PROTEIN,URINE NEGATIVE (NEGATIVE); URINE SPECIFIC GRAVITY 1.012; UROBILINOGEN,URINE NEGATIVE mg/dL (<2.0)
[2019-03-19] MEDS: BUTALB/ACETAMINOPHEN/CAFFEINE 1 TAB EACH PO PRN ×2 (03:43→11:57)
[2019-03-19 06:37] LABS: HEMOGLOBIN 9.3 g/dL (12.0-15.5); MEAN CORPUSCULAR HEMOGLOBIN 25.6 pg (27.0-33.4); MEAN CORPUSCULAR VOLUME 80 fl (80-97); PLATELET COUNT 773 10^3/uL (150-450); RED BLOOD COUNT 3.63 10^6/uL (3.72-5.28); RED CELL DISTRIBUTION WIDTH 16.4 % (11.5-14.0); WHITE BLOOD COUNT 29.9 10^3/uL (4.0-10.5)
[2019-03-19 07:10] LABS: ABSOLUTE LYMPHOCYTES# (MANUAL) 0.3 10^3/uL (0.5-4.7); ABSOLUTE MONOCYTES # (MANUAL) 0.9 10^3/uL (0.1-1.4); BASOPHILS % (MANUAL) 0 % (0-2); EOSINOPHILS % (MANUAL) 0 % (0-6); LYMPHOCYTES % (MANUAL) 1 % (13-45); MONOCYTES % (MANUAL) 3 % (3-13); SEGMENTED NEUTROPHILS % (MAN) 96 % (42-78); TOTAL CELLS COUNTED 100
[2019-03-19 07:11] LABS: ANISOCYTOSIS 1+; OVALOCYTES SLIGHT; PLATELET COMMENT INCREASED; TEAR DROP CELLS SLIGHT
--- NOTE | 2019-03-19 07:48 | PDOC PROGRESS REPORT ---
Subjective Progress Note for:: 03/19/19 Subjective:: 03/19/2019-no complaints Reason For Visit: PNEUMONIA,A FIB RVR,COPD,EXACERBATION,ACUTE Physical Exam Vital Signs: Temp Pulse Resp BP Pulse Ox 98.1 F 102 H 16 116/86 H 90 L 03/19/19 00:06 03/19/19 07:00 03/19/19 00:06 03/19/19 07:00 03/19/19 00:06 Intake & Output 03/18/19 03/19/19 03/20/19 06:59 06:59 06:59 Intake Total 1996 2360 Output Total 500 700 Balance 1497 1660 Weight 49.7 kg General appearance: PRESENT: no acute distress, well-developed, well-nourished Neck exam: ABSENT: carotid bruit, JVD, lymphadenopathy, thyromegaly Respiratory exam: PRESENT: clear to auscultation silvio. ABSENT: rales, rhonchi, wheezes Cardiovascular exam: PRESENT: RRR. ABSENT: diastolic murmur, rubs, systolic murmur Pulses: PRESENT: +1 pedal pulses bilateral Vascular exam: PRESENT: normal capillary refill GI/Abdominal exam: PRESENT: normal bowel sounds, soft. ABSENT: distended, guarding, mass, organolmegaly, rebound, tenderness Extremities exam: PRESENT: full ROM. ABSENT: calf tenderness, clubbing, pedal edema Neurological exam: PRESENT: alert, awake, oriented to person, oriented to place, oriented to time, oriented to situation, CN II-XII grossly intact. ABSENT: motor sensory deficit Psychiatric exam: PRESENT: appropriate affect, normal mood. ABSENT: homicidal ideation, suicidal ideation Skin exam: PRESENT: dry, intact, warm. ABSENT: cyanosis, rash Results Laboratory Results: 03/19/19 05:39 03/17/19 04:27 03/18/19 03/19/19 03/19/19 10:28 03:10 05:39 WBC 29.9 H RBC 3.63 L Hgb 9.3 L Hct 29.0 L MCV 80 MCH 25.6 L MCHC 32.0 RDW 16.4 H Plt Count 773 H Seg Neutrophils % Not Reportable Magnesium Urine Color YELLOW STRAW Urine Appearance CLEAR CLEAR Urine pH 5.0 6.0 Ur Specific [place] 1.027 1.012 Urine Protein 30 H NEGATIVE Urine Glucose (UA) NEGATIVE NEGATIVE Urine Ketones NEGATIVE NEGATIVE Urine Blood NEGATIVE NEGATIVE Urine Nitrite NEGATIVE NEGATIVE Ur Leukocyte Esterase NEGATIVE NEGATIVE Urine WBC (Auto) 1 1 03/19/19 05:39 WBC RBC Hgb Hct MCV MCH MCHC RDW Plt Count Seg Neutrophils % Magnesium 1.9 Urine Color Urine Appearance Urine pH Ur Specific [place] Urine Protein Urine Glucose (UA) Urine Ketones Urine Blood Urine Nitrite Ur Leukocyte Esterase Urine WBC (Auto) 03/16/19 03/16/19 03/17/19 16:50 21:51 04:27 Troponin I 0.030 0.085 0.078 03/17/19 13:40 Troponin I 0.035 Impressions: Chest X-Ray 03/16/19 16:48 IMPRESSION: Right middle lobe pneumonia. Lung Scan-VQ NM 03/16/19 18:13 IMPRESSION: Low probability for pulmonary embolus Large ventilatory defect involving the right middle lobe and in the right lung base consistent with pneumonia Assessment and Plan - Diagnosis (1) Hypotension (arterial) Qualifiers: Hypotension type: hypotension due to hypovolemia Qualified Code(s): I95.89 - Other hypotension; E86.1 - Hypovolemia Is this a current diagnosis for this admission?: Yes Plan: Resolved with IVF. Presors off X 24 hours. Not hypoadrenal.Down graded X 1 day. 03/19/2019-resolved at this time. Patient off pressors. Patient did go into rapid A. fib with RVR yesterday she is on amiodarone at this time I will DC amiodarone to place patient on sotalol 40 mg p.o. twice daily. (2) COPD exacerbation Is this a current diagnosis for this admission?: Yes Plan: As per #1 and 2. 03/19/2019-stable at this time. Continue bronchodilators and other medications as needed. Patient is on low-dose p.o. prednisone as well. (3) Opiate overdose Qualifiers: Encounter type: initial encounter Injury intent: accidental or unintentional Qualified Code(s): T40.601A - Poisoning by unspecified narcotics, accidental (unintentional), initial encounter Is this a current diagnosis for this admission?: Yes Plan: Back on baseline dose of oxycodone, off flexeril and neurontin. She says they dont work. Celexa continued 03/19/2019-patient at baseline off narcotics at this time. (4) Right middle lobe pneumonia Qualifiers: Pneumonia type: aspiration pneumonia Is this a current diagnosis for this admission?: Yes Plan: Still looks like aspiration. More secretions and WBC up to 30K. Would like to see less secretions and WBC going down before discharge home. Leukocytosis could be partialy due to steroids 03/19/2019-patient remains on Zosyn at this time. White cells down from 30-29 continue to follow (5) Atrial fibrillation with RVR Is this a current diagnosis for this admission?: Yes Plan: 03/19/2019-yesterday the patient was placed on medical surgical floor from ICU patient went into A. fib with RVR. At that point place patient on amiodarone drip this morning she is converted to normal sinus rhythm. I will DC amiodarone place patient on sotalol 40 mill grams p.o. twice daily. Continue anticoagulation. - Time Time Spent with patient: 15-24 minutes - Inpatient Certification Based on my medical assessment, after consideration of the patient's ted rbidities, presenting symptoms, or acuity I expect that the services needed warrant INPATIENT care.: Yes I certify that my determination is in accordance with my understanding of Medicare's requirements for reasonable and necessary INPATIENT services [42 CFR 412.3e].: Yes Medical Necessity: Significant Comorbidiites Make Outpatient Treatment Too Risky, Need Close Monitoring Due to Risk of Patient Decompensation
[2019-03-19] MEDS: IPRATROPIUM/ALBUTEROL 0.5-2.5 MG/3 ML AMPUL NEB SCH ×3 (08:22→19:28)
[2019-03-19] MEDS ORDERED: DEXTROSE 5%-WATER 500 ML with AMIODARONE HCL 900 MG IV PRN ×2 (09:10)
[2019-03-19] MEDS ORDERED: AMIODARONE HCL 200 MG TABLET PO SCH (10:00)
[2019-03-19] MEDS: SOTALOL HCL 80 MG TABLET PO SCH ×2 (10:11→21:24)
[2019-03-19] MEDS: DOCUSATE SODIUM 100 MG CAPSULE PO SCH ×2 (10:11→17:47)
[2019-03-19] MEDS: CITALOPRAM HYDROBROMIDE 20 MG TABLET PO SCH (10:11)
[2019-03-19] MEDS: PREDNISONE 20 MG TABLET PO SCH (10:11)
[2019-03-19] MEDS: ALPRAZOLAM 0.5 MG TABLET PO PRN (16:15)
[2019-03-19] MEDS: RIVAROXABAN 10 MG TABLET PO SCH (16:15)
[2019-03-19] MEDS: FLUTICASONE/VILANTEROL 200-25 MCG/DOSE IH SCH (17:47)
[2019-03-19] MEDS: NORMAL SALINE 1000 ML 1,000 ML IV PRN (19:55)
[2019-03-19] MEDS: DOXEPIN HCL 10 MG CAPSULE PO SCH (21:24)
[2019-03-20] MEDS: ALPRAZOLAM 0.5 MG TABLET PO PRN ×2 (00:38→10:29)
[2019-03-20] MEDS: BUTALB/ACETAMINOPHEN/CAFFEINE 1 TAB EACH PO PRN (04:28)
[2019-03-20] MEDS: OXYCODONE HCL IR 5 MG TABLET PO PRN ×2 (04:29→17:25)
[2019-03-20] MEDS: PIPERACILLIN SODIUM/TAZOBACTAM 3.375 GM in NORMAL SALINE 100 ML IV SCH ×4 (05:26→23:57)
[2019-03-20 06:10] LABS: HEMATOCRIT 28.8 % (36.0-47.0); HEMOGLOBIN 9.1 g/dL (12.0-15.5); MEAN CORPUSCULAR HEMOGLOBIN 25.4 pg (27.0-33.4); MEAN CORPUSCULAR HGB CONC 31.7 g/dL (32.0-36.0); MEAN CORPUSCULAR VOLUME 80 fl (80-97); PLATELET COUNT 741 10^3/uL (150-450); RED BLOOD COUNT 3.59 10^6/uL (3.72-5.28); RED CELL DISTRIBUTION WIDTH 16.5 % (11.5-14.0); WHITE BLOOD COUNT 22.2 10^3/uL (4.0-10.5)
[2019-03-20 06:28] LABS: BLOOD UREA NITROGEN 11 mg/dL (7-20); CALCIUM 8.2 mg/dL (8.4-10.2); GLUCOSE 74 mg/dL (75-110); POTASSIUM 4.3 mmol/L (3.6-5.0)
[2019-03-20 06:34] LABS: CARBON DIOXIDE 32 mmol/L (22-30); CHLORIDE 103 mmol/L (98-107)
[2019-03-20 06:44] LABS: ANION GAP 4 (5-19)
[2019-03-20] MEDS: NORMAL SALINE 1000 ML 1,000 ML IV PRN ×3 (07:25→23:57)
[2019-03-20] MEDS: IPRATROPIUM/ALBUTEROL 0.5-2.5 MG/3 ML AMPUL NEB SCH ×3 (08:11→20:09)
--- NOTE | 2019-03-20 08:15 | PDOC PROGRESS REPORT ---
Subjective Progress Note for:: 03/20/19 Subjective:: 03/19/2019-no complaints 03/20/2019-no complaints this a.m. Reason For Visit: PNEUMONIA,A FIB RVR,COPD,EXACERBATION,ACUTE Physical Exam Vital Signs: Temp Pulse Resp BP Pulse Ox 98.0 F 85 18 115/83 99 03/20/19 03:51 03/20/19 03:51 03/20/19 03:51 03/20/19 03:51 03/20/19 03:51 Intake & Output 03/19/19 03/20/19 03/21/19 06:59 06:59 06:59 Intake Total 3460 2954 Output Total 700 1050 Balance 2760 1904 Weight 49.7 kg 54.7 kg General appearance: PRESENT: no acute distress, well-developed, well-nourished Head exam: PRESENT: atraumatic, normocephalic Eye exam: PRESENT: conjunctiva pink, EOMI, PERRLA. ABSENT: scleral icterus Ear exam: PRESENT: normal external ear exam Mouth exam: PRESENT: moist, tongue midline Neck exam: ABSENT: carotid bruit, JVD, lymphadenopathy, thyromegaly Respiratory exam: PRESENT: rhonchi, symmetrical, unlabored, other - Productive cough. ABSENT: rales, wheezes Cardiovascular exam: PRESENT: RRR. ABSENT: diastolic murmur, rubs, systolic murmur Pulses: PRESENT: normal dorsalis pedis pul Vascular exam: PRESENT: normal capillary refill GI/Abdominal exam: PRESENT: normal bowel sounds, soft. ABSENT: distended, guarding, mass, organolmegaly, rebound, tenderness Rectal exam: PRESENT: deferred Extremities exam: PRESENT: full ROM. ABSENT: calf tenderness, clubbing, pedal edema Neurological exam: PRESENT: alert, awake, oriented to person, oriented to place, oriented to time, oriented to situation, CN II-XII grossly intact. ABSENT: motor sensory deficit Psychiatric exam: PRESENT: appropriate affect, normal mood. ABSENT: homicidal ideation, suicidal ideation Skin exam: PRESENT: dry, intact, warm. ABSENT: cyanosis, rash Results Laboratory Results: 03/20/19 05:41 03/20/19 05:41 03/19/19 03/20/19 03/20/19 08:20 05:41 05:41 WBC 22.2 H RBC 3.59 L Hgb 9.1 L Hct 28.8 L MCV 80 MCH 25.4 L MCHC 31.7 L RDW 16.5 H Plt Count 741 H Sodium 139.2 Potassium 4.3 Chloride 103 Carbon Dioxide 32 H Anion Gap 4 L BUN 11 Creatinine 0.54 Est GFR ( Amer) > 60 Glucose 74 L Lactic Acid 1.3 Calcium 8.2 L 03/16/19 03/16/19 03/17/19 16:50 21:51 04:27 Troponin I 0.030 0.085 0.078 03/17/19 13:40 Troponin I 0.035 Impressions: Chest X-Ray 03/16/19 16:48 IMPRESSION: Right middle lobe pneumonia. Lung Scan-VQ NM 03/16/19 18:13 IMPRESSION: Low probability for pulmonary embolus Large ventilatory defect involving the right middle lobe and in the right lung base consistent with pneumonia Assessment and Plan - Diagnosis (1) Hypotension (arterial) Qualifiers: Hypotension type: hypotension due to hypovolemia Qualified Code(s): I95.89 - Other hypotension; E86.1 - Hypovolemia Is this a current diagnosis for this admission?: Yes Plan: Resolved with IVF. Presors off X 24 hours. Not hypoadrenal.Down graded X 1 day. 03/19/2019-resolved at this time. Patient off pressors. Patient did go into rapid A. fib with RVR yesterday she is on amiodarone at this time I will DC amiodarone to place patient on sotalol 40 mg p.o. twice daily. 03/20/2019-resolved at this time continue to follow. Patient remains on sotalol QTc interval is 516. (2) COPD exacerbation Is this a current diagnosis for this admission?: Yes Plan: As per #1 and 2. 03/19/2019-stable at this time. Continue bronchodilators and other medications as needed. Patient is on low-dose p.o. prednisone as well. 03/20/2019-stable continue bronchodilators and other medications and modalities as necessary. (3) Opiate overdose Qualifiers: Encounter type: initial encounter Injury intent: accidental or unintentional Qualified Code(s): T40.601A - Poisoning by unspecified narcotics, accidental (unintentional), initial encounter Is this a current diagnosis for this admission?: Yes Plan: Back on baseline dose of oxycodone, off flexeril and neurontin. She says they dont work. Celexa continued 03/19/2019-patient at baseline off narcotics at this time. 03/20/2019-at baseline. Off narcotics (4) Right middle lobe pneumonia Qualifiers: Pneumonia type: aspiration pneumonia Is this a current diagnosis for this admission?: Yes Plan: Still looks like aspiration. More secretions and WBC up to 30K. Would like to see less secretions and WBC going down before discharge home. Leukocytosis could be partialy due to steroids 03/19/2019-patient remains on Zosyn at this time. White cells down from 30-29 continue to follow 03/20/2019-patient remains on Zosyn white count is starting to trend down at this time. Continue to follow await cultures (5) Atrial fibrillation with RVR Is this a current diagnosis for this admission?: Yes Plan: 03/19/2019-yesterday the patient was placed on medical surgical floor from ICU patient went into A. fib with RVR. At that point place patient on amiodarone drip this morning she is converted to normal sinus rhythm. I will DC amiodarone place patient on sotalol 40 mill grams p.o. twice daily. Continue anticoagulation. 03/20/2019-patient converted to sinus rhythm yesterday I placed her on sotalol 40 mill grams p.o. twice daily. Her initial QTc interval was 490. Today her QTc interval is 516. I have discussed this with Dr. Willoughby and states this is fine. We will have patient follow-up on outpatient basis with cardiology. We will continue to do daily EKGs to evaluate QTc interval. - Time Time Spent with patient: 15-24 minutes - Inpatient Certification Based on my medical assessment, after consideration of the patient's comorbidities, presenting symptoms, or acuity I expect that the services needed warrant INPATIENT care.: Yes I certify that my determination is in accordance with my understanding of Medicare's requirements for reasonable and necessary INPATIENT services [42 CFR 412.3e].: Yes Medical Necessity: Need for IV Antibiotics, Other - Sotalol
[2019-03-20] MEDS: PREDNISONE 20 MG TABLET PO SCH (10:29)
[2019-03-20] MEDS: SOTALOL HCL 80 MG TABLET PO SCH ×2 (10:29→22:08)
[2019-03-20] MEDS: CITALOPRAM HYDROBROMIDE 20 MG TABLET PO SCH (10:30)
[2019-03-20] MEDS: DOCUSATE SODIUM 100 MG CAPSULE PO SCH ×2 (10:30→17:07)
[2019-03-20] MEDS: FLUTICASONE/VILANTEROL 200-25 MCG/DOSE IH SCH (10:30)
[2019-03-20] MEDS: BENZONATATE 100 MG CAPSULE PO PRN (12:07)
--- NOTE | 2019-03-20 12:11 | EKG REPORT ---
SEVERITY:- ABNORMAL ECG - INCOMPLETE ANALYSIS DUE TO MISSING DATA IN PRECORDIAL LEAD(S) SINUS RHYTHM BORDERLINE T ABNORMALITIES, ANT-LAT LEADS PROLONGED QT INTERVAL : Confirmed by: Janna Lozano 20-Mar-2019 12:10:23
--- NOTE | 2019-03-20 12:11 | EKG REPORT ---
SEVERITY:- BORDERLINE ECG - SINUS RHYTHM BORDERLINE T ABNORMALITIES, ANTERIOR LEADS BORDERLINE PROLONGED QT INTERVAL : Confirmed by: Janna Lozano 20-Mar-2019 12:10:07
[2019-03-20] MEDS: MAG HYDROX/AL HYDROX/SIMETH SUSP 30 ML UDCUP PO PRN (12:12)
[2019-03-20] MEDS: ONDANSETRON HCL INJ/PF 4 MG/2 ML SDV IV PRN ×2 (12:16→18:09)
[2019-03-20] MEDS: RIVAROXABAN 10 MG TABLET PO SCH ×3 (17:11→18:09)
[2019-03-20] MEDS: DOXEPIN HCL 10 MG CAPSULE PO SCH (22:07)
[2019-03-21] MEDS: OXYCODONE HCL IR 5 MG TABLET PO PRN ×3 (02:42→21:11)
[2019-03-21] MEDS: BENZONATATE 100 MG CAPSULE PO PRN ×3 (02:42→21:10)
[2019-03-21 04:14] LABS: HEMOGLOBIN 10.5 g/dL (12.0-15.5); MEAN CORPUSCULAR HEMOGLOBIN 25.7 pg (27.0-33.4); MEAN CORPUSCULAR HGB CONC 31.7 g/dL (32.0-36.0); MEAN CORPUSCULAR VOLUME 81 fl (80-97); PLATELET COUNT 750 10^3/uL (150-450); RED BLOOD COUNT 4.07 10^6/uL (3.72-5.28); RED CELL DISTRIBUTION WIDTH 16.9 % (11.5-14.0); WHITE BLOOD COUNT 15.9 10^3/uL (4.0-10.5)
[2019-03-21 04:40] LABS: BLOOD UREA NITROGEN 8 mg/dL (7-20); GLUCOSE 81 mg/dL (75-110)
[2019-03-21 04:45] LABS: CARBON DIOXIDE 33 mmol/L (22-30); CHLORIDE 106 mmol/L (98-107)
[2019-03-21 04:47] LABS: ANION GAP 3 (5-19)
[2019-03-21] MEDS: PIPERACILLIN SODIUM/TAZOBACTAM 3.375 GM in NORMAL SALINE 100 ML IV SCH ×4 (06:43→23:08)
--- NOTE | 2019-03-21 08:06 | PDOC PROGRESS REPORT ---
Subjective Progress Note for:: 03/21/19 Subjective:: 03/19/2019-no complaints 03/20/2019-no complaints this a.m. 03/21/2019-much improved this morning Reason For Visit: PNEUMONIA,A FIB RVR,COPD,EXACERBATION,ACUTE Physical Exam Vital Signs: Temp Pulse Resp BP Pulse Ox 98.5 F 73 16 115/78 93 03/21/19 03:44 03/21/19 07:00 03/21/19 03:44 03/21/19 03:44 03/21/19 04:15 Intake & Output 03/20/19 03/21/19 03/22/19 06:59 06:59 06:59 Intake Total 2954 2822 1100 Output Total 1050 Balance 1904 2822 1100 Weight 54.7 kg 53.2 kg General appearance: PRESENT: no acute distress, well-developed, well-nourished Neck exam: ABSENT: carotid bruit, JVD, lymphadenopathy, thyromegaly Respiratory exam: PRESENT: clear to auscultation silvio, decreased breath sounds, symmetrical, unlabored. ABSENT: rales, rhonchi, wheezes Cardiovascular exam: PRESENT: RRR. ABSENT: diastolic murmur, rubs, systolic m urmur Pulses: PRESENT: +1 pedal pulses bilateral Vascular exam: PRESENT: normal capillary refill GI/Abdominal exam: PRESENT: normal bowel sounds, soft. ABSENT: distended, guarding, mass, organolmegaly, rebound, tenderness Extremities exam: PRESENT: full ROM. ABSENT: calf tenderness, clubbing, pedal edema Neurological exam: PRESENT: alert, awake, oriented to person, oriented to place, oriented to time, oriented to situation, CN II-XII grossly intact. ABSENT: motor sensory deficit Psychiatric exam: PRESENT: appropriate affect, normal mood. ABSENT: homicidal ideation, suicidal ideation Skin exam: PRESENT: dry, intact, warm. ABSENT: cyanosis, rash Results Laboratory Results: 03/21/19 03:39 03/21/19 03:39 03/21/19 03/21/19 03:39 03:39 WBC 15.9 H RBC 4.07 Hgb 10.5 L Hct 33.0 L MCV 81 MCH 25.7 L MCHC 31.7 L RDW 16.9 H Plt Count 750 H Sodium 142.2 Potassium 4.0 Chloride 106 Carbon Dioxide 33 H Anion Gap 3 L BUN 8 Creatinine 0.54 Est GFR ( Amer) > 60 Glucose 81 Calcium 8.0 L 03/19/19 02:15 Sputum Gram Stain - Final 03/19/19 02:15 Sputum Sputum Culture - Final C.albicans/C.dubliniensis Greatly Reduced Normal Emmy 03/16/19 03/16/19 03/17/19 16:50 21:51 04:27 Troponin I 0.030 0.085 0.078 03/17/19 13:40 Troponin I 0.035 Impressions: Chest X-Ray 03/16/19 16:48 IMPRESSION: Right middle lobe pneumonia. Lung Scan-VQ NM 03/16/19 18:13 IMPRESSION: Low probability for pulmonary embolus Large ventilatory defect involving the right middle lobe and in the right lung base consistent with pneumonia Assessment and Plan - Diagnosis (1) Hypotension (arterial) Qualifiers: Hypotension type: hypotension due to hypovolemia Qualified Code(s): I95.89 - Other hypotension; E86.1 - Hypovolemia Is this a current diagnosis for this admission?: Yes Plan: Resolved with IVF. Presors off X 24 hours. Not hypoadrenal.Down graded X 1 day. 03/19/2019-resolved at this time. Patient off pressors. Patient did go into rapid A. fib with RVR yesterday she is on amiodarone at this time I will DC amiodarone to place patient on sotalol 40 mg p.o. twice daily. 03/20/2019-resolved at this time continue to follow. Patient remains on sotalol QTc interval is 516. 03/21/[id number] C interval 519. (2) COPD exacerbation Is this a current diagnosis for this admission?: Yes Plan: As per #1 and 2. 03/19/2019-stable at this time. Continue bronchodilators and other medications as needed. Patient is on low-dose p.o. prednisone as well. 03/20/2019-stable continue bronchodilators and other medications and modalities as necessary. 03/21/2019-stable (3) Opiate overdose Qualifiers: Encounter type: initial encounter Injury intent: accidental or unintentional Qualified Code(s): T40.601A - Poisoning by unspecified narcotics, accidental (unintentional), initial encounter Is this a current diagnosis for this admission?: Yes Plan: Back on baseline dose of oxycodone, off flexeril and neurontin. She says they dont work. Celexa continued 03/19/2019-patient at baseline off narcotics at this time. 03/20/2019-at baseline. Off narcotics 03/21/2019-at baseline (4) Right middle lobe pneumonia Qualifiers: Pneumonia type: aspiration pneumonia Is this a current diagnosis for this admission?: Yes Plan: Still looks like aspiration. More secretions and WBC up to 30K. Would like to see less secretions and WBC going down before discharge home. Leukocytosis could be partialy due to steroids 03/19/2019-patient remains on Zosyn at this time. White cells down from 30-29 continue to follow 03/20/2019-patient remains on Zosyn white count is starting to trend down at this time. Continue to follow await cultures 03/21/2019-continues on Zosyn. White count more toward normal. Continue to wait culture finalization. (5) Atrial fibrillation with RVR Is this a current diagnosis for this admission?: Yes Plan: 03/19/2019-yesterday the patient was placed on medical surgical floor from ICU patient went into A. fib with RVR. At that point place patient on amiodarone drip this morning she is converted to normal sinus rhythm. I will DC amiodarone place patient on sotalol 40 mill grams p.o. twice daily. Continue anticoagulation. 03/20/2019-patient converted to sinus rhythm yesterday I placed her on sotalol 40 mill grams p.o. twice daily. Her initial QTc interval was 490. Today her QTc interval is 516. I have discussed this with Dr. Willoughby and states this is fine. We will have patient follow-up on outpatient basis with cardiology. We will continue to do daily EKGs to evaluate QTc interval. 03/21/2019-continues in sinus rhythm. QTc interval is 519. Repeat EKG in a.m. anticipate discharge home (6) Valarie infection Is this a current diagnosis for this admission?: Yes Plan: 03/21/2019-patient is shown Valarie species in sputum. I have given her 1 dose of Diflucan as she is on sotalol that extends her QTc interval. We will continue to follow with EKGs. - Time Time Spent with patient: 15-24 minutes - Inpatient Certification Based on my medical assessment, after consideration of the patient's comorbidit ies, presenting symptoms, or acuity I expect that the services needed warrant INPATIENT care.: Yes I certify that my determination is in accordance with my understanding of Me jacques's requirements for reasonable and necessary INPATIENT services [42 CFR 412.3e].: Yes Medical Necessity: Need for IV Antibiotics, Other - Cardiac monitoring
[2019-03-21] MEDS: ALPRAZOLAM 0.5 MG TABLET PO PRN ×2 (08:33→20:09)
[2019-03-21] MEDS: IPRATROPIUM/ALBUTEROL 0.5-2.5 MG/3 ML AMPUL NEB SCH ×3 (08:40→21:37)
[2019-03-21] MEDS ORDERED: FLUCONAZOLE 100 MG TABLET PO ONE (09:00)
[2019-03-21] MEDS: DOCUSATE SODIUM 100 MG CAPSULE PO SCH ×2 (09:16→17:33)
[2019-03-21] MEDS: SOTALOL HCL 80 MG TABLET PO SCH ×2 (09:16→21:10)
[2019-03-21] MEDS: PREDNISONE 20 MG TABLET PO SCH (09:16)
[2019-03-21] MEDS: CITALOPRAM HYDROBROMIDE 20 MG TABLET PO SCH (09:16)
[2019-03-21] MEDS: FLUTICASONE/VILANTEROL 200-25 MCG/DOSE IH SCH (09:16)
--- NOTE | 2019-03-21 09:41 | EKG REPORT ---
SEVERITY:- ABNORMAL ECG - SINUS RHYTHM NONSPECIFIC T ABNORMALITIES, ANTERIOR LEADS PROLONGED QT INTERVAL : Confirmed by: Janna Lozano 21-Mar-2019 09:41:09
[2019-03-21] MEDS ORDERED: INFLUENZA QUAD (6MOS+) 2019-20 VAC 0.5 ML SYR IM ONE (11:26)
[2019-03-21 13:19] LABS: PATH REVIEW PATHOLOGIST REVIEWED
[2019-03-21] MEDS: RIVAROXABAN 10 MG TABLET PO SCH (17:42)
[2019-03-21] MEDS: DOXEPIN HCL 10 MG CAPSULE PO SCH (21:11)
[2019-03-22] MEDS: PIPERACILLIN SODIUM/TAZOBACTAM 3.375 GM in NORMAL SALINE 100 ML IV SCH ×4 (05:08→23:40)
[2019-03-22 06:13] LABS: HEMATOCRIT 30.4 % (36.0-47.0); HEMOGLOBIN 9.6 g/dL (12.0-15.5); MEAN CORPUSCULAR HEMOGLOBIN 25.6 pg (27.0-33.4); MEAN CORPUSCULAR HGB CONC 31.7 g/dL (32.0-36.0); MEAN CORPUSCULAR VOLUME 81 fl (80-97); PLATELET COUNT 675 10^3/uL (150-450); RED BLOOD COUNT 3.75 10^6/uL (3.72-5.28); RED CELL DISTRIBUTION WIDTH 16.6 % (11.5-14.0); WHITE BLOOD COUNT 13.5 10^3/uL (4.0-10.5)
[2019-03-22 06:50] LABS: CARBON DIOXIDE 34 mmol/L (22-30); CHLORIDE 104 mmol/L (98-107)
[2019-03-22 06:57] LABS: ANION GAP 3 (5-19); BLOOD UREA NITROGEN 12 mg/dL (7-20); GLUCOSE 74 mg/dL (75-110); POTASSIUM 3.9 mmol/L (3.6-5.0)
[2019-03-22] MEDS: BENZONATATE 100 MG CAPSULE PO PRN ×2 (07:25→21:07)
[2019-03-22] MEDS: OXYCODONE HCL IR 5 MG TABLET PO PRN ×2 (07:28→21:08)
[2019-03-22] MEDS: ALPRAZOLAM 0.5 MG TABLET PO PRN ×2 (07:28→21:11)
[2019-03-22] MEDS: ACETAMINOPHEN 325 MG TABLET PO PRN (07:29)
[2019-03-22] MEDS: IPRATROPIUM/ALBUTEROL 0.5-2.5 MG/3 ML AMPUL NEB SCH ×3 (08:30→20:01)
[2019-03-22] MEDS: DOCUSATE SODIUM 100 MG CAPSULE PO SCH ×2 (09:18→17:02)
[2019-03-22] MEDS: PREDNISONE 20 MG TABLET PO SCH (09:27)
[2019-03-22] MEDS: FLUTICASONE/VILANTEROL 200-25 MCG/DOSE IH SCH (09:27)
[2019-03-22] MEDS: CITALOPRAM HYDROBROMIDE 20 MG TABLET PO SCH (09:28)
[2019-03-22] MEDS: SOTALOL HCL 80 MG TABLET PO SCH ×2 (09:28→21:07)
[2019-03-22] MEDS ORDERED: HALOPERIDOL LACTATE INJ 5 MG/1 ML VIAL ONE (13:11)
--- NOTE | 2019-03-22 14:31 | EKG REPORT ---
SEVERITY:- ABNORMAL ECG - SINUS TACHYCARDIA PAIRED VENTRICULAR PREMATURE COMPLEXES ABNORMAL T, CONSIDER ISCHEMIA, DIFFUSE LEADS : Confirmed by: Kelli Willoughby MD 22-Mar-2019 14:30:16
[2019-03-22] MEDS: BUTALB/ACETAMINOPHEN/CAFFEINE 1 TAB EACH PO PRN (15:02)
[2019-03-22] MEDS: RIVAROXABAN 10 MG TABLET PO SCH (17:39)
[2019-03-22] MEDS: DOXEPIN HCL 10 MG CAPSULE PO SCH (21:08)
--- NOTE | 2019-03-22 22:17 | PDOC PROGRESS REPORT ---
Subjective Progress Note for:: 03/22/19 Subjective:: Patient was seen on morning rounds. She was found resting in bed comfortably on supplemental oxygen via nasal cannula; she is not home O2 dependent. Her oxygen was turned off while I was in the room and she maintained oxygen saturations greater than 89% without increased work of breathing or tachypnea. However, later that afternoon, respiratory found that her room air oxygen saturation was 81%. Long discussion was had with the patient regarding her home medication/pain management regimen. Advised the patient that she may no longer be able to tolerate the oxycodone dosing was required to adequately address her pain needs. Strongly encouraged the patient to discuss this openly with her pain management provider as we will likely need to begin exploring non-opiate medication interventions for her chronic lower back pain. The patient was initially recept christoph, however, towards the end of our conversation did begin to hesitate. She does acknowledge that it is not safe for her to take both oxycodone and benzodiazepine at home. She denies fever, chills, chest pain, palpitations, orthopnea, abdominal pain, nausea, vomiting, diarrhea. She does report continued productive cough and dyspnea on minimal exertion. She is been ambulatory to the restroom but not much further yet this admission. She has no other questions or concerns at this time. No concerns per nursing. Reason For Visit: PNEUMONIA,A FIB RVR,COPD,EXACERBATION,ACUTE Physical Exam Vital Signs: Temp Pulse Resp BP Pulse Ox 97.8 F 66 16 113/71 95 03/22/19 20:32 03/22/19 20:32 03/22/19 20:32 03/22/19 20:32 03/22/19 20:32 Intake & Output 03/21/19 03/22/19 03/23/19 06:59 06:59 06:59 Intake Total 2822 1800 200 Balance 2822 1800 200 Weight 53.2 kg 53 kg General appearance: PRESENT: no acute distress, cooperative, thin, well-deve loped, well-nourished Head exam: PRESENT: atraumatic, normocephalic Eye exam: PRESENT: conjunctiva pink, EOMI, PERRLA. ABSENT: scleral icterus Ear exam: PRESENT: normal external ear exam Mouth exam: PRESENT: moist, tongue midline Neck exam: ABSENT: carotid bruit, JVD, lymphadenopathy, thyromegaly Respiratory exam: PRESENT: clear to auscultation silvio, decreased breath sounds - Bibasilar; poor respiratory effort, prolonged expiratory phas, symmetrical, unlabored, other - Supplemental oxygen via nasal cannula. ABSENT: rales, rhonchi, wheezes Cardiovascular exam: PRESENT: RRR, +S1, +S2. ABSENT: diastolic murmur, rubs, s ystolic murmur Pulses: PRESENT: normal dorsalis pedis pul Vascular exam: PRESENT: normal capillary refill GI/Abdominal exam: PRESENT: normal bowel sounds, soft. ABSENT: distended, guarding, mass, organolmegaly, rebound, tenderness Rectal exam: PRESENT: deferred Extremities exam: PRESENT: full ROM. ABSENT: calf tenderness, clubbing, pedal edema Neurological exam: PRESENT: alert, awake, oriented to person, oriented to place, oriented to time, oriented to situation, CN II-XII grossly intact. ABSENT: motor sensory deficit Psychiatric exam: PRESENT: appropriate affect, normal mood. ABSENT: homicidal ideation, suicidal ideation Skin exam: PRESENT: dry, intact, warm. ABSENT: cyanosis, rash Results Laboratory Results: 03/22/19 05:55 03/22/19 05:55 03/22/19 03/22/19 05:55 05:55 WBC 13.5 H RBC 3.75 Hgb 9.6 L Hct 30.4 L MCV 81 MCH 25.6 L MCHC 31.7 L RDW 16.6 H Plt Count 675 H Sodium 140.9 Potassium 3.9 Chloride 104 Carbon Dioxide 34 H Anion Gap 3 L BUN 12 Creatinine 0.57 Est GFR ( Amer) > 60 Glucose 74 L Calcium 8.0 L 03/16/19 17:10 Blood Blood Culture - Final NO GROWTH IN 5 DAYS 03/16/19 16:50 Blood Blood Culture - Final NO GROWTH IN 5 DAYS 03/16/19 03/16/19 03/17/19 16:50 21:51 04:27 Troponin I 0.030 0.085 0.078 03/17/19 13:40 Troponin I 0.035 Impressions: Chest X-Ray 03/16/19 16:48 IMPRESSION: Right middle lobe pneumonia. [facility] Scan[facility] 03/16/19 18:13 IMPRESSION: Low probability for pulmonary embolus Large ventilatory defect involving the right middle lobe and in the right lung base consistent with pneumonia Assessment and Plan - Diagnosis (1) Right middle lobe pneumonia Qualifiers: Pneumonia type: aspiration pneumonia Is this a current diagnosis for this admission?: Yes Plan: Right middle lobe concerning for aspiration Blood cultures are negative at 5 days. Sputum culture showed Valarie only. Patient was empirically placed on IV Zosyn. Has received 5 days of IV antibiotic therapy. Will time to transition to Augmentin at time of discharge for total 10-day course of therapy. Prolonged QTc interval prohibits azithromycin and for fluoroquinolones Leukocytosis continues to improve; down to 13.5 today. Patient does continue to require supplemental oxygen, although her oxygen needs are also improved. Continue supplemental oxygen, nebulizer treatment, and pulmonary toilet as described below. (2) COPD exacerbation Is this a current diagnosis for this admission?: Yes Plan: Significantly improved. Patient is still requiring supplemental oxygen to maintain saturations while at rest. However, lung sounds are clear and she has decreased. Supplemental oxygen as needed to maintain saturations greater than 89%. Continue scheduled and as needed nebulizer treatment. Home dose Breo. Mucinex twice daily. Tessalon Perles as needed. P.o. prednisone. Encourage pulmonary toilet and ambulation. (3) Atrial fibrillation with RVR Is this a current diagnosis for this admission?: Yes Plan: Resolved. Likely secondary to acute respiratory failure with hypoxia. Patient is now converted to normal sinus rhythm. Continue on sotalol 40 mg twice daily. Continuing once daily Xarelto for chronic anticoagulation. (4) Valarie infection Is this a current diagnosis for this admission?: Yes Plan: Sputum culture positive for Valarie. Received Diflucan 100 mg p.o. x1. No further interventions at this time. (5) Hypotension (arterial) Qualifiers: Hypotension type: hypotension due to hypovolemia Qualified Code(s): I95.89 - Other hypotension; E86.1 - Hypovolemia Is this a current diagnosis for this admission?: Yes Plan: Resolved with IVF. Presors off X 48 hours. Not hypoadrenal. Now maintaining adequate blood pressures while on the low. (6) Opiate overdose Qualifiers: Encounter type: initial encounter Injury intent: accidental or unintentional Qualified Code(s): T40.601A - Poisoning by unspecified narcotics, accidental (unintentional), initial encounter Is this a current diagnosis for this admission?: Yes Plan: Long discussion had with patient today regarding concern for opiate overdose. Patient does admit that her oxycodone was increased approximately 2-1/2 months ago for her chronic back pain. [facility] Advised the patient that she should follow-up with her pain management provider upon discharge to discuss her respiratory status and opiate dependent. Advised the patient that it was recommended that she begin weaning her narcotic and other sedating medication, to prevent future respiratory depression. We will begin weaning p.o. Ativan. She is not prescribed this at home and will not be continued at time of discharge. Patient's oxycodone has been decreased from 20 mg every 6 to 15 mg every 6 hours. Recommend adjunctive therapy such as lidocaine patch, BenGay, heating pad, stretching, distraction. Follow-up with pain management provider upon discharge. - Time Time Spent with patient: 25-34 minutes Medications reviewed and adjusted accordingly: Yes Anticipated discharge: Home Within: within 48 hours
[2019-03-22] MEDS ORDERED: GUAIFENESIN 600 MG TABLET.SA PO ONE (23:00)
[2019-03-23] MEDS: PIPERACILLIN SODIUM/TAZOBACTAM 3.375 GM in NORMAL SALINE 100 ML IV SCH ×4 (05:24→23:43)
[2019-03-23 06:20] LABS: HEMATOCRIT 34.2 % (36.0-47.0); HEMOGLOBIN 10.8 g/dL (12.0-15.5); MEAN CORPUSCULAR HEMOGLOBIN 25.4 pg (27.0-33.4); MEAN CORPUSCULAR HGB CONC 31.4 g/dL (32.0-36.0); MEAN CORPUSCULAR VOLUME 81 fl (80-97); PLATELET COUNT 741 10^3/uL (150-450); RED BLOOD COUNT 4.24 10^6/uL (3.72-5.28); RED CELL DISTRIBUTION WIDTH 16.8 % (11.5-14.0); WHITE BLOOD COUNT 12.1 10^3/uL (4.0-10.5)
[2019-03-23] MEDS: BENZONATATE 100 MG CAPSULE PO PRN ×2 (06:33→23:43)
[2019-03-23 06:46] LABS: BLOOD UREA NITROGEN 14 mg/dL (7-20); CALCIUM 8.3 mg/dL (8.4-10.2); CHLORIDE 101 mmol/L (98-107); GLUCOSE 75 mg/dL (75-110); POTASSIUM 4.3 mmol/L (3.6-5.0)
[2019-03-23 06:52] LABS: CARBON DIOXIDE 36 mmol/L (22-30)
[2019-03-23 06:55] LABS: ANION GAP 3 (5-19)
[2019-03-23] MEDS: IPRATROPIUM/ALBUTEROL 0.5-2.5 MG/3 ML AMPUL NEB SCH ×3 (09:00→20:01)
[2019-03-23] MEDS: ALPRAZOLAM 0.5 MG TABLET PO PRN ×2 (09:16→23:43)
[2019-03-23] MEDS ORDERED: ALBUTEROL SULFATE 0.083% NEB 2.5 MG/3 ML AMPUL NEB PRN (10:15)
--- NOTE | 2019-03-23 10:17 | RADIOLOGY REPORT (SQ) ---
EXAM DESCRIPTION: CHEST SINGLE VIEW COMPLETED DATE/TIME: 03/23/2019 10:05 am REASON FOR STUDY: dyspnea, hypoxia COMPARISON: 03/16/2019. EXAM PARAMETERS: NUMBER OF VIEWS: One view. TECHNIQUE: Single frontal radiographic view of the chest acquired. RADIATION DOSE: NA LIMITATIONS: None. FINDINGS: LUNGS AND PLEURA: Interval development of bilateral pleural effusions. Continued airspace disease in the right middle lobe. Extent difficult to evaluate due to presence of the pleural fluid . MEDIASTINUM AND HILAR STRUCTURES: No masses. Contour normal. HEART AND VASCULAR STRUCTURES: Heart normal in size. Normal vasculature. BONES: No acute findings. HARDWARE: None in the chest. OTHER: No other significant finding. IMPRESSION: INTERVAL DEVELOPMENT OF BILATERAL PLEURAL EFFUSIONS. PERSISTENT AIRSPACE DISEASE IN THE RIGHT MIDDLE LOBE, DIFFICULT TO ENTIRELY VISUALIZE. TECHNICAL DOCUMENTATION: JOB ID: [id number] [employer]- All Rights Reserved Reading location - IP/workstation name: [email or web address]
[2019-03-23 11:33] LABS: ARTERIAL BLOOD BASE EXCESS 10.5 mmol/L; ARTERIAL BLOOD H2CO3 1.41 mmol/L (1.05-1.35); ARTERIAL BLOOD O2 SATURATION 91.8 % (94-98); ARTERIAL BLOOD PCO2 46.7 mmHg (35-45); ARTERIAL BLOOD PH 7.49 (7.35-7.45); ARTERIAL BLOOD PO2 57.6 mmHg (80-100); ARTERIAL BLOOD TOTAL CO2 36.5 mmol/L (21-25)
[2019-03-23 11:34] LABS: ARTERIAL BLOOD FIO2 2L
[2019-03-23] MEDS: OXYCODONE HCL IR 5 MG TABLET PO PRN ×2 (12:23→18:56)
[2019-03-23] MEDS: PREDNISONE 20 MG TABLET PO SCH (12:25)
[2019-03-23] MEDS: CITALOPRAM HYDROBROMIDE 20 MG TABLET PO SCH (12:25)
[2019-03-23] MEDS: GUAIFENESIN 600 MG TABLET.SA PO SCH ×2 (12:25→21:25)
[2019-03-23] MEDS: DOCUSATE SODIUM 100 MG CAPSULE PO SCH ×2 (12:25→18:55)
[2019-03-23] MEDS: SOTALOL HCL 80 MG TABLET PO SCH ×2 (12:29→21:25)
[2019-03-23] MEDS: FLUTICASONE/VILANTEROL 200-25 MCG/DOSE IH SCH (12:32)
[2019-03-23] MEDS: ACETYLCYSTEINE 20% SOLN 800 MG/4 ML VIAL.NEB NEB SCH ×2 (13:13→20:01)
--- NOTE | 2019-03-23 14:03 | RADIOLOGY REPORT (SQ) ---
EXAM DESCRIPTION: CT CHEST WITHOUT COMPLETED DATE/TIME: 03/23/2019 1:00 pm REASON FOR STUDY: Dyspnea, hypoxia, ? mucus plug COMPARISON: CT chest abdomen pelvis 03/27/2018 CT abdomen pelvis 11/13/2018 Chest films 11/13/2018, 11/17/2018, 03/16/2019, 03/23/2019 Ventilation-perfusion scan 03/16/2019 TECHNIQUE: CT scan performed of the chest without intravenous contrast. Images reviewed with lung, soft tissue and bone windows. Reconstructed coronal and sagittal MPR images reviewed. All images st ored on PACS. All CT scanners at this facility use dose modulation, iterative reconstruction, and/or weight based d osing when appropriate to reduce radiation dose to as low as reasonably achievable (ALARA). [facility]: Dose Right [facility]: CareDose [facility]: Dose Right [facility]: Teradose 4D [facility]: [employer] RADIATION DOSE: CT Rad equipment meets quality standard of care and radiation dose reduction techniq ues were employed. CTDIvol: 4.9 mGy. DLP: 176 mGy-cm. mGy. LIMITATIONS: No technical limitations. FINDINGS: LUNGS AND PLEURA: The right middle lobe airway is occluded by a soft tissue mass in the ri ght lower hilum. A ill-defined right hilar mass is present measuring about 5 cm in diameter on axial image 35/59. Postobstructive volume loss and consolidation with air bronchograms is present in the right middle lobe. There is volume loss and consolidation in the right lower lobe adjacent to a a moderate-sized right p leural effusion. This could represent atelectasis or pneumonia at the right lung base. Moderate left pleural effusion. Minimal left basilar atelectasis. No pneumothorax. Lung apices are hyperinflated from obstructive disease. HILAR AND MEDIASTINAL STRUCTURES: Ill-defined right hilar mass occludes the right middle lobe bronchi , with postobstructive volume loss and consolidation 1.7 x 1.1 cm precarinal lymph node axial image 2 HEART AND VASCULAR STRUCTURES: No aneurysm. No pericardial effusion. UPPER ABDOMEN: No focal findings THYROID AND OTHER SOFT TISSUES: No masses. No adenopathy. BONES: 25 to 50% T7 compression deformity, unchanged from 2018. Biconcave T11 deformity with 25% los s of height, T12 kyphoplasty with 25% loss of height are also stable compared to imaging from 2018. HARDWARE: None in the chest. OTHER: No other significant findings. IMPRESSION: Suspected 5 cm hilar mass occluding the right middle lobe bronchi with postobstructive v olume loss and consolidation. 1.7 x 1.1 cm precarinal lymph node Moderate bilateral pleural effusions TECHNICAL DOCUMENTATION: JOB ID: [id number] Quality ID # [id number]: Final reports with documentation of one or more dose reduction techniques (e.g., Au tomated exposure control, adjustment of the mA and/or kV according to patient size, use of iterative reconstruction technique) 2010 [employer]- All Rights Reserved Reading location - IP/workstation name: [email or web address]
[2019-03-23] MEDS: RIVAROXABAN 10 MG TABLET PO SCH (18:04)
--- NOTE | 2019-03-23 19:15 | PDOC PROGRESS REPORT ---
Subjective Progress Note for:: 03/23/19 Subjective:: Patient was seen on morning rounds. She was found resting in bed comfortably on supplemental oxygen via nasal cannula; she is not home O2 dependent. She does continue to be oxygen dependent with significant dyspnea and increased work of breathing with minimal activity; unable to ambulate to the restroom on supplemental oxygen without prolonged recovery time, tachypnea, retractions/accessory muscle use. She continues to have a productive cough. Does not feel much improved from yesterday. She denies fever, chills, chest pain, palpitations, orthopnea, abdominal pain, nausea, vomiting, diarrhea. She has no other questions or concerns at this time. No concerns per nursing. Reason For Visit: PNEUMONIA,A FIB RVR,COPD,EXACERBATION,ACUTE Physical Exam Vital Signs: Temp Pulse Resp BP Pulse Ox 97.6 F 76 16 129/79 H 93 03/23/19 15:34 03/23/19 15:34 03/23/19 15:34 03/23/19 15:34 03/23/19 16:00 Intake & Output 03/22/19 03/23/19 03/24/19 06:59 06:59 06:59 Intake Total 1800 500 100 Balance 1800 500 100 Weight 53 kg 56.1 kg General appearance: PRESENT: no acute distress, cooperative, thin, well-develo ped Head exam: PRESENT: atraumatic, normocephalic Eye exam: PRESENT: conjunctiva pink, EOMI, PERRLA. ABSENT: scleral icterus Ear exam: PRESENT: normal external ear exam Mouth exam: PRESENT: moist, tongue midline Respiratory exam: PRESENT: decreased breath sounds - Bibasilar; right greater than left, prolonged expiratory phas, rhonchi - Throughout, symmetrical, unlabored, other - Supplemental oxygen by nasal cannula. ABSENT: rales, wheezes Cardiovascular exam: PRESENT: RRR. ABSENT: diastolic murmur, rubs, systolic murmur Vascular exam: PRESENT: normal capillary refill GI/Abdominal exam: PRESENT: normal bowel sounds, soft. ABSENT: distended, guarding, mass, organolmegaly, rebound, tenderness Rectal exam: PRESENT: deferred Extremities exam: PRESENT: full ROM. ABSENT: calf tenderness, clubbing, pedal edema Musculoskeletal exam: PRESENT: ambulatory Neurological exam: PRESENT: alert, awake, oriented to person, oriented to place, oriented to time, oriented to situation, CN II-XII grossly intact. ABSENT: motor sensory deficit Psychiatric exam: PRESENT: appropriate affect, normal mood. ABSENT: homicidal ideation, suicidal ideation Skin exam: PRESENT: dry, intact, warm. ABSENT: cyanosis, rash Results Laboratory Results: 03/23/19 05:52 03/23/19 05:52 03/23/19 03/23/19 03/23/19 05:52 05:52 11:15 WBC 12.1 H RBC 4.24 Hgb 10.8 L Hct 34.2 L MCV 81 MCH 25.4 L MCHC 31.4 L RDW 16.8 H Plt Count 741 H Carbonic Acid 1.41 H HCO3/H2CO3 Ratio 24:1 ABG pH 7.49 H ABG pCO2 46.7 H ABG pO2 57.6 L ABG HCO3 35.0 H ABG O2 Saturation 91.8 L ABG Base Excess 10.5 FiO2 2L Sodium 140.2 Potassium 4.3 Chloride 101 Carbon Dioxide 36 H Anion Gap 3 L BUN 14 Creatinine 0.55 Est GFR ( Amer) > 60 Glucose 75 Calcium 8.3 L 03/16/19 03/16/19 03/17/19 16:50 21:51 04:27 Troponin I 0.030 0.085 0.078 03/17/19 13:40 Troponin I 0.035 Impressions: Lung Scan-[facility] 03/16/19 18:13 IMPRESSION: Low probability for pulmonary embolus Large ventilatory defect involving the right middle lobe and in the right lung base consistent with pneumonia Chest CT 03/23/19 00:00 IMPRESSION: Suspected 5 cm hilar mass occluding the right middle lobe bronchi with postobstructive volume loss and consolidation. 1.7 x 1.1 cm precarinal lymph node Moderate bilateral pleural effusions Chest X-Ray 03/23/19 00:00 IMPRESSION: INTERVAL DEVELOPMENT OF BILATERAL PLEURAL EFFUSIONS. PERSISTENT AIRSPACE DISEASE IN THE RIGHT MIDDLE LOBE, DIFFICULT TO ENTIRELY VISUALIZE. Assessment and Plan - Diagnosis (1) Right middle lobe pneumonia Qualifiers: Pneumonia type: due to unspecified organism Qualified Code(s): J18.9 - Pneumonia, unspecified organism Is this a current diagnosis for this admission?: Yes Plan: Right middle lobe concerning for aspiration Blood cultures are negative at 5 days. Sputum culture showed Valarie only. Leukocytosis continues to improve. Chest CT today, unfortunately, reveals a 5 cm hilar mass occluding the right middle lobe and resulting in postobstructive volume loss and consolidation. Patient was empirically placed on IV Zosyn. Has received 6 days of IV antibiotic therapy. Will continue for total 10 days of therapy. Patient does continue to require supplemental oxygen, although her oxygen needs are also improved. Continue supplemental oxygen, nebulizer treatment, and pulmonary toilet as described below. (2) COPD exacerbation Is this a current diagnosis for this admission?: Yes Plan: Significantly improved. Patient is still requiring supplemental oxygen to maintain saturations while at rest. Supplemental oxygen as needed to maintain saturations greater than 89%. Continue scheduled and as needed nebulizer treatment. Holding Breo while on scheduled duo nebs. Mucinex twice daily. Tessalon Perles as needed. P.o. prednisone. Encourage pulmonary toilet and ambulation. (3) Atrial fibrillation with RVR Is this a current diagnosis for this admission?: Yes Plan: Resolved. Likely secondary to acute respiratory failure with hypoxia. Patient is now converted to normal sinus rhythm. Continue on sotalol 40 mg twice daily. Continuing once daily Xarelto for chronic anticoagulation. (4) Valarie infection Is this a current diagnosis for this admission?: Yes Plan: Sputum culture positive for Valarie. Received Diflucan 100 mg p.o. x1. No further interventions at this time. (5) Hypotension (arterial) Qualifiers: Hypotension type: hypotension due to hypovolemia Qualified Code(s): I95.89 - Other hypotension; E86.1 - Hypovolemia Is this a current diagnosis for this admission?: Yes Plan: Resolved with IVF. Presors off X 48 hours. Not hypoadrenal. Now maintaining adequate blood pressures while on the low. (6) Opiate overdose Qualifiers: Encounter type: initial encounter Injury intent: accidental or unintentional Qualified Code(s): T40.601A - Poisoning by unspecified narcotics, accidental (unintentional), initial encounter Is this a current diagnosis for this admission?: Yes Plan: Patient indicates chronic low back pain; today reports right lower posterior chest wall pain. Fortunately, the patient is now found to have a right hilar mass, associated lymphadenopathy, and postobstructive lung volume collapse. This is concerning for possible malignancy. She will require additional imaging for definitive diagnosis. Some concern now that the patient's back pain may be related to a cancer diagnosis. Long discussion had with patient yesterday regarding concern for opiate overdose. Patient does admit that her oxycodone was increased approximately 2-1/2 months ago for her chronic back pain. [facility]. Advised the patient that she should follow-up with her pain management provider upon discharge to discuss her respiratory status and opiate dependent. Advised the patient that it was recommended that she begin weaning her narcotic and other sedating medication, to prevent future respiratory depression. Have decreased p.o. Ativan. She is not prescribed this at home and will not be continued at time of discharge. Patient's oxycodone has been decreased from 20 mg every 6 to 15 mg every 6 hours. Recommend adjunctive therapy such as lidocaine patch, BenGay, heating pad, stretching, distraction. Follow-up with pain management provider upon discharge. (7) Hilar mass Is this a current diagnosis for this admission?: Yes Plan: Chest CT without contrast revealed a suspected 5 cm hilar mass occluding the right middle lobe bronchi with postobstructive volume loss and consolidation. She has an associated 1.7 x 1.1. He pericarinal lymph node and moderate bilateral pleural effusions. The patient does have a significant tobacco history. Unfortunately, we do not have pulmonary services until March 31. We will ask hematology/oncology to evaluate the patient. Likely will require additional imaging and bronchoscopy for definitive diagnosis. (8) Postobstructive pneumonia Is this a current diagnosis for this admission?: Yes Plan: Management and evaluation as above. (9) Opiate dependence, continuous Is this a current diagnosis for this admission?: Yes Plan: As above. - Time Time Spent with patient: 25-34 minutes Medications reviewed and adjusted accordingly: Yes Anticipated discharge: Home
[2019-03-23] MEDS: DOXEPIN HCL 10 MG CAPSULE PO SCH (21:25)
[2019-03-24] MEDS: IPRATROPIUM/ALBUTEROL 0.5-2.5 MG/3 ML AMPUL NEB SCH ×4 (02:19→20:51)
[2019-03-24 05:56] LABS: HEMATOCRIT 31.4 % (36.0-47.0); HEMOGLOBIN 10.1 g/dL (12.0-15.5); MEAN CORPUSCULAR HEMOGLOBIN 25.6 pg (27.0-33.4); MEAN CORPUSCULAR HGB CONC 32.3 g/dL (32.0-36.0); MEAN CORPUSCULAR VOLUME 80 fl (80-97); PLATELET COUNT 643 10^3/uL (150-450); RED BLOOD COUNT 3.95 10^6/uL (3.72-5.28); RED CELL DISTRIBUTION WIDTH 16.8 % (11.5-14.0); WHITE BLOOD COUNT 10.4 10^3/uL (4.0-10.5)
[2019-03-24 06:22] LABS: BLOOD UREA NITROGEN 14 mg/dL (7-20)
[2019-03-24 06:35] LABS: CALCIUM 8.3 mg/dL (8.4-10.2); GLUCOSE 86 mg/dL (75-110)
[2019-03-24 06:41] LABS: CARBON DIOXIDE 38 mmol/L (22-30); CHLORIDE 99 mmol/L (98-107)
[2019-03-24 06:45] LABS: ANION GAP 2 (5-19)
[2019-03-24] MEDS: ALPRAZOLAM 0.5 MG TABLET PO PRN (07:35)
[2019-03-24] MEDS: ACETYLCYSTEINE 20% SOLN 800 MG/4 ML VIAL.NEB NEB SCH ×2 (07:39→20:55)
--- NOTE | 2019-03-24 09:45 | PDOC CONSULTATION ---
Consultation Consult Date: 03/24/19 Provider Consulted: TUYET TAM Consult reason:: Hematology/Oncology consultation was requested for patient with lung mass, obstructive pneumonitis and pleural effusions. History of Present Illness Admission Date/PCP: 03/16/19 18:48 History of Present Illness: RACHELLE MARY is a 69 year old female with longstanding history of cigarette abuse, COPD, and chronic back pain. She states that she has had pneumonia before, but never like this. She began having increased dyspnea before and she tried to wait until after the holidays. However, it became progressively worse. She presented to the hospital and was treated for pneumonia and COPD. But symptoms did not clear. CT chest was done yesterday which showed obstructive collapse of the right middle lobe with presumed tumor. Past Medical History Cardiac Medical History: Reports: Atrial Fibrillation - Intermittent per patient, Peripheral Vascular Disease Denies: Hypertension Pulmonary Medical History: Reports: Chronic Obstructive Pulmonary Disease (COPD), Pneumonia Denies: Asthma, Bronchitis Neurological Medical History: Denies: Seizures GI Medical History: Reports: Gastroesophageal Reflux Disease Musculoskeltal Medical History: Reports: Arthritis Psychiatric Medical History: Comment Only: Depression - anxiety Hematology: Denies: Anemia Past Surgical History Past Surgical History: Reports: Adenoidectomy, Carotid Endarterectomy, Ch olecystectomy, Orthopedic Surgery - Back surgery, wrist surgery, neck surgery, Tonsillectomy, Vascular Surgery Social History Information Source: Patient Smoking Status: Current Every Day Smoker Frequency of Alcohol Use: None Hx Recreational Drug Use: No Drugs: None Hx Prescription Drug Abuse: No Past Social History Note: 2 kids, 1 grandchild. Lives with . - Advance Directive Resuscitation Status: Full Code Family History Family History: CAD Parental Family History Reviewed: Yes - Father AR, mother CHF. Children Family History Reviewed: No Sibling(s) Family History Reviewed.: Yes - Sister alive Medication/Allergy Home Medications: Diltiazem HCl [Cartia Xt] 180 mg PO Q12 03/28/18 Gabapentin [Neurontin 300 mg Capsule] 300 mg PO Q8 03/28/18 Oxycodone HCl [Oxy-Ir 5 mg Tablet] 15 mg PO Q6HP PRN 03/28/18 Fluticasone/Salmeterol [Advair 250-50 Diskus 14 Dose/Diskus] 1 inh IH Q12 in haler 04/03/18 Ipratropium/Albuterol Sulfate [Duoneb 3 ml Ampul] 3 ml NEB RTQ6HP PRN 30 Days #100 vial.neb 04/03/18 Albuterol Sulfate [Proair Hfa Inhalation Aerosol 8.5 gm Mdi] 2 puff IH Q4HP PRN 11/13/18 Butalb/Acetaminophen/Caffeine [Fioricet (50-325-40 mg) Tablet] 1 tab PO TID 11/13/18 Citalopram Hydrobromide [Celexa 20 mg Tablet] 20 mg PO DAILY 11/13/18 Cyclobenzaprine HCl [Flexeril 10 mg Tablet] 10 mg PO HSP PRN 11/13/18 Doxepin HCl [Sinequan 10 Mg Capsule] 20 mg PO QHS 11/13/18 Allergies/Adverse Reactions: No Known Allergies Allergy (Verified 03/27/18 23:17) Review of Systems Constitutional: PRESENT: headache(s). ABSENT: fever(s) Eyes: ABSENT: visual disturbances Ears: ABSENT: hearing changes Nose, Mouth, and Throat: PRESENT: sore throat Cardiovascular: ABSENT: palpitations Respiratory: PRESENT: cough, dyspnea Gastrointestinal: ABSENT: constipation, nausea Genitourinary: PRESENT: other - frequency. ABSENT: dysuria Integumentary: ABSENT: rash Neurological: ABSENT: abnormal speech, numbness Endocrine: PRESENT: polyuria Hematologic/Lymphatic: ABSENT: easy bleeding Physical Exam Vital Signs: Temp Pulse Resp BP Pulse Ox 98.2 F 64 16 126/72 H 97 03/24/19 05:16 03/24/19 07:00 03/24/19 05:16 03/24/19 05:16 03/24/19 05:16 Intake & Output 03/23/19 03/24/19 03/25/19 06:59 06:59 06:59 Intake Total 500 522 Balance 500 522 Weight 56.1 kg 55 kg General appearance: PRESENT: mild distress, well-developed, well-nourished Exam: 69 year old female. Head exam: PRESENT: normocephalic Eye exam: PRESENT: EOMI Mouth exam: PRESENT: tongue midline Neck exam: ABSENT: lymphadenopathy, tenderness Respiratory exam: PRESENT: decreased breath sounds, other - Poor air movement throughout Cardiovascular exam: PRESENT: other - heart obscured. GI/Abdominal exam: PRESENT: soft. ABSENT: organolmegaly, tenderness Extremities exam: PRESENT: +1 edema - bilateral ankles. Musculoskeletal exam: PRESENT: normal inspection Neurological exam: PRESENT: alert, awake, oriented to person, oriented to place, oriented to time, oriented to situation Psychiatric exam: PRESENT: appropriate affect Skin exam: PRESENT: cyanosis Results Laboratory Results: 03/24/19 05:35 03/24/19 05:35 03/23/19 03/24/19 03/24/19 11:15 05:35 05:35 WBC 10.4 RBC 3.95 Hgb 10.1 L Hct 31.4 L MCV 80 MCH 25.6 L MCHC 32.3 RDW 16.8 H Plt Count 643 H Carbonic Acid 1.41 H HCO3/H2CO3 Ratio 24:1 ABG pH 7.49 H ABG pCO2 46.7 H ABG pO2 57.6 L ABG HCO3 35.0 H ABG O2 Saturation 91.8 L ABG Base Excess 10.5 FiO2 2L Sodium 139.4 Potassium 4.0 Chloride 99 Carbon Dioxide 38 H Anion Gap 2 L BUN 14 Creatinine 0.83 Est GFR ( Amer) > 60 Glucose 86 Calcium 8.3 L 03/16/19 03/16/19 03/17/19 16:50 21:51 04:27 Troponin I 0.030 0.085 0.078 03/17/19 13:40 Troponin I 0.035 Impressions: Lung Scan-VQ NM 03/16/19 18:13 IMPRESSION: Low probability for pulmonary embolus Large ventilatory defect involving the right middle lobe and in the right lung base consistent with pneumonia Chest CT 03/23/19 00:00 IMPRESSION: Suspected 5 cm hilar mass occluding the right middle lobe bronchi with postobstructive volume loss and consolidation. 1.7 x 1.1 cm precarinal lymph node Moderate bilateral pleural effusions Chest X-Ray 03/23/19 00:00 IMPRESSION: INTERVAL DEVELOPMENT OF BILATERAL PLEURAL EFFUSIONS. PERSISTENT AIRSPACE DISEASE IN THE RIGHT MIDDLE LOBE, DIFFICULT TO ENTIRELY VISUALIZE. Status: Image reviewed by me Assessment & Plan - Diagnosis (1) Lung mass Is this a current diagnosis for this admission?: Yes Plan: Agree with Tiffanie Rebolledo. Patient will need bronchoscopy with 5-8 large core biopsies of the mass. This is highly suspicious for lung cancer, but further treatment not possible without diagnosis. (2) Postobstructive pneumonia Is this a current diagnosis for this admission?: Yes Plan: On antibiotics, but without clearing the blockage, this may never fully resolve. (3) Acute respiratory failure with hypoxia Is this a current diagnosis for this admission?: Yes Plan: Continue O2, inhalers, steroids. Again, will need bronchoscopy. (4) Anemia Qualifiers: Anemia type: unspecified type Qualified Code(s): D64.9 - Anemia, unspecified Is this a current diagnosis for this admission?: Yes Plan: Mild anemia with reactive leukocytosis and thrombocytosis. This may be to the underlying medical problems, but I will also check iron/anemia panel to determine if there is another cause. No indication for transfusions at this time. - Plan Summary Plan Summary: I will be happy to follow her, but will await pathology report. I had an extensive discussion with her about findings of the CT scan and that biopsy will be needed to determine if this is cancer or not.
[2019-03-24] MEDS: GUAIFENESIN 600 MG TABLET.SA PO SCH ×2 (09:48→21:32)
[2019-03-24] MEDS: CITALOPRAM HYDROBROMIDE 20 MG TABLET PO SCH (09:48)
[2019-03-24] MEDS: OXYCODONE HCL IR 5 MG TABLET PO PRN ×2 (09:48→15:48)
[2019-03-24] MEDS: PREDNISONE 20 MG TABLET PO SCH (09:49)
[2019-03-24] MEDS: SOTALOL HCL 80 MG TABLET PO SCH ×2 (09:50→21:31)
[2019-03-24 11:31] LABS: ABSOLUTE RETICS # 0.106 10^6/uL (0.028-0.122); RETICULOCYTE COUNT (AUTO) 2.67 % (0.66-2.85)
[2019-03-24 11:35] LABS: IRON(TIBC) 39.2 ug/dL (37-170)
[2019-03-24 12:37] LABS: FOLATE 3.91 ng/mL (>2.76)
--- NOTE | 2019-03-24 15:46 | PDOC PROGRESS REPORT ---
Subjective Progress Note for:: 03/24/19 Subjective:: The patient is a 69-year-old female with a past medical of COPD, opiate dependent chronic pain, benzodiazepine dependence, atrial fibrillation, and heavy tobacco dependence who was admitted 03/16/2019 for acute respiratory failure secondary to presumed narcotic overdose and resultant aspiration pneumonia, A. fib RVR. Patient was seen on morning rounds. She was found resting in bed comfortably on supplemental oxygen via nasal cannula; she is not home O2 dependent. She does continue to be oxygen dependent with significant dyspnea and increased work of breathing with minimal activity; unable to ambulate to the restroom on supplemental oxygen without prolonged recovery time, tachypnea, retractions/accessory muscle use. She continues to have a productive cough. No significant change from yesterday. She is understandably anxious regarding her CT results and need for bronchoscopy/biopsy. She denies fever, chills, chest pain, palpitations, orthopnea, abdominal pain, nausea, vomiting, diarrhea. She has no other questions or concerns at this time. No concerns per nursing. Reason For Visit: PNEUMONIA,A FIB RVR,COPD,EXACERBATION,ACUTE Physical Exam Vital Signs: Temp Pulse Resp BP Pulse Ox 98.2 F 80 12 126/72 H 92 03/24/19 05:16 03/24/19 13:02 03/24/19 13:02 03/24/19 05:16 03/24/19 13:02 Intake & Output 03/23/19 03/24/19 03/25/19 06:59 06:59 06:59 Intake Total 500 522 Balance 500 522 Weight 56.1 kg 55 kg General appearance: PRESENT: no acute distress, cooperative, thin, well- developed, well-nourished Head exam: PRESENT: atraumatic, normocephalic Eye exam: PRESENT: conjunctiva pink, EOMI, PERRLA. ABSENT: scleral icterus Ear exam: PRESENT: normal external ear exam Mouth exam: PRESENT: moist, tongue midline Teeth exam: PRESENT: poor dentation Respiratory exam: PRESENT: decreased breath sounds - Right middle and lower hernandez, prolonged expiratory phas, rhonchi, symmetrical, unlabored, other - Supplemental oxygen by nasal cannula. ABSENT: rales, wheezes Cardiovascular exam: PRESENT: RRR - Currently in sinus rhythm, +S1, +S2. ABSENT: diastolic murmur, rubs, systolic murmur Pulses: PRESENT: normal dorsalis pedis pul Vascular exam: PRESENT: normal capillary refill GI/Abdominal exam: PRESENT: normal bowel sounds, soft. ABSENT: distended, guarding, mass, organolmegaly, rebound, tenderness Rectal exam: PRESENT: deferred Extremities exam: PRESENT: full ROM. ABSENT: calf tenderness, clubbing, pedal edema Neurological exam: PRESENT: alert, awake, oriented to person, oriented to place, oriented to time, oriented to situation, CN II-XII grossly intact. ABSENT: motor sensory deficit Psychiatric exam: PRESENT: anxious, appropriate affect, normal mood. ABSENT: homicidal ideation, suicidal ideation Skin exam: PRESENT: dry, intact, warm. ABSENT: cyanosis, rash Results Laboratory Results: 03/24/19 05:35 03/24/19 05:35 03/24/19 03/24/19 03/24/19 05:35 05:35 05:35 WBC 10.4 RBC 3.95 Hgb 10.1 L Hct 31.4 L MCV 80 MCH 25.6 L MCHC 32.3 RDW 16.8 H Plt Count 643 H Retic Count (auto) 2.67 Sodium 139.4 Potassium 4.0 Chloride 99 Carbon Dioxide 38 H Anion Gap 2 L BUN 14 Creatinine 0.83 Est GFR ( Amer) > 60 Glucose 86 Calcium 8.3 L Iron TIBC % Saturation Ferritin Vitamin B12 Folate 03/24/19 05:35 WBC RBC Hgb Hct MCV MCH MCHC RDW Plt Count Retic Count (auto) Sodium Potassium Chloride Carbon Dioxide Anion Gap BUN Creatinine Est GFR ( Amer) Glucose Calcium Iron 39.2 TIBC 220 L % Saturation 18 Ferritin 44.10 Vitamin B12 503.0 Folate 3.91 03/16/19 03/16/19 03/17/19 16:50 21:51 04:27 Troponin I 0.030 0.085 0.078 03/17/19 13:40 Troponin I 0.035 Impressions: Lung Scan-VQ NM 03/16/19 18:13 IMPRESSION: Low probability for pulmonary embolus Large ventilatory defect involving the right middle lobe and in the right lung base consistent with pneumonia Chest CT 03/23/19 00:00 IMPRESSION: Suspected 5 cm hilar mass occluding the right middle lobe bronchi with postobstructive volume loss and consolidation. 1.7 x 1.1 cm precarinal lymph node Moderate bilateral pleural effusions Chest X-Ray 03/23/19 00:00 IMPRESSION: INTERVAL DEVELOPMENT OF BILATERAL PLEURAL EFFUSIONS. PERSISTENT AIRSPACE DISEASE IN THE RIGHT MIDDLE LOBE, DIFFICULT TO ENTIRELY VISUALIZE. Assessment and Plan - Diagnosis (1) Right middle lobe pneumonia Qualifiers: Pneumonia type: due to unspecified organism Qualified Code(s): J18.9 - Pneumonia, unspecified organism Is this a current diagnosis for this admission?: Yes Plan: Persistent; postobstructive pneumonia. Blood cultures are negative at 5 days. Sputum culture showed Valarie only. Leukocytosis continues to improve. Chest CT, unfortunately, reveals a 5 cm hilar mass occluding the right middle lobe and resulting in postobstructive volume loss and consolidation. Patient was empirically placed on IV Zosyn. Day 10/27. Patient does continue to require supplemental oxygen, although her oxygen needs are also improved. Continue supplemental oxygen, nebulizer treatment, and pulmonary toilet as described below. Spoke with Dr. Schaffer today; he will be available to see the patient tomorrow for evaluation for bronchoscopy. Appreciate his assistance. (2) COPD exacerbation Is this a current diagnosis for this admission?: Yes Plan: Significantly improved. Patient is still requiring supplemental oxygen to maintain saturations while at rest. Supplemental oxygen as needed to maintain saturations greater than 89%. Continue scheduled and as needed nebulizer treatment. Holding Breo while on scheduled duo nebs. Mucinex twice daily. Tessalon Perles as needed. P.o. prednisone. Encourage pulmonary toilet and ambulation. (3) Atrial fibrillation with RVR Is this a current diagnosis for this admission?: Yes Plan: Resolved. Likely secondary to acute respiratory failure with hypoxia. Patient is now converted to normal sinus rhythm. Continue on sotalol 40 mg twice daily. Continuing once daily Xarelto for chronic anticoagulation; may need to transition to heparin drip in preparation for lung or lymph node biopsy. Will discuss with Dr. Schaffer tomorrow following his evaluation. (4) Valarie infection Is this a current diagnosis for this admission?: Yes Plan: Sputum culture positive for Valarie. Received Diflucan 100 mg p.o. x1. No further interventions at this time. (5) Hypotension (arterial) Qualifiers: Hypotension type: hypotension due to hypovolemia Qualified Code(s): I95.89 - Other hypotension; E86.1 - Hypovolemia Is this a current diagnosis for this admission?: Yes Plan: Resolved with IVF. Presors off X 48 hours. Not hypoadrenal. Now maintaining adequate blood pressures while on the low. (6) Opiate overdose Qualifiers: Encounter type: initial encounter Injury intent: accidental or unintentional Qualified Code(s): T40.601A - Poisoning by unspecified narcotics, accidental (unintentional), initial encounter Is this a current diagnosis for this admission?: Yes Plan: Patient indicates chronic low back pain; today reports right lower posterior chest wall pain. Fortunately, the patient is now found to have a right hilar mass, associated lymphadenopathy, and postobstructive lung volume collapse. This is concerning for possible malignancy. She will require additional imaging/biopsy for definitive diagnosis. Some concern now that the patient's back pain may be related to a cancer diagnosis. Have decreased p.o. Ativan. She is not prescribed this at home for regular use. Patient's oxycodone has been decreased from 20 mg every 6 to 15 mg every 6 hours. Recommend adjunctive therapy such as lidocaine patch, BenGay, heating pad, stretching, distraction. Follow-up with pain management provider upon discharge. (7) Hilar mass Is this a current diagnosis for this admission?: Yes Plan: Chest CT without contrast revealed a suspected 5 cm hilar mass occluding the right middle lobe bronchi with postobstructive volume loss and consolidation. She has an associated 1.7 x 1.1. He pericarinal lymph node and moderate bilateral pleural effusions. The patient does have a significant tobacco history. Oncology is consulted; appreciate Dr. Welsh's assistance. Discussed with Dr. Schaffer today; although he is not on service until 03/31, he will be able to evaluate the patient tomorrow for possible bronchoscopy and further guidance. (8) Postobstructive pneumonia Is this a current diagnosis for this admission?: Yes Plan: Management and evaluation as above. (9) Opiate dependence, continuous Is this a current diagnosis for this admission?: Yes Plan: As above. - Time Time Spent with patient: 35 or more minutes Medications reviewed and adjusted accordingly: Yes Anticipated discharge: Home
[2019-03-24] MEDS: DOCUSATE SODIUM 100 MG CAPSULE PO SCH ×2 (17:16→19:45)
[2019-03-24] MEDS: RIVAROXABAN 10 MG TABLET PO SCH (17:19)
[2019-03-24] MEDS: CETIRIZINE 10 MG TABLET PO SCH (17:23)
[2019-03-24] MEDS: FLUTICASONE NASAL SPRAY 50 MCG/SPRY 120 SPRAY/16 GM NASL SCH (17:23)
[2019-03-24] MEDS: BUTALB/ACETAMINOPHEN/CAFFEINE 1 TAB EACH PO PRN (21:30)
[2019-03-24] MEDS: DOXEPIN HCL 10 MG CAPSULE PO SCH (21:31)
[2019-03-25] MEDS: IPRATROPIUM/ALBUTEROL 0.5-2.5 MG/3 ML AMPUL NEB SCH ×4 (01:58→20:26)
[2019-03-25] MEDS: ALPRAZOLAM 0.5 MG TABLET PO PRN ×2 (04:03→23:06)
[2019-03-25] MEDS: ACETYLCYSTEINE 20% SOLN 800 MG/4 ML VIAL.NEB NEB SCH ×2 (07:36→20:26)
[2019-03-25 08:46] LABS: APPEARANCE,URINE CLEAR; BILIRUBIN,URINE NEGATIVE (NEGATIVE); COLOR,URINE COLORLESS; GLUCOSE, URINE NEGATIVE (NEGATIVE); KETONES,URINE NEGATIVE (NEGATIVE); PROTEIN,URINE NEGATIVE (NEGATIVE); URINE SPECIFIC GRAVITY 1.008; UROBILINOGEN,URINE NEGATIVE mg/dL (<2.0)
[2019-03-25] MEDS: PREDNISONE 20 MG TABLET PO SCH (09:56)
[2019-03-25] MEDS: GUAIFENESIN 600 MG TABLET.SA PO SCH ×2 (09:56→23:00)
[2019-03-25] MEDS: CITALOPRAM HYDROBROMIDE 20 MG TABLET PO SCH (09:57)
[2019-03-25] MEDS: CETIRIZINE 10 MG TABLET PO SCH (09:57)
[2019-03-25] MEDS: SOTALOL HCL 80 MG TABLET PO SCH ×2 (09:58→23:00)
[2019-03-25] MEDS: FLUTICASONE NASAL SPRAY 50 MCG/SPRY 120 SPRAY/16 GM NASL SCH (09:59)
[2019-03-25] MEDS: DOCUSATE SODIUM 100 MG CAPSULE PO SCH ×2 (09:59→18:17)
[2019-03-25] MEDS: OXYCODONE HCL IR 5 MG TABLET PO PRN ×2 (10:06→18:20)
[2019-03-25] MEDS ORDERED: HYDROCODONE BIT/HOMATROPINE SYRUP 5 ML UDCUP PO PRN (10:50)
[2019-03-25] MEDS ORDERED: FLUTICASONE NASAL SPRAY 50 MCG/SPRY 120 SPRAY/16 GM NASL SCH (13:00)
[2019-03-25] MEDS: RIVAROXABAN 10 MG TABLET PO SCH (18:20)
--- NOTE | 2019-03-25 19:29 | PDOC PROGRESS REPORT ---
Subjective Progress Note for:: 03/25/19 Subjective:: The patient is a 69-year-old female with a past medical of COPD, opiate dependent chronic pain, benzodiazepine dependence, atrial fibrillation, and heavy tobacco dependence who was admitted 03/16/2019 for acute respiratory failure secondary to presumed narcotic overdose and resultant aspiration pneumonia, A. fib RVR. Patient was seen on morning rounds. She was found resting in bed comfortably on supplemental oxygen via nasal cannula; she is not home O2 dependent. She does continue to be oxygen dependent with significant dyspnea and increased work of breathing with minimal activity; unable to ambulate to the restroom on supplemental oxygen without prolonged recovery time, tachypnea, retractions/accessory muscle use. She continues to have a productive cough. No significant change from yesterday. She is understandably anxious regarding her CT results and need for bronchoscopy/biopsy. Only new complaint is difficulty sleeping. She denies fever, chills, chest pain, palpitations, orthopnea, abdominal pain, nausea, vomiting, diarrhea. She has no other questions or concerns at this time. No concerns per nursing. Reason For Visit: PNEUMONIA,A FIB RVR,COPD,EXACERBATION,ACUTE Physical Exam Vital Signs: Temp Pulse Resp BP Pulse Ox 98.2 F 75 16 114/69 97 03/25/19 16:03 03/25/19 16:03 03/25/19 16:03 03/25/19 16:03 03/25/19 16:03 Intake & Output 03/24/19 03/25/19 03/26/19 06:59 06:59 06:59 Intake Total 522 550 Balance 522 550 Weight 55 kg 52.1 kg General appearance: PRESENT: no acute distress, cooperative, thin, well- developed, well-nourished Head exam: PRESENT: atraumatic, normocephalic Eye exam: PRESENT: conjunctiva pink, EOMI, PERRLA. ABSENT: scleral icterus Ear exam: PRESENT: normal external ear exam Mouth exam: PRESENT: moist, tongue midline Respiratory exam: PRESENT: decreased breath sounds - diminished right middle and lower hernandez, prolonged expiratory phas, rhonchi, symmetrical, unlabored. ABSENT: rales, wheezes Cardiovascular exam: PRESENT: RRR, +S1, +S2. ABSENT: diastolic murmur, rubs, systolic murmur Pulses: PRESENT: normal dorsalis pedis pul Vascular exam: PRESENT: normal capillary refill GI/Abdominal exam: PRESENT: normal bowel sounds, soft. ABSENT: distended, guarding, mass, organolmegaly, rebound, tenderness Rectal exam: PRESENT: deferred Extremities exam: PRESENT: full ROM. ABSENT: calf tenderness, clubbing, pedal edema Neurological exam: PRESENT: alert, awake, oriented to person, oriented to place, oriented to time, oriented to situation, CN II-XII grossly intact. ABSENT: motor sensory deficit Psychiatric exam: PRESENT: appropriate affect, normal mood. ABSENT: homicidal ideation, suicidal ideation Skin exam: PRESENT: dry, intact, warm. ABSENT: cyanosis, rash Results Laboratory Results: 03/24/19 05:35 03/24/19 05:35 03/25/19 08:00 Urine Color COLORLESS Urine Appearance CLEAR Urine pH 8.0 Ur Specific Ovid 1.008 Urine Protein NEGATIVE Urine Glucose (UA) NEGATIVE Urine Ketones NEGATIVE Urine Blood NEGATIVE 03/16/19 03/16/19 03/17/19 16:50 21:51 04:27 Troponin I 0.030 0.085 0.078 03/17/19 13:40 Troponin I 0.035 Impressions: Lung Scan-VQ NM 03/16/19 18:13 IMPRESSION: Low probability for pulmonary embolus Large ventilatory defect involving the right middle lobe and in the right lung base consistent with pneumonia Chest CT 03/23/19 00:00 IMPRESSION: Suspected 5 cm hilar mass occluding the right middle lobe bronchi with postobstructive volume loss and consolidation. 1.7 x 1.1 cm precarinal lymph node Moderate bilateral pleural effusions Chest X-Ray 03/23/19 00:00 IMPRESSION: INTERVAL DEVELOPMENT OF BILATERAL PLEURAL EFFUSIONS. PERSISTENT AIRSPACE DISEASE IN THE RIGHT MIDDLE LOBE, DIFFICULT TO ENTIRELY VISUALIZE. Assessment and Plan - Diagnosis (1) Right middle lobe pneumonia Qualifiers: Pneumonia type: due to unspecified organism Qualified Code(s): J18.9 - Pneumonia, unspecified organism Is this a current diagnosis for this admission?: Yes Plan: Persistent; postobstructive pneumonia. Blood cultures are negative at 5 days. Sputum culture showed Valarie only. Leukocytosis continues to improve. Chest CT, unfortunately, reveals a 5 cm hilar mass occluding the right middle lobe and resulting in postobstructive volume loss and consolidation. Patient was empirically placed on IV Zosyn. Day 11/27. Patient does continue to require supplemental oxygen, although her oxygen needs are also improved. Continue supplemental oxygen, nebulizer treatment, and pulmonary toilet as descr ibed below. Spoke with Dr. Schaffer; he will be make attempts to see the patient today for evaluation for bronchoscopy next week. Appreciate his assistance. (2) COPD exacerbation Is this a current diagnosis for this admission?: Yes Plan: Significantly improved. Patient is still requiring supplemental oxygen to maintain saturations while at rest. Supplemental oxygen as needed to maintain saturations greater than 89%. Continue scheduled and as needed nebulizer treatment. Holding Breo while on scheduled duo nebs. Twice daily Mucomyst nebulizer treatments. Mucinex twice daily. Tessalon Perles as needed. P.o. prednisone. Encourage pulmonary toilet and ambulation. (3) Atrial fibrillation with RVR Is this a current diagnosis for this admission?: Yes Plan: Resolved. Likely secondary to acute respiratory failure with hypoxia. Patient is now converted to normal sinus rhythm. Continue on sotalol 40 mg twice daily. Continuing once daily Xarelto for chronic anticoagulation; may need to transition to heparin drip in preparation for lung or lymph node biopsy. Will discuss with Dr. Schaffer following his evaluation. (4) Valarie infection Is this a current diagnosis for this admission?: Yes Plan: Sputum culture positive for Valarie. Received Diflucan 100 mg p.o. x1. No further interventions at this time. (5) Hypotension (arterial) Qualifiers: Hypotension type: hypotension due to hypovolemia Qualified Code(s): I95.89 - Other hypotension; E86.1 - Hypovolemia Is this a current diagnosis for this admission?: Yes Plan: Resolved with IVF. Presors off X 48 hours. Not hypoadrenal. Now maintaining adequate blood pressures while on the low. (6) Opiate overdose Qualifiers: Encounter type: initial encounter Injury intent: accidental or unintentional Qualified Code(s): T40.601A - Poisoning by unspecified narcotics, accidental (unintentional), initial encounter Is this a current diagnosis for this admission?: Yes Plan: Decrease suspicion for opiate overdose being the precipitating event leading to her acute respiratory failure and admission. It is likely that the patient had a sudden worsening of her respiratory status upon obstruction of the right middle and lower lobes due to the hilar mass. Patient indicates chronic low back pain; today reports right lower posterior chest wall pain. Unortunately, the patient is now found to have a right hilar mass, associated lymphadenopathy, and postobstructive lung volume collapse. This is concerning for possible malignancy. She will require additional imaging/biopsy for definitive diagnosis. Some concern now that the patient's back pain may be related to a cancer diagnosis. Continue low-dose Ativan for anxiety. Patient's oxycodone has been decreased from 20 mg every 6 to 15 mg every 6 hours. Recommend adjunctive therapy such as lidocaine patch, BenGay, heating pad, stretching, distraction. Follow-up with pain management provider upon discharge. (7) Hilar mass Is this a current diagnosis for this admission?: Yes Plan: Chest CT without contrast revealed a suspected 5 cm hilar mass occluding the right middle lobe bronchi with postobstructive volume loss and consolidation. She has an associated 1.7 x 1.1. He pericarinal lymph node and moderate bilateral pleural effusions. The patient does have a significant tobacco history. Oncology is consulted; appreciate Dr. Welsh's assistance. Discussed with Dr. Schaffer; although he is not on service until 03/31, he will evaluate the patient for possible bronchoscopy and further guidance. (8) Postobstructive pneumonia Is this a current diagnosis for this admission?: Yes Plan: Management and evaluation as above. (9) Opiate dependence, continuous Is this a current diagnosis for this admission?: Yes Plan: As above. - Time Time Spent with patient: 25-34 minutes Medications reviewed and adjusted accordingly: Yes Anticipated discharge: Home with Homehealth
[2019-03-25] MEDS: MELATONIN 5 MG TABLET PO SCH (23:00)
[2019-03-25] MEDS: DOXEPIN HCL 10 MG CAPSULE PO SCH (23:00)
[2019-03-26] MEDS: IPRATROPIUM/ALBUTEROL 0.5-2.5 MG/3 ML AMPUL NEB SCH ×4 (02:07→20:22)
[2019-03-26] MEDS: BUTALB/ACETAMINOPHEN/CAFFEINE 1 TAB EACH PO PRN ×2 (04:34→21:03)
[2019-03-26] MEDS: HYDROCODONE BIT/HOMATROPINE 5-1.5 MG TABLET PO PRN ×2 (08:27→16:24)
[2019-03-26] MEDS: OXYCODONE HCL IR 5 MG TABLET PO PRN ×2 (08:27→16:27)
[2019-03-26] MEDS: ACETYLCYSTEINE 20% SOLN 800 MG/4 ML VIAL.NEB NEB SCH ×2 (09:38→20:21)
[2019-03-26] MEDS: DOCUSATE SODIUM 100 MG CAPSULE PO SCH ×2 (09:56→17:37)
[2019-03-26] MEDS: PREDNISONE 20 MG TABLET PO SCH (10:18)
[2019-03-26] MEDS: SOTALOL HCL 80 MG TABLET PO SCH ×2 (10:18→21:04)
[2019-03-26] MEDS: GUAIFENESIN 600 MG TABLET.SA PO SCH ×2 (10:19→21:03)
[2019-03-26] MEDS: FLUTICASONE NASAL SPRAY 50 MCG/SPRY 120 SPRAY/16 GM NASL SCH (10:19)
[2019-03-26] MEDS: CITALOPRAM HYDROBROMIDE 20 MG TABLET PO SCH (10:19)
[2019-03-26] MEDS: CETIRIZINE 10 MG TABLET PO SCH (10:19)
[2019-03-26] MEDS: ALPRAZOLAM 0.5 MG TABLET PO PRN (13:26)
--- NOTE | 2019-03-26 13:27 | PDOC PROGRESS REPORT ---
Subjective Progress Note for:: 03/26/19 Subjective:: The patient is a 69-year-old female with a past medical of COPD, opiate dependent chronic pain, benzodiazepine dependence, atrial fibrillation, and heavy tobacco dependence who was admitted 03/16/2019 for acute respiratory failure secondary to presumed narcotic overdose and resultant aspiration pneumonia, A. fib RVR. Patient was seen on morning rounds. She was found resting in bed comfortably on supplemental oxygen via nasal cannula; she is not home O2 dependent. She does continue to be oxygen dependent with significant dyspnea and increased work of breathing with minimal activity; unable to ambulate to the restroom on supplemental oxygen without prolonged recovery time, tachypnea, retractions/accessory muscle use. SSlept well last night; cough improved today. She denies fever, chills, chest pain, palpitations, orthopnea, abdominal pain, nausea, vomiting, diarrhea. She has no other questions or concerns at this time. No concerns per nursing. Reason For Visit: PNEUMONIA,A FIB RVR,COPD,EXACERBATION,ACUTE Physical Exam Vital Signs: Temp Pulse Resp BP Pulse Ox 98.0 F 66 18 104/71 99 03/26/19 11:59 03/26/19 11:59 03/26/19 11:59 03/26/19 11:59 03/26/19 11:59 Intake & Output 03/25/19 03/26/19 03/27/19 06:59 06:59 06:59 Intake Total 550 222 Balance 550 222 Weight 52.1 kg 48.7 kg General appearance: PRESENT: no acute distress, cooperative, thin, well- developed Head exam: PRESENT: atraumatic, normocephalic Eye exam: PRESENT: conjunctiva pink, EOMI, PERRLA. ABSENT: scleral icterus Ear exam: PRESENT: normal external ear exam Mouth exam: PRESENT: moist, tongue midline Respiratory exam: PRESENT: clear to auscultation silvio, decreased breath sounds - Right middle and lower hernandez, prolonged expiratory phas, symmetrical, unlabored, other - supplemental oxygen via NC. ABSENT: rales, rhonchi, wheezes Cardiovascular exam: PRESENT: RRR. ABSENT: diastolic murmur, rubs, systolic murmur Pulses: PRESENT: normal dorsalis pedis pul Vascular exam: PRESENT: normal capillary refill GI/Abdominal exam: PRESENT: normal bowel sounds, soft. ABSENT: distended, guarding, mass, organolmegaly, rebound, tenderness Rectal exam: PRESENT: deferred Extremities exam: PRESENT: full ROM. ABSENT: calf tenderness, clubbing, pedal edema Neurological exam: PRESENT: alert, awake, oriented to person, oriented to place, oriented to time, oriented to situation, CN II-XII grossly intact. ABSENT: motor sensory deficit Psychiatric exam: PRESENT: appropriate affect, normal mood. ABSENT: homicidal ideation, suicidal ideation Skin exam: PRESENT: dry, intact, warm. ABSENT: cyanosis, rash Results Laboratory Results: 03/24/19 05:35 03/24/19 05:35 03/16/19 03/16/19 03/17/19 16:50 21:51 04:27 Troponin I 0.030 0.085 0.078 03/17/19 13:40 Troponin I 0.035 Impressions: Lung Scan-VQ NM 03/16/19 18:13 IMPRESSION: Low probability for pulmonary embolus Large ventilatory defect involving the right middle lobe and in the right lung base consistent with pneumonia Chest CT 03/23/19 00:00 IMPRESSION: Suspected 5 cm hilar mass occluding the right middle lobe bronchi with postobstructive volume loss and consolidation. 1.7 x 1.1 cm precarinal lymph node Moderate bilateral pleural effusions Chest X-Ray 03/23/19 00:00 IMPRESSION: INTERVAL DEVELOPMENT OF BILATERAL PLEURAL EFFUSIONS. PERSISTENT AIRSPACE DISEASE IN THE RIGHT MIDDLE LOBE, DIFFICULT TO ENTIRELY VISUALIZE. Assessment and Plan - Diagnosis (1) Right middle lobe pneumonia Qualifiers: Pneumonia type: due to unspecified organism Qualified Code(s): J18.9 - Pneumonia, unspecified organism Is this a current diagnosis for this admission?: Yes Plan: Persistent; postobstructive pneumonia. Blood cultures are negative at 5 days. Sputum culture showed Valarie only. Leukocytosis has resolved. Remains afebrile. Chest CT, unfortunately, reveals a 5 cm hilar mass occluding the right middle lobe and resulting in postobstructive volume loss and consolidation. Patient was empirically placed on IV Zosyn. Day 9/10. Patient does continue to require supplemental oxygen, although her oxygen needs are also improved. Continue supplemental oxygen, nebulizer treatment, and pulmonary toilet as described below. Spoke with Dr. Schaffer; he will see the patient for evaluation for bronchoscopy next week. Appreciate his assistance. (2) COPD exacerbation Is this a current diagnosis for this admission?: Yes Plan: Significantly improved. Patient is still requiring supplemental oxygen to maintain saturations while at rest. Supplemental oxygen as needed to maintain saturations greater than 89%. Continue scheduled and as needed nebulizer treatment. Holding Breo while on scheduled duo nebs. Twice daily Mucomyst nebulizer treatments. Mucinex twice daily. Tessalon Perles as needed. P.o. prednisone. Encourage pulmonary toilet and ambulation. (3) Atrial fibrillation with RVR Is this a current diagnosis for this admission?: Yes Plan: Resolved. Likely secondary to acute respiratory failure with hypoxia. Patient is now converted to normal sinus rhythm. Continue on sotalol 40 mg twice daily. Continuing once daily Xarelto for chronic anticoagulation; may need to transition to heparin drip in preparation for lung or lymph node biopsy. Will discuss with Dr. Schaffer following his evaluation. (4) Valarie infection Is this a current diagnosis for this admission?: Yes Plan: Sputum culture positive for Valarie. Received Diflucan 100 mg p.o. x1. No further interventions at this time. (5) Hypotension (arterial) Qualifiers: Hypotension type: hypotension due to hypovolemia Qualified Code(s): I95.89 - Other hypotension; E86.1 - Hypovolemia Is this a current diagnosis for this admission?: Yes Plan: Resolved with IVF. Presors off X 48 hours. Not hypoadrenal. Now maintaining adequate blood pressures while on the low side. Asymptomatic when ambulatory. (6) Opiate overdose Qualifiers: Encounter type: initial encounter Injury intent: accidental or unintentional Qualified Code(s): T40.601A - Poisoning by unspecified narcotics, accidental (unintentional), initial encounter Is this a current diagnosis for this admission?: Yes Plan: Low suspicion for opiate overdose being the precipitating event leading to her acute respiratory failure and admission. It is likely that the patient had a sudden worsening of her respiratory status upon obstruction of the right middle and lower lobes due to the hilar mass. Patient indicates chronic low back pain; today reports right lower posterior ch est wall pain. Unortunately, the patient is now found to have a right hilar mass, associated lymphadenopathy, and postobstructive lung volume collapse. This is concerning for possible malignancy. She will require additional imaging/biopsy for definitive diagnosis. Some concern now that the patient's back pain may be related to a cancer diagnosis. Continue low-dose Ativan for anxiety. Patient's oxycodone has been decreased from 20 mg every 6 to 15 mg every 6 hours. Recommend adjunctive therapy such as lidocaine patch, BenGay, heating pad, stretching, distraction. Follow-up with pain management provider upon discharge. (7) Hilar mass Is this a current diagnosis for this admission?: Yes Plan: Chest CT without contrast revealed a suspected 5 cm hilar mass occluding the right middle lobe bronchi with postobstructive volume loss and consolidation. She has an associated 1.7 x 1.1. He pericarinal lymph node and moderate bilateral pleural effusions. The patient does have a significant tobacco history. Oncology is consulted; appreciate Dr. Welsh's assistance. Discussed with Dr. Schaffer; although he is not on service until 03/31, he will evaluate the patient for possible bronchoscopy and further guidance. (8) Postobstructive pneumonia Is this a current diagnosis for this admission?: Yes Plan: Management and evaluation as above. (9) Opiate dependence, continuous Is this a current diagnosis for this admission?: Yes Plan: As above. - Time Time Spent with patient: 25-34 minutes Medications reviewed and adjusted accordingly: Yes Anticipated discharge: Home with Homehealth
[2019-03-26] MEDS: RIVAROXABAN 10 MG TABLET PO SCH (16:25)
[2019-03-26] MEDS: MELATONIN 5 MG TABLET PO SCH (21:04)
[2019-03-26] MEDS: DOXEPIN HCL 10 MG CAPSULE PO SCH (21:04)
[2019-03-27] MEDS: OXYCODONE HCL IR 5 MG TABLET PO PRN ×3 (00:06→18:19)
[2019-03-27] MEDS: IPRATROPIUM/ALBUTEROL 0.5-2.5 MG/3 ML AMPUL NEB SCH ×4 (02:15→17:01)
[2019-03-27] MEDS: HYDROCODONE BIT/HOMATROPINE 5-1.5 MG TABLET PO PRN (08:38)
[2019-03-27] MEDS: ACETYLCYSTEINE 20% SOLN 800 MG/4 ML VIAL.NEB NEB SCH (08:44)
[2019-03-27] MEDS: DOCUSATE SODIUM 100 MG CAPSULE PO SCH ×2 (10:18→18:20)
[2019-03-27] MEDS: CITALOPRAM HYDROBROMIDE 20 MG TABLET PO SCH (10:20)
[2019-03-27] MEDS: PREDNISONE 20 MG TABLET PO SCH (10:20)
[2019-03-27] MEDS: CETIRIZINE 10 MG TABLET PO SCH (10:20)
[2019-03-27] MEDS: GUAIFENESIN 600 MG TABLET.SA PO SCH ×2 (10:20→22:08)
[2019-03-27] MEDS: SOTALOL HCL 80 MG TABLET PO SCH ×2 (10:23→22:07)
[2019-03-27] MEDS: ALPRAZOLAM 0.5 MG TABLET PO PRN ×2 (10:23→22:07)
[2019-03-27] MEDS: FLUTICASONE NASAL SPRAY 50 MCG/SPRY 120 SPRAY/16 GM NASL SCH (10:25)
[2019-03-27] MEDS: BUTALB/ACETAMINOPHEN/CAFFEINE 1 TAB EACH PO PRN (13:57)
[2019-03-27] MEDS ORDERED: HEPARIN SOD (PORCINE) 1,000 UNIT/ML 10 ML VIAL IV ONE (14:23)
--- NOTE | 2019-03-27 14:25 | PDOC PROGRESS REPORT ---
Subjective Progress Note for:: 03/27/19 Subjective:: The patient is a 69-year-old female with a past medical of COPD, opiate dependent chronic pain, benzodiazepine dependence, atrial fibrillation, and heavy tobacco dependence who was admitted 03/16/2019 for acute respiratory failure secondary to presumed narcotic overdose and resultant aspiration pneumonia, A. fib RVR. Patient was seen on morning rounds. She was found resting in bed comfortably on supplemental oxygen via nasal cannula at 1 lpm; have decreased from 3 lpm. She is not home O2 dependent. She does continue to be oxygen dependent with dyspnea and increased work of breathing with minimal activity; though she reports this is slightly improved. Slept well last night; cough improved today. She denies fever, chills, chest pain, palpitations, orthopnea, abdominal pain, nausea, vomiting, diarrhea. She has no other questions or concerns at this time. Looking forward to meeting Dr. Schaffer and having bronchoscopy completed. Hopeful to d/c home within the next couple of days. No concerns per nursing. Reason For Visit: PNEUMONIA,A FIB RVR,COPD,EXACERBATION,ACUTE Physical Exam Vital Signs: Temp Pulse Resp BP Pulse Ox 97.5 F 67 16 107/64 93 03/27/19 11:51 03/27/19 13:56 03/27/19 13:56 03/27/19 11:51 03/27/19 13:56 Intake & Output 03/26/19 03/27/19 03/28/19 06:59 06:59 06:59 Intake Total 222 220 Balance 222 220 Weight 48.7 kg 54.3 kg General appearance: PRESENT: no acute distress, cooperative, thin, well- developed Head exam: PRESENT: atraumatic, normocephalic Eye exam: PRESENT: conjunctiva pink, EOMI, PERRLA. ABSENT: scleral icterus Ear exam: PRESENT: normal external ear exam Mouth exam: PRESENT: moist, tongue midline Respiratory exam: PRESENT: decreased breath sounds - right middle/lower hernandez, rhonchi - slight, symmetrical, unlabored, other - supplemental oxygen. ABSENT: rales, wheezes Cardiovascular exam: PRESENT: RRR. ABSENT: diastolic murmur, rubs, systolic murmur Pulses: PRESENT: normal dorsalis pedis pul Vascular exam: PRESENT: normal capillary refill GI/Abdominal exam: PRESENT: normal bowel sounds, soft. ABSENT: distended, guar ding, mass, organolmegaly, rebound, tenderness Rectal exam: PRESENT: deferred Extremities exam: PRESENT: full ROM. ABSENT: calf tenderness, clubbing, pedal edema Musculoskeletal exam: PRESENT: ambulatory Neurological exam: PRESENT: alert, awake, oriented to person, oriented to place, oriented to time, oriented to situation, CN II-XII grossly intact. ABSENT: motor sensory deficit Psychiatric exam: PRESENT: appropriate affect, normal mood. ABSENT: homicidal ideation, suicidal ideation Skin exam: PRESENT: dry, intact, warm. ABSENT: cyanosis, rash Results Laboratory Results: 03/24/19 05:35 03/24/19 05:35 03/16/19 03/16/19 03/17/19 16:50 21:51 04:27 Troponin I 0.030 0.085 0.078 03/17/19 13:40 Troponin I 0.035 Impressions: Lung Scan-VQ NM 03/16/19 18:13 IMPRESSION: Low probability for pulmonary embolus Large ventilatory defect involving the right middle lobe and in the right lung base consistent with pneumonia Chest CT 03/23/19 00:00 IMPRESSION: Suspected 5 cm hilar mass occluding the right middle lobe bronchi with postobstructive volume loss and consolidation. 1.7 x 1.1 cm precarinal lymph node Moderate bilateral pleural effusions Chest X-Ray 03/23/19 00:00 IMPRESSION: INTERVAL DEVELOPMENT OF BILATERAL PLEURAL EFFUSIONS. PERSISTENT AIRSPACE DISEASE IN THE RIGHT MIDDLE LOBE, DIFFICULT TO ENTIRELY VISUALIZE. Assessment and Plan - Diagnosis (1) Right middle lobe pneumonia Qualifiers: Pneumonia type: due to unspecified organism Qualified Code(s): J18.9 - Pn eumonia, unspecified organism Is this a current diagnosis for this admission?: Yes Plan: Improved; decreased oxygen requirement, cough, shortness of breath w/ improved lung sounds. Postobstructive pneumonia. Blood cultures are negative at 5 days. Sputum culture showed Valarie only. Leukocytosis has resolved. Remains afebrile. Chest CT, unfortunately, reveals a 5 cm hilar mass occluding the right middle lobe and resulting in postobstructive volume loss and consolidation. Patient was empirically placed on IV Zosyn. Day 01/27. Patient does continue to require supplemental oxygen, although her oxygen needs are decreased. Continue supplemental oxygen, nebulizer treatment, and pulmonary toilet as described below. Encouraged ambulation today. Spoke with Dr. Schaffer; he will see the patient for evaluation for bronchoscopy next week. Appreciate his assistance. (2) COPD exacerbation Is this a current diagnosis for this admission?: Yes Plan: Significantly improved. Patient is still requiring supplemental oxygen to maintain saturations while at rest. Supplemental oxygen as needed to maintain saturations greater than 89%. Continue scheduled and as needed nebulizer treatment. Decreased scheduled neb frequency. Holding Breo while on scheduled duo nebs. Twice daily Mucomyst nebulizer treatments. Mucinex twice daily. Tessalon Perles as needed. P.o. prednisone. Encourage pulmonary toilet and ambulation. (3) Atrial fibrillation with RVR Is this a current diagnosis for this admission?: Yes Plan: Resolved. Likely secondary to acute respiratory failure with hypoxia. Patient is now converted to normal sinus rhythm. Continue on sotalol 40 mg twice daily. Continuing once daily Xarelto for chronic anticoagulation; may need to transition to heparin drip in preparation for lung or lymph node biopsy. Will discuss with Dr. Schaffer following his evaluation. (4) Valarie infection Is this a current diagnosis for this admission?: Yes Plan: Sputum culture positive for Valarie. Received Diflucan 100 mg p.o. x1. No further interventions at this time. (5) Hypotension (arterial) Qualifiers: Hypotension type: hypotension due to hypovolemia Qualified Code(s): I95.89 - Other hypotension; E86.1 - Hypovolemia Is this a current diagnosis for this admission?: Yes Plan: Resolved with IVF. Presors off X 48 hours. Not hypoadrenal. Now maintaining adequate blood pressures while on the low side. Asymptomatic when ambulatory. (6) Opiate overdose Qualifiers: Encounter type: initial encounter Injury intent: accidental or unintenti onal Qualified Code(s): T40.601A - Poisoning by unspecified narcotics, ac cidental (unintentional), initial encounter Is this a current diagnosis for this admission?: No Plan: Low suspicion for opiate overdose being the precipitating event leading to her acute respiratory failure and admission. It is likely that the patient had a sudden worsening of her respiratory status upon obstruction of the right middle and lower lobes due to the hilar mass. Patient indicates chronic low back pain; today reports right lower posterior chest wall pain. Unortunately, the patient is now found to have a right hilar mass, associated lymphadenopathy, and postobstructive lung volume collapse. This is concerning for possible malignancy. She will require additional imaging/biopsy for definitive diagnosis. Some concern now that the patient's back pain may be related to a cancer diagnosis. Continue low-dose Ativan for anxiety. Patient's oxycodone has been decreased from 20 mg every 6 to 15 mg every 6 hours. Recommend adjunctive therapy such as lidocaine patch, BenGay, heating pad, stretching, distraction. Follow-up with pain management provider upon discharge. (7) Hilar mass Is this a current diagnosis for this admission?: Yes Plan: Chest CT without contrast revealed a suspected 5 cm hilar mass occluding the right middle lobe bronchi with postobstructive volume loss and consolidation. She has an associated 1.7 x 1.1. He pericarinal lymph node and moderate bilateral pleural effusions. The patient does have a significant tobacco history. Oncology is consulted; appreciate Dr. Welsh's assistance. Discussed with Dr. Schaffer; although he is not on service until 03/31, he will evaluate the patient for possible bronchoscopy and further guidance. Xarelto is placed on hold. Will start Heparin gtt in anticipation of bronchoscopy/biopsy. (8) Postobstructive pneumonia Is this a current diagnosis for this admission?: Yes Plan: Management and evaluation as above. (9) Opiate dependence, continuous Is this a current diagnosis for this admission?: Yes Plan: As above. - Time Time Spent with patient: 25-34 minutes Medications reviewed and adjusted accordingly: Yes Anticipated discharge: Home Within: within 72 hours
[2019-03-27 15:25] LABS: ABSOLUTE BASOPHILS # (AUTO) 0.1 10^3/uL (0.0-0.2); ABSOLUTE LYMPHOCYTES (AUTO) 0.9 10^3/uL (0.5-4.7); ABSOLUTE MONOCYTES (AUTO) 0.4 10^3/uL (0.1-1.4); ABSOLUTE NEUT (AUTO) 6.9 10^3/uL (1.7-8.2); BASOPHILS % (AUTO) 1.3 % (0-2); EOSINOPHILS % (AUTO) 0.6 % (0-6); HEMATOCRIT 31.5 % (36.0-47.0); HEMOGLOBIN 9.9 g/dL (12.0-15.5); LYMPHOCYTES % (AUTO) 10.6 % (13-45); MEAN CORPUSCULAR HEMOGLOBIN 25.7 pg (27.0-33.4); MEAN CORPUSCULAR HGB CONC 31.4 g/dL (32.0-36.0); MEAN CORPUSCULAR VOLUME 82 fl (80-97); MONOCYTES % (AUTO) 4.4 % (3-13); PLATELET COUNT 432 10^3/uL (150-450); RED BLOOD COUNT 3.83 10^6/uL (3.72-5.28); RED CELL DISTRIBUTION WIDTH 17.2 % (11.5-14.0); SEGMENTED NEUTROPHILS % (AUTO) 83.1 % (42-78); TOTAL CELLS COUNTED % (AUTO) 100 %; WHITE BLOOD COUNT 8.3 10^3/uL (4.0-10.5)
[2019-03-27 15:31] LABS: INTERNATIONAL RATION (INR) 0.94; PARTIAL THROMBOPLASTIN TIME 26.8 SEC (23.5-35.8); PROTHROMBIN TIME 12.6 SEC (11.4-15.4)
[2019-03-27] MEDS: HEPARIN SODIUM,PORCINE/D5W 25,000 UNIT/250 ML RTUINJ IV PRN (15:53)
[2019-03-27] MEDS: BENZONATATE 100 MG CAPSULE PO PRN (22:07)
[2019-03-27] MEDS: MELATONIN 5 MG TABLET PO SCH (22:08)
[2019-03-27] MEDS: DOXEPIN HCL 10 MG CAPSULE PO SCH (22:09)
[2019-03-27] MEDS: HEPARIN SOD (PORCINE) 1,000 UNIT/ML 10 ML VIAL IV PRN (22:52)
[2019-03-28] MEDS: IPRATROPIUM/ALBUTEROL 0.5-2.5 MG/3 ML AMPUL NEB SCH ×3 (00:19→16:44)
[2019-03-28] MEDS: OXYCODONE HCL IR 5 MG TABLET PO PRN ×2 (03:04→13:11)
[2019-03-28 05:10] LABS: HEMATOCRIT 29.7 % (36.0-47.0); HEMOGLOBIN 9.5 g/dL (12.0-15.5); MEAN CORPUSCULAR HEMOGLOBIN 25.6 pg (27.0-33.4); MEAN CORPUSCULAR VOLUME 80 fl (80-97); PLATELET COUNT 436 10^3/uL (150-450); RED BLOOD COUNT 3.71 10^6/uL (3.72-5.28); RED CELL DISTRIBUTION WIDTH 17.4 % (11.5-14.0); WHITE BLOOD COUNT 7.4 10^3/uL (4.0-10.5)
[2019-03-28 06:02] LABS: BLOOD UREA NITROGEN 14 mg/dL (7-20); CALCIUM 8.4 mg/dL (8.4-10.2); GLUCOSE 76 mg/dL (75-110); POTASSIUM 3.5 mmol/L (3.6-5.0)
[2019-03-28 06:07] LABS: CARBON DIOXIDE 33 mmol/L (22-30); CHLORIDE 104 mmol/L (98-107)
[2019-03-28 06:15] LABS: ANION GAP 4 (5-19)
[2019-03-28 08:02] LABS: APPEARANCE,URINE CLEAR; BILIRUBIN,URINE NEGATIVE (NEGATIVE); COLOR,URINE STRAW; GLUCOSE, URINE NEGATIVE (NEGATIVE); KETONES,URINE NEGATIVE (NEGATIVE); LEUKOCYTE ESTERASE,URINE NEGATIVE (NEGATIVE); NITRITE,URINE NEGATIVE (NEGATIVE); PROTEIN,URINE NEGATIVE (NEGATIVE); URINE SPECIFIC GRAVITY 1.008; UROBILINOGEN,URINE NEGATIVE mg/dL (<2.0)
[2019-03-28] MEDS ORDERED: POTASSIUM CHLORIDE 10 MEQ TABLET.ER PO ONE (08:03)
[2019-03-28] MEDS: CETIRIZINE 10 MG TABLET PO SCH (09:12)
[2019-03-28] MEDS: ALPRAZOLAM 0.5 MG TABLET PO PRN ×2 (09:12→18:26)
[2019-03-28] MEDS: PREDNISONE 20 MG TABLET PO SCH (09:12)
[2019-03-28] MEDS: DOCUSATE SODIUM 100 MG CAPSULE PO SCH ×2 (09:13→18:27)
[2019-03-28] MEDS: FLUTICASONE NASAL SPRAY 50 MCG/SPRY 120 SPRAY/16 GM NASL SCH (09:13)
[2019-03-28] MEDS: GUAIFENESIN 600 MG TABLET.SA PO SCH ×2 (09:13→21:26)
[2019-03-28] MEDS: BUTALB/ACETAMINOPHEN/CAFFEINE 1 TAB EACH PO PRN ×2 (09:17→21:25)
[2019-03-28] MEDS: CITALOPRAM HYDROBROMIDE 20 MG TABLET PO SCH (09:19)
[2019-03-28] MEDS: HYDROCODONE BIT/HOMATROPINE 5-1.5 MG TABLET PO PRN (09:19)
[2019-03-28] MEDS: SOTALOL HCL 80 MG TABLET PO SCH ×2 (09:19→21:27)
[2019-03-28] MEDS: HEPARIN SOD (PORCINE) 1,000 UNIT/ML 10 ML VIAL IV PRN ×2 (11:29→19:51)
[2019-03-28] MEDS: MAG HYDROX/AL HYDROX/SIMETH SUSP 30 ML UDCUP PO PRN (13:13)
--- NOTE | 2019-03-28 17:09 | PDOC PROGRESS REPORT ---
Subjective Progress Note for:: 03/28/19 Subjective:: The patient is a 69-year-old female with a past medical of COPD, opiate dependent chronic pain, benzodiazepine dependence, atrial fibrillation, and heavy tobacco dependence who was admitted 03/16/2019 for acute respiratory failure secondary to presumed narcotic overdose and resultant aspiration pneumonia, A. fib RVR. Patient was seen on morning rounds. She was found resting in bed, comfortably, on room air. She does continue to require oxygen when ambulatory. Slight productive cough today. Overall, she reports her symptoms are significantly improved. She denies fever, chills, chest pain, palpitations, orthopnea, abdominal pain, nausea, vomiting, diarrhea. She has no other questions or concerns at this time. No concerns per nursing. Reason For Visit: PNEUMONIA,A FIB RVR,COPD,EXACERBATION,ACUTE Physical Exam Vital Signs: Temp Pulse Resp BP Pulse Ox 97.9 F 64 16 109/66 92 03/28/19 12:19 03/28/19 14:00 03/28/19 12:19 03/28/19 12:19 03/28/19 12:19 Intake & Output 03/27/19 03/28/19 03/29/19 06:59 06:59 06:59 Intake Total 220 1186 96 Balance 220 1186 96 Weight 54.3 kg General appearance: PRESENT: no acute distress, cooperative, thin, well- developed Head exam: PRESENT: atraumatic, normocephalic Eye exam: PRESENT: conjunctiva pink, EOMI, PERRLA. ABSENT: scleral icterus Ear exam: PRESENT: normal external ear exam Mouth exam: PRESENT: moist, tongue midline Respiratory exam: PRESENT: prolonged expiratory phas, rhonchi, symmetrical, unlabored. ABSENT: rales, wheezes Cardiovascular exam: PRESENT: RRR, +S1, +S2. ABSENT: diastolic murmur, rubs, systolic murmur Vascular exam: PRESENT: normal capillary refill GI/Abdominal exam: PRESENT: normal bowel sounds, soft. ABSENT: distended, guarding, mass, organolmegaly, rebound, tenderness Rectal exam: PRESENT: deferred Extremities exam: PRESENT: full ROM. ABSENT: calf tenderness, clubbing, pedal edema Neurological exam: PRESENT: alert, awake, oriented to person, oriented to place, oriented to time, oriented to situation, CN II-XII grossly intact. ABSENT: m otor sensory deficit Psychiatric exam: PRESENT: appropriate affect, normal mood. ABSENT: homicidal ideation, suicidal ideation Skin exam: PRESENT: dry, intact, warm. ABSENT: cyanosis, rash Results Laboratory Results: 03/28/19 04:47 03/28/19 04:47 03/28/19 03/28/19 03/28/19 04:47 04:47 07:15 WBC 7.4 RBC 3.71 L Hgb 9.5 L Hct 29.7 L MCV 80 MCH 25.6 L MCHC 32.0 RDW 17.4 H Plt Count 436 Sodium 140.7 Potassium 3.5 L Chloride 104 Carbon Dioxide 33 H Anion Gap 4 L BUN 14 Creatinine 0.56 Est GFR ( Amer) > 60 Glucose 76 Calcium 8.4 Urine Color STRAW Urine Appearance CLEAR Urine pH 7.0 Ur Specific [place] 1.008 Urine Protein NEGATIVE Urine Glucose (UA) NEGATIVE Urine Ketones NEGATIVE Urine Blood NEGATIVE Urine Nitrite NEGATIVE Ur Leukocyte Esterase NEGATIVE Urine WBC (Auto) 1 Urine RBC (Auto) 0 03/16/19 03/16/19 03/17/19 16:50 21:51 04:27 Troponin I 0.030 0.085 0.078 03/17/19 13:40 Troponin I 0.035 Impressions: Lung Scan-VQ NM 03/16/19 18:13 IMPRESSION: Low probability for pulmonary embolus Large ventilatory defect involving the right middle lobe and in the right lung base consistent with pneumonia Chest CT 03/23/19 00:00 IMPRESSION: Suspected 5 cm hilar mass occluding the right middle lobe bronchi with postobstructive volume loss and consolidation. 1.7 x 1.1 cm precarinal lymph node Moderate bilateral pleural effusions Chest X-Ray 03/23/19 00:00 IMPRESSION: INTERVAL DEVELOPMENT OF BILATERAL PLEURAL EFFUSIONS. PERSISTENT AIRSPACE DISEASE IN THE RIGHT MIDDLE LOBE, DIFFICULT TO ENTIRELY VISUALIZE. Assessment and Plan - Diagnosis (1) Right middle lobe pneumonia Qualifiers: Pneumonia type: due to unspecified organism Qualified Code(s): J18.9 - Pneumonia, unspecified organism Is this a current diagnosis for this admission?: Yes Plan: Improved; decreased oxygen requirement, cough, shortness of breath w/ improved lung sounds. Postobstructive pneumonia. Blood cultures are negative at 5 days. Sputum culture showed Valarie only. Leukocytosis has resolved. Remains afebrile. Chest CT, unfortunately, reveals a 5 cm hilar mass occluding the right middle lobe and resulting in postobstructive volume loss and consolidation. Patient was empirically placed on IV Zosyn. Completed full course of therapy. Patient does continue to require supplemental oxygen with activity. Continue supplemental oxygen, nebulizer treatment, and pulmonary toilet as described below. Encouraged ambulation today. Dr. Schaffer is consulted; appreciate his assistance. (2) COPD exacerbation Is this a current diagnosis for this admission?: Yes Plan: Significantly improved. Patient is still requiring supplemental oxygen to maintain saturations while ambulatory. Supplemental oxygen as needed to maintain saturations greater than 89%. Continue scheduled and as needed nebulizer treatment. Holding Breo while on scheduled duo nebs. Twice daily Mucomyst nebulizer treatments. Mucinex twice daily. Tessalon Perles as needed. P.o. prednisone. Encourage pulmonary toilet and ambulation. Patient has a history of dysphagia related to esophageal stricture status post stretching. MBSS pending. (3) Atrial fibrillation with RVR Is this a current diagnosis for this admission?: Yes Plan: Resolved. Likely secondary to acute respiratory failure with hypoxia. Patient is now converted to normal sinus rhythm. Continue on sotalol 40 mg twice daily. Xarelto on hold. Have transitioned to heparin drip in preparation for lung or lymph node biopsy. Will discuss with Dr. Schaffer following his evaluation. (4) Valarie infection Is this a current diagnosis for this admission?: Yes Plan: Sputum culture positive for Valarie. Received Diflucan 100 mg p.o. x1. No further interventions at this time. (5) Hypotension (arterial) Qualifiers: Hypotension type: hypotension due to hypovolemia Qualified Code(s): I95.89 - Other hypotension; E86.1 - Hypovolemia Is this a current diagnosis for this admission?: Yes Plan: Resolved with IVF. Presors off X 48 hours. Not hypoadrenal. Now maintaining adequate blood pressures while on the low side. Asymptomatic when ambulatory. (6) Opiate overdose Qualifiers: Encounter type: initial encounter Injury intent: accidental or unintentional Qualified Code(s): T40.601A - Poisoning by unspecified narcotics, accidental (unintentional), initial encounter Is this a current diagnosis for this admission?: No Plan: Low suspicion for opiate overdose being the precipitating event leading to her acute respiratory failure and admission. It is likely that the patient had a sudden worsening of her respiratory status upon obstruction of the right middle and lower lobes due to the hilar mass. Patient indicates chronic low back pain; today reports right lower posterior chest wall pain. Unortunately, the patient is now found to have a right hilar mass, associated lymphadenopathy, and postobstructive lung volume collapse. This is concerning for possible malignancy. She will require additional imaging/biopsy for definitive diagnosis. Some concern now that the patient's back pain may be related to a cancer diagnosis. Continue low-dose Ativan for anxiety. Patient's oxycodone has been decreased from 20 mg every 6 to 15 mg every 6 hours. Recommend adjunctive therapy such as lidocaine patch, BenGay, heating pad, stretching, distraction. Follow-up with pain management provider upon discharge. (7) Hilar mass Is this a current diagnosis for this admission?: Yes Plan: Chest CT without contrast revealed a suspected 5 cm hilar mass occluding the right middle lobe bronchi with postobstructive volume loss and consolidation. She has an associated 1.7 x 1.1. He pericarinal lymph node and moderate bilateral pleural effusions. The patient does have a significant tobacco history. Oncology is consulted; appreciate Dr. Welsh's assistance. Discussed with Dr. Schaffer; although he is not on service until 03/31, he will evaluate the patient for possible bronchoscopy and further guidance. Xarelto is placed on hold. Will start Heparin gtt in anticipation of bronchoscopy/biopsy. (8) Postobstructive pneumonia Is this a current diagnosis for this admission?: Yes Plan: Chest physiotherapy. Remaining management and evaluation as above. (9) Opiate dependence, continuous Is this a current diagnosis for this admission?: Yes Plan: As above. - Time Time Spent with patient: 35 or more minutes Medications reviewed and adjusted accordingly: Yes Anticipated discharge: Home Within: within 48 hours
[2019-03-28] MEDS: HEPARIN SODIUM,PORCINE/D5W 25,000 UNIT/250 ML RTUINJ IV PRN (19:52)
[2019-03-28] MEDS: DOXEPIN HCL 10 MG CAPSULE PO SCH (21:25)
[2019-03-28] MEDS: MELATONIN 5 MG TABLET PO SCH (21:26)
[2019-03-29] MEDS: IPRATROPIUM/ALBUTEROL 0.5-2.5 MG/3 ML AMPUL NEB SCH ×3 (00:26→16:58)
[2019-03-29] MEDS: OXYCODONE HCL IR 5 MG TABLET PO PRN ×3 (02:31→22:18)
[2019-03-29 06:03] LABS: HEMATOCRIT 31.2 % (36.0-47.0); HEMOGLOBIN 9.9 g/dL (12.0-15.5); MEAN CORPUSCULAR HEMOGLOBIN 25.6 pg (27.0-33.4); MEAN CORPUSCULAR HGB CONC 31.7 g/dL (32.0-36.0); MEAN CORPUSCULAR VOLUME 81 fl (80-97); PLATELET COUNT 438 10^3/uL (150-450); RED BLOOD COUNT 3.87 10^6/uL (3.72-5.28); RED CELL DISTRIBUTION WIDTH 17.6 % (11.5-14.0); WHITE BLOOD COUNT 8.5 10^3/uL (4.0-10.5)
[2019-03-29 06:22] LABS: ANION GAP 6 (5-19); BLOOD UREA NITROGEN 19 mg/dL (7-20); CALCIUM 8.4 mg/dL (8.4-10.2); CARBON DIOXIDE 29 mmol/L (22-30); CHLORIDE 103 mmol/L (98-107); GLUCOSE 78 mg/dL (75-110)
--- NOTE | 2019-03-29 09:26 | ST Inp Modified Barium Swallow ---
Medical Diagnosis - Medical Diagnoses Medical Diagnosis Description & ICD-10 Code(s): pneumonia, dysphagia [place] [facility] [place] Date: 03/29/19 Date of Onset: 03/16/19 - admission date - History -: Medical - Per emr: patient admitted 03/16 with weakness and lethargy, productive cough x10 days. Chest x-ray showed right side pneumonia. Prior medical history includes COPD, opiate dependent chronic pain, anxiety, atrial fibrillation RVR, GERD. Patient also has history of dysphagia related to esopageal stricture status post stretching. Medications: Medications Reviewed Allergies: No known allergies - Subjective Current Nutritional Means: PO Current PO Diet: Regular Current Symptoms: Pneumonia Pain: Patient reports, 0/5 - Objective Assessment: Upright, Left Lateral - Food Trials Food Trials Used: Thin liquids, Pureed, Regular The Patient: Was Able to Self Feed - Assessment Labial Function: Within Normal Limits Lingual Function: Within Normal Limits Mandibular Function: Within Normal Limits Laryngeal Function: clear voicing - Pharyngeal Stage Initiation of Pharyngeal Stage: Normal - trigger in valleculae Decreased Laryngeal Elevation: No Reduced Velo-Pharyngeal Closure: no Reduced Tongue Base Retraction: No Pre-Swallowing Pooling in Valleculae: Mild Pre-Swallowing Pooling in Pyriforms: None Reduced Thyro-Hyiod Approximation: No Reduced Epiglottic Excursion: Yes - mild Reduced Pharyngeal Peristalsis: No Multiple Swallows With: Cleared w/ Dry Swallow Post Swallow Residuals in Valleculae: Moderate - inconsistent residue seen with pudding and cracker trials Post Swallow Residuals in Pyriforms: None Pahryngeal Stage Comments: Overall functional and effective pharyngeal phase swallowing. Mildly reduced epiglottic inversion seen, resulting in inconsistent residue in valleculae with solids, however, this residue cleared easily with second swallow. - Esophageal Stage Esophageal Stage Comments: Patient did report sensation of material remaining in the throat when fluoro revealed material had cleared the pharynx, possible esophageal component, especially given history of esophageal stricture with stretching. - Impression/Summary Laryngeal Penetration: No Tracheal Aspiration: no Patient Presents With: Normal swallow at eval - mild residue still places patient generally within normal limits Risk of Aspiration: Mild - due to underlying COPD Risk of Nutritional Compromise: None - Recommendations Solid Diet Recommendations: Regular Liquid Diet Recommendations: Thin Strict Aspitarion Precautions: Yes Dysphagia Therapy with HOSPITAL PLAN ADMINISTRATOR: No Recommended Techniques: Fully Upright During Meal, Small Bites and Sips Supervision: Independent - Time Total Time: 30 Total Timed Minutes: 30
[2019-03-29] MEDS: GUAIFENESIN 600 MG TABLET.SA PO SCH ×2 (09:45→22:19)
[2019-03-29] MEDS: PREDNISONE 20 MG TABLET PO SCH (09:45)
[2019-03-29] MEDS: CITALOPRAM HYDROBROMIDE 20 MG TABLET PO SCH (09:45)
[2019-03-29] MEDS: CETIRIZINE 10 MG TABLET PO SCH (09:46)
[2019-03-29] MEDS: SOTALOL HCL 80 MG TABLET PO SCH ×2 (09:47→22:19)
[2019-03-29] MEDS: DOCUSATE SODIUM 100 MG CAPSULE PO SCH ×2 (09:48→17:04)
[2019-03-29] MEDS: ALPRAZOLAM 0.5 MG TABLET PO PRN (09:57)
[2019-03-29] MEDS: BUTALB/ACETAMINOPHEN/CAFFEINE 1 TAB EACH PO PRN (09:57)
[2019-03-29] MEDS: FLUTICASONE NASAL SPRAY 50 MCG/SPRY 120 SPRAY/16 GM NASL SCH (10:00)
[2019-03-29] MEDS: HYDROCODONE BIT/HOMATROPINE 5-1.5 MG TABLET PO PRN (11:32)
--- NOTE | 2019-03-29 11:53 | RADIOLOGY REPORT (SQ) ---
EXAM DESCRIPTION: SHYLA SWALLOW COMPLETED DATE/TIME: 03/29/2019 9:31 am REASON FOR STUDY: dysphagia CVA, pneumonia COMPARISON: None. TECHNIQUE: Videofluoroscopic swallowing examination was performed in conjunction with speech patholo gy. Videofluoroscopic imaging was obtained and reviewed and these are the findings: RADIATION DOSE: 1 minutes 25 seconds of fluoroscopy was used. 1 images saved to PACS. LIMITATIONS: None FINDINGS: The patient was brought into the fluoro room and placed upright on a modified barium swall ow chair. The patient was then given multiple consistencies mixed with barium to swallow under live fluoroscopic video guidance. According to the Speech Pathologist there was no penetration or aspirat ion. Post swallow residual contrast within the vallecular. IMPRESSION: NO EVIDENCE OF PENETRATION OR ASPIRATION. PLEASE SEE SPEECH PATHOLOGIST REPORT FOR OTHER FINDINGS AND RECOMMENDATIONS. COMMENT: Quality ID [id number]: Final reports for procedures using fluoroscopy that document radiation exp osure indices, or exposure time and number of fluorographic images (if radiation exposure indices are not available) TECHNICAL DOCUMENTATION: JOB ID: [id number] [employer]- All Rights Reserved Reading location - IP/workstation name: [id number]
--- NOTE | 2019-03-29 12:19 | PDOC PROGRESS REPORT ---
Subjective Progress Note for:: 03/29/19 Reason For Visit: PNEUMONIA,A FIB RVR,COPD,EXACERBATION,ACUTE 03/29/2019 Patient admitted for pneumonia, CT scan of the chest shows a "mass" Physical Exam Vital Signs: Temp Pulse Resp BP Pulse Ox 97.4 F 64 18 136/78 H 96 03/29/19 08:01 03/29/19 08:25 03/29/19 08:25 03/29/19 08:01 03/29/19 08:25 Intake & Output 03/28/19 03/29/19 03/30/19 06:59 06:59 06:59 Intake Total 1186 1468 Balance 1186 1468 Weight 48 kg General appearance: PRESENT: no acute distress, other - Patient sitting up in bed complaining of being hungry Respiratory exam: PRESENT: clear to auscultation silvio. ABSENT: rales, rhonchi, wheezes Cardiovascular exam: PRESENT: RRR. ABSENT: diastolic murmur, rubs, systolic murmur Neurological exam: PRESENT: alert, awake, oriented to person, oriented to place, oriented to time, oriented to situation, CN II-XII grossly intact. ABSENT: motor sensory deficit Psychiatric exam: PRESENT: appropriate affect, normal mood. ABSENT: homicidal ideation, suicidal ideation Results Laboratory Results: 03/29/19 05:42 03/29/19 05:42 03/29/19 03/29/19 05:42 05:42 WBC 8.5 RBC 3.87 Hgb 9.9 L Hct 31.2 L MCV 81 MCH 25.6 L MCHC 31.7 L RDW 17.6 H Plt Count 438 Sodium 138.2 Potassium 4.0 Chloride 103 Carbon Dioxide 29 Anion Gap 6 BUN 19 Creatinine 0.55 Est GFR ( Amer) > 60 Glucose 78 Calcium 8.4 03/16/19 03/16/19 03/17/19 16:50 21:51 04:27 Troponin I 0.030 0.085 0.078 03/17/19 13:40 Troponin I 0.035 Impressions: Lung Scan-VQ NM 03/16/19 18:13 IMPRESSION: Low probability for pulmonary embolus Large ventilatory defect involving the right middle lobe and in the right lung base consistent with pneumonia Chest CT 03/23/19 00:00 IMPRESSION: Suspected 5 cm hilar mass occluding the right middle lobe bronchi with postobstructive volume loss and consolidation. 1.7 x 1.1 cm precarinal lymph node Moderate bilateral pleural effusions Chest X-Ray 03/23/19 00:00 IMPRESSION: INTERVAL DEVELOPMENT OF BILATERAL PLEURAL EFFUSIONS. PERSISTENT AIRSPACE DISEASE IN THE RIGHT MIDDLE LOBE, DIFFICULT TO ENTIRELY VISUALIZE. Modified Barium Swallow 03/29/19 00:00 IMPRESSION: NO EVIDENCE OF PENETRATION OR ASPIRATION. PLEASE SEE SPEECH PATHOLOGIST REPORT FOR OTHER FINDINGS AND RECOMMENDATIONS. Assessment and Plan - Diagnosis (1) Atrial fibrillation with RVR Is this a current diagnosis for this admission?: Yes (2) COPD exacerbation Is this a current diagnosis for this admission?: Yes (3) Lung mass Is this a current diagnosis for this admission?: Yes (4) Postobstructive pneumonia Is this a current diagnosis for this admission?: Yes - Plan Summary Summary: 03/29/2019 CT scan on 03/23/2019 shows a 5 cm hilar mass occluding the right middle lobe bronchi with postobstructive volume loss and consolidation. Moderate bilateral pleural effusions Scheduled for bronchoscopy either Thursday or more than likely Patient had a modified barium swallow today that showed no evidence of pene tration or aspiration, regular solid diet thin liquids continue strict aspiration precautions, sit fully upright during meals take small bites and sips, no supervision Patient's Xarelto currently on hold, however on heparin No IV antibiotics, no p.o. antibiotics. White blood cell count is normal, electrolytes are normal, urinalysis is negative Sputum cultures growing Valarie albicans blood cultures are negative x5 days - Time Time Spent with patient: 35 or more minutes
[2019-03-29] MEDS ORDERED: IPRATROPIUM/ALBUTEROL 0.5-2.5 MG/3 ML AMPUL NEB ONE (16:57)
[2019-03-29] MEDS: DOXEPIN HCL 10 MG CAPSULE PO SCH (22:18)
[2019-03-29] MEDS: MELATONIN 5 MG TABLET PO SCH (22:19)
[2019-03-29] MEDS: HEPARIN SODIUM,PORCINE/D5W 25,000 UNIT/250 ML RTUINJ IV PRN (22:37)
[2019-03-30] MEDS: IPRATROPIUM/ALBUTEROL 0.5-2.5 MG/3 ML AMPUL NEB SCH ×4 (00:25→23:52)
[2019-03-30] MEDS: MAG HYDROX/AL HYDROX/SIMETH SUSP 30 ML UDCUP PO PRN (02:42)
[2019-03-30] MEDS: BUTALB/ACETAMINOPHEN/CAFFEINE 1 TAB EACH PO PRN ×2 (02:43→16:46)
[2019-03-30 08:25] LABS: APPEARANCE,URINE CLEAR; BILIRUBIN,URINE NEGATIVE (NEGATIVE); COLOR,URINE STRAW; GLUCOSE, URINE NEGATIVE (NEGATIVE); KETONES,URINE NEGATIVE (NEGATIVE); LEUKOCYTE ESTERASE,URINE NEGATIVE (NEGATIVE); NITRITE,URINE NEGATIVE (NEGATIVE); PROTEIN,URINE NEGATIVE (NEGATIVE); URINE SPECIFIC GRAVITY 1.008; UROBILINOGEN,URINE NEGATIVE mg/dL (<2.0)
--- NOTE | 2019-03-30 09:16 | PDOC PROGRESS REPORT ---
Subjective Progress Note for:: 03/30/19 Subjective:: Patient feeling well today. She states that she has been off oxygen for 3 days. Her swallowing study yesterday went well. She is awaiting bronchoscope tomorrow. She states that everyone is treating her very well. She is still quite anxious about the results of biopsy, but states she will "deal with that when it comes." Reason For Visit: PNEUMONIA,A FIB RVR,COPD,EXACERBATION,ACUTE Physical Exam Vital Signs: Temp Pulse Resp BP Pulse Ox 97.9 F 52 L 18 113/71 96 03/29/19 15:20 03/30/19 08:36 03/30/19 08:36 03/29/19 15:20 03/30/19 08:36 Intake & Output 03/29/19 03/30/19 03/31/19 06:59 06:59 06:59 Intake Total 1468 1068 82 Balance 1468 1068 82 Weight 48 kg 47.8 kg General appearance: PRESENT: no acute distress, thin Head exam: PRESENT: normocephalic Eye exam: PRESENT: EOMI Respiratory exam: PRESENT: unlabored Neurological exam: PRESENT: alert, awake, oriented to person, oriented to place, oriented to time, oriented to situation Psychiatric exam: PRESENT: appropriate affect Skin exam: PRESENT: normal color Results Laboratory Results: 03/29/19 05:42 03/29/19 05:42 03/30/19 08:04 Urine Color STRAW Urine Appearance CLEAR Urine pH 7.0 Ur Specific [place] 1.008 Urine Protein NEGATIVE Urine Glucose (UA) NEGATIVE Urine Ketones NEGATIVE Urine Blood NEGATIVE Urine Nitrite NEGATIVE Ur Leukocyte Esterase NEGATIVE Urine WBC (Auto) 1 Urine RBC (Auto) 1 03/16/19 03/16/19 03/17/19 16:50 21:51 04:27 Troponin I 0.030 0.085 0.078 03/17/19 13:40 Troponin I 0.035 Impressions: Lung Scan-VQ NM 03/16/19 18:13 IMPRESSION: Low probability for pulmonary embolus Large ventilatory defect involving the right middle lobe and in the right lung base consistent with pneumonia Chest CT 03/23/19 00:00 IMPRESSION: Suspected 5 cm hilar mass occluding the right middle lobe bronchi with postobstructive volume loss and consolidation. 1.7 x 1.1 cm precarinal lymph node Moderate bilateral pleural effusions Chest X-Ray 03/23/19 00:00 IMPRESSION: INTERVAL DEVELOPMENT OF BILATERAL PLEURAL EFFUSIONS. PERSISTENT AIRSPACE DISEASE IN THE RIGHT MIDDLE LOBE, DIFFICULT TO ENTIRELY VISUALIZE. Modified Barium Swallow 03/29/19 00:00 IMPRESSION: NO EVIDENCE OF PENETRATION OR ASPIRATION. PLEASE SEE SPEECH PATHOLOGIST REPORT FOR OTHER FINDINGS AND RECOMMENDATIONS. Assessment & Plan - Diagnosis (1) Lung mass Is this a current diagnosis for this admission?: Yes Plan: Await bronchoscopy tomorrow. Hope to get 5-8 good Core samples for testing. I am happy to review results as outpatient in my office, when available if patient is discharged after procedure. (2) Postobstructive pneumonia Is this a current diagnosis for this admission?: Yes (3) Acute respiratory failure with hypoxia Is this a current diagnosis for this admission?: Yes Plan: Much improved. (4) Anemia Qualifiers: Anemia type: unspecified type Qualified Code(s): D64.9 - Anemia, unspecified Is this a current diagnosis for this admission?: Yes - Time Time Spent with patient: 15-24 minutes - Plan Summary Plan Summary: Please call if needed. I will see again once path report is available.
[2019-03-30] MEDS: HYDROCODONE BIT/HOMATROPINE 5-1.5 MG TABLET PO PRN (09:43)
[2019-03-30] MEDS: SOTALOL HCL 80 MG TABLET PO SCH ×2 (09:43→21:51)
[2019-03-30] MEDS: PREDNISONE 20 MG TABLET PO SCH (09:43)
[2019-03-30] MEDS: ALPRAZOLAM 0.5 MG TABLET PO PRN (09:44)
[2019-03-30] MEDS: CITALOPRAM HYDROBROMIDE 20 MG TABLET PO SCH (09:44)
[2019-03-30] MEDS: CETIRIZINE 10 MG TABLET PO SCH (09:44)
[2019-03-30] MEDS: DOCUSATE SODIUM 100 MG CAPSULE PO SCH ×2 (09:44→17:40)
[2019-03-30] MEDS: GUAIFENESIN 600 MG TABLET.SA PO SCH ×2 (09:44→21:52)
[2019-03-30] MEDS: FLUTICASONE NASAL SPRAY 50 MCG/SPRY 120 SPRAY/16 GM NASL SCH (09:54)
[2019-03-30] MEDS: OXYCODONE HCL IR 5 MG TABLET PO PRN (11:32)
--- NOTE | 2019-03-30 14:38 | PDOC PROGRESS REPORT ---
Subjective Progress Note for:: 03/30/19 Reason For Visit: PNEUMONIA,A FIB RVR,COPD,EXACERBATION,ACUTE 03/30/2019 Patient has bronchoscopy scheduled for sometime tomorrow. Anticipate discharging her the following day to follow up as an outpatient with oncology for the results Physical Exam Vital Signs: Temp Pulse Resp BP Pulse Ox 97.4 F 60 16 120/65 92 03/30/19 10:47 03/30/19 10:47 03/30/19 10:47 03/30/19 10:47 03/30/19 10:47 Intake & Output 03/29/19 03/30/19 03/31/19 06:59 06:59 06:59 Intake Total 1468 1068 1053 Balance 1468 1068 1053 Weight 48 kg 47.8 kg General appearance: PRESENT: no acute distress Respiratory exam: PRESENT: clear to auscultation silvio. ABSENT: rales, rhonchi, wheezes Cardiovascular exam: PRESENT: RRR. ABSENT: diastolic murmur, rubs, systolic murmur Neurological exam: PRESENT: alert, awake, oriented to person, oriented to place, oriented to time, oriented to situation, CN II-XII grossly intact. ABSENT: motor sensory deficit Psychiatric exam: PRESENT: anxious Results Laboratory Results: 03/29/19 05:42 03/29/19 05:42 03/30/19 08:04 Urine Color STRAW Urine Appearance CLEAR Urine pH 7.0 Ur Specific [place] 1.008 Urine Protein NEGATIVE Urine Glucose (UA) NEGATIVE Urine Ketones NEGATIVE Urine Blood NEGATIVE Urine Nitrite NEGATIVE Ur Leukocyte Esterase NEGATIVE Urine WBC (Auto) 1 Urine RBC (Auto) 1 03/16/19 03/16/19 03/17/19 16:50 21:51 04:27 Troponin I 0.030 0.085 0.078 03/17/19 13:40 Troponin I 0.035 Impressions: Lung Scan-VQ NM 03/16/19 18:13 IMPRESSION: Low probability for pulmonary embolus Large ventilatory defect involving the right middle lobe and in the right lung base consistent with pneumonia Chest CT 03/23/19 00:00 IMPRESSION: Suspected 5 cm hilar mass occluding the right middle lobe bronchi with postobstructive volume loss and consolidation. 1.7 x 1.1 cm precarinal lymph node Moderate bilateral pleural effusions Chest X-Ray 03/23/19 00:00 IMPRESSION: INTERVAL DEVELOPMENT OF BILATERAL PLEURAL EFFUSIONS. PERSISTENT AIRSPACE DISEASE IN THE RIGHT MIDDLE LOBE, DIFFICULT TO ENTIRELY VISUALIZE. Modified Barium Swallow 03/29/19 00:00 IMPRESSION: NO EVIDENCE OF PENETRATION OR ASPIRATION. PLEASE SEE SPEECH PATHOLOGIST REPORT FOR OTHER FINDINGS AND RECOMMENDATIONS. Assessment and Plan - Diagnosis (1) Atrial fibrillation with RVR Is this a current diagnosis for this admission?: Yes (2) COPD exacerbation Is this a current diagnosis for this admission?: Yes (3) Lung mass Is this a current diagnosis for this admission?: Yes (4) Postobstructive pneumonia Is this a current diagnosis for this admission?: Yes (5) Anxiety Is this a current diagnosis for this admission?: Yes (6) Chronic pain Is this a current diagnosis for this admission?: Yes - Plan Summary Summary: 03/29/2019 CT scan on 03/23/2019 shows a 5 cm hilar mass occluding the right middle lobe bronchi with postobstructive volume loss and consolidation. Moderate bilateral pleural effusions Scheduled for bronchoscopy either Thursday or more than likely Patient had a modified barium swallow today that showed no evidence of penetration or aspiration, regular solid diet thin liquids continue strict aspiration precautions, sit fully upright during meals take small bites and sips, no supervision Patient's Xarelto currently on hold, however on heparin No IV antibiotics, no p.o. antibiotics. White blood cell count is normal, electrolytes are normal, urinalysis is negative Sputum cultures growing Valarie albicans blood cultures are negative x5 days 03/30/2019 Vital signs are stable blood pressure 113/71 O2 sat 93% on room air Urinalysis negative blood cultures negative Patient missed her pain management appointment yesterday to being here in the hospital. He is trying to get her medications arranged. He has made another appointment with pain management for Thursday. If she cannot get this done I will be glad to write her a 3 or 4-day supply and probably something for her anxiety as needed while she awaits her pathology report I told patient I anticipate to discharge her on Thursday - Time Time Spent with patient: 25-34 minutes
[2019-03-30 15:14] LABS: INTERNATIONAL RATION (INR) 0.96; PROTHROMBIN TIME 12.8 SEC (11.4-15.4)
--- NOTE | 2019-03-30 15:19 | RADIOLOGY REPORT (SQ) ---
EXAM DESCRIPTION: CHEST 2 VIEWS COMPLETED DATE/TIME: 03/30/2019 3:03 pm REASON FOR STUDY: pneumonia COMPARISON: CT chest 03/23/2019 AP chest 03/23/2019, 11/13/2018 EXAM PARAMETERS: NUMBER OF VIEWS: two views TECHNIQUE: Digital Frontal and Lateral radiographic views of the chest acquired. RADIATION DOSE: NA LIMITATIONS: none FINDINGS: LUNGS AND PLEURA: There is right middle lobe collapse and consolidation. Bibasilar platelike atelectasis is present. No gross pleural effusions or pneumothorax. Lungs are hyperinflated from obstructive disease. MEDIASTINUM AND HILAR STRUCTURES: No masses or contour abnormalities. HEART AND VASCULAR STRUCTURES: Heart normal size. No evidence for failure. BONES: Osteoporotic, lower thoracic kyphoplasty HARDWARE: None in the chest. OTHER: No other significant finding. IMPRESSION: Right middle lobe collapse and consolidation likely from malignancy with endobronchial o bstruction given findings on CT exam 03/23/2019. TECHNICAL DOCUMENTATION: JOB ID: [id number] [employer]- All Rights Reserved Reading location - IP/workstation name: [email or web address]
[2019-03-30] MEDS: MELATONIN 5 MG TABLET PO SCH (21:51)
[2019-03-30] MEDS: DOXEPIN HCL 10 MG CAPSULE PO SCH (21:52)
[2019-03-31] MEDS: ALPRAZOLAM 0.5 MG TABLET PO PRN ×3 (00:07→17:13)
[2019-03-31] MEDS: HEPARIN SODIUM,PORCINE/D5W 25,000 UNIT/250 ML RTUINJ IV PRN (00:58)
[2019-03-31] MEDS: BUTALB/ACETAMINOPHEN/CAFFEINE 1 TAB EACH PO PRN (07:19)
[2019-03-31] MEDS: IPRATROPIUM/ALBUTEROL 0.5-2.5 MG/3 ML AMPUL NEB SCH ×2 (08:12→17:00)
[2019-03-31] MEDS: CETIRIZINE 10 MG TABLET PO SCH (10:05)
[2019-03-31] MEDS: PREDNISONE 20 MG TABLET PO SCH (10:07)
[2019-03-31] MEDS: GUAIFENESIN 600 MG TABLET.SA PO SCH ×2 (10:07→21:37)
[2019-03-31] MEDS: CITALOPRAM HYDROBROMIDE 20 MG TABLET PO SCH (10:07)
[2019-03-31] MEDS: SOTALOL HCL 80 MG TABLET PO SCH ×2 (10:09→21:37)
[2019-03-31] MEDS: DOCUSATE SODIUM 100 MG CAPSULE PO SCH ×2 (10:10→17:29)
[2019-03-31] MEDS: OXYCODONE HCL IR 5 MG TABLET PO PRN ×2 (10:32→16:41)
--- NOTE | 2019-03-31 12:38 | PDOC PROGRESS REPORT ---
Subjective Progress Note for:: 03/31/19 Reason For Visit: PNEUMONIA,A FIB RVR,COPD,EXACERBATION,ACUTE 03/31/2019 Patient was originally admitted for pneumonia and COPD exacerbation and was found to have a mass in her lungs by CT scan. Physical Exam Vital Signs: Temp Pulse Resp BP Pulse Ox 97.6 F 69 16 114/69 97 03/31/19 07:44 03/31/19 08:14 03/31/19 08:14 03/31/19 07:44 03/31/19 08:14 Intake & Output 03/30/19 03/31/19 04/01/19 06:59 06:59 06:59 Intake Total 1068 1800 Balance 1068 1800 Weight 47.8 kg 47.3 kg General appearance: PRESENT: no acute distress, other - Sitting up in bed slightly stressed out by her potential diagnosis Respiratory exam: PRESENT: clear to auscultation silvio. ABSENT: rales, rhonchi, wheezes Cardiovascular exam: PRESENT: RRR. ABSENT: diastolic murmur, rubs, systolic murmur Neurological exam: PRESENT: alert, awake, oriented to person, oriented to place, oriented to time, oriented to situation, CN II-XII grossly intact. ABSENT: motor sensory deficit Psychiatric exam: PRESENT: anxious, appropriate affect Results Laboratory Results: 03/29/19 05:42 03/29/19 05:42 03/16/19 03/16/19 03/17/19 16:50 21:51 04:27 Troponin I 0.030 0.085 0.078 03/17/19 13:40 Troponin I 0.035 Impressions: Lung Scan-VQ NM 03/16/19 18:13 IMPRESSION: Low probability for pulmonary embolus Large ventilatory defect involving the right middle lobe and in the right lung base consistent with pneumonia Chest CT 03/23/19 00:00 IMPRESSION: Suspected 5 cm hilar mass occluding the right middle lobe bronchi with postobstructive volume loss and consolidation. 1.7 x 1.1 cm precarinal lymph node Moderate bilateral pleural effusions Modified Barium Swallow 03/29/19 00:00 IMPRESSION: NO EVIDENCE OF PENETRATION OR ASPIRATION. PLEASE SEE SPEECH PATHOLOGIST REPORT FOR OTHER FINDINGS AND RECOMMENDATIONS. Chest X-Ray 03/30/19 00:00 IMPRESSION: Right middle lobe collapse and consolidation likely from malignancy with endobronchial obstruction given findings on CT exam 03/23/2019. Assessment and Plan - Diagnosis (1) Atrial fibrillation with RVR Is this a current diagnosis for this admission?: Yes (2) COPD exacerbation Is this a current diagnosis for this admission?: Yes (3) Lung mass Is this a current diagnosis for this admission?: Yes (4) Postobstructive pneumonia Is this a current diagnosis for this admission?: Yes (5) Anxiety Is this a current diagnosis for this admission?: Yes (6) Chronic pain Is this a current diagnosis for this admission?: Yes - Plan Summary Summary: 03/29/2019 CT scan on 03/23/2019 shows a 5 cm hilar mass occluding the right middle lobe bronchi with postobstructive volume loss and consolidation. Moderate bilateral pleural effusions Scheduled for bronchoscopy either Thursday or more than likely Patient had a modified barium swallow today that showed no evidence of penetration or aspiration, regular solid diet thin liquids continue strict aspiration precautions, sit fully upright during meals take small bites and sips, no supervision Patient's Xarelto currently on hold, however on heparin No IV antibiotics, no p.o. antibiotics. White blood cell count is normal, electrolytes are normal, urinalysis is negati ve Sputum cultures growing Valarie albicans blood cultures are negative x5 days 03/30/2019 Vital signs are stable blood pressure 113/71 O2 sat 93% on room air Urinalysis negative blood cultures negative Patient missed her pain management appointment yesterday to being here in the hospital. He is trying to get her medications arranged. He has made another appointment with pain management for Thursday. If she cannot get this done I will be glad to write her a 3 or 4-day supply and probably something for her anxiety as needed while she awaits her pathology report I told patient I anticipate to discharge her on Thursday03/31/2019 There is discussion in the chart that the patient was going to have a bronchoscopy today but due to scheduling errors and I believe miscommunications this was never scheduled. Spoken to the pressing machine operator today Dr. Schaffer and he states that this should be done the first week in April, patient should go home and spend time with her family over the holidays, to new antibiotics as needed which will help result in decrease of inflammation in the lung tissues. Also be better regulated concerning her bleeding times. We will set up an appointment with Dr. Curseen for the first week in April and will discharge the patient to home tomorrow morning. Discharge her home on a limited supply low-dose of Ativan 0.25 and enough of her OxyIR 515 mg every 6 hours to last her until Thursday when she sees her pain management physician. He unfortunately missed her appointment because she was admitted here in the hospital. Patient has not displayed any drug-seeking behavior to me since I have been caring for her for the last 4 days. - Time Time Spent with patient: 35 or more minutes
[2019-03-31] MEDS ORDERED: RIVAROXABAN 10 MG TABLET PO SCH (17:00)
[2019-03-31] MEDS: FLUTICASONE NASAL SPRAY 50 MCG/SPRY 120 SPRAY/16 GM NASL SCH (17:29)
[2019-03-31] MEDS: BENZONATATE 100 MG CAPSULE PO PRN (19:36)
[2019-03-31] MEDS: HYDROCODONE BIT/HOMATROPINE 5-1.5 MG TABLET PO PRN (19:36)
[2019-03-31] MEDS: DOXEPIN HCL 10 MG CAPSULE PO SCH (21:37)
[2019-03-31] MEDS: MELATONIN 5 MG TABLET PO SCH (21:37)
[2019-04-01] MEDS: IPRATROPIUM/ALBUTEROL 0.5-2.5 MG/3 ML AMPUL NEB SCH ×3 (00:28→16:18)
[2019-04-01] MEDS: BUTALB/ACETAMINOPHEN/CAFFEINE 1 TAB EACH PO PRN ×2 (02:59→11:10)
[2019-04-01] MEDS: HYDROCODONE BIT/HOMATROPINE 5-1.5 MG TABLET PO PRN (04:05)
[2019-04-01 06:47] LABS: APPEARANCE,URINE CLEAR; BILIRUBIN,URINE NEGATIVE (NEGATIVE); COLOR,URINE COLORLESS; GLUCOSE, URINE NEGATIVE (NEGATIVE); KETONES,URINE NEGATIVE (NEGATIVE); LEUKOCYTE ESTERASE,URINE TRACE (NEGATIVE); NITRITE,URINE NEGATIVE (NEGATIVE); PROTEIN,URINE NEGATIVE (NEGATIVE); UROBILINOGEN,URINE NEGATIVE mg/dL (<2.0)
[2019-04-01] MEDS: CETIRIZINE 10 MG TABLET PO SCH (09:04)
[2019-04-01] MEDS: PREDNISONE 20 MG TABLET PO SCH (09:04)
[2019-04-01] MEDS: DOCUSATE SODIUM 100 MG CAPSULE PO SCH (09:04)
[2019-04-01] MEDS: ALPRAZOLAM 0.5 MG TABLET PO PRN (09:04)
[2019-04-01] MEDS: GUAIFENESIN 600 MG TABLET.SA PO SCH (09:04)
[2019-04-01] MEDS: CITALOPRAM HYDROBROMIDE 20 MG TABLET PO SCH (09:04)
[2019-04-01] MEDS: SOTALOL HCL 80 MG TABLET PO SCH (09:06)
[2019-04-01] MEDS: OXYCODONE HCL IR 5 MG TABLET PO PRN (09:11)
--- NOTE | 2019-04-01 09:12 | PDOC PROGRESS REPORT ---
Subjective Progress Note for:: 04/01/19 Subjective:: Patient is anxious to go home today. She is off all oxygen and feeling better. Reason For Visit: PNEUMONIA,A FIB RVR,COPD,EXACERBATION,ACUTE Physical Exam Vital Signs: Temp Pulse Resp BP Pulse Ox 98.6 F 65 15 119/73 96 04/01/19 03:59 04/01/19 07:00 04/01/19 03:59 04/01/19 03:59 04/01/19 03:59 Intake & Output 03/31/19 04/01/19 04/02/19 06:59 06:59 06:59 Intake Total 1800 851 Balance 1800 851 Weight 47.3 kg 46.7 kg General appearance: PRESENT: no acute distress, thin Head exam: PRESENT: normocephalic Eye exam: PRESENT: EOMI Respiratory exam: PRESENT: unlabored Extremities exam: ABSENT: pedal edema Neurological exam: PRESENT: alert, awake Psychiatric exam: PRESENT: appropriate affect Skin exam: PRESENT: normal color Results Laboratory Results: 03/29/19 05:42 03/29/19 05:42 04/01/19 06:20 Urine Color COLORLESS Urine Appearance CLEAR Urine pH 6.0 Ur Specific [place] 1.010 Urine Protein NEGATIVE Urine Glucose (UA) NEGATIVE Urine Ketones NEGATIVE Urine Blood NEGATIVE Urine Nitrite NEGATIVE Ur Leukocyte Esterase TRACE H Urine WBC (Auto) 2 Urine RBC (Auto) 0 03/16/19 03/16/19 03/17/19 16:50 21:51 04:27 Troponin I 0.030 0.085 0.078 03/17/19 13:40 Troponin I 0.035 Impressions: Lung Scan-VQ NM 03/16/19 18:13 IMPRESSION: Low probability for pulmonary embolus Large ventilatory defect involving the right middle lobe and in the right lung base consistent with pneumonia Chest CT 03/23/19 00:00 IMPRESSION: Suspected 5 cm hilar mass occluding the right middle lobe bronchi with postobstructive volume loss and consolidation. 1.7 x 1.1 cm precarinal lymph node Moderate bilateral pleural effusions Modified Barium Swallow 03/29/19 00:00 IMPRESSION: NO EVIDENCE OF PENETRATION OR ASPIRATION. PLEASE SEE SPEECH PATHOLOGIST REPORT FOR OTHER FINDINGS AND RECOMMENDATIONS. Chest X-Ray 03/30/19 00:00 IMPRESSION: Right middle lobe collapse and consolidation likely from malignancy with endobronchial obstruction given findings on CT exam 03/23/2019. Assessment & Plan - Diagnosis (1) Lung mass Is this a current diagnosis for this admission?: Yes Plan: Patient still coughing up "tissue" and this worries her. Her bronchoscopy was now delayed until 3 weeks from now. I have spoken with Thoracic surgeons at [facility]. Initially, patient was very reluctant to see them, as she has PTSD after her daughter was hospitalized at [facility] for a month. She also has no transportation to [facility]. However, I have explained that if this is a lung cancer, as we suspect, she will need to see someone else, as we do not provide these services here in [facility]. She is agreeable to seeing them as outpatient. I will do my best to arrange. (2) Postobstructive pneumonia Is this a current diagnosis for this admission?: Yes Plan: This has improved. She is stable for discharge today. (3) Acute respiratory failure with hypoxia Is this a current diagnosis for this admission?: Yes Plan: Much improved. (4) Anemia Qualifiers: Anemia type: unspecified type Qualified Code(s): D64.9 - Anemia, unspecified Is this a current diagnosis for this admission?: Yes Plan: Stable. No indication for blood transfusion at this time. - Time Time Spent with patient: 25-34 minutes - Patient was discussed with Hospitalist Zeina as well as at [facility] in [place]. - Plan Summary Plan Summary: I will try to arrange follow-up appointments LEONARDO.
[2019-04-01] MEDS: FLUTICASONE NASAL SPRAY 50 MCG/SPRY 120 SPRAY/16 GM NASL SCH (10:56)
--- NOTE | 2019-04-01 11:44 | PDOC DISCHARGE SUMMARY ---
Impression - Admit/DC Date/PCP Admission Date/Primary Care Provider: 03/16/19 18:48 Discharge Date: 04/01/19 - Discharge Diagnosis (1) Atrial fibrillation with RVR Is this a current diagnosis for this admission?: Yes (2) COPD exacerbation Is this a current diagnosis for this admission?: Yes (3) Lung mass Is this a current diagnosis for this admission?: Yes (4) Postobstructive pneumonia Is this a current diagnosis for this admission?: Yes (5) Anxiety Is this a current diagnosis for this admission?: Yes (6) Chronic pain Is this a current diagnosis for this admission?: Yes - Assessment Summary: 03/29/2019 CT scan on 03/23/2019 shows a 5 cm hilar mass occluding the right middle lobe bronchi with postobstructive volume loss and consolidation. Moderate bilateral pleural effusions Scheduled for bronchoscopy either Thursday or more than likely Patient had a modified barium swallow today that showed no evidence of penetration or aspiration, regular solid diet thin liquids continue strict aspiration precautions, sit fully upright during meals take small bites and sips, no supervision Patient's Xarelto currently on hold, however on heparin No IV antibiotics, no p.o. antibiotics. White blood cell count is normal, electrolytes are normal, urinalysis is negative Sputum cultures growing Valarie albicans blood cultures are negative x5 days 03/30/2019 Vital signs are stable blood pressure 113/71 O2 sat 93% on room air Urinalysis negative blood cultures negative Patient missed her pain management appointment yesterday to being here in the hospital. He is trying to get her medications arranged. He has made another appointment with pain management for Thursday. If she cannot get this done I will be glad to write her a 3 or 4-day supply and probably something for her anxiety as needed while she awaits her pathology report I told patient I anticipate to discharge her on Thursday03/31/2019 There is discussion in the chart that the patient was going to have a bronchoscopy today but due to scheduling errors and I believe miscommunications this was never scheduled. Spoken to the manager switch today Dr. Schaffer and he states that this should be done the first week in April, patient should go home and spend time with her family over the holidays, continue antibiotics as needed which will help result in decrease of inflammation in the lung tissues. Also be better regulated concerning her bleeding times. We will set up an appointment with Dr. Schaffer for the first week in April and will discharge the patient to home tomorrow morning. Discharge her home on a limited supply low-dose of Xanax and enough of her OxyIR 515 mg every 6 hours to last her until Thursday when she sees her pain management physician. He unfortunately missed her appointment because she was admitted here in the hospital. Patient has not displayed any drug-seeking behavior to me since I have been caring for her for the last 4 days. Patient will also be discharged home on Xarelto for atrial fib 04/01/19 Patient discharged today to home. Dr. Welsh will try to set up referral to [facility] as outpatient next week. Patient is very emotional and anxious over her situation. - Additional Information Resuscitation Status: Full Code Discharge Diet: As Tolerated Discharge Activity: Balance Activity w/Rest Referrals: TUYET WELSH MD [ACTIVE STAFF] - (My office will call to schedule appointment. ) GIGI SCHAFFER MD [ACTIVE STAFF] - 04/27/19 1:30 pm MARCO PAREDES PA-C [[facility] MD] - 04/08/19 11:20 am Prescriptions: Sotalol HCl [Betapace 80 mg Tablet] 40 mg PO Q12 30 Days #60 tablet Prednisone [Deltasone 20 mg Tablet] 20 mg PO DAILY 30 Days #30 tablet Butalb/Acetaminophen/Caffeine [Fioricet (50-325-40 mg) Tablet] 1 tab PO TID 5 Days #15 each Melatonin [Melatonin 5 mg Tablet] 10 mg PO QHS 30 Days #60 tablet Oxycodone HCl [Oxy-Ir 5 mg Tablet] 15 mg PO Q6HP PRN 5 Days #20 PRN Reason: For Pain Alprazolam [Xanax 0.5 mg Tablet] 0.25 mg PO Q8HP PRN 5 Days #15 tablet PRN Reason: Rivaroxaban [Xarelto 10 mg Tablet] 20 mg PO WSUPPER 30 Days #30 tablet Home Medications: Diltiazem HCl [Cartia Xt] 180 mg PO Q12 03/28/18 Gabapentin [Neurontin 300 mg Capsule] 300 mg PO Q8 03/28/18 Fluticasone/Salmeterol [Advair 250-50 Diskus 14 Dose/Diskus] 1 inh IH Q12 inhaler 12/15/18 Ipratropium/Albuterol Sulfate [Duoneb 3 ml Ampul] 3 ml NEB RTQ6HP PRN 30 Days #100 vial.neb 04/03/18 Albuterol Sulfate [Proair HFA Inhalation Aerosol 8.5 gm MDI] 2 puff IH Q4HP PRN 11/13/18 Citalopram Hydrobromide [Celexa 20 mg Tablet] 20 mg PO DAILY 11/13/18 Cyclobenzaprine HCl [Flexeril 10 mg Tablet] 10 mg PO HSP PRN 11/13/18 Doxepin HCl [Sinequan 10 mg Capsule] 20 mg PO QHS 11/13/18 Alprazolam [Xanax 0.5 mg Tablet] 0.25 mg PO Q8HP PRN 5 Days #15 tablet 04/01/19 Butalb/Acetaminophen/Caffeine [Fioricet (50-325-40 mg) Tablet] 1 tab PO TID 5 Days #15 each 04/01/19 Butalb/Acetaminophen/Caffeine [Fioricet (50-325-40 mg) Tablet] 2 tab PO Q8HP PRN each 04/01/19 Citalopram Hydrobromide [Celexa 20 mg Tablet] 20 mg PO DAILY tablet 04/01/19 Doxepin HCl [Sinequan 10 mg Capsule] 10 mg PO QHS capsule 04/01/19 Melatonin [Melatonin 5 mg Tablet] 10 mg PO QHS 30 Days #60 tablet 04/01/19 Oxycodone HCl [Oxy-Ir 5 mg Tablet] 15 mg PO Q6HP PRN 5 Days #20 04/01/19 Prednisone [Deltasone 20 mg Tablet] 20 mg PO DAILY 30 Days #30 tablet 04/01/19 Rivaroxaban [Xarelto 10 mg Tablet] 10 mg PO WSUPPER tablet 04/01/19 Rivaroxaban [Xarelto 10 mg Tablet] 20 mg PO WSUPPER 30 Days #30 tablet 04/01/19 Sotalol HCl [Betapace 80 mg Tablet] 40 mg PO Q12 30 Days #60 tablet 04/01/19 History of Present Illiness History of Present Illness: RACHELLE MARY is a 69 year old female Physical Exam Vital Signs: Temp Pulse Resp BP Pulse Ox 97.5 F 68 20 122/73 96 12/13/19 07:33 04/01/19 08:12 04/01/19 08:12 04/01/19 07:33 04/01/19 08:12 Intake & Output 03/31/19 04/01/19 04/02/19 06:59 06:59 06:59 Intake Total 1800 851 240 Balance 1800 851 240 Weight 47.3 kg 46.7 kg Results Laboratory Results: WBC 8.5 10^3/uL (4.0-10.5) 03/29/19 05:42 RBC 3.87 10^6/uL (3.72-5.28) 03/29/19 05:42 Hgb 9.9 g/dL (12.0-15.5) L 03/29/19 05:42 Hct 31.2 % (36.0-47.0) L 03/29/19 05:42 MCV 81 fl (80-97) 03/29/19 05:42 MCH 25.6 pg (27.0-33.4) L 03/29/19 05:42 MCHC 31.7 g/dL (32.0-36.0) L 03/29/19 05:42 RDW 17.6 % (11.5-14.0) H 03/29/19 05:42 Plt Count 438 10^3/uL (150-450) 03/29/19 05:42 Lymph % (Auto) 10.6 % (13-45) L 03/27/19 15:10 Rogers % (Auto) 4.4 % (3-13) 03/27/19 15:10 Eos % (Auto) 0.6 % (0-6) 03/27/19 15:10 Baso % (Auto) 1.3 % (0-2) 03/27/19 15:10 Reticulocyte # 0.106 10^6/uL (0.028-0.122) 03/24/19 05:35 Absolute Neuts (auto) 6.9 10^3/uL (1.7-8.2) 03/27/19 15:10 Absolute Lymphs (auto) 0.9 10^3/uL (0.5-4.7) 03/27/19 15:10 Absolute Monos (auto) 0.4 10^3/uL (0.1-1.4) 03/27/19 15:10 Absolute Eos (auto) 0.0 10^3/uL (0.0-0.6) 03/27/19 15:10 Absolute Basos (auto) 0.1 10^3/uL (0.0-0.2) 03/27/19 15:10 Total Counted 100 03/19/19 05:39 Seg Neutrophils % 83.1 % (42-78) H 03/27/19 15:10 Seg Neuts % (Manual) 96 % (42-78) H 03/19/19 05:39 Lymphocytes % (Manual) 1 % (13-45) L 03/19/19 05:39 Monocytes % (Manual) 3 % (3-13) 03/19/19 05:39 Eosinophils % (Manual) 0 % (0-6) 03/19/19 05:39 Basophils % (Manual) 0 % (0-2) 03/19/19 05:39 Abs Neuts (Manual) 28.7 10^3/uL (1.7-8.2) H 03/19/19 05:39 Abs Lymphs (Manual) 0.3 10^3/uL (0.5-4.7) L 03/19/19 05:39 Abs Monocytes (Manual) 0.9 10^3/uL (0.1-1.4) 03/19/19 05:39 Absolute Eos (Manual) 0.0 10^3/uL (0.0-0.6) 03/19/19 05:39 Abs Basophils (Manual) 0.0 10^3/uL (0.0-0.2) 03/19/19 05:39 Toxic Granulation 1+ 03/17/19 04:27 Toxic Vacuolation PRESENT 03/18/19 04:20 Platelet Comment INCREASED 03/19/19 05:39 Hypochromasia SLIGHT 03/17/19 04:27 Poikilocytosis SLIGHT 03/17/19 04:27 Anisocytosis 1+ 03/19/19 05:39 Tear Drop Cells SLIGHT 03/19/19 05:39 Ovalocytes SLIGHT 03/19/19 05:39 Schistocytes SLIGHT 03/17/19 04:27 Retic Count (auto) 2.67 % (0.66-2.85) 03/24/19 05:35 PT 12.8 SEC (11.4-15.4) 03/30/19 14:52 INR 0.96 03/30/19 14:52 APTT 75.7 SEC (23.5-35.8) H 03/31/19 06:33 Carbonic Acid 1.41 mmol/L (1.05-1.35) H 03/23/19 11:15 HCO3/H2CO3 Ratio 24:1 03/23/19 11:15 ABG pH 7.49 (7.35-7.45) H 03/23/19 11:15 ABG pCO2 46.7 mmHg (35-45) H 03/23/19 11:15 ABG pO2 57.6 mmHg (80-100) L 03/23/19 11:15 ABG HCO3 35.0 mmol/L (20-24) H 03/23/19 11:15 ABG Total CO2 36.5 mmol/L (21-25) H 03/23/19 11:15 ABG O2 Saturation 91.8 % (94-98) L 03/23/19 11:15 ABG Base Excess 10.5 mmol/L 03/23/19 11:15 FiO2 2L 03/23/19 11:15 Sodium 138.2 mmol/L (137-145) 03/29/19 05:42 Potassium 4.0 mmol/L (3.6-5.0) 03/29/19 05:42 Chloride 103 mmol/L (98-107) 03/29/19 05:42 Carbon Dioxide 29 mmol/L (22-30) 03/29/19 05:42 Anion Gap 6 (5-19) 03/29/19 05:42 BUN 19 mg/dL (7-20) 03/29/19 05:42 Creatinine 0.55 mg/dL (0.52-1.25) 03/29/19 05:42 Est GFR ( Amer) > 60 (>60) 03/29/19 05:42 Est GFR (MDRD) Non-Af > 60 (>60) 03/29/19 05:42 Glucose 78 mg/dL (75-110) 03/29/19 05:42 POC Glucose 115 mg/dL (70-110) H 03/26/19 21:01 Lactic Acid 1.3 mmol/L (0.7-2.1) 03/19/19 08:20 Lactic Acid (Sepsis) 1.4 mmol/L (0.7-2.1) 03/16/19 16:50 Calcium 8.4 mg/dL (8.4-10.2) 03/29/19 05:42 Magnesium 1.9 mg/dL (1.6-2.3) 03/19/19 05:39 Iron 39.2 ug/dL (37-170) 03/24/19 05:35 TIBC 220 ug/dL (250-450) L 03/24/19 05:35 % Saturation 18 % 03/24/19 05:35 Ferritin 44.10 ng/mL (11.1-264.0) 03/24/19 05:35 Total Bilirubin 0.2 mg/dL (0.2-1.3) 03/17/19 04:27 Direct Bilirubin 0.1 mg/dL (0.0-0.4) 03/17/19 04:27 Neonat Total Bilirubin Not Reportable 03/17/19 04:27 Neonat Direct Bilirubin Not Reportable 03/17/19 04:27 Neonat Indirect Bili Not Reportable 03/17/19 04:27 AST 35 U/L (14-36) 03/17/19 04:27 ALT 14 U/L (<35) 03/17/19 04:27 Alkaline Phosphatase 118 U/L (38-126) 03/17/19 04:27 Troponin I 0.035 ng/mL 03/17/19 13:40 Total Protein 5.9 g/dL (6.3-8.2) L 03/17/19 04:27 Albumin 2.8 g/dL (3.5-5.0) L 03/17/19 04:27 Vitamin B12 503.0 pg/mL (239-931) 03/24/19 05:35 Folate 3.91 ng/mL (>2.76) 03/24/19 05:35 TSH 0.90 uIU/mL (0.47-4.68) 03/16/19 16:50 Random Cortisol 34.00 ug/dL (None Established) 03/17/19 07:52 Urine Color COLORLESS 04/01/19 06:20 Urine Appearance CLEAR 04/01/19 06:20 Urine pH 6.0 (5.0-9.0) 04/01/19 06:20 Ur Specific [place] 1.010 04/01/19 06:20 Urine Protein NEGATIVE mg/dL (NEGATIVE) 04/01/19 06:20 Urine Glucose (UA) NEGATIVE mg/dL (NEGATIVE) 04/01/19 06:20 Urine Ketones NEGATIVE mg/dL (NEGATIVE) 04/01/19 06:20 Urine Blood NEGATIVE (NEGATIVE) 04/01/19 06:20 Urine Nitrite NEGATIVE (NEGATIVE) 04/01/19 06:20 Urine Nitrite (Reflex) NEGATIVE (NEGATIVE) 03/25/19 08:00 Urine Bilirubin NEGATIVE (NEGATIVE) 04/01/19 06:20 Urine Urobilinogen NEGATIVE mg/dL (<2.0) 04/01/19 06:20 Ur Leukocyte Esterase TRACE (NEGATIVE) H 04/01/19 06:20 Leukocyte Esterase Rfl NEGATIVE (NEGATIVE) 03/25/19 08:00 Urine WBC (Auto) 2 /HPF 04/01/19 06:20 Urine RBC (Auto) 0 /HPF 04/01/19 06:20 Squamous Epi Cells Auto <1 /HPF 03/28/19 07:15 Urine Mucus (Auto) RARE /LPF 04/01/19 06:20 Urine Ascorbic Acid NEGATIVE (NEGATIVE) 04/01/19 06:20 Slides for Path Review PATHOLOGIST REVIEWED 03/18/19 04:20 03/16/19 03/16/19 03/17/19 16:50 21:51 04:27 Troponin I 0.030 0.085 0.078 03/17/19 13:40 Troponin I 0.035 Impressions: Chest X-Ray 03/16/19 16:48 IMPRESSION: Right middle lobe pneumonia. Lung Scan-VQ NM 03/16/19 18:13 IMPRESSION: Low probability for pulmonary embolus Large ventilatory defect involving the right middle lobe and in the right lung base consistent with pneumonia Chest CT 03/23/19 00:00 IMPRESSION: Suspected 5 cm hilar mass occluding the right middle lobe bronchi with postobstructive volume loss and consolidation. 1.7 x 1.1 cm precarinal lymph node Moderate bilateral pleural effusions Chest X-Ray 03/23/19 00:00 IMPRESSION: INTERVAL DEVELOPMENT OF BILATERAL PLEURAL EFFUSIONS. PERSISTENT AIRSPACE DISEASE IN THE RIGHT MIDDLE LOBE, DIFFICULT TO ENTIRELY VISUALIZE. Modified Barium Swallow 03/29/19 00:00 IMPRESSION: NO EVIDENCE OF PENETRATION OR ASPIRATION. PLEASE SEE SPEECH PATHOLOGIST REPORT FOR OTHER FINDINGS AND RECOMMENDATIONS. Chest X-Ray 03/30/19 00:00 IMPRESSION: Right middle lobe collapse and consolidation likely from malignancy with endobronchial obstruction given findings on CT exam 03/23/2019. Stroke Is this a Stroke Patient?: No Acute Heart Failure - Is this a Heart Failure Patient?: No
[2019-04-01 17:02] VITALS: BP 97/62
== END 2019-04-01 17:30 | disposition home or self-care (01) | DRG 193 ==
LOC: ER 16:41 → UNDOADMIN 18:48 → EH 18:48 → ICU 23:07 → EH 23:07 → 4N 03-18 16:10 → ICU 03-18 16:10 → 3S 03-18 18:21
PROVIDERS: ADMIT Anesthesiology; ATTEND Anesthesiology
DX: J18.9 Pneumonia, unspecified organism (principal); J96.01 Acute respiratory failure with hypoxia; F11.20 Opioid dependence, uncomplicated; F13.20 Sedative, hypnotic or anxiolytic dependence, uncomplicated; J44.1 Chronic obstructive pulmonary disease with (acute) exacerbation; J44.0 Chronic obstructive pulmonary disease with (acute) lower respiratory infection; J90 Pleural effusion, not elsewhere classified; J98.19 Other pulmonary collapse; T40.601A Poisoning by unspecified narcotics, accidental (unintentional), initial encounter; I48.91 Unspecified atrial fibrillation; F41.9 Anxiety disorder, unspecified; R91.8 Other nonspecific abnormal finding of lung field; B37.9 Candidiasis, unspecified; R59.1 Generalized enlarged lymph nodes; F17.210 Nicotine dependence, cigarettes, uncomplicated; I95.89 Other hypotension; E86.1 Hypovolemia; D64.9 Anemia, unspecified; G89.29 Other chronic pain; M54.5 Low back pain; D72.829 Elevated white blood cell count, unspecified; K21.9 Gastro-esophageal reflux disease without esophagitis; M19.90 Unspecified osteoarthritis, unspecified site; Z90.49 Acquired absence of other specified parts of digestive tract; Z82.49 Family history of ischemic heart disease and other diseases of the circulatory system; Y92.009 Unspecified place in unspecified non-institutional (private) residence as the place of occurrence of the external cause; Z79.01 Long term (current) use of anticoagulants
CPT/HCPCS: 36415; 36600; 71045; 71046; 71250; 74230; 78582; 80048; 80053; 81001; 82533; 82607; 82728; 82746; 82803; 82962; 83540; 83550; 83605; 83735; 84443; 84484; 85025; 85027; 85045; 85610; 85730; 87040; 87070; 87205; 93005; 93010; 94667; 94799; 96361; 96365; 96375; 99231; 99291; A9540; A9567; J0282; J1160; J1644; J1650; J1956; J2310; J2405; J2543; J2920; J3490; J7030; J7040; J7042; J7050; J7060; J7512; J7620; Q9969

== ENCOUNTER 2019-04-09 16:29 | Emergency (ER) | payer MEDICARE, OTHER ==
[2019-04-09] MEDS ORDERED: METHYLPREDNISOLONE INJ 125 MG/2 ML SDV IV ONE (16:54)
[2019-04-09] MEDS ORDERED: IPRATROPIUM/ALBUTEROL 0.5-2.5 MG/3 ML AMPUL NEB ONE (16:54)
--- NOTE | 2019-04-09 16:58 | ER Document Report ---
ED Medical Screen (RME) - General Chief Complaint: Breathing Difficulty Stated Complaint: DIFFICULTY BREATHING Time Seen by Provider: 04/09/19 16:49 Mode of Arrival: Ambulatory Information source: Patient Notes: 69-year-old female patient recently discharged from [facility] with pneumonia presenting with shortness of breath and fever. Patient reports she was inpatient for 17 days. She states that she has had increased fever over the last few days, 103 yesterday. She states she saw her primary care provider yesterday who urged her to come to the emergency department. Patient reports that she was unable to make it here yesterday. She also reports a diagnosis of a new lung mass, states she is supposed have a biopsy done on Thursday. Patient very tearful in triage. Rhonchi throughout. I have greeted and performed a rapid initial assessment of this patient. A comprehensive ED assessment and evaluation of the patient, analysis of test results and completion of the medical decision making process will be conducted by additional ED providers. I have specifically instructed the patient or family members with the patient to immediately return to any nursing staff should anything change in the patient's condition or with their chief complaint. TRAVEL OUTSIDE OF THE [place] IN LAST 30 DAYS: No - Related Data Allergies/Adverse Reactions: No Known Allergies Allergy (Verified 03/27/18 23:17) Past Medical History - Past Medical History Cardiac Medical History: Reports: Hx Atrial Fibrillation - Intermittent per patient, Hx Peripheral Vascular Disease Denies: Hx Hypertension Pulmonary Medical History: Reports: Hx COPD, Hx Pneumonia Denies: Hx Asthma, Hx Bronchitis Neurological Medical History: Denies: Hx Cerebrovascular Accident, Hx Seizures Renal/ Medical History: Denies: Hx Peritoneal Dialysis GI Medical History: Reports: Hx Gastroesophageal Reflux Disease Musculoskeltal Medical History: Reports Hx Arthritis Psychiatric Medical History: Reports: Hx Anxiety Comment Only: Hx Depression - anxiety Past Surgical History: Reports: Hx Adenoidectomy, Hx Carotid Endarterectomy, Hx Cholecystectomy, Hx Orthopedic Surgery - Back surgery, wrist surgery, neck surgery, Hx Tonsillectomy, Hx Vascular Surgery - Immunizations Hx Diphtheria, Pertussis, Tetanus Vaccination: Yes Physical Exam - Vital signs Vitals: Temp Pulse Resp BP Pulse Ox 98.9 F 114 H 18 144/86 H 93 04/09/19 16:33 04/09/19 16:33 04/09/19 16:33 04/09/19 16:33 04/09/19 16:33 Course - Vital Signs Vital signs: Temp Pulse Resp BP Pulse Ox 98.9 F 114 H 18 144/86 H 93 04/09/19 16:33 04/09/19 16:33 04/09/19 16:33 04/09/19 16:33 04/09/19 16:33
--- NOTE | 2019-04-09 17:49 | RADIOLOGY REPORT (SQ) ---
EXAM DESCRIPTION: CHEST 2 VIEWS COMPLETED DATE/TIME: 04/09/2019 5:26 pm REASON FOR STUDY: fever/cough COMPARISON: 03/30/2019 TECHNIQUE: Frontal and lateral radiographic views of the chest acquired. NUMBER OF VIEWS: Two view. LIMITATIONS: None. FINDINGS: LUNGS AND PLEURA: No pneumothorax. Similar confluent opacity -airspace disease in the rig ht middle lobe. No pleural effusion. MEDIASTINUM AND HILAR STRUCTURES: Stable. HEART AND VASCULAR STRUCTURES: Stable. BONES: No acute findings. HARDWARE: None in the chest. OTHER: No other significant finding. IMPRESSION: NO ACUTE FINDINGS.Similar confluent opacity -airspace disease in the right middle lobe. No pleural effusion. TECHNICAL DOCUMENTATION: JOB ID: [id number] [id number] 2010 [employer]- All Rights Reserved Reading location - IP/workstation name: [employer]
[2019-04-09 19:12] LABS: ABSOLUTE BASOPHILS # (AUTO) 0.1 10^3/uL (0.0-0.2); ABSOLUTE MONOCYTES (AUTO) 0.8 10^3/uL (0.1-1.4); ABSOLUTE NEUT (AUTO) 6.8 10^3/uL (1.7-8.2); BASOPHILS % (AUTO) 0.9 % (0-2); EOSINOPHILS % (AUTO) 0.1 % (0-6); HEMATOCRIT 32.7 % (36.0-47.0); HEMOGLOBIN 10.6 g/dL (12.0-15.5); LYMPHOCYTES % (AUTO) 11.3 % (13-45); MEAN CORPUSCULAR HEMOGLOBIN 26.7 pg (27.0-33.4); MEAN CORPUSCULAR HGB CONC 32.5 g/dL (32.0-36.0); MEAN CORPUSCULAR VOLUME 82 fl (80-97); MONOCYTES % (AUTO) 9.1 % (3-13); PLATELET COUNT 528 10^3/uL (150-450); RED BLOOD COUNT 3.98 10^6/uL (3.72-5.28); RED CELL DISTRIBUTION WIDTH 19.5 % (11.5-14.0); SEGMENTED NEUTROPHILS % (AUTO) 78.6 % (42-78); TOTAL CELLS COUNTED % (AUTO) 100 %; WHITE BLOOD COUNT 8.7 10^3/uL (4.0-10.5)
[2019-04-09 19:42] LABS: TROPONIN I 0.032 ng/mL
[2019-04-09 19:45] LABS: APPEARANCE,URINE CLEAR; BILIRUBIN,URINE NEGATIVE (NEGATIVE); COLOR,URINE YELLOW; GLUCOSE, URINE NEGATIVE (NEGATIVE); KETONES,URINE NEGATIVE (NEGATIVE); LEUKOCYTE ESTERASE,URINE NEGATIVE (NEGATIVE); NITRITE,URINE NEGATIVE (NEGATIVE); PROTEIN,URINE NEGATIVE (NEGATIVE); URINE SPECIFIC GRAVITY 1.005; UROBILINOGEN,URINE NEGATIVE mg/dL (<2.0)
[2019-04-09] MEDS ORDERED: BUTALB/ACETAMINOPHEN/CAFFEINE 1 TAB EACH PO ONE (19:47)
[2019-04-09] MEDS ORDERED: ALPRAZOLAM 0.25 MG TABLET PO ONE (19:48)
[2019-04-09 19:49] LABS: BLOOD UREA NITROGEN 11 mg/dL (7-20); CALCIUM 9.3 mg/dL (8.4-10.2); GLUCOSE 84 mg/dL (75-110)
[2019-04-09 19:50] LABS: ALBUMIN 3.7 g/dL (3.5-5.0); ALKALINE PHOSPHATASE 122 U/L (38-126); ANION GAP 7 (5-19); ASPARTATE AMINO TRANSFERASE 26 U/L (14-36); BILIRUBIN,DIRECT 0.3 mg/dL (0.0-0.4); BILIRUBIN,TOTAL 0.4 mg/dL (0.2-1.3); CARBON DIOXIDE 33 mmol/L (22-30); CHLORIDE 100 mmol/L (98-107); POTASSIUM 4.5 mmol/L (3.6-5.0)
[2019-04-09 19:51] LABS: TOTAL PROTEIN 7.4 g/dL (6.3-8.2)
--- NOTE | 2019-04-09 19:51 | ER Document Report ---
ED Respiratory Problem - General Chief Complaint: Shortness Of Breath Stated Complaint: DIFFICULTY BREATHING Time Seen by Provider: 04/09/19 16:49 Primary Care Provider: MARCO PAREDES PA-C [Primary Care Provider] - Follow up as needed Mode of Arrival: Ambulatory Notes: 69-year-old woman presents to the emergency department with a history of treated in the hospital for pneumonia and discharged last week. She has been having episodes of shortness of breath, went to see her primary care doctor who suggested that she come back to the emergency department. Patient has been afebrile, and is in no respiratory distress presently. She was given nebulizer treatment and labs were drawn. Chest x-ray was performed revealing residual right middle lobe consolidation. TRAVEL OUTSIDE OF THE [place] IN LAST 30 DAYS: No - Related Data Allergies/Adverse Reactions: No Known Allergies Allergy (Verified 03/27/18 23:17) Past Medical History - General Information source: Patient - Social History Smoking Status: Never Smoker Family History: CAD Patient has suicidal ideation: No Patient has homicidal ideation: No - Past Medical History Cardiac Medical History: Reports: Hx Atrial Fibrillation - Intermittent per patient, Hx Peripheral Vascular Disease Denies: Hx Hypertension Pulmonary Medical History: Reports: Hx COPD, Hx Pneumonia Denies: Hx Asthma, Hx Bronchitis Neurological Medical History: Denies: Hx Cerebrovascular Accident, Hx Seizures Renal/ Medical History: Denies: Hx Peritoneal Dialysis GI Medical History: Reports: Hx Gastroesophageal Reflux Disease Musculoskeletal Medical History: Reports Hx Arthritis Psychiatric Medical History: Reports: Hx Anxiety Comment Only: Hx Depression - anxiety Past Surgical History: Reports: Hx Adenoidectomy, Hx Carotid Endarterectomy, Hx Cholecystectomy, Hx Orthopedic Surgery - Back surgery, wrist surgery, neck surgery, Hx Tonsillectomy, Hx Vascular Surgery - Immunizations Hx Diphtheria, Pertussis, Tetanus Vaccination: Yes Review of Systems - Review of Systems Notes: Constitutional: Negative for fever. HENT: Negative for sore throat. Eyes: Negative for visual changes. Cardiovascular: Negative for chest pain. Respiratory: + shortness of breath. Gastrointestinal: Negative for abdominal pain, vomiting or diarrhea. Genitourinary: Negative for dysuria. Musculoskeletal: Negative for back pain. Skin: Negative for rash. Neurological: + headaches, + anxiety, weakness or numbness. 10 point ROS negative except as marked above and in HPI. Physical Exam - Vital signs Vitals: Temp Pulse Resp BP Pulse Ox 98.9 F 114 H 18 144/86 H 93 04/09/19 16:33 04/09/19 16:33 04/09/19 16:33 04/09/19 16:33 04/09/19 16:33 - Notes Notes: PHYSICAL EXAMINATION: Physical Exam: General: Thin frail elderly female in no acute distress HEENT: NC/AT, pupils equal round and reactive to light, MM moist,nares clear, Neck: supple, no adenopathy, no masses. Lungs: Good air movement, crackles on the right greater than left, no acute wheezing or rhonchi. CVS: Regular rate and rhythm no murmur gallop or rub Abdomen: Soft active nontender, no masses, no hepatosplenomegaly Ext: No edema clubbing or cyanosis. Neuro: Alert and responsive, moving all 4 extremities on command, cranial nerves intact. Skin: Intact no open lesions, no rash PSYCH: Normal mood, normal affect. Course - Re-evaluation Re-evalutation: 04/09/19 20:19 Patient is given nebulizer treatments and her usual home medications, she appears to be doing well. O2 sat is in the mid 90s, she is not tachycardic and afebrile. Explained to the patient and her symptoms do not meet criteria for admission. - Vital Signs Vital signs: Temp Pulse Resp BP Pulse Ox 98.9 F 114 H 18 144/86 H 93 04/09/19 16:59 04/09/19 16:33 04/09/19 16:59 04/09/19 16:33 04/09/19 17:54 - Laboratory Result Diagrams: 04/09/19 18:50 04/09/19 18:50 Laboratory results interpreted by me: 04/09/19 04/09/19 04/09/19 18:50 18:50 18:50 Hgb 10.6 L Hct 32.7 L MCH 26.7 L RDW 19.5 H Plt Count 528 H Lymph % (Auto) 11.3 L Seg Neutrophils % 78.6 H Carbon Dioxide 33 H NT-Pro-B Natriuret Pep 1280 H - Diagnostic Test Radiology reviewed: Image reviewed - Chest x-ray: No acute findings, right middle lobe consolidation which is improved from previous chest x-ray., Reports reviewed - EKG Interpretation by Me EKG shows normal: Sinus rhythm Rate: Normal - Rate of 98, no acute ST or T wave abnormalities. Discharge - Discharge Clinical Impression: Anxiety COPD (chronic obstructive pulmonary disease) Qualifiers: COPD type: unspecified COPD Qualified Code(s): J44.9 - Chronic obstructive pulmonary disease, unspecified Chronic pain Qualifiers: Chronic pain type: other chronic pain Qualified Code(s): G89.29 - Other chronic pain Disposition: HOME, SELF-CARE Instructions: Chronic Obstructive Lung Disease ([facility]) Referrals: MARCO PAREDES PA-C [Primary Care Provider] - Follow up as needed
[2019-04-09 21:05] VITALS: BP 122/74
--- NOTE | 2019-04-09 21:25 | EKG REPORT ---
SEVERITY:- NORMAL ECG - SINUS RHYTHM : Confirmed by: Janna Lozano 09-Apr-2019 21:25:10
== END 2019-04-09 21:05 | disposition home or self-care (01) ==
LOC: ER 16:29
DX: F41.9 Anxiety disorder, unspecified (principal); J44.9 Chronic obstructive pulmonary disease, unspecified; G89.29 Other chronic pain; R06.02 Shortness of breath; R06.00 Dyspnea, unspecified
CPT/HCPCS: 93005; 94640; 99285; 96374; 36415; 87040; 83605; 85025; 80053; 81001; 84484; 83880; 71046; 93010; A9270 ×3; J2930; J3490; J7620